=== PATIENT | female | born 1955 | race Caucasian/White ===

== ENCOUNTER 2024-05-13 15:46 | Inpatient (IN) ==
[2024-05-13] MEDS: CALCIUM GLUCONATE 1,000 MG/60 ML BAG IV STA ×2 (16:29→18:54)
--- NOTE | 2024-05-13 16:33 | Electrocardiogram Report ---
Test Reason : Blood Pressure : */* mmHG Vent. Rate : 92 BPM Atrial Rate : 92 BPM P-R Int : 120 ms QRS Dur : 120 ms QT Int : 484 ms P-R-T Axes : 57 5 150 degrees QTcB Int : 598 ms Sinus rhythm with occasional Premature ventricular complexes and Premature atrial complexes Left ventricular hypertrophy with QRS widening and repolarization abnormality Abnormal ECG No previous ECGs available Confirmed by Dat Miguel ([id number]) on 05/13/2024 4:32:56 PM Referred By: Confirmed By: Dat Miguel
[2024-05-13 16:37] LABS: iSTAT Creatinine 3.4 mg/dl (0.6-1.3); iSTAT Hemoglobin 13.3 g/dl (12.0-16.0); iSTAT Ionized Calcium 0.75 mmol/l (1.12-1.32)
[2024-05-13 16:39] LABS: Albumin Globulin Ratio 0.8 (0.9-2); BUN Creatinine Ratio 10.9 (10-20); Bilirubin,Total 0.7 mg/dl (0.2-1.0); Calcium 6.7 mg/dl (8.6-10.3); Creatinine Clr Calc Pharmacy 13.1 ml/min; Globulin 3.6 gm/dl (2.5-4.0); Magnesium 1.4 mg/dl (1.7-2.4); Potassium 3.1 mmol/L (3.5-5.1); Total Protein 6.6 gm/dl (6.0-8.3)
[2024-05-13 16:44] LABS: Basophils # (auto) 0.13 K/uL (0.00-0.20); Basophils % (auto) 0.8 %; Eosinophils # (auto) 0.02 K/uL (0.00-0.50); Eosinophils % (auto) 0.1 %; Hematocrit (blood only) 35.1 % (37.0-47.0); Hemoglobin 12.1 g/dl (12.0-16.0); Immature Granulocytes # (auto) 0.17 K/uL (0.01-0.20); Lymphocytes % (auto) 6.7 %; Mean Corpuscular Hgb Conc 34.5 g/dL (32.0-36.0); Mean Corpuscular Volume 86.9 fL (80.0-100.0); Mean Platelet Volume 11.1 fL (9.4-12.4); Monocytes # (auto) 1.13 K/uL (0.11-0.59); Monocytes % (auto) 6.9 %; Neutrophils # (auto) 13.78 K/uL (1.40-6.50); Neutrophils % (auto) 84.5 %; Platelet Count 442 K/uL (130-400); RDW Coefficient of Variation 13.8 % (11.5-14.5); RDW Standard Deviation 41.6 fL (36.4-46.3); Red Blood Count 4.04 M/uL (4.20-5.40); White Blood Count 16.33 K/ul (4.8-10.8)
[2024-05-13 16:53] LABS: INR 1.1 (0.9-1.1); Partial Thromboplastin Ratio 0.9; Partial Thromboplastin Time 25 Seconds (21-31); Prothrombin Time 11.8 Seconds (9.0-12.0)
[2024-05-13] MEDS: MAGNESIUM SULFATE / D5W 1 GM/100 ML BAG IV SCH (17:23)
--- NOTE | 2024-05-13 17:30 | CT Scan Report ---
EXAMINATION: CT of the abdomen and pelvis performed without contrast TECHNIQUE: Helical CT images from the lung bases through the symphysis pubis were obtained without contrast. Coronal and sagittal reformatted images were generated at a workstation for further assessment. Dose reduction techniques were achieved by using automatic exposure control and/or adjustment of mA and/or kV according to patient size and/or use of iterative reconstruction technique. COMPARISON: None HISTORY: Abdominal pain FINDINGS: Lower chest: No consolidation. No pleural effusion or pneumothorax. Liver: No suspicious liver lesions. Gallbladder: No gallstones. No evidence of acute cholecystitis. Spleen: Normal size. Pancreas: No suspicious pancreatic lesions. The pancreatic duct is not dilated. Adrenal glands: No adrenal nodules. Kidneys: No hydronephrosis or obstructing renal stones. Bladder / Pelvic organs: The urinary bladder appears unremarkable. Within the left pelvis, is an indeterminate, ovoid/tubular shaped collection of fluid with a thin or imperceptible wall without inflammatory change, series 2 image 59, measuring 8.2 x 3.2 cm.. Bowel: Moderate fluid-filled stomach, as well as significant distention of the descending portion of the duodenum, and several loops of jejunum. There is a transitional point seen about the anterior mid abdomen, at approximately series 2 image 48, where there is visualized significant soft tissue thickening, possibly related to scar/adhesions. Sigmoid diverticulosis without diverticulitis. The large bowel contains mild fluid and is otherwise relatively decompressed. There are decompressed distal loops of small bowel. Lymph nodes: No retroperitoneal, mesenteric, or pelvic lymphadenopathy. Peritoneum / Retroperitoneum: No free fluid or air within the abdomen. Vessels: No infrarenal aortic aneurysm. Moderate aortoiliac calcification. Bones and soft tissues: No suspicious lesion in the bones. IMPRESSION: Small bowel obstruction, with transition point at the anterior mid abdomen, where there is visualized thickened soft tissue, likely representing scar/adhesions. A fluid collection in the left pelvis, has a relatively simple appearance with possible few internal thin septations, and is indeterminate, possibly lymphangioma, or postoperative seroma, versus an ovarian cystic lesion. Consider nonemergent follow-up pelvic ultrasound. "ACT 112: Positive. There are findings on this exam that require communication between the performing entity and the patient following Patient Test Result Information Act ([place] ACT 112) guidelines." Electronically signed by Praveen Herrera 05-13-2024 5:29 PM
[2024-05-13] MEDS: PIPERACILLIN/TAZOBACTAM 4.5 GM/120 ML BAG IV ONE (17:58)
--- NOTE | 2024-05-13 18:24 | History & Physical Report ---
Date of Service May 13, 2024 Assessment & Plan (1) SBO (small bowel obstruction): Plan: 68-year-old female with a history of pancreatic cancer with metastasis to the lungs, appendix, omentum, cardiomyopathy, torsade, SBO, hypokalemia and hypomagnesemia, presenting with persistent nausea, poor oral intake and weakness times few days. Small bowel obstruction, recurrent Metastatic pancreatic cancer, mets to the lungs, appendix, omentum Status post appendectomy last February 2024 First diagnosed with metastatic pancreatic cancer at that time Had chemotherapy early April Admitted to [facility] late April for small bowel obstruction, managed conservatively CT abdomen pelvis: Small bowel obstruction, with transition point at the anterior mid abdomen, where there is visualized thickened soft tissue, likely representing scar/adhesions. A fluid collection in the left pelvis, has a relatively simple appearance with possible few internal thin septations, and is indeterminate, possibly lymphangioma, or postoperative seroma, versus an ovarian cystic lesion. Consider nonemergent follow-up pelvic ultrasound. Case discussed by ER physician with general surgeon Dr. Miller Recommend bowel rest, IV fluids, electrolyte repletion Follows with Dr. Melvin Waggoner for oncology Acute renal failure, prerenal, secondary to poor oral intake Baseline creatinine 0.4, presenting with creatinine of 3.2 CT abdomen pelvis: No renal obstruction IV NSS plus potassium ordered Hypokalemia, hypocalcemia, hypomagnesemia, hyponatremia Secondary to poor oral intake K riders x 6 IV magnesium x 2 IV calcium gluconate x 2 Repeat BMP at 8 PM and 12 midnight Needs aggressive repletion of electrolytes and close monitoring of EKG as patient had V-fib arrest/torsade last month in the setting of electrolyte abnormalities DVT prophylaxis SCDs for now as patient may need surgical intervention for SBO Full code as per patient Disposition Lives at home with family plan of care discussed with patient in detail and at length all questions answered shei s understanding, agreeable, comfortable with the plan of care History of Present Illness Chief Complaint: Nausea, weakness Primary Care Provider: Sherwin Painter MD 68-year-old female with a history of pancreatic cancer with metastasis to the lungs, appendix, omentum, cardiomyopathy, torsade, SBO, hypokalemia and hypomagnesemia, presenting with persistent nausea, poor oral intake and weakness times few days. Last February 2024, patient was diagnosed with pancreatic cancer after undergoing appendectomy for appendicitis. Pancreatic cancer has metastasized to lungs, appendix and omentum. She follows with Dr. Melvin Waggoner for oncology and has received chemotherapy in early April. Soon after, patient was admitted to [facility] for small bowel obstruction complicated by V-fib arrest/torsades in the setting of multiple electrolyte abnormalities. Patient was discharged home AGAINST MEDICAL ADVICE end of April. Since discharge, patient was having intermittent abdominal discomfort, nausea, poor oral intake and weakness. Today, patient followed up with Dr. Waggoner and was found to have multiple electrolyte abnormalities and acute renal failure on her BMP. She was referred to the ER for evaluation. At the ER, patient received with stable vital signs overall. CT abdomen and pelvis showed small bowel obstruction with transition point at the anterior mid abdomen. Creatinine elevated at 3.2, potassium 3.0, calcium 0.75, magnesium 1.4, sodium 130 Patient was ordered 1 g of calcium gluconate, 2 g of magnesium IV. On exam, patient seen resting in bed, comfortable, not in distress, awake and alert. States she feels weak, thirsty, but denies active abdominal pain or nausea, fevers or chills. No shortness of breath, chest pain, potation's, dizziness. Patient reports decreased urine output. Allergies Allergy/AdvReac Type Severity Reaction Status Date / Time No Known Allergies Allergy Unverified 05/13/24 18:13 Home Medications Medication Instructions Recorded Confirmed Type potassium chloride 10 mEq 40 meq PO TID 05/13/24 05/13/24 History tablet,extended release Past Med/Surg History Problem List (Updated 05/13/24 @ 18:24 by Olvin Alfred MD) SBO (small bowel obstruction) Social History Smoking Status: Current every day smoker Tobacco Type: Cigarettes Feels Safe at Home: Yes Review of Systems Review of Systems: all noted and negative except for above Physical Exam Physical Exam: General- oriented x 3, not in distress, speaks in sentences with no effort or accessory muscle use Head- atraumatic Eyes- PERRL, EOMI, anicteric Positive oral thrush ENT- oropharynx clear Neck- supple, no JVD, no adenopathy, no thyromegaly; carotids +2/2, no bruits appreciated Lungs- clear to auscultation bilaterally, no rales/wheezes Heart- normal rate, regular rhythm; no murmur, no gallop, no rub appreciated Abdomen- Midline surgical scar, healing well;normal bowel sounds, nondistended, soft, nontender, no masses or hepatosplenomegaly Extremities- no pretibial edema, no calf tenderness; peripheral pulses intact Neuro- alert, oriented x 3; CN 2-12 grossly intact; motor 5/5 bilaterally;sensation 100% on all extremities; no other gross focal neurologic deficits Skin- warm & dry Results & Data Results & Data Vital Signs (Past 12 Hours) Vital Signs Temp Pulse Pulse Resp BP BP Pulse Ox 05/13/24 17:31 90 20 113/56 L 91 05/13/24 16:40 84 05/13/24 16:00 36.6 C 97 H 16 110/71 94 O2 Del Method 05/13/24 17:31 Room Air 05/13/24 16:40 05/13/24 16:00 Room Air all noted and reviewed including below Code Status & VTE Plan VTE Prophylaxis Plan VTE Prophylaxis will be ordered: Yes
[2024-05-13] MEDS: SODIUM CHLORIDE 0.9% 1,000 ML IV SCH (18:54)
[2024-05-13 19:40] VITALS: RESP 18
[2024-05-13] MEDS: POTASSIUM CHLORIDE / WTR 10 MEQ/100 ML PLCT IV SCH (19:45)
--- NOTE | 2024-05-13 20:19 | Surgery Consultation ---
Date of Consultation May 13, 2024 Assessment & Plan (1) SBO (small bowel obstruction): The patient is being admitted on the hospitalist service. From surgery perspective we recommend the following: Due to the patient's small bowel obstruction would recommend implementing n.p.o. status Would recommend hydrating the patient with intravenous fluids pain close attention to electrolyte supplementationas this is being handled by the primary service I did discuss the possibility of using an NG tube with the patient which she adamantly refused. I do feel is reasonable to hold on NG tube at this time as she has not had any emesis in approximate 12 hours and she is not having abdominal pain. I did discuss with the patient that if her clinical condition worsens we may need to revisit the topic of this modality. I also discussed with the patient that due to her metastatic cancer and underlying cardiomyopathy if she would require an operation would likely need to be transferred to a tertiary center Additional recommendations will be forthcoming based on clinical course as unfolds Supervising Physician Co-Signing Physician Notes Patient discussed with [facility], labs and imaging reviewed, agree with above. Metastatic pancreatic cancer presented with recurrent small bowel obstruction. CT personally reviewed and interpreted agree with the assessment of transition point in the mid abdomen. Due to the degree of her disease, she is not a candidate for surgery at this facility. We can manage her nonoperatively, but if she were to need for surgical intervention would recommend transfer to a tertiary center. Given her degree of disease, consider palliative care consultation to help define goals of care case surgery were necessary History of Present Illness Reason for Consultation: Small bowel obstruction History of Present Illness This is a 68-year-old female who presented to the emergency department at the recommendation of her oncologist, Dr. Waggoner of [facility] oncology due to multiple electrolyte abnormalities. This patient does have a history of pancreatic cancer with metastatic disease to the lungs, appendix, and omentum. The patient notes that she has had 1 round of chemotherapy approximately 2 weeks ago but she missed the second scheduled treatment as she was hospitalized in [facility] in April of this year. She was admitted to [facility] secondary to a small bowel obstruction which was complicated by a ventricular fibrillation arrest as the patient was noted to have multiple electrolyte abnormalities. Reportedly, the patient left the hospital AGAINST MEDICAL ADVICE. She presented to the emergency department today again, at the recommendation of her oncologist due to multiple electrode abnormalities. The patient does note that she is not having any abdominal pain but she has been having nausea and vomiting prior to admission. She does report her most recent episode of emesis was approximately 12 hours ago. She said that she had a small bowel movement this morning and is passing small amounts of flatus. She has had prior abdominal surgeries in the form of a ruptured appendix (she was diagnosed with pancreatic cancer at the time of this operation) and a hysterectomy. Patient does report that during her most recent admission to [facility] for small bowel obstruction was treated successfully in a conservative manner with NG tube decompression, n.p.o. status and intravenous fluid for hydration. Since arrival to the hospital this patient has had labs and imaging which I independent reviewed. A CT scan of the abdomen pelvis showed concern for small bowel obstruction with a transition point in the anterior/mid abdomen most likely from adhesions. There is no free intraperitoneal air or free intraperitoneal fluid noted on this study. Labs included CBC white blood cell count was elevated 16.3. Her hemoglobin was normal. Hematocrit was 35.1. Platelet count was 442,000. Coagulation studies were normal. Chemistry profile showed sodium was 130 with a potassium of 3.1. BUN and creatinine were noted to be 35 and 3.2. Calcium level was 6.7. Magnesium was noted to be 1.4. There is no elevation noted of patient's LFTs. At the time of my interview the patient was resting comfortably bed she was no distress. 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 Malignant neoplasm of pancreas SBO (small bowel obstruction) Social History Smoking Status: Current every day smoker Tobacco Type: Cigarettes Cigarettes Per Day: 3; Second Hand Exposure: No; Do You Dip or Chew Tobacco: No; Tobacco Cessation Education Requested by Patient: No Hx Alcohol Use: No Hx Substance Use: No Preferred Language: Panamanian Communication Ability: Effective Teasel Setter Required: No Beliefs That Will Affect Care: None Current Living Situation: Spouse Other Information That Helps Us Care for You: No Feels Safe at Home: Yes Safety Concerns: Feels Safe At This Time Assistive Devices: None Review of Systems Review of Systems: All systems reviewed & are unremarkable except as noted in HPI & below Physical Exam Constitutional: + thin; no acute distress Eyes: + anicteric sclerae ENMT: Ears: no hearing impairment and no external ear abnormality Mouth: no oropharynx abnormality Neck: trachea midline Respiratory: normal respiratory effort; no respiratory distress and no labored breathing Cardiovascular: Rate/Rhythm: regular rate and regular rhythm Gastrointestinal (Abdomen): At the time my exam the patient's abdomen is soft without rigidity and only mild distention. There is no pain with palpation. There is no rebound tenderness or guarding. Patient had a well-healed midline incision from her previous surgeries. Musculoskeletal: No calf tenderness Skin: no jaundice Neurologic: moves all extremities Psychiatric: A+Ox3, euthymic affect Results & Data Vital Signs (Past 12 Hours) Vital Signs Temp Pulse Pulse Resp BP BP Pulse Ox 05/13/24 19:00 84 18 117/67 05/13/24 17:31 90 20 113/56 L 91 05/13/24 16:40 84 05/13/24 16:00 36.6 C 97 H 16 110/71 94 O2 Del Method 05/13/24 19:00 05/13/24 17:31 Room Air 05/13/24 16:40 05/13/24 16:00 Room Air PG Care Time/CCT Total # of Minutes Spent Total Time Spent with Patient: Total time spent is greater than 50% in coordination of care (as documented) at patient's floor/unit and/or counseling patient: Coding Level of Care Code 34266 INT INP/OBS CARE 3/75MIN Diagnoses SBO (small bowel obstruction) K56.609
[2024-05-13 20:26] LABS: Albumin Globulin Ratio 0.8 (0.9-2); Albumin Level 2.8 gm/dl (3.4-5.0); BUN Creatinine Ratio 11.8 (10-20); Bilirubin,Total 0.8 mg/dl (0.2-1.0); Calcium 7.7 mg/dl (8.6-10.3); Creatinine Clr Calc Pharmacy 13.7 ml/min; Globulin 3.4 gm/dl (2.5-4.0); Magnesium 2.7 mg/dl (1.7-2.4); Phosphorus 3.4 mg/dl (2.5-4.9); Potassium 2.6 mmol/L (3.5-5.1); Total Protein 6.2 gm/dl (6.0-8.3)
[2024-05-13] MEDS: D5NSS + 20MEQ KCL 20 MEQ/1,000 ML BAG IV SCH (20:33)
--- NOTE | 2024-05-13 22:30 | Emergency Department Note ---
History of Present Illness General Chief complaint: Dehydration Stated complaint: DEHYDRATION Time Seen by Provider: 05/13/24 16:19 History of Present Illness Provider complaint: Dehydration 68-year-old female presents emergency department from [facility] oncology for dehydration. Reportedly patient has had 1 dose of chemotherapy for pancreatic cancer and the patient has been having increasing nausea and vomiting. She reports no fevers or abdominal pain. No hematemesis coffee- ground emesis bilious vomiting melena or hematochezia. 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 Malignant neoplasm of pancreas SBO (small bowel obstruction) Social History Smoking Status: Current every day smoker Tobacco Type: Cigarettes Feels Safe at Home: Yes Physical Exam Vital Signs Vital Signs - 24 hr 05/13/24 16:00 05/13/24 16:40 05/13/24 17:31 Temperature 36.6 C Temperature Source Oral Pulse Rate 97 H 84 Pulse Rate [Apical] 90 Respiratory Rate 16 20 Respiratory Effort / Characteristics Non-Labored Spontaneous Respiratory Depth Normal Blood Pressure 110/71 Blood Pressure [Right Arm] 113/56 L Blood Pressure Mean 84 Blood Pressure Mean [Right Arm] 75 Pulse Oximetry 94 91 Oxygen Delivery Method Room Air Room Air Sepsis Recent Fever Within 48 Hours No Sepsis New/Unexplained Change in Mental Status No Sepsis Action Taken by Nursing No Action Required Physical Exam HENT: Exam performed. - Head: Normocephalic and atraumatic. EYES: Conjunctivae and EOM are normal. Right eye exhibits no discharge. Left eye exhibits no discharge. No scleral icterus. NECK: Normal range of motion. Neck supple. No JVD present. CV: Normal rate, regular rhythm, normal heart sounds and intact distal pulses. There is no peripheral edema. Palpable radial pulses bue. PULM/CHEST: Effort normal and breath sounds normal. No respiratory distress. No stridor. no wheezes. no rales. ABD: The abdomen is soft. There is no tenderness. NEURO: Motor and sensation grossly intact. SKIN: Skin is warm and dry. He is not diaphoretic. PSYCH: normal mood and affect. Behavior is normal. Judgment and thought content normal. Course Course 1619: The patient was evaluated in room B10. A complete history and physical exam was performed Cardiac monitoring: An order was placed for continuous cardiac monitoring. The monitor shows a rate of 90 with sinus rhythm interpreted by me EKG shows PVCs and peaked T waves in leads V1, V2, V3, II, III. Calcium gluconate ordered for the patient. I-STAT ordered for the patient. 1627: logistics analytics manager Tammi was able to access the patient's lab records from [facility]. External medical records were reviewed and patient blood work today which showed a creatinine of 3.3 BUN of 35. 1650: External medical records reviewed. Patient's labs from or 2024 showed a BUN of 8 and creatinine of 0.4. Pain CT of the abdomen pelvis to rule out any obstructive cause of the patient's GONZALO. 1735: Labs show white blood cell count of 16.3 magnesium 1.4. Magnesium repletion started in the emergency department. Zosyn ordered for the patient. 1805: Vital signs stable. CT of the abdomen pelvis shows small bowel obstruction. There is a fluid collection in the left pelvis has a simple appearance with possible few internal thin septations measuring 8.2 x 3.2 cm. External medical records were reviewed from the patient's admission from primary May 07 2024. At that time the patient was admitted to [facility] for small bowel obstruction. Patient had a CT scan done on 08/04/2024 which showed a small bowel obstruction and fluid collections in the abdomen pelvis with largest in the left pelvic sidewall measuring 4.3 x 3.5 x 8.1 cm. During the patient's admission to [facility] the patient went into torsades and had to be defibrillated and intubated. This was thought to be a result of the patient's electrolyte disturbance. Discussed case with on-call surgery Dr. Miller. He stated that the patient could be admitted here with bowel rest but he did not plan on operating on the patient here. Discussed this with the patient and she is in agreement. She stated last time they do not need to operate on her and she states her symptoms are already getting better is requesting food and states she had a bowel movement earlier today. Dr. Miller recommended an NG tube however the patient adamantly refused. Patient will be admitted to the [facility] team. Administered Medications Potassium Chloride (K Edilson / Wtr) 10 meq in 100 mls @ 100 mls/hr IV Q1H OLIVIA Stop: 05/14/24 00:59 Last Admin: 05/13/24 21:43 Dose: 100 mls/hr Documented By: Infusion: 05/13/24 21:35 Dose: Infused Documented By: Admin: 05/13/24 20:35 Dose: 100 mls/hr Documented By: Infusion: 05/13/24 20:35 Dose: Infused Documented By: Admin: 05/13/24 19:45 Dose: 100 mls/hr Documented By: HERNAN Potassium Chloride/Dextrose/Sod Cl (D5nss + 20meq Kcl) 20 meq in 1,000 mls @ 100 mls/hr IV .Q10H OLIVIA Stop: 05/14/24 19:44 Last Admin: 05/13/24 20:33 Dose: 100 mls/hr Documented By: HERNAN Discontinued Medications Calcium Gluconate () 1,000 mg in 60 mls @ 240 mls/hr IV NOW STA Stop: 05/13/24 16:37 Last Infusion: 05/13/24 16:54 Dose: Infused Documented By: Infusion: 05/13/24 16:45 Dose: 240 mls/hr Documented By: Infusion: 05/13/24 16:38 Dose: 0 mls/hr Documented By: Admin: 05/13/24 16:29 Dose: 240 mls/hr Documented By: ANUPAM Magnesium Sulfate/Dextrose (Magnesium Sulfate / D5w) 1 gm in 100 mls @ 100 mls/hr IV Q1H OLIVIA Stop: 05/13/24 18:59 Last Infusion: 05/13/24 19:49 Dose: Infused Documented By: Admin: 05/13/24 18:32 Dose: 100 mls/hr Documented By: Infusion: 05/13/24 18:32 Dose: Infused Documented By: Admin: 05/13/24 17:23 Dose: 100 mls/hr Documented By: ANUPAM Piperacillin Sod/Tazobactam Sod (Zosyn) 4.5 gm in 120 mls @ 240 mls/hr IV NOW ONE Stop: 05/13/24 18:04 Last Infusion: 05/13/24 18:51 Dose: Infused Documented By: Admin: 05/13/24 17:58 Dose: 240 mls/hr Documented By: ANUPAM Sodium Chloride (Nss) 1,000 mls @ 125 mls/hr IV .Q8H OLIIVA Stop: 05/14/24 18:14 Last Infusion: 05/13/24 20:20 Dose: Infused Documented By: Admin: 05/13/24 18:54 Dose: 125 mls/hr Documented By: ANUPAM Calcium Gluconate () 1,000 mg in 60 mls @ 240 mls/hr IV NOW STA Stop: 05/13/24 18:45 Last Infusion: 05/13/24 19:49 Dose: Infused Documented By: Admin: 05/13/24 18:54 Dose: 240 mls/hr Documented By: ANUPAM Medical Decision Making Laboratory Data Attestation: I reviewed the patient's lab results. 05/13/24 16:09 05/13/24 19:44 Lab Results 05/13/24 05/13/24 Range/Units 16:09 16:25 WBC 16.33 H (4.8-10.8) K/ul RBC 4.04 L (4.20-5.40) M/uL Hgb 12.1 (12.0-16.0) g/dl POC Hgb 13.3 (12.0-16.0) g/dl Hct 35.1 L (37.0-47.0) % POC Hct 39 (37-47) % MCV 86.9 (80.0-100.0) fL MCH 30.0 (25.0-34.0) pg MCHC 34.5 (32.0-36.0) g/dL RDW Std Deviation 41.6 (36.4-46.3) fL RDW Coeff of Laura 13.8 (11.5-14.5) % Plt Count 442 H (130-400) K/uL MPV 11.1 (9.4-12.4) fL Immature Gran % (Auto) 1.0 % Neut % (Auto) 84.5 % Lymph % (Auto) 6.7 % [place] % (Auto) 6.9 % Eos % (Auto) 0.1 % Baso % (Auto) 0.8 % Neut # (Auto) 13.78 H (1.40-6.50) K/uL Lymph # (Auto) 1.10 L (1.20-3.40) K/uL [place] # (Auto) 1.13 H (0.11-0.59) K/uL Eos # (Auto) 0.02 (0.00-0.50) K/uL Baso # (Auto) 0.13 (0.00-0.20) K/uL Immature Gran # (Auto) 0.17 (0.01-0.20) K/uL PT 11.8 (9.0-12.0) Seconds INR 1.1 (0.9-1.1) APTT 25 (21-31) Seconds PTT Ratio 0.9 POC Sodium 128 L (135-144) mmol/L Sodium 130 L (136-145) mmol/L POC Potassium 3.0 L (3.3-5.0) mmol/L Potassium 3.1 L (3.5-5.1) mmol/L POC Chloride 79 L (101-112) mmol/L Chloride 81 L (98-107) mmol/L Carbon Dioxide 38 H (21-32) mmol/L POC Total CO2 38 H (24-31) mmol/L Anion Gap 11 (3-11) POC Anion Gap 14.0 L (16-25) mmol/L POC BUN 31 H (7-18) mg/dl BUN 35 H (6-23) mg/dl Creatinine 3.21 H (0.6-1.2) mg/dl POC Creatinine 3.4 H (0.6-1.3) mg/dl Est Cr Clr Drug Dosing 13.1 ml/min eGFR 15.05 BUN/Creatinine Ratio 10.9 (10-20) Glucose 118 H (70-99(Fasting)) mg/dl POC Glucose (other) 118 H (70-99) mg/dl Calcium 6.7 L (8.6-10.3) mg/dl POC Ioniz Calcium Beau 0.75 L* (1.12-1.32) mmol/l Magnesium 1.4 L (1.7-2.4) mg/dl Total Bilirubin 0.7 (0.2-1.0) mg/dl AST 29 (13-39) U/L ALT 36 (7-52) U/L Alkaline Phosphatase 167 H (34-104) U/L Total Protein 6.6 (6.0-8.3) gm/dl Albumin 3.0 L (3.4-5.0) gm/dl Globulin 3.6 (2.5-4.0) gm/dl Albumin/Globulin Ratio 0.8 L (0.9-2) Imaging Data Radiologist's Impression: Abdomen/Pelvis CT 05/13/24 16:51 EXAMINATION: CT of the abdomen and pelvis performed without contrast TECHNIQUE: Helical CT images from the lung bases through the symphysis pubis were obtained without contrast. Coronal and sagittal reformatted images were generated at a workstation for further assessment. Dose reduction techniques were achieved by using automatic exposure control and/or adjustment of mA and/or kV according to patient size and/or use of iterative reconstruction technique. COMPARISON: None HISTORY: Abdominal pain FINDINGS: Lower chest: No consolidation. No pleural effusion or pneumothorax. Liver: No suspicious liver lesions. Gallbladder: No gallstones. No evidence of acute cholecystitis. Spleen: Normal size. Pancreas: No suspicious pancreatic lesions. The pancreatic duct is not dilated. Adrenal glands: No adrenal nodules. Kidneys: No hydronephrosis or obstructing renal stones. Bladder / Pelvic organs: The urinary bladder appears unremarkable. Within the left pelvis, is an indeterminate, ovoid/tubular shaped collection of fluid with a thin or imperceptible wall without inflammatory change, series 2 image 59, measuring 8.2 x 3.2 cm.. Bowel: Moderate fluid-filled stomach, as well as significant distention of the descending portion of the duodenum, and several loops of jejunum. There is a transitional point seen about the anterior mid abdomen, at approximately series 2 image 48, where there is visualized significant soft tissue thickening, possibly related to scar/adhesions. Sigmoid diverticulosis without diverticulitis. The large bowel contains mild fluid and is otherwise relatively decompressed. There are decompressed distal loops of small bowel. Lymph nodes: No retroperitoneal, mesenteric, or pelvic lymphadenopathy. Peritoneum / Retroperitoneum: No free fluid or air within the abdomen. Vessels: No infrarenal aortic aneurysm. Moderate aortoiliac calcification. Bones and soft tissues: No suspicious lesion in the bones. IMPRESSION: Small bowel obstruction, with transition point at the anterior mid abdomen, where there is visualized thickened soft tissue, likely representing scar/adhesions. A fluid collection in the left pelvis, has a relatively simple appearance with possible few internal thin septations, and is indeterminate, possibly lymphangioma, or postoperative seroma, versus an ovarian cystic lesion. Consider nonemergent follow-up pelvic ultrasound. "ACT 112: Positive. There are findings on this exam that require communication between the performing entity and the patient following Patient Test Result Information Act ([place] ACT 112) guidelines." Electronically signed by Praveen Herrera 05-13-2024 5:29 PM ECG Data Attestation: I personally reviewed and interpreted this ECG as follows: Rate (beats per minute): 92 Rhythm: + sinus with SA ECG Intervals/blocks: + Normal QRS, + Prolonged QT and + Normal KS Additional Comments: Peaked T waves in leads V1, V2, V3, II, III. [facility] Narrative 1619: The patient was evaluated in room B10. A complete history and physical exam was performed Cardiac monitoring: An order was placed for continuous cardiac monitoring. The monitor shows a rate of 90 with sinus rhythm interpreted by me EKG shows PVCs and peaked T waves in leads V1, V2, V3, II, III. Calcium gluconate ordered for the patient. I-STAT ordered for the patient. 1627: logistics analytics manager Tammi was able to access the patient's lab records from [facility]. External medical records were reviewed and patient blood work today which showed a creatinine of 3.3 BUN of 35. 1650: External medical records reviewed. Patient's labs from or 2024 showed a BUN of 8 and creatinine of 0.4. Pain CT of the abdomen pelvis to rule out any obstructive cause of the patient's GONZALO. 1735: Labs show white blood cell count of 16.3 magnesium 1.4. Magnesium repletion started in the emergency department. Zosyn ordered for the patient. 180: Vital signs stable. CT of the abdomen pelvis shows small bowel obstruction. There is a fluid collection in the left pelvis has a simple appearance with possible few internal thin septations measuring 8.2 x 3.2 cm. External medical records were reviewed from the patient's admission from primary May 07 2024. At that time the patient was admitted to [facility] for small bowel obstruction. Patient had a CT scan done on 08/04/2024 which showed a small bowel obstruction and fluid collections in the abdomen pelvis with largest in the left pelvic sidewall measuring 4.3 x 3.5 x 8.1 cm. During the patient's admission to [facility] the patient went into torsades and had to be defibrillated and intubated. This was thought to be a result of the patient's electrolyte disturbance. Discussed case with on-call surgery Dr. Miller. He stated that the patient could be admitted here with bowel rest but he did not plan on operating on the patient here. Discussed this with the patient and she is in agreement. She stated last time they do not need to operate on her and she states her symptoms are already getting better is requesting food and states she had a bowel movement earlier today. Dr. Miller recommended an NG tube however the patient adamantly refused. Patient will be admitted to the [facility] team. Impression & Plan SBO (small bowel obstruction), Hypomagnesemia, Hypocalcemia Discharge Plan Visit Data Chief Complaint: Dehydration Stated Complaint: DEHYDRATION ED Provider: Martin Morrow Discharge Problem: SBO (small bowel obstruction), Hypomagnesemia, Hypocalcemia Patient Disposition: Admitted As Inpatient Discharge Instructions Interventions: ED Discharge Assessment Last Done: 05/13/24 20:47
[2024-05-13] MEDS: POTASSIUM CHLORIDE 20 MEQ/15 ML UDC PO STA (23:35)
[2024-05-14 01:21] LABS: Albumin Globulin Ratio 0.8 (0.9-2); Albumin Level 2.7 gm/dl (3.4-5.0); BUN Creatinine Ratio 11.9 (10-20); Bilirubin,Total 0.8 mg/dl (0.2-1.0); Creatinine Clr Calc Pharmacy 15.9 ml/min; Globulin 3.2 gm/dl (2.5-4.0); Magnesium 2.2 mg/dl (1.7-2.4); Potassium 3.6 mmol/L (3.5-5.1); Total Protein 5.9 gm/dl (6.0-8.3)
[2024-05-14] MEDS ORDERED: HEPARIN 100 UNIT/ML 5ML FLUSH FLUSH PRN (04:38)
[2024-05-14] MEDS: PROMETHAZINE 6.25 MG/50.25 ML BAG IV PRN (06:17)
--- NOTE | 2024-05-14 10:25 | Nephrology Consultation ---
Date of Consultation May 14, 2024 Assessment & Plan (1) GONZALO (acute kidney injury): Baseline creat 0.4 so current creat of 3.2 is very high janessa considering her Cachexia and Poor PO intake. Creat did come down to 2.7 overnight. Making urine Continue Current IVF but lower the rate to 80 ml/hr--she is NPO NO obstruction Noted in the CT abdomen. Does not appear related with Chemo and more pre renal type. Daily renal panel--no guarantee creat will go down to baselien though (2) SBO (small bowel obstruction): Currently NPO. Has pancreatic CA with mets. (3) Hypomagnesemia: In the setting Of GONZALO with very poor po intake and SBO. has h/o torsades with LowMag so will try to keep it normal. was low 1.4 but after Iv mag is high and then normal. Will follow. needs at least daily mag. (4) Hypocalcemia: Still low. Will give another 2 gm iv Calcium gluconate today. Can be hard to get it corrected. Check twice daily. Plan Time spent 62 Mins History of Present Illness Reason for Consultation: GONZALO, Low K and Low na Low Ca and low mag Attending Physician: Memo Humphreys MD History of Present Illness 68/F with pancreatic cancer with metastasis to the lungs, appendix, omentum, cardiomyopathy, torsade, SBO, hypokalemia and hypomagnesemia was sent over to Hospital By her Oncologist Dr Waggoner because of abnormal labs. She was having persistent nausea, poor oral intake and weakness times few days. She had GONZALO, Low Na, Low Mag and Low Ca ++---for which I am consulted. February 2024, patient was diagnosed with pancreatic cancer after undergoing appendectomy for appendicitis. Pancreatic cancer has metastasized to lungs, appendix and omentum. She follows with Dr. Melvin Waggoner for oncology and has received chemotherapy in early April. Soon after, patient was admitted to [facility] for small bowel obstruction complicated by V-fib arrest/torsades in the setting of multiple electrolyte abnormalities. Patient LEFT AGAINST MEDICAL ADVICE end of April. Since discharge, patient was having intermittent abdominal discomfort, nausea, poor oral intake and weakness. CT abdomen and pelvis showed small bowel obstruction with transition point at the anterior mid abdomen. Creatinine elevated at 3.2, potassium 3.0, calcium 0.75, magnesium 1.4, sodium 130 Overnight has received IV calcium, Iv mag and IVF--All lytes are better and GONZALO is improving. ROS--Detailed IN HPI. 12 Systems otherwise negative Physical Exam Physical Exam: General- oriented x 3, not in distress, normal Speech. Ill appearing MM Moist. Neck- supple, no JVD Lungs- clear to auscultation bilaterally, no rales/wheezes Heart- normal rate, regular rhythm; no murmur No edema. 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 Malignant neoplasm of pancreas SBO (small bowel obstruction) Social History Smoking Status: Current every day smoker Tobacco Type: Cigarettes Cigarettes Per Day: 3; Second Hand Exposure: No; Do You Dip or Chew Tobacco: No; Tobacco Cessation Education Requested by Patient: No Hx Alcohol Use: No Hx Substance Use: No Preferred Language: Thai Communication Ability: Effective Fisher Diver Net Required: No Beliefs That Will Affect Care: None Current Living Situation: Spouse Other Information That Helps Us Care for You: No Feels Safe at Home: Yes Safety Concerns: Feels Safe At This Time Assistive Devices: None Results & Data Vital Signs (Past 12 Hours) Vital Signs Temp Pulse Pulse Pulse Resp BP Pulse Ox 05/14/24 08:12 05/14/24 07:42 36.4 C L 82 18 113/58 L 90 05/14/24 07:39 86 05/14/24 03:15 36.6 C 84 18 113/59 L 94 05/13/24 23:03 87 05/13/24 22:44 36.7 C 81 18 99/63 L 96 O2 Del Method 05/14/24 08:12 Room Air 05/14/24 07:42 Room Air 05/14/24 07:39 05/14/24 03:15 Room Air 05/13/24 23:03 05/13/24 22:44 Room Air
--- NOTE | 2024-05-14 10:28 | Surgery Progress Note ---
Date of Service May 14, 2024 Assessment & Plan (1) SBO (small bowel obstruction): Plan: pt with Metastatic pancreatic cancer with recurrent small bowel obstruction episode of emesis this AM, pt defers NGT placement VSS +flatus , denies abd pain , abd distended, non TTP encouraged ambulation continue conservative treatment at this time /npo General surg will follow Dr Eldridge covering weekend Admission and Anticipated Discharge Date Admission Date: May 13, 2024 Supervising Physician Co-Signing Physician Notes Patient seen and examined, labs reviewed, agree with above. Admitted overnight with small bowel obstruction secondary to metastatic pancreatic carcinoma. She had a similar episode few weeks ago and was in [facility]. She has passed some flatus but is still vomiting. She is refused an NG tube. On exam she is afebrile stable vitals. Cachectic, ill-appearing. Abdomen is distended, soft, nontender. Midline incision. CT scan from overnight personally viewed and interpreted and agree with the assessment of the small bowel obstruction. Patient did not tolerate chemotherapy. We discussed that if she needed to surgery she would need be transferred to a tertiary center, however she does not desire any type of surgical intervention at this time. If this is secondary to adhesions that may resolve without intervention, if this is secondary to metastatic carcinoma, this may continue to progress or recur quite frequently. She may benefit from a palliative PEG tube from GI. I think she would benefit from discussion with palliative medicine to define her goals of care. Continue n.p.o. for now, if recurrent vomiting may need NG tube. Dr. Eldridge covering over the weekend Subjective pt resting in bed states had sm amt emesis this am +flatus no BM denies abd pain Review of Systems Constitutional: no fever and no chills Respiratory: no dyspnea Cardiovascular: no chest pain Gastrointestinal: + nausea and + vomiting; no abdominal pa in Physical Exam Constitutional: cooperative; no acute distress Respiratory: normal respiratory effort and able to speak in complete sentences; no respiratory distress Cardiovascular: Rate/Rhythm: regular rate Gastrointestinal (Abdomen): Inspection/Auscultation: + abdomen distended Percussion/Palpation: abdomen soft Psychiatric: Orientation: alert and oriented x 3 Results & Data Vital Signs (Past 12 Hours) Vital Signs Temp Pulse Pulse Pulse Resp BP Pulse Ox 05/14/24 08:12 05/14/24 07:42 97.5 F L 82 18 113/58 L 90 05/14/24 07:39 86 05/14/24 03:15 97.9 F 84 18 113/59 L 94 05/13/24 23:03 87 05/13/24 22:44 98.1 F 81 18 99/63 L 96 O2 Del Method 05/14/24 08:12 Room Air 05/14/24 07:42 Room Air 05/14/24 07:39 05/14/24 03:15 Room Air 05/13/24 23:03 05/13/24 22:44 Room Air PG Care Time/CCT Total # of Minutes Spent Total Time Spent with Patient: Total time spent is greater than 50% in coordination of care (as documented) at patient's floor/unit and/or counseling patient: Coding Level of Care Code 22802 SUB INP/OBS CARE 04/03MIN Diagnoses SBO (small bowel obstruction) K56.609
[2024-05-14 11:08] VITALS: BP 111/62; PULSE 102; TEMP 98.6
[2024-05-14] MEDS: CALCIUM GLUCONATE 1,000 MG/60 ML BAG IV SCH (11:37)
[2024-05-14 11:38] LABS: Hematocrit (blood only) 34.7 % (37.0-47.0); Hemoglobin 11.9 g/dl (12.0-16.0); Mean Corpuscular Hemoglobin 30.1 pg (25.0-34.0); Mean Corpuscular Hgb Conc 34.3 g/dL (32.0-36.0); Mean Corpuscular Volume 87.6 fL (80.0-100.0); Platelet Count 391 K/uL (130-400); RDW Coefficient of Variation 13.9 % (11.5-14.5); RDW Standard Deviation 43.1 fL (36.4-46.3); Red Blood Count 3.96 M/uL (4.20-5.40); White Blood Count 16.64 K/ul (4.8-10.8)
[2024-05-14 11:48] VITALS: O2SAT 98
[2024-05-14 11:51] LABS: Albumin Globulin Ratio 0.8 (0.9-2); Albumin Level 2.8 gm/dl (3.4-5.0); Bilirubin,Total 0.9 mg/dl (0.2-1.0); Calcium 7.4 mg/dl (8.6-10.3); Creatinine Clr Calc Pharmacy 22.8 ml/min; Globulin 3.5 gm/dl (2.5-4.0); Magnesium 1.9 mg/dl (1.7-2.4); Potassium 3.4 mmol/L (3.5-5.1); Total Protein 6.3 gm/dl (6.0-8.3)
[2024-05-14 11:59] LABS: Basophils # (auto) 0.09 K/uL (0.00-0.20); Basophils % (auto) 0.5 %; Eosinophils # (auto) 0.03 K/uL (0.00-0.50); Eosinophils % (auto) 0.2 %; Immature Granulocytes # (auto) 0.17 K/uL (0.01-0.20); Lymphocytes # (auto) 0.44 K/uL (1.20-3.40); Lymphocytes % (auto) 2.6 %; Monocytes # (auto) 0.56 K/uL (0.11-0.59); Monocytes % (auto) 3.4 %; Neutrophils # (auto) 15.35 K/uL (1.40-6.50); Neutrophils % (auto) 92.3 %
[2024-05-14] MEDS: PALONOSETRON 0.25 MG in SYRINGE 0 ML IV SCH (13:20)
[2024-05-14] MEDS ORDERED: HALOPERIDOL ORAL SOLN 2 MG/ML PO PRN (13:27)
[2024-05-14] MEDS ORDERED: HYDROmorphone INJ 0.5 MG/0.5 ML SYR IV PRN (13:27)
[2024-05-14] MEDS ORDERED: GLYCOPYRROLATE 0.2 MG/ML VIAL IV PRN ×2 (13:27→15:15)
[2024-05-14] MEDS ORDERED: LORazepam 2 MG/1 ML VIAL IV PRN ×2 (13:27→15:15)
--- OUTSIDE RECORDS SUMMARY | 2024-05-14 13:43 | External Medical Summary | Summary of Care ---
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 1.0 mg/dL EGFR 52 (L) >=60 mL/min SODIUM 137 135 - 146 mmol/L POTASSIUM 3.2 (L) 3.5 - 5.1 mmol/L CHLORIDE 102 98 - 107 mmol/L CO2 20 (L) 22 - 32 mmol/L ANION GAP 15 7 - 15 mmol/L GLUCOSE 102 70 - 120 mg/dL CALCIUM 8.0 (L) 8.4 - 10.2 mg/dL HEMOGLOBIN A1C Result Value Ref Range Hemoglobin A1C 5.5 4.0 - 5.6 % Estimated Average Glucose 111 <126 mg/dL BASIC METABOLIC PANEL Result Value Ref Range BUN 13 6 - 20 mg/dL CREATININE 1.0 0.5 - 1.0 mg/dL EGFR 62 >=60 mL/min SODIUM 139 135 - 146 mmol/L POTASSIUM 3.7 3.5 - 5.1 mmol/L CHLORIDE 105 98 - 107 mmol/L CO2 22 22 - 32 mmol/L ANION GAP 12 7 - 15 mmol/L GLUCOSE 104 70 - 120 mg/dL CALCIUM 8.0 (L) 8.4 - 10.2 mg/dL CULTURE, URINE, QUANTITATIVE Specimen: Urine, Clean Catch Result Value Ref Range Culture Growth 10,000 to 100,000 colonies/mL Enterococcus species (A) Susceptibility Enterococcus species - MICROBROTH DILUTIONS Ampicillin Susceptible Nitrofurantoin Susceptible Tetracycline Resistant Vancomycin Susceptible BASIC METABOLIC PANEL Result Value Ref Range BUN 9 6 - 20 mg/dL CREATININE 0.7 0.5 - 1.0 mg/dL EGFR >90 >=60 mL/min SODIUM 144 135 - 146 mmol/L POTASSIUM 3.0 (L) 3.5 - 5.1 mmol/L CHLORIDE 107 98 - 107 mmol/L CO2 21 (L) 22 - 32 mmol/L ANION GAP 16 (H) 7 - 15 mmol/L GLUCOSE 104 70 - 120 mg/dL CALCIUM 8.2 (L) 8.4 - 10.2 mg/dL CBC Result Value Ref Range WBC 5.42 4.00 - 10.80 K/uL RBC 3.31 3.85 - 5.15 M/uL HGB 10.4 (L) 12.0 - 15.3 g/dL HCT 30.9 (L) 36.0 - 45.2 % MCV 93.4 81.5 - 97.5 fL MCH 31.4 27.0 - 34.0 pg MCHC 33.7 32.0 - 36.0 g/dL RDW 14.1 11.5 - 15.5 % PLT 249 140 - 400 K/uL MPV 10.6 6.6 - 11.1 fL nRBCs 0 <=0 /100 WBCs MAGNESIUM Result Value Ref Range Magnesium 1.7 1.5 - 2.6 mg/dL PHOSPHORUS Result Value Ref Range Phosphorus 3.0 2.5 - 4.8 mg/dL BNP, NT-PRO Result Value Ref Range BNP, NT-Pro 4,357 (H) <300 pg/mL PROCALCITONIN Result Value Ref Range Procalcitonin 0.52 (H) <0.10 ng/mL HEPATIC FUNCTION PANEL Result Value Ref Range Albumin 2.6 (L) 3.8 - 5.0 g/dL AST 30 10 - 35 U/L Alkaline Phosphatase 81 35 - 130 U/L ALT 14 10 - 35 U/L Bilirubin, Total 0.4 <=1.2 mg/dL Bilirubin, Direct 0.2 0.0 - 0.3 mg/dL Protein 6.2 6.0 - 8.3 g/dL HEMOGLOBIN AND HEMATOCRIT PANEL Result Value Ref Range HGB 10.9 (L) 12.0 - 15.3 g/dL HCT 33.4 (L) 36.0 - 45.2 % TYPE AND SCREEN Result Value Ref Range ABO O Rh Negative Red Blood Cell Antibody Screen Negative Specimen Expiration Date 05/04/2024 23:59 PT INR Result Value Ref Range Prothrombin Time 14.5 11.6 - 15.2 seconds INR 1.1 0.8 - 1.2 ABO/RH Result Value Ref Range ABO O Rh Negative BASIC METABOLIC PANEL Result Value Ref Range BUN 12 6 - 20 mg/dL CREATININE 0.6 0.5 - 1.0 mg/dL EGFR >90 >=60 mL/min SODIUM 144 135 - 146 mmol/L POTASSIUM 3.9 3.5 - 5.1 mmol/L CHLORIDE 105 98 - 107 mmol/L CO2 20 (L) 22 - 32 mmol/L ANION GAP 19 (H) 7 - 15 mmol/L GLUCOSE 139 (H) 70 - 120 mg/dL CALCIUM 9.0 8.4 - 10.2 mg/dL MAGNESIUM Result Value Ref Range Magnesium 1.6 1.5 - 2.6 mg/dL CALCIUM, IONIZED Result Value Ref Range Calcium, Ionized 1.21 1.13 - 1.32 mmol/L PHOSPHORUS Result Value Ref Range Phosphorus 3.1 2.5 - 4.8 mg/dL PT INR Result Value Ref Range Prothrombin Time 14.4 11.6 - 15.2 seconds INR 1.1 0.8 - 1.2 HEPATIC FUNCTION PANEL Result Value Ref Range Albumin 3.0 (L) 3.8 - 5.0 g/dL AST 20 10 - 35 U/L Alkaline Phosphatase 91 35 - 130 U/L ALT 15 10 - 35 U/L Bilirubin, Total 0.6 <=1.2 mg/dL Bilirubin, Direct 0.2 0.0 - 0.3 mg/dL Protein 7.0 6.0 - 8.3 g/dL CBC Result Value Ref Range WBC 5.44 4.00 - 10.80 K/uL RBC 3.89 3.85 - 5.15 M/uL HGB 12.0 12.0 - 15.3 g/dL HCT 36.4 36.0 - 45.2 % MCV 93.6 81.5 - 97.5 fL MCH 30.8 27.0 - 34.0 pg MCHC 33.0 32.0 - 36.0 g/dL RDW 14.4 11.5 - 15.5 % PLT 253 140 - 400 K/uL MPV 10.7 6.6 - 11.1 fL nRBCs 0 <=0 /100 WBCs DIFFERENTIAL, TECHNOLOGIST REVIEW Result Value Ref Range WBC 5.44 4.00 - 10.80 K/uL Neutrophils % 94.0 (H) 40.0 - 75.0 % Lymphocytes % 6.0 (L) 18.0 - 42.0 % Absolute Neutrophils 5.11 1.80 - 7.70 K/uL Absolute Lymphocytes 0.33 (L) 1.00 - 4.80 K/uL BASIC METABOLIC PANEL Result Value Ref Range BUN 13 6 - 20 mg/dL CREATININE 0.5 0.5 - 1.0 mg/dL EGFR >90 >=60 mL/min SODIUM 144 135 - 146 mmol/L POTASSIUM 4.4 3.5 - 5.1 mmol/L CHLORIDE 109 (H) 98 - 107 mmol/L CO2 22 22 - 32 mmol/L ANION GAP 13 7 - 15 mmol/L GLUCOSE 143 (H) 70 - 120 mg/dL CALCIUM 8.5 8.4 - 10.2 mg/dL MAGNESIUM Result Value Ref Range Magnesium 1.5 1.5 - 2.6 mg/dL LACTATE, WHOLE BLOOD WITH REFLEX IF ABNORMAL Result Value Ref Range Lactate 1.0 0.4 - 2.0 mmol/L COMPREHENSIVE METABOLIC PANEL Result Value Ref Range BUN 15 6 - 20 mg/dL CREATININE 0.5 0.5 - 1.0 mg/dL EGFR >90 >=60 mL/min SODIUM 138 135 - 146 mmol/L POTASSIUM 3.9 3.5 - 5.1 mmol/L CHLORIDE 104 98 - 107 mmol/L CO2 24 22 - 32 mmol/L ANION GAP 10 7 - 15 mmol/L GLUCOSE 166 (H) 70 - 120 mg/dL Albumin 2.7 (L) 3.8 - 5.0 g/dL AST 19 10 - 35 U/L Alkaline Phosphatase 74 35 - 130 U/L Bilirubin, Total 0.3 <=1.2 mg/dL CALCIUM 8.0 (L) 8.4 - 10.2 mg/dL Protein 6.2 6.0 - 8.3 g/dL ALT 13 10 - 35 U/L PT INR Result Value Ref Range Prothrombin Time 13.8 11.6 - 15.2 seconds INR 1.0 0.8 - 1.2 CBC Result Value Ref Range WBC 4.61 4.00 - 10.80 K/uL RBC 3.54 3.85 - 5.15 M/uL HGB 11.0 (L) 12.0 - 15.3 g/dL HCT 32.8 (L) 36.0 - 45.2 % MCV 92.7 81.5 - 97.5 fL MCH 31.1 27.0 - 34.0 pg MCHC 33.5 32.0 - 36.0 g/dL RDW 14.2 11.5 - 15.5 % PLT 189 140 - 400 K/uL MPV 10.7 6.6 - 11.1 fL nRBCs 0 <=0 /100 WBCs DIFFERENTIAL, AUTOMATED Result Value Ref Range WBC 4.61 4.00 - 10.80 K/uL Neutrophils % 85.7 (H) 40.0 - 75.0 % Lymphocytes % 10.2 (L) 18.0 - 42.0 % Monocytes % 2.4 1.0 - 11.0 % Eosinophils % 0.0 0.0 - 6.0 % Basophils % 0.4 0.0 - 2.0 % Immature Granulocytes % 1.3 0.0 - 2.0 % Absolute Neutrophils 3.95 1.80 - 7.70 K/uL Absolute Lymphocytes 0.47 (L) 1.00 - 4.80 K/ul Absolute Monocytes 0.11 0.00 - 1.10 K/uL Absolute Eosinophils 0.00 0.00 - 0.70 K/uL Absolute Basophils 0.02 0.00 - 0.20 K/uL Absolute Immature Granulocytes 0.06 0.00 - 0.20 K/uL BILIRUBIN, DIRECT Result Value Ref Range Bilirubin, Direct 0.2 0.0 - 0.3 mg/dL TROPONIN T, HIGH SENSITIVITY Result Value Ref Range Troponin T, High Sensitivity 15 (H) <=14 ng/L BASIC METABOLIC PANEL Result Value Ref Range BUN 18 6 - 20 mg/dL CREATININE 0.5 0.5 - 1.0 mg/dL EGFR >90 >=60 mL/min SODIUM 141 135 - 146 mmol/L POTASSIUM 3.4 (L) 3.5 - 5.1 mmol/L CHLORIDE 106 98 - 107 mmol/L CO2 23 22 - 32 mmol/L ANION GAP 12 7 - 15 mmol/L GLUCOSE 202 (H) 70 - 120 mg/dL CALCIUM 7.9 (L) 8.4 - 10.2 mg/dL CALCIUM, IONIZED Result Value Ref Range Calcium, Ionized 1.13 1.13 - 1.32 mmol/L MAGNESIUM Result Value Ref Range Magnesium 1.4 (L) 1.5 - 2.6 mg/dL PHOSPHORUS Result Value Ref Range Phosphorus 3.3 2.5 - 4.8 mg/dL BASIC METABOLIC PANEL Result Value Ref Range BUN 16 6 - 20 mg/dL CREATININE 0.4 (L) 0.5 - 1.0 mg/dL EGFR >90 >=60 mL/min SODIUM 137 135 - 146 mmol/L POTASSIUM 3.7 3.5 - 5.1 mmol/L CHLORIDE 103 98 - 107 mmol/L CO2 23 22 - 32 mmol/L ANION GAP 11 7 - 15 mmol/L GLUCOSE 130 (H) 70 - 120 mg/dL CALCIUM 7.9 (L) 8.4 - 10.2 mg/dL MAGNESIUM Result Value Ref Range Magnesium 1.7 1.5 - 2.6 mg/dL CALCIUM, IONIZED Result Value Ref Range Calcium, Ionized 1.11 (L) 1.13 - 1.32 mmol/L CBC Result Value Ref Range WBC 4.78 4.00 - 10.80 K/uL RBC 3.69 3.85 - 5.15 M/uL HGB 11.4 (L) 12.0 - 15.3 g/dL HCT 33.8 (L) 36.0 - 45.2 % MCV 91.6 81.5 - 97.5 fL MCH 30.9 27.0 - 34.0 pg MCHC 33.7 32.0 - 36.0 g/dL RDW 13.8 11.5 - 15.5 % PLT 148 140 - 400 K/uL MPV 11.1 6.6 - 11.1 fL nRBCs 0 <=0 /100 WBCs BASIC METABOLIC PANEL Result Value Ref Range BUN 13 6 - 20 mg/dL CREATININE 0.5 0.5 - 1.0 mg/dL EGFR >90 >=60 mL/min SODIUM 134 (L) 135 - 146 mmol/L POTASSIUM 4.2 3.5 - 5.1 mmol/L CHLORIDE 100 98 - 107 mmol/L CO2 23 22 - 32 mmol/L ANION GAP 11 7 - 15 mmol/L GLUCOSE 123 (H) 70 - 120 mg/dL CALCIUM 7.9 (L) 8.4 - 10.2 mg/dL MAGNESIUM Result Value Ref Range Magnesium 1.7 1.5 - 2.6 mg/dL CALCIUM, IONIZED Result Value Ref Range Calcium, Ionized 1.11 (L) 1.13 - 1.32 mmol/L PHOSPHORUS Result Value Ref Range Phosphorus 2.9 2.5 - 4.8 mg/dL BASIC METABOLIC PANEL Result Value Ref Range BUN 11 6 - 20 mg/dL CREATININE 0.5 0.5 - 1.0 mg/dL EGFR >90 >=60 mL/min SODIUM 136 135 - 146 mmol/L POTASSIUM 4.0 3.5 - 5.1 mmol/L CHLORIDE 101 98 - 107 mmol/L CO2 19 (L) 22 - 32 mmol/L ANION GAP 16 (H) 7 - 15 mmol/L GLUCOSE 110 70 - 120 mg/dL CALCIUM 8.1 (L) 8.4 - 10.2 mg/dL *Note: Due to a large number of results and/or encounters for the requested time period, some results have not been displayed. A complete set of results can be found in Results Review. Labs reviewed with Dr. 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 -normal CEA and CA 19-[address] Waggoner showed patient recent PET scan. Due to poor nutrition, labs and current performance status--stop all chemo Continue to see palliative care. Hospice and GOALS reviewed. Pt declined. Due to lab, pt will need to be admitted to [facility] 1 L NS with 20 meq potassium today Hospital notified of upcoming admission BENNIE Dwyer documented in this encounter Nursing Notes * Mela Najera, MARGOT ASSIST - 05/13/2024 10:19 AM EST Patient identifed by name and birthdate Do you have any concerns about pain management for today's visit? Yes. Patient instructed to discuss pain concerns with provider during the visit today Living Will or Advance Directive for Health Care as noted on the problem list. [facility] is a way you can talk to your provider on line through e-mail. Would you like to sign up? I can activate it for you? NO Filed Vitals: 05/13/24 1016 BP: 95/61 Pulse: 76 Temp: 36.3 C (97.4 F) TempSrc: Tympanic SpO2: 92% Weight: 44.2 kg (97 lb 6.4 oz) Patient was instructed to not get up on the exam table/exam chair until directed and assisted by their provider; patient is to remain seated in the chair/ wheelchair/ exam table/ exam chair for fall prevention and safety reasons. Patient is aware to have assistance to step down off exam table/exam chair with personnel. Patient voiced full comprehension of instructions. documented in this encounter Plan of Treatment Upcoming Encounters Date Type Department Care Team (Late st Contact Info) Description 05/14/2024 9:00 AM EST Office Visit [facility] [address] [place] [address] Sherwin Painter MD [address] [place] [address] 05/17/2024 9:00 AM EDT Laboratory [facility] [place] Trudy Bundy [address] [place] [phone] Trudy, Lab [address] [place] [address] [place] [address] 05/18/2024 11:30 AM EDT Office Visit Hematology/Oncology [facility] [address] [place] [address] Feli Norris CRNP [address] [facility] [place] [address] 05/18/2024 12:00 PM EDT Hem/Onc Treatment Hematology/Oncology Treatment, [place] [address] [address] Diamond, Chair 2 Hem Onc [address] [place] [address] 05/27/2024 8:30 AM EDT Office Visit Hematology/Oncology [facility] [address] [place] [phone] L[facility]to [facility]is [facility] [address] [facility] [id number] Health Maintenance Due Date Last Done Comments DXA Scan 1955 Zoster Vaccines (1 of 2) 1973 Adult Wellness Visit 2020 COVID-19 Vaccine (3 - Moderna risk series) 11/10/2020 10/13/2020, 09/15/2020 Influenza Vaccine (FLU shot) (#1) 2023 Depression Screening 03/02/2025 03/02/2024 Pap Smear Discontinued 08/23/2011 (Cour se Completed) Albumin/Creatinine Ratio Discontinued 08/18/2023 Meningitis B Vaccine (Bexsero/Trumemba) Aged Out No longer eligible b ased on patient's age to complete this topic documented as of this encounter Medical Devices Implanted Type Area Museum Specialist Device Identifier Shelf Expiration Date Model / Serial / Lot Power Port 8fr Sngl Lumen Plas - [id number] Implanted:Qty : 1 on 04/21/2024 by Tay Cagle MD at [facility] Right: Chest CR BARD : PERIPHERAL VASCULAR [id number] 06/07/2025 [id number] / / [id number] documented as of this encounter Results * (ABNORMAL) COMPREHENSIVE METABOLIC PANEL (05/13/2024 11:34 AM EST) BUN 35(H) 6 - 20 mg/dL 05/13/2024 12:37 PM [facility]-02 Comment:Results rechecked. CREATININE 3.3(H) 0.5 - 1.0 mg/dL 05/13/2024 12:37 PM [facility] 56-02 Comment:Results rechecked. EGFR 15(L) >=60 mL/min 05/13/2024 12:37 PM [facility] 56-02 Comment:eGFR is calculated b ased on the CKD-EPI 2020 equation. SODIUM 128(L) 135 - 146 mmol/L 05/13/2024 12:37 PM [facility] 56-02 Comment:Results rechecked. POTASSIUM 3.0(L) 3.5 - 5.1 mmol/L 05/13/2024 12:37 PM [facility] 56- CHLORIDE 74(L) 98 - 107 mmol/L 05/13/2024 12:[address] CO2 39(H) 22 - 32 mmol/L 05/13/2024 12:[address] ANION GAP 15 7 - 15 mmol/L 05/13/2024 12:[address] GLUCOSE 132(H) 70 - 120 mg/dL 05/13/2024 12:[address] Albumin 3.4(L) 3.8 - 5.0 g/dL 05/13/2024 12:[address] AST 39(H) 10 - 35 U/L 05/13/2024 12:[address] Alkaline Phosphatase 222(H) 35 - 130 U/L 05/13/2024 12:[address] Bilirubin, Total 0.7 <=1.2 mg/dL 05/13/2024 12:[address] CALCIUM 7.6(L) 8.4 - 10.2 mg/dL 05/13/2024 12:[address] Protein 7.4 6.0 - 8.3 g/dL 05/13/2024 12:[address] ALT 43(H) 10 - 35 U/L 05/13/2024 12:[address] Blood Venous blood specimen / Unknown Venipuncture / Unknown 05/13/2024 11:34 AM EST 05/13/2024 11:34 AM EST Loreto AVERY LAB BLOOD ORDERABLES Cindi l Result [facility] [address] [place] [address] documented in this encounter Visit Diagnoses Diagnosis 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 Question Answer Comments Discussion of Advance Directives occurred with: Patient Healthcare Agents on File Name Relationship Healthcare Agent Relationshi p Communication Deondre Hernández Spouse Health Care Repr esentative (appointed verbally by patient or by statute hierarchy) Care Teams Unemployment Specialist Relationship Specialty Start Date End Date Sherwin Painter MD [address] [facility] [place] [address] PCP - General Family Medicine 09/21/23 documented as of this encounter
--- OUTSIDE RECORDS SUMMARY | 2024-05-14 13:43 | External Medical Summary | Summary of Care ---
Author Name Unknown Organization [facility] Address [address] [facility] [address] Phone [phone] Care Team Providers Care Rollway Worker Name Role Phone Sherwin Painter MD Primary Care Provider [phone] Reason for Visit * Reason Onset Date Comments FYI 05/12/2024 Encounter Details Date Type Department Care Team (Late st Contact Info) Description 05/12/2024 Telephone Hematology/Oncology [facility] [address] [facility] [place] [phone] Melvin Waggoner MD [address] [place] [address] FYI Allergies No known active allergiesdocumented as of [...] cancer 03/23/2021 11/15/2021 Screen for colon cancer 03/23/2021 09/0 10/2021 Food insecurity 03/19/2021 03/23/2021 Overview: Per Fresh [...] 03/02/2024 Does the household have a re gular source of income? (Household - for ages [...] on file documented as of this encounter Functional Status * Are you [...] Alea Zelaya RN documented in this encounter Miscellaneous Notes * Telephone Encounter - Marci Palm OSA - 05/12/2024 4:25 PM EST Deondre calling to state that they will be at the appointment tomorrow at 10:30 * Telephone Encounter - Scout Bowen RN - 05/12/2024 3:42 PM EST HEMATOLOGY/ONCOLOGY HOSPITAL DISCHARGE FOLLOW-UP Call placed to patient to follow up after hospital discharge. Dates patient was admitted: 04/29/24 to 05/07/24 with a primary diagnosis of Small Bowel Obstruction. Currently has the following complaints: nausea/vomiting, poor appetite . All current medications reviewed with patient. Patient verbalizes understanding of regimen. Post discharge hospital visit is scheduled and patient is aware. I spoke primarily to patients Deondre who states patient isn't doing very well since getting out of the hospital. She isn't eating much and has remained quite weak. He states that she vomits periodically and when she takes the nausea medication she vomits. She is tolerating her other medications ok but he states she is only taking maybe half the potassium she should be at this time. I offered her and her an appointment with our Nurse Practitioner tomorrow at 10:30, gave him our call back # in the event they want to leave their follow up appointment as is. He is going to call us back and will leave a message if we aren't availble. Scheduling was notified to add patient to the schedule. documented in this encounter Plan of Treatment Upcoming Encounters Date Type Department Care Team (Late st Contact Info) Description 05/13/2024 10:30 AM EST Office Visit Hematology/Oncology [facility] [place] [address] [place] [address] Loreto Alanis CRNP [address] [place], [place] [address] [address] 05/14/2024 9:00 AM EST Office Visit [facility] [address] [place] [place] [address] Sherwin Painter MD [address] [place] [place] [address] 05/17/2024 9:00 AM EDT Laboratory Laboratory [address] [place] [phone] [place] [address] 05/18/2024 11:30 AM EDT Office Visit Hematology/Oncology [facility] [place] [address] [place] [address] Feli Norris, BENNIE [address] [place] [address] 05/18/2024 12:00 PM EDT Hem/Onc Treatment Hematology/Oncology Treatment, [place] [address] [place] [address] [place], Chair 2 Hem Onc [address] [place] [address] Health Maintenance Due Date Last Done Comments [...] this encounter Medical Devices Implanted Type Area Branch Retail Executive Device Identifier Shelf Expiration Date Model / Serial / Lot Power Port 8fr Sngl Lumen Plas - [id number] Implanted:Qty : 1 on 04/21/2024 by Tay Cagle MD at [facility] Right: Chest CR BARD : PERIPHERAL VASCULAR [id number] 06/07/2025 [id number] / / [id number] documented as of this encounter Advance Directives * Full Code [...] patient or by statute hierarchy) Care Teams Rollway Worker Relationship Specialty Start Date End Date Painter, Sherwin David, MD [address] [facility] [place] [address] PCP - General Family Medicine 09/21/23 documented as of this encounter
--- OUTSIDE RECORDS SUMMARY | 2024-05-14 13:43 | External Medical Summary ---
Author Name Unknown Address Unknown Organization [id number]:[facility]-[address] [place] [address] Laboratory Report Ordering Provider Test Date Status LINDA PATEL 05/13/2024 11:34:22 Final Observation Date Value Abnormality Reference (Units ) Status SYNC LEUKOCYTES IN BLOOD BY AUTOMATED COUNT 05/13/2024 11:34:22 17.38 Above high normal 4.00-10.80 (K/uL) Final Neutrophils/100 leukocytes in Blood by Manual count 05/13/2024 11:34:22 80.0 Above high normal 40.0-75.0 (%) Final Lymphocytes/100 leukocytes in Blood by Manual count 05/13/2024 11:34:22 10.0 Below low normal 18.0-42.0 (%) Final Monocytes/100 leukocytes in Blood by Manual count 05/13/2024 11:34:22 9.0 1.0-11.0 (%) Final Metamyelocytes/100 leukocytes in Blood by Manual count 05/13/2024 11:34:22 1.0 Above high normal <=0.0 (%) Final Neutrophils [#/volume] in Blood by Manual count 05/13/2024 11:34:22 13.90 Above high normal 1.80-7.70 (K/uL) Final Lymphocytes [#/volume] in Blood by Manual count 05/13/2024 11:34:22 1.74 1.00-4.80 (K/uL) Final Monocytes [#/volume] in Blood by Manual count 05/13/2024 11:34:22 1.56 Above high normal 0.00-1.10 (K/uL) Final Metamyelocytes [#/volume] in Blood by Manual count 05/13/2024 11:34:22 0.17 Above high normal <=0.00 (K/uL) Final Nucleated erythrocytes/100 leukocytes [Ratio] in Blood by Automated count 05/13/2024 11:34:22 Final Neutrophils.vacuolated [Presence] in Blood by Light microscopy 05/13/2024 11:34:22 Present Abnormal None Seen Final Performing Location [facility] [address] [place] [address]
--- OUTSIDE RECORDS SUMMARY | 2024-05-14 13:43 | External Medical Summary ---
Author Name Unknown Address Unknown Organization [id number][facility] [place] [address] Laboratory Report Ordering Provider Test Date Status LINDA PATEL 05/13/2024 11:34:22 Final Observation Date Value Abnormality Reference (Units ) Status Magnesium 05/13/2024 11:34:22 1.5 1.5-2.6 (m g/dL) Final Performing Location [facility] [place] [address]
--- OUTSIDE RECORDS SUMMARY | 2024-05-14 13:43 | External Medical Summary ---
Author Name Unknown Address Unknown Organization [id number]:[facility]-[address] [place] [address] Laboratory Report Ordering Provider Test Date Status LINDA PATEL 05/13/2024 11:34:22 Final Observation Date Value Abnormality Reference (Units ) Status BUN 05/13/2024 11:34:22 35 Above high normal 6- 20 (mg/dL) Final Results rechecked. Creatinine 05/13/2024 11:34:22 3.3 Above high normal 0 .5-1.0 (mg/dL) Final Results rechecked. Glomerular filtration rate/1.73 sq M.predicted [Volume Rate/Area] in Serum, Plasma or Blood by Creatinine-based formula (CKD-EPI) 05/13/2024 11:34:22 15 Below low normal >=60 (mL/min) Fin al eGFR is calculated based on the CKD-EPI 2020 equation. Sodium 05/13/2024 11:34:22 128 Below low normal 135 -146 (mmol/L) Final Results rechecked. Potassium 05/13/2024 11:34:22 3.0 Below low normal 3.5 -5.1 (mmol/L) Final Cl 05/13/2024 11:34:22 74 Below low normal 98- 107 (mmol/L) Final CO2 05/13/2024 11:34:22 39 Above high normal 22 -32 (mmol/L) Final Anion gap 05/13/2024 11:34:22 15 7-15 (mmol /L) Final Glucose 05/13/2024 11:34:22 132 Above high normal 70 -120 (mg/dL) Final Albumin 05/13/2024 11:34:22 3.4 Below low normal 3.8 -5.0 (g/dL) Final AST (Aspartate aminotransferase) 05/13/2024 11:34:22 39 Above high normal 10-35 (U/L) Final Alk Phos 05/13/2024 11:34:22 222 Above high normal 35 -130 (U/L) Final Bilirubin, Total 05/13/2024 11:34:22 0.7 <=1 .2 (mg/dL) Final Calcium 05/13/2024 11:34:22 7.6 Below low normal 8.4 -10.2 (mg/dL) Final Protein 05/13/2024 11:34:22 7.4 6.0-8.3 (g /dL) Final ALT (Alanine aminotransferase) 05/13/2024 11:34:22 43 Above high normal 10-35 (U/L) Final Performing Location [facility] [address] [place] [address]
--- OUTSIDE RECORDS SUMMARY | 2024-05-14 13:43 | External Medical Summary ---
Author Name Unknown Address Unknown Organization K09:[facility] [place] [address] Laboratory Report Ordering Provider Test Date Status LINDA PATEL 05/13/2024 11:34:22 Final Observation Date Value Abnormality Reference (Units ) Status WBC, Total 05/13/2024 11:34:22 17.38 Above high normal 4 .00-10.80 (K/uL) Final RBC 05/13/2024 11:34:22 4.57 3.85-5.15 (M/uL) Final Hemoglobin 05/13/2024 11:34:22 13.9 12.0-15.3 (g/dL) Final HCT 05/13/2024 11:34:22 40.7 36.0-45.2 (%) Final MCV 05/13/2024 11:34:22 89.1 81.5-97.5 (fL) Final MCH 05/13/2024 11:34:22 30.4 27.0-34.0 (pg) Final MCHC 05/13/2024 11:34:22 34.2 32.0-36.0 (g/dL) Final RDW 05/13/2024 11:34:22 14.4 11.5-15.5 (%) Final Platelets 05/13/2024 11:34:22 475 Above high normal 14 0-400 (K/uL) Final MPV 05/13/2024 11:34:22 11.4 6.6-11.1 ( fL) Final Performing Location [facility] [place] [address]
--- OUTSIDE RECORDS SUMMARY | 2024-05-14 13:43 | External Medical Summary | Summary of Care ---
Author Name Unknown Organization [facility] Address [address] [facility] [address] Phone [phone] Care Team Providers Care Straight Ruling Machine Operator Name Role Phone Sherwin Painter MD Primary Care Provider [phone] Reason for Visit * Reason Onset Date Comments FYI 05/12/2024 Encounter Details Date Type Department Care Team (Late st Contact Info) Description 05/12/2024 Telephone Hematology/Oncology [facility] [address] [facility] [place] [address] Melvin Waggoner MD [address] [place] [address] FYI Allergies No known active allergiesdocumented as [...] Prochlorperazin e Maleate 10 MG Oral Tablet (Compazine)Tegna cations: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),Malignant [...] 05/13/2024 10:30 AM EST Office Visit Hematology/Oncology [facility] [place] [address] [place] [address] Loreto Alanis CRNP [address] [place], [place] [address] [address] 05/14/2024 9:00 AM EST Office Visit [facility] [address] [place] [address] Sherwin Painter MD [address] [place] [address] 05/17/2024 9:00 AM EDT Laboratory Laboratory [address] [place] [phone] [place] [address] 05/18/2024 11:30 AM EDT Office Visit Hematology/Oncology [facility] [place] [address] [place] [address] Feli Norris, BENNIE [address] [place] [place] [address] 05/18/2024 12:00 PM EDT Hem/Onc Treatment Hematology/Oncology Treatment, [place] [address] [place] [address] Park, Chair 2 Hem Onc Scenery [address] [place] [address] Health Maintenance Due Date Last Done Comments [...] this encounter Medical Devices Implanted Type Area Equipment Detailer Device Identifier Shelf Expiration Date Model / Serial / Lot Power Port 8fr Sngl Lumen Plas - [id number] Implanted:Qty : 1 on 04/21/2024 by Tay Cagle MD at OR [facility] Right: Chest CR BARD : PERIPHERAL VASCULAR [id number] 06/07/2025 [id number] / / [id number] documented as of this encounter Advance Directives [...] patient or by statute hierarchy) Care Teams Straight Ruling Machine Operator Relationship Specialty Start Date End Date Painter, Sherwin David, MD [address] [facility] [place] [address] PCP - General Family Medicine 09/21/23 documented as of this encounter
--- OUTSIDE RECORDS SUMMARY | 2024-05-14 13:43 | External Medical Summary | Summary of Care ---
Author Name Unknown Organization [facility] Address [address] [place] [facility] [place] [address] Phone [phone] Care Team Providers Care Line Walker Name Role Phone Sherwin Painter MD Primary Care Provider Reason for Visit * Reason Comments Outpatient Testing Encounter Details Date Type Department Care Team (Late st Contact Info) Description 05/13/2024 1:00 PM EST Laboratory Laboratory [facility] [address] [place] [address] 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) Allergies No known active allergiesdocumented as of [...] Alea Zelaya RN documented in this encounter Plan of Treatment Upcoming Encounters Date Type Department Care Team (Late st Contact Info) Description 05/14/2024 9:00 AM EST Office Visit Family Practice [address] [address] [place] [address] Sherwin Painter MD [address] [place] [address] 05/17/2024 9:00 AM EDT Laboratory Laboratory [place] [address] [place] [phone] Tori Yates [address]ol[address] Gregor [address] [place] [address] 05/18/2024 11:30 AM EDT Office Visit Hematology/Oncology [address] [place] [address] Feli Norris CRNP [address] [facility] [place] [address] 05/18/2024 12:00 PM EDT Hem/Onc Treatment Hematology/Oncology Treatment, [place] [address] [facility] [phone] Diamond, Chair 2 Hem Onc [address] [place] [address] 05/27/2024 8:30 AM EDT Office Visit Hematology/Oncology [address] [place] [address] Loreto Alanis CRNP [address] [facility] [place], [place] [id number] Health Maintenance Due Date Last Done Comments [...] this encounter Medical Devices Implanted Type Area Network Contractor Device Identifier Shelf Expiration Date Model / Serial / Lot Power Port 8fr Sngl Lumen Plas - [id number] Implanted:Qty : 1 on 04/21/2024 by Tay Cagle MD at OR [facility] Right: Chest CR BARD : PERIPHERAL VASCULAR [id number] 06/07/2025 [id number] / / [id number] documented as of this encounter Procedures Procedure Name Priority Date/Time Associated Diagnosis Comments DIFFERENTIAL, AUTOMATED Routine 05/13/2024 11:34 AM EST 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) Dehydration Hypotension, unspecified hypotension type COMPREHENSIVE METABOLIC PANEL STAT 05/13/2024 11:34 AM EST 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) Dehydration Hypotension, unspecified hypotension type CBC Routine 05/13/2024 11:34 AM EST 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) Dehydration Hypotension, unspecified hypotension type CBC Routine 05/13/2024 11:34 AM EST 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) Dehydration Hypotension, unspecified hypotension type DIFFERENTIAL, TECHNOLOGIST REVIEW Routine 05/13/2024 11:34 AM EST 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) Dehydration Hypotension, unspecified hypotension type MAGNESIUM STAT 05/13/2024 11:34 AM EST 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) documented in this encounter Results * MAGNESIUM (05/13/2024 11:34 AM EST) Magnesium 1.5 1.5 - 2.6 mg/dL 05/13/2024 1:41 PM EST [facility] 56- Blood Venous blood specimen / Unknown Venipuncture / Unknown 05/13/2024 11:34 AM EST 05/13/2024 11:34 AM EST Loreto [facility] LAB BLOOD ORDERABLES Cindi castellanos Result [facility] 56-[address] [place] [address] * (ABNORMAL) DIFFERENTIAL, TECHNOLOGIST REVIEW (05/13/2024 11:34 AM EST) WBC 17.38(H) 4.00 - 10.80 K/uL 05/13/2024 12:04 PM [facility] 56-02 Neutrophils % 80.0(H) 40.0 - 75.0 % 05/13/2024 12:04 PM [facility] 56- Lymphocytes % 10.0(L) 18.0 - 42.0 % 05/13/2024 12:04 PM [facility] 56 Monocytes % 9.0 1.0 - 11.0 % 05/13/2024 12:04 PM [facility] 56- Metamyelocytes % 1.0(H) <=0.0 % 05/14/19 25 12:04 PM [facility] 56- Absolute Neutrophils 13.90(H) 1.80 - 7.70 K/uL 05/13/2024 12:04 PM [facility] 56 Absolute Lymphocytes 1.74 1.00 - 4.80 K/uL 05/13/2024 12:04 PM [facility] 56 Absolute Monocytes 1.56(H) 0.00 - 1.10 K/uL 05/13/2024 12:04 PM [facility] 56- Absolute Metamyelocytes 0.17(H) <=0.00 K/uL 05/13/2024 12:04 PM [facility] 56-02 nRBCs 05/13/2024 12:04 PM [facility] 56 Vacuolated Neutrophils Present(A ) None Seen 05/13/2024 12:04 PM [facility] 56-02 Blood Venous blood specimen / Unknown Venipuncture / Unknown 05/13/2024 11:34 AM EST 05/13/2024 11:34 AM EST us Loreto [facility] LAB BLOOD ORDERABLES Cindi castellanos Result [facility] 56- [address] [place] [address] * DIFFERENTIAL, AUTOMATED (05/13/2024 11:34 AM EST) Blood Venous blood specimen / Unknown Venipuncture / Unknown 05/13/2024 11:34 AM EST 05/13/2024 11:34 AM EST us Loreto [facility] LAB BLOOD ORDERABLES Cindi l Result [facility] 56 [address] [place], [place] [id number] * (ABNORMAL) CBC (05/13/2024 11:34 AM EST) WBC 17.38(H) 4.00 - 10.80 K/uL 05/13/2024 12:04 PM EST [facility] 56 RBC 4.57 3.85 - 5.15 M/uL 05/13/2024 12:04 PM [facility] 56 HGB 13.9 12.0 - 15.3 g/dL 05/13/2024 12:04 PM [facility] 56 HCT 40.7 36.0 - 45.2 % 05/13/2024 12:04 PM [facility] 56 MCV 89.1 81.5 - 97.5 fL 05/13/2024 12:04 PM [facility] 56 MCH 30.4 27.0 - 34.0 pg 05/13/2024 12:04 PM [facility] 56 MCHC 34.2 32.0 - 36.0 g/dL 05/13/2024 12:04 PM [facility] 56 RDW 14.4 11.5 - 15.5 % 05/13/2024 12:04 PM [facility] 56 PLT 475(H) 140 - 400 K/uL 05/13/2024 12:04 PM [facility] 56 MPV 11.4 6.6 - 11.1 fL 05/13/2024 12:04 PM [facility] 56 Blood Venous blood specimen / Unknown Venipuncture / Unknown 05/13/2024 11:34 AM EST 05/13/2024 11:34 AM EST Loreto [facility] LAB BLOOD ORDERABLES Cindi l Result [facility] [address] [place] [address] * (ABNORMAL) COMPREHENSIVE METABOLIC PANEL (05/13/2024 11:34 AM EST) BUN 35(H) 6 - 20 mg/dL 05/13/2024 12:[address] Comment:Results rechecked. CREATININE 3.3(H) 0.5 - 1.0 mg/dL 05/13/2024 12:[address] Comment:Results rechecked. EGFR 15(L) >=60 mL/min 05/13/2024 12:[address] Comment:eGFR is calculated b ased on the CKD-EPI 2020 equation. SODIUM 128(L) 135 - 146 mmol/L 05/13/2024 12:[address] Comment:Results rechecked. POTASSIUM 3.0(L) 3.5 - 5.1 mmol/L 05/13/2024 12:37 PM [facility] CHLORIDE 74(L) 98 - 107 mmol/L 05/13/2024 12:37 PM [place] [address] CO2 39(H) 22 - 32 mmol/L 05/13/2024 12:37 PM [facility] ANION GAP 15 7 - 15 mmol/L 05/13/2024 12:37 PM [facility] GLUCOSE 132(H) 70 - 120 mg/dL 05/13/2024 12:37 PM [facility] Albumin 3.4(L) 3.8 - 5.0 g/dL 05/13/2024 12:37 PM [place] [address] AST 39(H) 10 - 35 U/L 05/13/2024 12:[address] Alkaline Phosphatase 222(H) 35 - 130 U/L 05/13/2024 12:[address] Bilirubin, Total 0.7 <=1.2 mg/dL 05/13/2024 12:37 PM [place] [address] CALCIUM 7.6(L) 8.4 - 10.2 mg/dL 05/13/2024 12:37 PM [place] [address] Protein 7.4 6.0 - 8.3 g/dL 05/13/2024 12:37 PM EST [facility] 56- ALT 43(H) 10 - 35 U/L 05/13/2024 12:37 PM EST [facility] 56- Blood Venous blood specimen / Unknown Venipuncture / Unknown 05/13/2024 11:34 AM EST 05/13/2024 11:34 AM EST us Loreto [facility] LAB BLOOD ORDERABLES Cindi l Result [facility] 56- [address] [place], [place] [address] documented in this encounter Visit Diagnoses Diagnosis 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
--- OUTSIDE RECORDS SUMMARY | 2024-05-14 13:45 | External Medical Summary ---
Author Name Unknown Address Unknown Organization K1F:LABORATORY [facility] - [address] [place] [address] Laboratory Report Ordering Provider Test Date Status ANGELINA OVIEDO 05/07/2024 05:02:00 Final Observation Date Value Abnormality Reference (Units ) Status Magnesium 05/07/2024 05:02:00 1.4 Below low normal 1.5 -2.6 (mg/dL) Final Performing Location [facility] - [address] [place] [address]
--- OUTSIDE RECORDS SUMMARY | 2024-05-14 13:45 | External Medical Summary ---
Author Name Unknown Address Unknown Organization : Laboratory Report Ordering Provider Test Date Status MAGDA PIÑA 05/06/2024 16:03:34 Final Observation Date Value Abnormality Reference (Units ) Status Glucose Point of Care 05/06/2024 16:03:34 119 70-120 (mg/dL) Final Performing Location
--- OUTSIDE RECORDS SUMMARY | 2024-05-14 13:45 | External Medical Summary ---
Author Name Unknown Address Unknown Organization : Laboratory Report Ordering Provider Test Date Status MAGDA PIÑA 05/06/2024 11:10:25 Final Observation Date Value Abnormality Reference (Units ) Status Glucose Point of Care 05/06/2024 11:10:25 135 Above high normal 70-120 (mg/dL) Final Performing Location
--- OUTSIDE RECORDS SUMMARY | 2024-05-14 13:45 | External Medical Summary | Summary of Care ---
Author Name Unknown Organization [facility] Address [address] [place] [address] Phone [phone] Care Team Providers Care Radiology Ct Technologist Name Role Phone Sherwin Painter MD Primary Care Provider [phone] Reason for Visit * Reason Onset Date Comments Hospital Follow-Up 05/07/2024 Encounter Details Date Type Department Care Team (Late st Contact Info) Description 05/07/2024 Telephone Family Practice [place] [address] Bundy [address] [place] [phone] Sherwin Painter MD [address] [facility] [place] [id number] Hospital Follow-Up Allergies No known active allergiesdocumented as of this encounter (statuses as of 05/07/2024) Medications Losartan Potassium 100 MG Oral Tablet [...] as of this encounter (statuses as of 05/07/2024) Active Problems Problem Noted Date Diagnosed Date [...] as of this encounter (statuses as of 05/07/2024) Resolved Problems Problem Noted Date Diagnosed Date [...] as of this encounter (statuses as of 05/07/2024) Immunizations Name Administration Dates Next Due COVID-19 [...] Assessment Author No 04/29/2024 8:06 PM Alea eZlaya RN * Do you have difficulty dressing [...] encounter Miscellaneous Notes * Telephone Encounter - Fe Polanco OSA - 05/07/2024 11:13 AM EST Pt has appt 05/14 * Telephone Encounter - Jaimie Gomez OSA - 05/07/2024 11:05 AM EST Patient Name: ADWOA HERNÁNDEZ([id number]) Sex: Female : 1955 PCP: SHERWIN PAINTER Center: [facility] Level of Service:05226 [place] EMERGENCY DEPT VISIT HIGH SEVERITY&THREAT FUNCJ Types of orders made on 05/07/2024: Communication, IP Discharge, IP Post Discharge , Lab, Medications, Point of Care Testing Order Date:05/07/2024 Ordering User:KUSUM MAN [[id number]] Attending Provider:Merna Humphries MD [[id number]] Authorizing Provider: Kusum Man MD [[id number]] Department:[facility][[id number]] Order Specific Information Order: RETURN APPT [CUSTOM: [id number]] Order #: [id number]: [id number] Priority: Routine Class: Nursing Unit Department (Single Entry) -> Family Practice Released on: 05/07/2024 8:19 AM Priority: Routine Class: Nursing Unit Department (Single Entry) -> Family Practice Released on: 05/07/2024 8:19 AM documented in this encounter Plan of Treatment Upcoming Encounters Date Type Department Care Team (Late st Contact Info) Description 05/14/2024 9:00 AM EST Office Visit Family Practice [address] [place] [address] Sherwin Painter MD [address] [place] [address] 05/17/2024 9:00 AM EDT Laboratory Laboratory [address] [place] [phone] Tori [place] [address] [place] [address] 05/18/2024 11:30 AM EDT Office Visit Hematology/Oncology [facility] [place] [address] [facility] [address] Feli Norris CRNP [address] [place] [address] [place] [address] 05/18/2024 12:00 PM EDT Hem/Onc Treatment [facility]ematology[facility], [place] [address] [facility] [phone] Park, Chair 2 Hem Onc Scenery [address] [place] [address] Health Maintenance Due Date Last Done Comments [...] this encounter Medical Devices Implanted Type Area Sustainability Analyst Device Identifier Shelf Expiration Date Model / Serial / Lot Power Port 8fr Sngl Lumen Plas - [id number] Implanted:Qty : 1 on 04/21/2024 by Tay Cagle MD at OR [facility] Right: Chest CR BARD : PERIPHERAL VASCULAR [id number] 06/07/2025 [id number] / / [id number] documented as of this encounter Advance Directives [...] patient or by statute hierarchy) Care Teams Radiology Ct Technologist Relationship Specialty Start Date End Date Sherwin Painter MD [address] [place] [address] PCP - General Family Medicine 09/21/23 documented as of this encounter
--- OUTSIDE RECORDS SUMMARY | 2024-05-14 13:45 | External Medical Summary ---
Author Name Unknown Address Unknown Organization K1F:LABORATORY [facility] - [address] [place] [address] Laboratory Report Ordering Provider Test Date Status ANGELINA OVIEDO 05/06/2024 04:55:00 Final Observation Date Value Abnormality Reference (Units ) Status WBC, Total 05/06/2024 04:55:00 4.92 4.00-10.80 (K/uL) Final RBC 05/06/2024 04:55:00 4.16 3.85-5.15 (M/uL) Final Hemoglobin 05/06/2024 04:55:00 12.8 12.0-15.3 (g/dL) Final HCT 05/06/2024 04:55:00 37.1 36.0-45.2 (%) Final MCV 05/06/2024 04:55:00 89.2 81.5-97.5 (fL) Final MCH 05/06/2024 04:55:00 30.8 27.0-34.0 (pg) Final MCHC 05/06/2024 04:55:00 34.5 32.0-36.0 (g/dL) Final RDW 05/06/2024 04:55:00 13.6 11.5-15.5 (%) Final Platelets 05/06/2024 04:55:00 178 [address]-400 (K/uL) Final MPV 05/06/2024 04:55:00 11.2 6.6-11.1 (fL) Final Nucleated erythrocytes/100 leukocytes [Ratio] in Blood by Automated count 05/06/2024 04:55:00 1 Above high normal <=0 (/100 WBCs) Final Performing Location LABORATORY [facility] - [address] [place] [address]
--- OUTSIDE RECORDS SUMMARY | 2024-05-14 13:45 | External Medical Summary ---
Author Name Unknown Address Unknown Organization K1F[facility] - [address] [place] [address] Laboratory Report Ordering Provider Test Date Status ANGELINA OVIEDO 05/06/2024 04:55:00 Final Observation Date Value Abnormality Reference (Units ) Status Phosphate 05/06/2024 04:55:00 1.9 Below low normal 2.5 -4.8 (mg/dL) Final Performing Location [facility] - [address] [place] [address]
--- OUTSIDE RECORDS SUMMARY | 2024-05-14 13:45 | External Medical Summary ---
Author Name Unknown Address Unknown Organization K1F:LABORATORY [facility] - [address] [place] [address] Laboratory Report Ordering Provider Test Date Status ANGELINA OVIEDO 05/07/2024 05:02:00 Final Observation Date Value Abnormality Reference (Units ) Status Calcium.ionized [Moles/volume] in Serum or Plasma by Ion-selective membrane electrode (ISE) 05/07/2024 05:02:00 0.99 Below low normal 1.13-1.32 (mmol/L) Final This test was developed and its performance characteristics dtermined by [employer]. It has not been cleared or approved by the [place] Food and Drug Administration Performing Location [facility]ATORY [facility] - [address] [place] [address]
--- OUTSIDE RECORDS SUMMARY | 2024-05-14 13:45 | External Medical Summary ---
Author Name Unknown Address Unknown Organization K1F:LABORATORY [facility] - [address] [place] [address] Laboratory Report Ordering Provider Test Date Status ANGELINA OVIEDO 05/06/2024 04:55:00 Final Observation Date Value Abnormality Reference (Units ) Status Magnesium 05/06/2024 04:55:00 1.4 Below low normal 1.5 -2.6 (mg/dL) Final Performing Location [facility] - [address] [place] [address]
--- OUTSIDE RECORDS SUMMARY | 2024-05-14 13:45 | External Medical Summary ---
Author Name Unknown Address Unknown Organization K1F:LABORATORY [facility] - [address] [place] [address] Laboratory Report Ordering Provider Test Date Status ANGELINA OVIEDO 05/06/2024 04:55:00 Final Observation Date Value Abnormality Reference (Units ) Status BUN 05/06/2024 04:55:00 8 6-20 (mg/dL) Final Creatinine 05/06/2024 04:55:00 0.4 Below low normal 0.5-1.0 (mg/dL) Final Glomerular filtration rate/1.73 sq M.predicted [Volume Rate/Area] in Serum, Plasma or Blood by Creatinine-based formula (CKD-EPI) 05/06/2024 04:55:00 >90 >=60 (mL/min) Final eGFR is calculated based on the CKD-EPI 2020 equation. Sodium 05/06/2024 04:55:00 133 Below low normal 135 -146 (mmol/L) Final Potassium 05/06/2024 04:55:00 3.3 Below low normal 3.5 -5.1 (mmol/L) Final Cl 05/06/2024 04:55:00 98 98-107 (mm ol/L) Final CO2 05/06/2024 04:55:00 23 22-32 (mmo l/L) Final Anion gap 05/06/2024 04:55:00 12 7-15 (mmol /L) Final Glucose 05/06/2024 04:55:00 117 70-120 (mg /dL) Final Calcium 05/06/2024 04:55:00 7.3 Below low normal 8.4 -10.2 (mg/dL) Final Performing Location [facility]ORY [facility] - [address] [place] [address]
--- OUTSIDE RECORDS SUMMARY | 2024-05-14 13:45 | External Medical Summary ---
Author Name Unknown Address Unknown Organization : Laboratory Report Ordering Provider Test Date Status MAGDA PIÑA 05/06/2024 21:07:04 Final Observation Date Value Abnormality Reference (Units ) Status Glucose Point of Care 05/06/2024 21:07:04 124 Above high normal 70-120 (mg/dL) Final Performing Location
--- OUTSIDE RECORDS SUMMARY | 2024-05-14 13:45 | External Medical Summary ---
Author Name Unknown Address Unknown Organization K1F:LABORATORY [facility] - [address] [place] [address] Laboratory Report Ordering Provider Test Date Status ANGELINA OVIEDO 05/07/2024 05:02:00 Final Observation Date Value Abnormality Reference (Units ) Status BUN 05/07/2024 05:02:00 8 6-20 (mg/dL) Final Creatinine 05/07/2024 05:02:00 0.4 Below low normal 0.5-1.0 (mg/dL) Final Glomerular filtration rate/1.73 sq M.predicted [Volume Rate/Area] in Serum, Plasma or Blood by Creatinine-based formula (CKD-EPI) 05/07/2024 05:02:00 >90 >=60 (mL/min) Final eGFR is calculated based on the CKD-EPI 2020 equation. Sodium 05/07/2024 05:02:00 134 Below low normal 135 -146 (mmol/L) Final Potassium 05/07/2024 05:02:00 3.0 Below low normal 3.5 -5.1 (mmol/L) Final Cl 05/07/2024 05:02:00 98 98-107 (mm ol/L) Final CO2 05/07/2024 05:02:00 22 22-32 (mmo l/L) Final Anion gap 05/07/2024 05:02:00 14 7-15 (mmol /L) Final Glucose 05/07/2024 05:02:00 123 Above high normal 70 -120 (mg/dL) Final Calcium 05/07/2024 05:02:00 7.3 Below low normal 8.4 -10.2 (mg/dL) Final Performing Location [facility]ORY [facility] - [address] [place] [address]
--- OUTSIDE RECORDS SUMMARY | 2024-05-14 13:45 | External Medical Summary ---
Author Name Unknown Address Unknown Organization K1F:LABORATORY [facility] - [address] [place] [address] Laboratory Report Ordering Provider Test Date Status ANGELINA OVIEDO 05/07/2024 05:02:00 Final Observation Date Value Abnormality Reference (Units ) Status WBC, Total 05/07/2024 05:02:00 5.27 4.00-10.80 (K/uL) Final RBC 05/07/2024 05:02:00 4.12 3.85-5.15 (M/uL) Final Hemoglobin 05/07/2024 05:02:00 12.7 12.0-15.3 (g/dL) Final HCT 05/07/2024 05:02:00 37.2 36.0-45.2 (%) Final MCV 05/07/2024 05:02:00 90.3 81.5-97.5 (fL) Final MCH 05/07/2024 05:02:00 30.8 27.0-34.0 (pg) Final MCHC 05/07/2024 05:02:00 34.1 32.0-36.0 (g/dL) Final RDW 05/07/2024 05:02:00 13.3 11.5-15.5 (%) Final Platelets 05/07/2024 05:02:00 210 140-400 (K/uL) Final MPV 05/07/2024 05:02:00 11.9 6.6-11.1 (fL) Final Nucleated erythrocytes/100 leukocytes [Ratio] in Blood by Automated count 05/07/2024 05:02:00 0 <=0 (/100 WBCs) Final Performing Location LAB[facility]ATORY [facility] - [address] [place] [address]
--- OUTSIDE RECORDS SUMMARY | 2024-05-14 13:45 | External Medical Summary ---
Author Name Unknown Address Unknown Organization K1F:LABORATORY [facility] - [address] [place] [address] Laboratory Report Ordering Provider Test Date Status ANGELINA OVIEDO 05/06/2024 17:49:00 Final Observation Date Value Abnormality Reference (Units ) Status BUN 05/06/2024 17:49:00 8 6-20 (mg/dL) Final Creatinine 05/06/2024 17:49:00 0.4 Below low normal 0.5-1.0 (mg/dL) Final Glomerular filtration rate/1.73 sq M.predicted [Volume Rate/Area] in Serum, Plasma or Blood by Creatinine-based formula (CKD-EPI) 05/06/2024 17:49:00 >90 >=60 (mL/min) Final eGFR is calculated based on the CKD-EPI 2020 equation. Sodium 05/06/2024 17:49:00 131 Below low normal 135 -146 (mmol/L) Final Potassium 05/06/2024 17:49:00 3.4 Below low normal 3.5 -5.1 (mmol/L) Final Cl 05/06/2024 17:49:00 97 Below low normal 98- 107 (mmol/L) Final CO2 05/06/2024 17:49:00 19 Below low normal 22- 32 (mmol/L) Final Anion gap 05/06/2024 17:49:00 15 7-15 (mmol /L) Final Glucose 05/06/2024 17:49:00 112 70-120 (mg /dL) Final Calcium 05/06/2024 17:49:00 7.3 Below low normal 8.4 -10.2 (mg/dL) Final Performing Location LABORATORY [facility] - [address] [place] [id number]
--- OUTSIDE RECORDS SUMMARY | 2024-05-14 13:45 | External Medical Summary ---
Author Name Unknown Address Unknown Organization K1F:LABORATORY [facility] - [address] [place] [address] Laboratory Report Ordering Provider Test Date Status ANGELINA OVIEDO 05/06/2024 04:55:00 Final Observation Date Value Abnormality Reference (Units ) Status Calcium.ionized [Moles/volume] in Serum or Plasma by Ion-selective membrane electrode (ISE) 05/06/2024 04:55:00 1.02 Below low normal 1.13-1.32 (mmol/L) Final This test was developed and its performance characteristics dtermined by [employer]. It has not been cleared or approved by the [place] Food and Drug Administration Performing Location LABORATORY [facility] - [address] [place] [address]
--- OUTSIDE RECORDS SUMMARY | 2024-05-14 13:45 | External Medical Summary ---
Author Name Unknown Address Unknown Organization : Laboratory Report Ordering Provider Test Date Status MAGDA PIÑA 05/06/2024 07:49:22 Final Observation Date Value Abnormality Reference (Units ) Status Glucose Point of Care 05/06/2024 07:49:22 119 70-120 (mg/dL) Final Performing Location
--- OUTSIDE RECORDS SUMMARY | 2024-05-14 13:45 | External Medical Summary ---
Author Name Unknown Address Unknown Organization K1F:LABORATORY [facility] - [address] [place] [address] Laboratory Report Ordering Provider Test Date Status ANGELINA OVIEDO 05/07/2024 05:02:00 Final Observation Date Value Abnormality Reference (Units ) Status Phosphate 05/07/2024 05:02:00 2.4 Below low normal 2.5 -4.8 (mg/dL) Final Performing Location LABORATORY [facility] - [address] [place] [id number]
--- OUTSIDE RECORDS SUMMARY | 2024-05-14 13:45 | External Medical Summary ---
Author Name Unknown Address Unknown Organization : Laboratory Report Ordering Provider Test Date Status MAGDA PIÑA 05/07/2024 07:56:26 Final Observation Date Value Abnormality Reference (Units ) Status Glucose Point of Care 05/07/2024 07:56:26 123 Above high normal 70-120 (mg/dL) Final Performing Location
--- OUTSIDE RECORDS SUMMARY | 2024-05-14 13:45 | External Medical Summary | Summary of Care ---
Author Name Unknown Organization [facility] [address] [place] [address] Phone [phone] Care Team Providers Care Data Power Consultant Name Role Phone Sherwin Painter MD Primary Care Provider [phone] Reason for Visit * Reason Comments Abnormal Test Results K * Auth/Cert Specialty Diagnoses / Procedures Referred By Contsondra t Referred To Contact [address] [address] Phone: [phone] [facility] ([facility]) [address] [place] [address] Phone: tel: fax: Referral ID Status Reason Start Date Expiration Date Visits Re quested Visits Authorized [id number] Encounter Details Date Type Department Care Team (Latest Contact Info) Description 04/29/2024 12:59 PM EST - 05/07/2024 9:31 AM EST Hospital Encounter 3B [facility], [facility] 3rd Floor [address] [place], [place] [phone] Merna Humphries MD [address] [place] [id number] Douglas Argueta MD [address] [place] [address] [id number] Deondre Sellers DO [address] [place], [place] [id number] Marisa Way MD, PhD [address] [place], [place] [id number] Nando Dueñsa MD [address] [place] [address] Franklin Atkins MD [address] [place], [place] [phone] Kusum Bright MD [address] [place], [place] [id number] Various: [email or web address] Discharge Disposition: Other Allergies No known active allergiesdocumented as of this encounter (statuses as of 05/08/2024) Medications Losartan Potassium 100 MG Oral Tablet (Cozaar) Take 1 Tablet by mouth in the morning. 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 30 Tablet 3 5 Active Prochlorperazi ne Maleate 10 MG Oral Tablet (Compazine)Ind ications:Malig nant neoplasm metastatic to omentum (HCC),Malignan t neoplasm of tail of pancreas (HCC),Metastas is to peritoneal cavity (HCC) Take 1 Tablet by mouth every 6 hours as needed for Nausea. 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 30 g 1 5 Active Ibuprofen 200 MG Oral Tablet (Motrin) Take 1 Tablet by mouth every 4 hours as needed. Active Potassium & Sodium Phosphates 280-160-250 MG Oral Packet (Phos-Nak) Take 1 Packet by mouth in the morning. 30 Packet 5 025 Active Potassium Chloride 20 MEQ/15ML (10%) Oral Solution Take 30 mL by mouth in the morning. 900 mL 5 025 Active Magnesium Citrate Oral Solution Take 10 mL by mouth every morning. 296 mL 5 Active Aspirin Low Dose 81 MG Oral Tablet Chewable (aspirin)Indic ations:Carotid artery plaque, bilateral chew and swallow 1 tablet by mouth every morning with food 100 Tablet 2 4 025 Discontinued Cyclobenzaprin e HCl 5 MG Oral Tablet (Flexeril) take 1 tablet by mouth three times a day if needed for muscle spasm 30 Tablet 1 5 025 Discontinued Magnesium Lactate 84 MG (7MEQ) Oral Tablet Extended Release (Mag-Tab SR) Take 2 Tablets by mouth in the morning and 2 Tablets before bedtime. 120 Tablet 5 025 Discontinued Potassium Chloride ER 10 MEQ Oral Tablet Extended Release Take 4 Tablets by mouth in the morning and 4 Tablets at noon and 4 Tablets before bedtime. 360 Tablet 5 025 Discontinued Magnesium Citrate Oral Solution Take 296 mL by mouth every morning for 30 doses. 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 Metastasis [...] as of this encounter (statuses as of 05/08/2024) Resolved Problems Problem Noted Date Diagnosed Date [...] as of this encounter (statuses as of 05/08/2024) Immunizations Name Administration Dates Next Due COVID-19 mRNA, LNP-s, No Pre serve, 2-Dose Series (Moderna) 10/13/2020,09/15/2020 TDAP, Age 7 and older, IM (Adacel) 08/06/2011 documented as of this encounter Social History Tobacco Use Types Packs/Day Years Used Date Smoking Tobacco: Some Days Cigarettes 1 48 Smokeless Tobacco: Never Tobacco Cessation:Ready to Q uit: Not Asked; Counseling Given: Not Answered Alcohol Use Standard Drinks/Week Comments Not Currently [...] money to buy more. Never true 03/02/20 Within the past 12 months, t he [...] money to buy more. Never true 03/02/20 Within the past 12 months, t he [...] Sign Reading Time Taken Comments Blood Pressure 145/76 05/07/2024 7:34 AM EST Pulse 94 05/07/2024 7:34 AM EST Temperature 36.3 C (97.3 F) 05/07/2024 7 :34 AM EST Respiratory Rate 18 05/07/2024 7:34 AM EST Oxygen Saturation 94% 05/07/2024 7:3 4 AM EST Inhaled Oxygen Concentration - - Weight 53.3 kg (117 lb 6.4 oz) 05/07/2024 6:00 AM EST pt refused to stand on scale. Height 158.8 cm (5' 2.5") 05/05/2024 11 :40 AM EST Body Mass Index 21.13 05/05/2024 11:40 AM EST documented in this encounter Functional Status * Are you deaf or do you have serious difficulty hearing? Answer Date of Assessment Author No 04/29/2024 8:06 PM EST Alea Carter RN * Are you blind or do you have serious difficulty seeing, even when wearing glasses? Answer Date of Assessment Author No 04/29/2024 8:06 PM EST Alea Carter RN * Do you have serious difficulty walking or climbing stairs? (5 years old or older) Answer Date of Assessment Author No 04/29/2024 8:06 PM EST Alea Carter RN * Do you have difficulty dressing [...] Alea Zelaya RN documented in this encounter Discharge Summaries * Kusum Bright MD - 05/07/2024 8:21 AM EST [address] [address] Admission Date: 04/29/2024 Discharge Date: 05/07/2024 RECOMMENDED TO DO FOR NEXT PROVIDER(S): Patient to continue her daily phosphate/magnesium and potassium supplement Also patient to take a high-protein/high-calorie supplement with each meal REASON(S) FOR MEDICATION CHANGE(S): Otherwise not DISPOSITION ON DISCHARGE: home Active Hospital Problems Diagnosis *Principal Diagnosis - [...] her to stay longer but she refused. Operations & Procedures: none Complications: none significant Significant Lab and Imaging Results: As mentioned above Results Pending at Discharge: Lab Results Pending at Discharge: CBC STAT PHOSPHORUS STAT BASIC METABOLIC PANEL STAT MAGNESIUM STAT CALCIUM, IONIZED Routine MEDICATION UPDATES AT DISCHARGE START taking these medications INSTRUCTIONS Magnesium L-Lactate SR 84 MG (7MEQ) Tbcr Commonly known as: Mag-Tab SR Take 2 Tablets by mouth in the morning and 2 Tablets before bedtime. potassium and sodium phosphate 280-160-250 MG packet Commonly known as: Phos-Nak Take 1 Packet by mouth in the morning. potassium chloride ER 10 MEQ Tbcr Take 4 Tablets by mouth in the morning and 4 Tablets at noon and 4 Tablets before bedtime. CONTINUE taking these medications INSTRUCTIONS Ibuprofen 200 MG Tablet Commonly known as: Motrin Take 1 Tablet by mouth every 4 hours as needed. Lidocaine-Prilocaine 2.5-2.5 % cream Commonly known as: Emla APPLY TO SKIN OVER MEDIPORT & COVER 1HR PRIOR TO ACCESSING. losartan 100 MG Tablet Commonly known as: Cozaar Take 1 Tablet by mouth in the morning. ondansetron 8 MG Tablet Commonly known as: Zofran Take 1 Tablet by mouth every 8 hours as needed for Nausea. prochlorperazine 10 MG Tablet Commonly known as: Compazine Take 1 Tablet by mouth every 6 hours as needed for Nausea. STOP taking these medications Aspirin Low Dose 81 MG chewable tablet Generic drug: aspirin cyclobenzaprine 5 MG Tablet Commonly known as: Flexeril SCHEDULED FOLLOW-UP: Future Appointments Appt Date/Time Provider Department 05/17/2024 9:00 AM [place] [place] [facility] [place] 05/18/2024 11:30 AM Feli Norris CRNP Hematology/Oncology [facility] 05/18/2024 12:00 PM Diamond, Chair 2 Hem Onc [facility] Hematology/Oncology Located Within [facility] Other Information Indwelling Devices: LINES ALL Duration Implanted IV Device Right Chest 15 days Peripheral Line Left;Lower Arm 22 Gauge 4 days Vital Signs (last recorded): Most Recent Systolic BP: 145 mmHg (05/07/24733) Most Recent Diastolic BP: 76 mmHg (05/07/24733) Pulse: 94 (05/07/24733) Resp: 18 (05/07/24733) Most Recent Temperature: 36.28 C (05/07/24733) Weight: 53.3 kg (117 lb 6.4 oz) (pt refused to stand on scale.) (05/07/24599) SpO2: 94 % (05/07/24733) O2 flow rate: 1 L/MIN (05/04/241999) Allergies: Patient has no known allergies. Activity: as tolerated Diet: Regular diet with a high-protein/high-calorie supplement with each meal Code Status: Full Code Condition on Discharge: stable Isolation status: None Cognition: normal HOSPITAL CONSULTS ORDERED: GENERAL SURGERY CONSULT IP PALLIATIVE MEDICINE CONSULT IP ONCOLOGY CONSULT IP CARDIOLOGY CONSULT IP ADULT PHYSICAL THERAPY CONSULT IP REFERRING PHYSICIAN: REF: SELF NO STREET ADDRESS AVAILABLE PRIMARY CARE PROVIDER: PCP: Sherwin Painter MD [address] / [place] [address] (office) [phone] (fax) Note: To contact a physician responsible for this patients hospital care, please call [email or web address] [phone]. I spent a total of 40 minutes coordinating, documenting, and providing care for this patient excluding time spent in the performance of separately billed services. documented in this encounter Discharge Instructions * Discharge Instr - AVS* Kusum Bright MD - 05/07/2024 8:19 AM EST Discharge Date: 05/07/2024 The information below provides you with the instructions and the list of medications you need to betaking following discharge from the hospital. If you have any questions, please ask before leaving. If you have questions after leaving, you can reach us at the numbers below. YOUR HOSPITAL PROVIDERS: Discharging Provider: Kusum Bright MD Provider Department: Hospital Medicine To reach this Provider Friday through Friday (8:00 AM to 4:30 PM) for any questions or test results: Call [phone] For after-hours concerns: Call [phone] and have your provider paged, or the provider community recreation programmer for the Department of Hospital Medicine paged. Please note, the discharging provider will not be able to provide you with any medications refills.Please discuss these with your primary care provider. Worsening Symptoms: If you have new symptoms, or your symptoms get worse, please contact your Discharge Provider or Primary Care Provider (PCP). If these providers are not available, you can go to your local [facility] or [facility] during their business hours. In an EMERGENCY situation: Call [phone] or go to the nearest emergency room. A BRIEF SUMMARY OF YOUR HOSPITAL STAY: You came to the hospital with: complaint of bowel obstruction Your main diagnosis at discharge was: Hypomagnesemia/hypophosphatemia/hypokalemia/small-bowel obstructions Operations & Procedures performed: none Complications: none significant Inpatient test results that are pending at discharge: none Advance Directive Documented: Advance Directive Does the Patient have an Advance Directive? Yes YOUR FOLLOW UP APPOINTMENTS: Primary Care Provider Information: PCP: Sherwin Painter MD [address] [facility] / [place] [phone] (office) [phone] (fax) An appointment was requested with your PCP (Sherwin Painter MD) within 7 days. (Please take this form to this visit with your primary care physician.) You need the following studies in the future: none INSTRUCTIONS: Diet: Normal diet also patient is recommended to have 1 supplement of type protein/high-calorie with each meal Activity: No restrictions Additional Instructions: - Call your primary care physician or seek medical attention if worsening weakness, difficulty keeping food down, abdominal pain. 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 SUBJECTIVE: No acute events reported overnight. AF, VSS on room air. Patient laying comfortably in bed. Having dry heaves and intermittent nausea. Voiding spontaneously. Bowels Functioning. Pain controlled on current regimen. Denies MERRILL, cp, SOB, abdominal pain, dizziness, lightheadedness, and vision changes. Am bulating at baseline. OBJECTIVE: Most Recent Vital Signs: BP: 126 mmHg/78 mmHg (05/07/24219) Pulse: 95 (05/07/24219) Resp: 18 (05/07/24219) Temp: 36.28 C (05/07/24219) Temp Summary: Temp Min: 36.1 C (96.9 F) Max: 36.3 C (97.4 F) SpO2: 95 % (05/07/24219) O2 flow rate: 1 L/MIN (05/04/241999) Supplemental O2 Delivery: Room Air, None (05/07/24219) Vital Signs Last 24 Hours: Systolic BP: Most Recent Systolic BP Av.7 mmHg Min: 115 mmHg Max: 150 mmHg Temperature: Most Recent Temperature Av.2 C Min: 36.06 C Max: 36.33 C Pulse: Pulse Av.8 Min: 85 Max: 95 Respirations: Resp Av.8 Min: 18 Max: 21 SpO2: SpO2 Av.7 % Min: 90 % Max: 95 % Date 05/06/24699 - 05/07/2465805/07/24699 - 05/08/24658 Shift 24 Hour Total 24 Hour Total INTAKE P.O. 360 360 I.V. 375.9 428.9 804.8 Shift Total 735.9 428.9 1164.8 OUTPUT Shift Total NET 735.9 428.9 1164.8 Weight (kg) 52.1 53.3 53.3 53.3 53.3 53.3 Physical Exam: Constitutional: (+) chronically ill HEENT: NGT in place, normocephalic, atraumatic; no masses, tenderness, or adenopathy CV: normal rate, warm and well perfused Chest: normal respiratory effort Abdomen: soft, no abdominal TTP , no distention, no rebound or guarding Surgical site: healing midline incision Skin: warm, dry, intact: Neuro: alert, oriented to person, place, and time LABS: Labs reviewed as indicated below: CHEMISTRY: BUN, Creatinine, GFR Estimated, Sodium, Potassium, Chloride, Carbon Dioxide, Glucose, Calcium (see below for most recent value): Lab Results Component Value Date/Time BUN 8 05/06/2024 05:49 PM BUN 6 06/11/2018 02:53 PM CREAT 0.4 (L) 05/06/2024 05:49 PM CREAT 0.70 02/26/2024 12:00 AM CREAT 0.6 06/11/2018 02:53 PM GFRESTIMATED >60.0 06/11/2018 02:53 PM NA 131 (L) 05/06/2024 05:49 PM NA 136 06/11/2018 02:53 PM POTASSIUM 3.4 (L) 05/06/2024 05:49 PM POTASSIUM 4.1 02/26/2024 12:00 AM POTASSIUM 4.0 06/11/2018 02:53 PM CL 97 (L) 05/06/2024 05:49 PM CL 97 (L) 06/11/2018 02:53 PM CO2 19 (L) 05/06/2024 05:49 PM CO2 25 06/11/2018 02:53 PM CA 7.3 (L) 05/06/2024 05:49 PM CA 9.3 06/11/2018 02:53 PM BLOOD COUNT: WBC, Hgb, Platelets (see below for most recent value): Lab Results Component Value Date/Time WBC 5.27 05/07/2024 05:02 AM WBC 10.69 06/11/2018 02:53 PM HGB 12.7 05/07/2024 05:02 AM HGB 15.7 02/25/2024 12:00 AM HGB 12.8 06/11/2018 02:53 PM PLT 210 05/07/2024 05:02 AM PLT 346 06/11/2018 02:53 PM IMAGING: N/A IMPRESSION: Principal Problem: SBO (small bowel obstruction) (HCC) Active Problems: Hypertension goal BP (blood pressure) < 140/90 Tobacco use disorder 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 PLAN: - tolerating liquids well, but intermittent nausea with solids - recommend initiation of high protein supplements drinks and a nutritional plan per nutrition team - patient is persistent about being discharged today, and remains optimistic - Patient is not a surgical candidate given metastatic disease and omental seen on recent laparotomy at outside hospital Patient was discussed with Dr. Keny Han MD BS General Surgery Residency, PGY-4 [facility] 05/07/2024 Cosigned by Juliano Bustillo MD at 05/07/2024 11:03 AM EST Associated attestation - Juliano Bustillo MD - 05/07/2024 11:03 AM EST I did not see the patient, but I have reviewed the resident/fellow physician documentation and was readily available on date of service. Patient has inoperable metastatic carcinomatosis with bowel obstruction due to cancer progression and acute inflammation with chemotherapy. Her symptoms have improved but not resolved completely. Will likely have future episodes with chemotherapy. Prognosis is poor. Recommend outpatient counseling and follow-up with Palliative medicine, Oncology, and hospice. Liquids as tolerated. Avoid vegetables or foods that cause problems. 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 SUBJECTIVE: No acute events reported overnight. AF, VSS on room air. Patient laying comfortably in bed. One episode of nausea and vomiting, but still tolerating oral diet well. Voiding spontaneously. Bowels Functioning. Pain controlled on current regimen. Denies MERRILL, cp, SOB, abdominal pain, dizziness, lightheadedness, and vision changes. Ambulating at baseline. OBJECTIVE: Most Recent Vital Signs: BP: 133 mmHg/81 mmHg (05/06/24733) Pulse: 85 (05/06/24733) Resp: 20 (05/06/24733) Temp: 36.22 C (05/06/24733) Temp Summary: Temp Min: 36 C (96.8 F) Max: 36.6 C (97.8 F) SpO2: 90 % (05/06/24733) O2 flow rate: 1 L/MIN (05/04/241999) Supplemental O2 Delivery: Room Air, None (05/06/24733) Vital Signs Last 24 Hours: Systolic BP: Most Recent Systolic BP Av.2 mmHg Min: 133 mmHg Max: 140 mmHg Temperature: Most Recent Temperature Av.3 C Min: 36 C Max: 36.56 C Pulse: Pulse Av.7 Min: 83 Max: 89 Respirations: Resp Av.7 Min: 16 Max: 20 SpO2: SpO2 Av % Min: 90 % Max: 94 % Date 05/05/24699 - 05/06/2465805/06/24699 - 05/07/24658 Shift 1196-1292 1544-0175 24 Hour Total 7949-0096 2871-4896 24 Hour Total INTAKE P.O. 190 190 240 240 I.V. 1175.7 431.3 1607 Shift Total 1365.7 431.3 1797 240 240 OUTPUT Shift Total NET 1365.7 431.3 1797 240 240 Weight (kg) 49 49 49 49 49 49 Physical Exam: Constitutional: (+) chronically ill HEENT: NGT in place, normocephalic, atraumatic; no masses, tenderness, or adenopathy CV: normal rate, warm and well perfused Chest: normal respiratory effort Abdomen: soft, no abdominal TTP , no distention, no rebound or guarding Surgical site: healing midline incision Skin: warm, dry, intact: Neuro: alert, oriented to person, place, and time LABS: Labs reviewed as indicated below: CHEMISTRY: BUN, Creatinine, GFR Estimated, Sodium, Potassium, Chloride, Carbon Dioxide, Glucose, Calcium (see below for most recent value): Lab Results Component Value Date/Time BUN 8 05/06/2024 04:55 AM BUN 6 06/11/2018 02:53 PM CREAT 0.4 (L) 05/06/2024 04:55 AM CREAT 0.70 02/26/2024 12:00 AM CREAT 0.6 06/11/2018 02:53 PM GFRESTIMATED >60.0 06/11/2018 02:53 PM NA 133 (L) 05/06/2024 04:55 AM NA 136 06/11/2018 02:53 PM POTASSIUM 3.3 (L) 05/06/2024 04:55 AM POTASSIUM 4.1 02/26/2024 12:00 AM POTASSIUM 4.0 06/11/2018 02:53 PM CL 98 05/06/2024 04:55 AM CL 97 (L) 06/11/2018 02:53 PM CO2 23 05/06/2024 04:55 AM CO2 25 06/11/2018 02:53 PM CA 7.3 (L) 05/06/2024 04:55 AM CA 9.3 06/11/2018 02:53 PM BLOOD COUNT: WBC, Hgb, Platelets (see below for most recent value): Lab Results Component Value Date/Time WBC 4.92 05/06/2024 04:55 AM WBC 10.69 06/11/2018 02:53 PM HGB 12.8 05/06/2024 04:55 AM HGB 15.7 02/25/2024 12:00 AM HGB 12.8 06/11/2018 02:53 PM PLT 178 05/06/2024 04:55 AM PLT 346 06/11/2018 02:53 PM IMAGING: N/A IMPRESSION: Principal Problem: SBO (small bowel obstruction) (HCC) Active Problems: Hypertension goal BP (blood pressure) < 140/90 Tobacco use disorder 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 PLAN: - clinically stable - advance diet as tolerated - when patient is able to tolerate solid foods, she will qualify as a discharge candidate from a surgical standpoint - Patient is not a surgical candidate given metastatic disease and omental caking seen on recent laparotomy at outside hospital Patient was discussed with Dr. Keny Han MD BS General Surgery Residency, PGY-4 [facility] 05/06/2024 Cosigned by Juliano Bustillo MD at 05/06/2024 11:19 AM EST Associated attestation - Juliano Bustillo MD - 05/06/2024 11:19 AM EST I saw and evaluated the patient 05/06/2024. I have reviewed the resident/fellow physician note and agree. * Kusum Bright MD - 05/06/2024 8:40 AM EST Images from the original note were not included. [facility] 3B-3011/W INTERVAL HISTORY: Patient is a 68-year-old female with a [...] stabilized and was transferred out of ICU. Patient was seen and examined today, she is overall doing well, her electrolytes, continue to remain abnormal with magnesium of 1.4, potassium of 3.3 and phosphorus of 1.9. In addition to replacing these electrolytes today intravenously, I have started her on daily p.o. which we will start tomorrow. Objective Physical Exam Most Recent Vital Signs: BP: 133 mmHg/81 mmHg (05/06/24 0734) Pulse: 85 (05/06/24 0734) Resp: 20 (05/06/24 0734) Temp: 36.22 C (05/06/24733) Temp Summary: Temp Min: 36 C (96.8 F) Max: 36.6 C (97.8 F) SpO2: 90 % (05/06/24733) O2 flow rate: 1 L/MIN (05/04/241999) Supplemental O2 Delivery: Room Air, None (05/06/24733) Constitutional: no acute distress CV: normal rate and rhythm, no murmur, gallops or rub Chest: normal respiratory effort, lungs clear to auscultation and percussion Abdomen: normal: soft, bowel sounds normal, no masses, tenderness or organomegaly Extremities: no clubbing, cyanosis, or edema, otherwise grossly normal, warm, and dry Peripheral Line Left;Lower Arm 22 Gauge (Active) Number of days: 4 Peripheral Line Lower;Right 20 Gauge (Active) Number of days: 3 Implanted IV Device Right Chest (Active) Number of days: 15 STUDIES: Encounter Orders Labs and other studies reviewed with pertinent findings noted below: Latest Reference Range & Units 05/06/24 04:55 SODIUM 135 - 146 mmol/L 133 (L) POTASSIUM 3.5 - 5.1 mmol/L 3.3 (L) CHLORIDE 98 - 107 mmol/L 98 CO2 22 - 32 mmol/L 23 BUN 6 - 20 mg/dL 8 CREATININE 0.5 - 1.0 mg/dL 0.4 (L) EGFR >=60 mL/min >90 ANION GAP 7 - 15 mmol/L 12 GLUCOSE 70 - 120 mg/dL 117 CALCIUM 8.4 - 10.2 mg/dL 7.3 (L) Calcium, Ionized, Whole Blood 1.13 - 1.32 mmol/L 1.02 (L) Magnesium 1.5 - 2.6 mg/dL 1.4 (L) Phosphorus 2.5 - 4.8 mg/dL 1.9 (L) (L): Data is abnormally low Latest Reference Range & Units 05/06/24 04:55 CBC Rpt ! 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 * I have examined the patient and consistent with the dietitian's findings found malnutrition presentof Moderate (04/30/24 1314) degree. This is consistent with such due to Fat loss;Muscle loss;Inadequate energy intake (04/30/24 1314). I have also reviewed and agree with the dietitian's plan of carewhich include Oral nutritional supplement ordered/adjusted (05/05/24 1333). DIFFERENTIAL AND PLAN: 1. Hypokalemia/hypomagnesemia/hypophosphatemia/poor p.o. intake Patient was seen by nutrition , she is currently on regular diet which she may not tolerate the mount that her body requires mainly because of abdominal discomfort that she we will have considering the growing intra-abdominal metastatic disease. We will try to maximize p.o. intake, we will replace e lectrolyte deficiencies intravenously today and since tomorrow she has to be started on oral daily dose. 2. Question of SBO Clinically she is doing well, she had Gastrografin study which showed patency of the GI tract, we will try regular diet for now. 3. Pancreatic malignancy with metastatic disease Deferred to outpatient care, patient does have a port and was on chemotherapy before. 4. Disposition/plan We will recheck electrolytes tomorrow, Palliative Care need to discuss end of life care including code status with her more efficiently, as I am expecting that considering her growing intra-abdominalmalignancy and the high-risk of recurring electrolyte abnormality and poor nutrition in the future,she might have the same picture again. From the medical standpoint I think patient should be ready for discharge tomorrow on 05/07/2024. VFib cardiac arrest/hypokalemia/hypomagnesemia - Improving PHARMACOLOGIC VTE PROPHYLAXIS: hEParin CODE STATUS: Full Code EXPECTED DISCHARGE DATE: 05/07/2024 I spent a total of 45 minutes coordinating, documenting, and providing care for this patient excluding time spent in the performance of separately billed services or time spent by another provider/QHP. 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 Interval History: Her bowels are moving, and she was placed on a regular diet now. She is planned to be transferred out of ICU today. She is glad about this- says there is too much 'commotion' down here. Physical Exam: BP 139/89 | Pulse 85 | Temp 36.6 C (97.8 F) (Temporal Artery) | Resp 16 | Ht 1.588 m (5' 2.5") | Wt 49 kg (108 lb 0.4 oz) | SpO2 92% | BMI 19.44 kg/m | BSA 1.47 m Constitutional: no acute distress, chronically ill HENT: normocephalic, atraumatic. Eyes: anicteric, sclera and conjunctiva normal. Neck: no stridor Chest: normal respiratory effort Abdominal: nondistended Data Review: External notes reviewed: - Reviewed notes from [facility] 05/05- plan to step down out of ICU - Reviewed notes from Gen Surg 05/05- noted advancing diet as tolerated. - Reviewed notes from nursing overnight 2/25- NG tube removed. Information obtained from , Deondre at bedside for collateral history Discussion with other team members: I discussed patient with Dr. Dueñas and CCM team. Plan for transition out of ICU- improved slightly. 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 Problems Addressed: Cardiac arrest- life threatening Small bowel obstruction, NG tube removed, improving Pancreatic cancer, mets to peritoneum- life threatening Frailty Active smoker Goals of care - continue full treatment Code status: Full Code Recommendations: She is moving her bowels well and so far tolerating her regular diet. She is hopeful to move out ofICU, and the plan is to step down today if possible. Can stop the IV Dexamethasone at this time since SBO appears to be resolved. No pain at this time. We will continue to follow and likely also f/u as an outpatient. Please do not hesitate to call or TigerText with additional questions or concerns. Abbey Villela PA-C [facility] Palliative Medicine TigerText [facility] Palliative Medicine Role to contact us * Lalito Ahn MD - 05/05/2024 7:40 AM EST PROGRESS NOTE - General Surgery [facility] [address] Name: Gracie Cheema Location: [facility] [id number] Date: 05/05/2024 Time: 7:41 AM Gracie Cheema is a 68 y/o female with a history of perforated appendicitis 2/2 metastatic adenocarcinoma of the pancreas with omental implants who is here today with a small bowel obstruction 2/2 a transition point along the anterior abdominal wall here on hospital day 6. SUBJECTIVE: No acute events reported following the code blue on yesterday morning. AF, VSS on NS. Patient laying comfortably in bed. NGT removed overnight following gastrograffin challenge. Tolerating liquid diet well. Bowels Functioning. Pain controlled on current regimen. Denies MERRILL, SOB, abdominal pain, dizziness, lightheadedness, and vision changes. OBJECTIVE: Most Recent Vital Signs: BP: 150 mmHg/92 mmHg (05/05/24699) Pulse: 75 (05/05/24699) Resp: 26 (05/05/24599) Temp: 36.78 C (05/05/24 0400) Temp Summary: Temp Min: 36.4 C (97.5 F) Max: 36.8 C (98.2 F) SpO2: 96 % (05/05/24699) O2 flow rate: 1 L/MIN (05/04/241999) Supplemental O2 Delivery: Nasal Cannula (05/04/241999) Vital Signs Last 24 Hours: Systolic BP: Most Recent Systolic BP Av.6 mmHg Min: 132 mmHg Max: 150 mmHg Temperature: Most Recent Temperature Av.6 C Min: 36.39 C Max: 36.78 C Pulse: Pulse Av Min: 74 Max: 89 Respirations: Resp Av.1 Min: 6 Max: 31 SpO2: SpO2 Av.6 % Min: 90 % Max: 97 % Date 05/04/24699 - 05/05/2465805/05/24699 - 05/06/2459 Shift 8905-6249 8839-1348 24 Hour Total 1351-1047 4289-1272 24 Hour Total INTAKE P.O. 160 160 I.V. 1030 68.5 1098.6 Shift Total 1190 68.5 1258.6 OUTPUT Urine 600 200 800 GI 350 350 Shift Total 353 876 8357 NET 240 -131.5 108.6 Weight (kg) 52 49 49 49 49 49 Physical Exam: Constitutional: (+) chronically ill HEENT: NGT in place, normocephalic, atraumatic; no masses, tenderness, or adenopathy CV: normal rate, warm and well perfused Chest: normal respiratory effort, generalized TTP Abdomen: soft, no abdominal TTP , no distention, no rebound or guarding Surgical site: there is no evidence of fascial disruption or hernia and no erythema or warmth Skin: warm, dry, intact: Neuro: alert, oriented to person, place, and time LABS: Labs reviewed as indicated below: CHEMISTRY: BUN, Creatinine, GFR Estimated, Sodium, Potassium, Chloride, Carbon Dioxide, Glucose, Calcium (see below for most recent value): Lab Results Component Value Date/Time BUN 10 05/05/2024 05:43 AM BUN 6 06/11/2018 02:53 PM CREAT 0.4 (L) 05/05/2024 05:43 AM CREAT 0.70 02/26/2024 12:00 AM CREAT 0.6 06/11/2018 02:53 PM GFRESTIMATED >60.0 06/11/2018 02:53 PM NA 136 05/05/2024 05:43 AM NA 136 06/11/2018 02:53 PM POTASSIUM 3.2 (L) 05/05/2024 05:43 AM POTASSIUM 4.1 02/26/2024 12:00 AM POTASSIUM 4.0 06/11/2018 02:53 PM CL 99 05/05/2024 05:43 AM CL 97 (L) 06/11/2018 02:53 PM CO2 25 05/05/2024 05:43 AM CO2 25 06/11/2018 02:53 PM CA 7.6 (L) 05/05/2024 05:43 AM CA 9.3 06/11/2018 02:53 PM BLOOD COUNT: WBC, Hgb, Platelets (see below for most recent value): Lab Results Component Value Date/Time WBC 5.80 05/05/2024 05:43 AM WBC 10.69 06/11/2018 02:53 PM HGB 12.2 05/05/2024 05:43 AM HGB 15.7 02/25/2024 12:00 AM HGB 12.8 06/11/2018 02:53 PM PLT 149 05/05/2024 05:43 AM PLT 346 06/11/2018 02:53 PM IMAGING: N/A IMPRESSION: Principal Problem: SBO (small bowel obstruction) (HCC) Active Problems: Hypertension goal BP (blood pressure) < 140/90 Tobacco use disorder 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 * Gracie Cheema is a 68 y/o female with a history of perforate appendicitis 2/2 metastatic adenocarcinoma of the pancreas with omental implanted who is here today with a small bowel obstruction 2/2 a transition point along the anterior abdominal wall undergoing gastroenteric decompression with an NGT here on hospital day 6. PLAN: - clinically stable with bowel function following gastrograffin challenge on 05/04/24 - advance diet as tolerated - when patient is able to tolerate solid foods, she will qualify as a discharge candidate from a surgical standpoint - Patient is not a surgical candidate given metastatic disease and omental caking seen on recent laparotomy at outside hospital Patient was discussed with Dr. Keny Han MD BS General Surgery Residency, PGY-4 [facility] 05/05/2024 Cosigned by Juliano Bustillo MD at 05/05/2024 12:33 PM EST Associated attestation - Juliano Bustillo MD - 05/05/2024 12:33 PM EST I saw and evaluated the patient 05/05/2024. I have reviewed the resident/fellow physician note and agree. * Kevin Mcgregor, Medical Student - 05/05/2024 7:00 AM EST Images from the original note were not included. Unless the attending has added an attestation supporting use of this note to document a billable service, the signature of the Licensed Professional on this note only acknowledges the presence of thestudent's note within the patient record and the Licensed Professional's note should be referred tofor clinical information and recommendations. Critical Care Medicine - Progress Note [facility] [address] Name: Gracie Cheema Location: [facility] [id number] Date: 05/05/2024 Time: 7:01 AM IMPRESSION: Cardiac arrest due to Torsades de Pointes Small bowel obstruction, NGT removed 05/04/2024 Electrolyte abnormalities d/t SBO Hypomagnesemia Hypokalemia Hypocalcemia Prolonged QTC UTI, Enterococcus cultures Hx of metastatic pancreatic carcinoma Hx of hypertension and hyperlipidemia Hx of active tobacco use Malnutrition of moderate degree RECOMMENDATIONS: Appreciate cardiology recommendations Maintain K>4 Maintain Mg>2 Monitor pediatric np respiratory status, on 1 Lpm, wean as tolerated F/u Chest and abd Xrs Continue Unasyn Administer potassium chloride when indicated Administer calcium gluconate when indicated Administer magnesium sulfate when indicated Monitor BMP, Ca, Mg, and Phos Encourage OOB, PT/OT consult FULL CODE Patient Description: The patient is a 68 year old female with a hx of HTN, T2DM, HLD, metastatic pancreatic carcinoma, and tobacco use admitted initially on 04/29/2024 to the med-surg floor for small bowel obstruction with N/V in the setting of pancreatic malignancy. She was transferred to the ICU on 05/03/2024 because of cardiac arrest due to Torsades de Pointes in the setting of electrolyte imbalance with a SBO. HPI - Interval History: ICU Day 2 (05/05/2024): Pt had NGT removed last night without complications after completing the gastrografin challenge. Overnight team advanced her to a regular PO diet. She was given KCl and MgSO4 after morning labs showed these levels below goal. Otherwise no acute events overnight. Afebrile. VSS. Pt was seen at the bedside, tolerating her breakfast. She expressed wishes of going home today. Sheis off the supplemental O2 this morning and saturating well. She says she is feeling fine despite being told about her electrolyte abnormalities. She reiterates that she has no hx of heart issues. is at the bedside, demonstrating worry as he was present, and asking questions about how to address the low K and Mg. She continues to have sternal chest soreness only when her chest expands during inspiration or hiccups. She rates it 7/10 when it occurs but it goes swiftly dissipates. She does not want any PRN pain medications. ICU Day 1 (05/04/2024): No acute events overnight. Afebrile. VSS. Pt reports not getting adequate sleep last night due to continuous monitoring and check-ins. She does say she is doing well today though she remains concerned/anxious about what happened yesterday. She offers no new complaints but continues to have 5/10 sternal, non-radiating chest pain only with movement and deep inspiration. She refused PRN pain medications stating that the pain is tolerable for now. Review Of Systems: A 14 point system review was completed. It is as indicated in the history of present illness and all others are negative. OBJECTIVE: Most Recent Vital Signs: BP: 144 mmHg/83 mmHg (05/05/24 0600) Pulse: 80 (05/05/24 06) Resp: 26 (05/05/24599) Temp: 36.78 C (05/05/24 0400) Temp Summary: Temp Min: 36.4 C (97.5 F) Max: 36.8 C (98.2 F) SpO2: 94 % (05/05/24599) O2 flow rate: 1 L/MIN (05/04/241999) Supplemental O2 Delivery: Nasal Cannula (05/04/241999) Fluid Balance: Intake/Output Summary (Last 24 hours) at 05/05/2024 0705 Last data filed at 05/04/2024 2200 Gross per 24 hour Intake 1165.97 ml Output 1150 ml Net 15.97 ml Ventilator Settings: N/A Physical Examination: GENERAL: Awake, cooperative, good historian, no conversational dyspnea, sitting up in bed, appears comfortable, eating breakfast, no acute distress HEAD: Normocephalic, atraumatic, ROSSI, EOMI, anicteric sclera. NECK: Supple, no JVD, no stridor, no sc air, midline trachea, no thyromegaly, no use of accessory muscles CHEST: Clear to auscultation, no rhonchi, no rales, no wheezing. Mild tenderness to palpation of sternal chest area. HEART: Normal S1 and S2, regular rhythm, normal rate. No rubs or murmurs ABDOMEN: Distended, non-tender to palpation, no guarding, bowel sounds present EXTREMITIES: No edema, no clubbing, no cyanosis, Ai's negative NEUROLOGIC: Awake, alert, oriented 3, no signs of biomedical engineer abnormalities, moving all extremities equally, grossly non-focal neurologic exam SKIN: No rash, no urticaria, no hives Blood Gas: No results in the last 7 days - inpatent use only Laboratories: Complete Blood Count: Lab results within last 7 days (see chart for full results) Units 05/05/24 0543 05/04/24 0452 05/03/24 0546 05/02/24 0648 05/01/24 1212 05/01/24 0452 04/30/24 0512 04/29/24 0817 WBC K/uL 5.80 4.78 4.61 5.44 -- 5.42 11.35* 14.76* HGB g/dL 12.2 11.4* 11.0* 12.0 10.9* 10.4* 11.3* 12.8 HCT % 35.9* 33.8* 32.8* 36.4 33.4* 30.9* 33.6* 39.1 PLT K/uL 149 148 189 253 -- 249 291 353 MCV fL 89.3 91.6 92.7 93.6 -- 93.4 92.1 93.1 Coagulation Studies: Lab results within last 7 days (see chart for full results) Units 05/03/24 0546 05/02/24 0648 05/01/24 1212 Prothrombin Time seconds 13.8 14.4 14.5 INR 1.0 1.1 1.1 Chemistry Panel: Lab results within last 7 days (see chart for full results) Units 05/05/24 0543 05/04/24 1600 05/04/24 0452 05/03/24 2000 05/03/24 1207 05/03/24 0546 05/02/24 1546 05/02/24 0648 05/01/24 0452 SODIUM mmol/L 136 136 134* 137 141 138 144 144 144 POTASSIUM mmol/L 3.2* 4.0 4.2 3.7 3.4* 3.9 4.4 3.9 3.0* CHLORIDE mmol/L 99 101 100 103 106 104 109* 105 107 CO2 mmol/L 25 19* 23 23 23 24 22 20* 21* EGFR mL/min >90 >90 >90 >90 >90 >90 >90 >90 >90 BUN mg/dL 10 11 13 16 18 15 13 12 9 CREATININE mg/dL 0.4* 0.5 0.5 0.4* 0.5 0.5 0.5 0.6 0.7 GLUCOSE mg/dL 111 110 123* 130* 202* 166* 143* 139* 104 CALCIUM mg/dL 7.6* 8.1* 7.9* 7.9* 7.9* 8.0* 8.5 9.0 8.2* Magnesium mg/dL 1.5 2.1 1.7 1.7 1.4* -- 1.5 1.6 1.7 Phosphorus mg/dL 3.1 3.4 2.9 -- 3.3 -- -- 3.1 3.0 ANION GAP mmol/L 12 16* 11 11 12 10 13 19* 16* Liver Function Panel: Lab results within last 7 days (see chart for full results) Units 05/03/24 0546 05/02/24 0648 05/01/24 0452 04/29/24 0817 Albumin g/dL 2.7* 3.0* 2.6* 3.7* | 3.7* Protein g/dL 6.2 7.0 6.2 8.0 | 8.0 Bilirubin, Total mg/dL 0.3 0.6 0.4 0.8 | 0.8 Bilirubin, Direct mg/dL 0.2 0.2 0.2 0.3 AST U/L 19 20 30 48* | 48* ALT U/L 13 15 14 19 | 19 Alkaline Phosphatase U/L 74 91 81 106 | 106 Cardiac Studies: Lab results within last 7 days (see chart for full results) Units 05/03/24 1207 05/01/24 0452 Troponin T, High Sensitivity ng/L 15* -- BNP, NT-Pro pg/mL -- 4,357* Infectious Studies: Lab results within last 7 days (see chart for full results) Units 05/02/24 1546 05/01/24 0452 04/29/24 1458 Lactate mmol/L 1.0 -- 1.3 Procalcitonin ng/mL -- 0.52* -- Cultures: No results in the last 7 days - inpatent use only Recent Cultures (2 Weeks) 04/30/2024 2:19 PM QUANT URINE CULTURE GROWTH 10,000 to 100,000 colonies/mL Enterococcus species Radiographic Studies: XR ABDOMEN 1 VIEW Result Date: 05/04/2024 IMPRESSION: Upper abdomen is not included in the field of view. Nonobstructive gas pattern with contrast progressing into the rectum. Large colonic and rectal stool burden. THIS DOCUMENT HAS BEEN ELECTRONICALLY SIGNED BY MACEY MATAMOROS MD XR CHEST 1 VIEW Result Date: 05/04/2024 IMPRESSION: 1. Lines and tubes are in stable position. 2. Redemonstrated bilateral mixed interstitial and alveolar infiltrates without consolidation. Interstitial infiltrates may be secondary to pulmonary edema, pneumonia, or pneumonitis. THIS DOCUMENT HAS BEEN ELECTRONICALLY SIGNED BY FELI QUINTANILLA MD XR ABDOMEN 1 VIEW Result Date: 05/04/2024 IMPRESSION: No acute findings. THIS DOCUMENT HAS BEEN ELECTRONICALLY SIGNED BY FELI QUINTANILLA MD Cardiac Studies: ECHO, COMPLETE (2D), TRANS-THORACIC 05/04/2024 0742 Interpretation Summary - The examination is adequate to evaluate the referral indication. - The primary indication after review was deemed appropriate and the examination was performed. - The qualitative LV ejection fraction is 30-34% (moderately reduced). - There is a large sized apical, septal, anteroseptal, anterior, inferior, posterior, and lateral wall motion abnormality with hypokinesis of the segments. - The left ventricular diastolic function is mildly abnormal (grade I). - The left atrium is moderately enlarged (42-48 ml/m^2). - Mild mitral regurgitation is present. - Mild tricuspid regurgitation is present. - The estimated pulmonary artery systolic pressure is 34mm Hg. - No prior study for comparison. EKG 04-May-2024 12:14:39 - Normal sinus rhythm - LBBB - Vent. Rate 84 BPM - WI interval 129 ms - QRS duration 126 ms - QT/QTcB 506/597 ms - P-R-T axes 50/-3/177 EKG 03-May-2024 12:24:38 - Normal sinus rhythm - LBBB - Vent. Rate 77 BPM - WI interval 136 ms - QRS duration 132 ms - QT/QTcB 482/545 ms - P-R-T axes 43/-16/81 EKG 01-May-2024 08:17:56 - Normal sinus rhythm - Premature atrial complexes - LBBB - Vent. Rate 78 BPM - WI interval 134 ms - QRS duration 132 ms - QT/QTcB 432/499 ms - P-R-T axes 46/-10 Assessment and Plan: - Cardiac arrest due to Torsades de Pointes - Small bowel obstruction, w/ NGT - Electrolyte abnormalities d/t SBO - Hypomagnesemia - Hypokalemia - Hypocalcemia - Prolonged QTC - UTI, Enterococcus cultures - Hx of metastatic pancreatic carcinoma - Hx of hypertension and hyperlipidemia - Hx of active tobacco use - Malnutrition of moderate degree The patient is a 68 year old female with a hx of metastatic pancreatic carcinoma, HTN, T2DM, HLD, and tobacco use transferred to the ICU from the med- surg floor following an episode of cardiac arrestwith pulseless electrical activity while admitted for evaluation of small bowel obstruction. Pt's Mg and K continue to drop below goal, per cardio recommendations. Her EKG yesterday PM also exhibited a significant increase in her QTc. She had no complications with the gastrografin challenge and the NGT was removed. She was restarted on a regular PO and tolerating it which should help with the persistent electrolyte abnormalities. Started on K and Mg infusions this AM. Will monitor with early PM labs. Her ECHO results showed a moderately decreased EF with significant wall motion abnormalities which Dr. Abdalla states is not good for overall prognosis. Pt continues to endorse Full Codestatus and endorses being healthy enough to go home immediately. She is unable to remember the cardi ac arrest event and so she appears to be downplaying it. Palliative care following. SYSTEM BASED PLAN: Central nervous system - monitor mental status Respiratory system Active tobacco use - monitor respiratory status - monitor O2 saturation - currently off O2, saturating well Cardiovascular system Cardiac arrest/pulseless electrical activity Torsades de Pointes Prolonged QTC Elevated BNP Hx of hypertension, dyslipidemia - appreciate cardiology recommendations - obtain ECHO - maintain K>4 - maintain Mg>2 - repeat CXR 05/04/2024 demonstrated no significant change compared to previous; lines and tubes stable - repeat 12-lead EKG 05/04/2024 showed significant prolonged QTcB of 597 ms - repleting magnesium and potassium per labs - avoid QT prolonging medications - ECHO showed moderate decrease in EF and significant wall motion abnormalities - continue Isolyte-S pH 7.4 infusion @50 mL/hr Gastrointestinal system Small bowel obstruction, NGT removed 05/04/2024 Hx of metastatic pancreatic carcinoma - gen surg following - pt passed gastrografin challenge 05/04/2024, NGT removed overnight - pt is a high risk surgical candidate - continue IV dexamethasone in an attempt to decrease gut secretions - continue IV famotidine BID Nutrition Hx of alcohol abuse Malnutrition of moderate degree - now on regular diet Endo Hyperglycemia, mild Hematology - on heparin inj 5,000 units Q8H Musculoskeletal - acute rib pain post chest compressions - pain PRNs placed Infectious disease UTI - elevated procal - urine culture positive of enterococcus - continue Unasyn 1.5g NSS IVPB Renal Multiple electrolyte abnormalities 2/2 to SBO Hypomagnesemia Hypocalcemia Hypokalemia - PM recheck BMP, Mag, Phos, ionized Ca - replete electrolytes as indicated by labs - monitor I/Os Skin - decubitus precautions General - palliative care following - per progress note, pt wants to continue to be aggressive with her cancer despite poor prognosis - OOB, PT/OT consult Global Issues: Analgesia --> controlled - other Sedation --> N/A Delirium/Confusion Assessment Method for ICU (CAM-ICU) --> CAM-ICU negative HOB Elevation --> greater than 30 degress DVT Prophylaxis --> chemoprophylaxis with pneumatic compression devices Stress Ulcer Prophylaxis --> histamine 2 antagonist Glycemic Control --> controlled Nutrition --> enteral, advancing to goal Central Line Necessity Reviewed --> N/A Lebron --> N/A Disposition --> transfer to step down Patient's Decisional Capacity: The patient has capacity to make decisions Communication with Patient - Family: Brief Family Communication. Date and time of meetin05/05/2024 Patient/Family participation: Spouse/Partner. Goals of Care: decrease pain and discomfort, replete electrolytes Electronically Signed By: Care for this patient was discussed with and assessed by the attending Dr. Nando Dueñas. Kevin Mcgregor Phase 3 Medical Student [facility] Cosigned by Nando Dueñas MD at 05/05/2024 9:55 AM EST Associated attestation - Nando Dueñas MD - 05/05/2024 9:55 AM EST I attest that I have reviewed the student note and that the components of the history, the physicalexam, and the assessment and plan documented were performed in my presence with the student where Iverified the documentation and performed (or re-performed) the exam and medical decision making. I spent a total of 41 minutes Critical Care evaluation and management time, coordinating, documenting, and providing care for this patient excluding time spent in the performance of separately billedservices or time spent by another provider/QHP. Uneventful night. Electrolyte replacement was continued. QTC monitoring is being continued. Plan to follow Cardiology recommendations regarding maintenance antihypertensive regimen. Patient was cleared for oral intake as per surgical management plan. NG tube was removed. Plan to advance PT/OT as tolerated. Patient will be transferred to medical floor when bed available. * Jaimie Carney CRNP - 05/04/2024 12:24 PM EST PROGRESS NOTE - Cardiology Service [facility] [address] Name: Gracie Cheema Location: [facility] [id number] Date: 05/04/2024 Time: 12:24 PM SUBJECTIVE: The patient was seen today in Cardiology follow-up in regard to torsades de pointes. She is symptomatically feeling overall well. Currently NPO for Gastrografin study NG tube remains in place. . Review of systems: Review of Systems Constitutional: Positive for fatigue. Negative for activity change and unexpected weight change. Eyes: Negative for visual disturbance. Respiratory: Negative for shortness of breath and wheezing. Cardiovascular: Negative for chest pain, palpitations and leg swelling. Gastrointestinal: Negative for blood in stool, constipation, diarrhea, nausea and vomiting. Genitourinary: Negative for hematuria. Musculoskeletal: Negative for arthralgias and gait problem. Skin: Negative for wound. Neurological: Negative for dizziness and syncope. OBJECTIVE: Most Recent Vital Signs: BP: 139 mmHg/89 mmHg (05/04/24 1200) Pulse: 89 (05/04/24 1200) Resp: 31 (05/04/241199) Temp: 36.39 C (05/04/24 1100) Temp Summary: Temp Min: 36.3 C (97.3 F) Max: 36.6 C (97.9 F) SpO2: 93 % (05/04/24 1200) O2 flow rate: 5 L/MIN (05/04/241199) Supplemental O2 Delivery: Nasal Cannula (05/04/241199) Vital Signs Last 24 Hours: Systolic BP: Most Recent Systolic BP Av.1 mmHg Min: 116 mmHg Max: 143 mmHg Temperature: Most Recent Temperature Av.4 C Min: 36.28 C Max: 36.61 C Pulse: Pulse Av.2 Min: 74 Max: 89 Respirations: Resp Av.5 Min: 2 Max: 31 SpO2: SpO2 Av.5 % Min: 88 % Max: 98 % Physical Exam Constitutional: General: She is awake. She is not in acute distress. Appearance: Normal appearance. HENT: Head: Normocephalic and atraumatic. Eyes: Extraocular Movements: Extraocular movements intact. Pupils: Pupils are equal, round, and reactive to light. Neck: Vascular: No carotid bruit or JVD. Cardiovascular: Rate and Rhythm: Normal rate and regular rhythm. Pulses: Carotid pulses are 2+ on the right side and 2+ on the left side. Radial pulses are 2+ on the right side and 2+ on the left side. Dorsalis pedis pulses are 2+ on the right side and 2+ on the left side. Posterior tibial pulses are 2+ on the right side and 2+ on the left side. Heart sounds: Normal heart sounds, S1 normal and S2 normal. No murmur heard. No gallop. Pulmonary: Effort: Pulmonary effort is normal. No accessory muscle usage. Breath sounds: No wheezing or rhonchi. Musculoskeletal: Cervical back: Neck supple. Right lower leg: No edema. Left lower leg: No edema. Skin: General: Skin is warm and dry. Capillary Refill: Capillary refill takes less than 2 seconds. Neurological: Mental Status: She is alert and oriented to person, place, and time. Mental status is at baseline. Psychiatric: Attention and Perception: Attention and perception normal. Behavior: Behavior is cooperative. Judgment: Judgment normal. Current Facility-Administered Medications Medication Dose Route Frequency Provider ampicillin-sulbactam in NSS (Unasyn) ivpb 1.5 g 1.5 g IV Piggyback Q6H Nando Dueñas MD Diatrizoate Meglumine & Sodium (Gastroview) oral 30 mL 30 mL NG Tube Once Nando Dueñas MD Isolyte-S pH 7.4 infusion Intravenous Continuous Marisa Way MD, PhD hEParin inj 5,000 Units 5,000 Units Subcutaneous Q8H Marisa Way MD, PhD dexAMETHasone Sodium Phosphate (Decadron) 4 MG/ML inj 4 mg 4 mg IV Push Q12H Julia Argueta MD diphenhydrAMINE (Benadryl) inj 25 mg 25 mg IV Push QHS PRN Glen Galvan PA-C Famotidine (Pepcid) inj 20 mg 20 mg IV Push 0800, Noon Julia Argueta MD morphine sulfate inj 2 mg 2 mg IV Push Q1H PRN Julia Argueta MD ondansetron (Zofran) inj 4 mg 4 mg IV Push Q6H PRN Julia Argueta MD Bisacodyl (Dulcolax) supp 10 mg 10 mg Rectal Daily PRN Glen Galvan PA-C dextrose 50% inj 25 mL 25 mL IV Push PRN Glen Galvan PA-C dextrose 50% inj 50 mL 50 mL IV Push PRN Glen Galvan PA-C glucagon (Glucagen) inj 1 mg 1 mg Intramuscular PRN Glen Galvan PA-C Glucose (Glutose 15) 40 % gel 15 g of glucose 15 g of glucose Oral PRN Glen Galvan PA-C Glucose (Glutose 15) 40 % gel 30 g of glucose 30 g of glucose Oral PRN Glen Galvan PA-C glucose chew tab 16 g 16 g Oral PRN Glen Galvan PA-C Nicotine (Nicoderm CQ) 14 MG/24HR patch 1 Patch 1 Patch Transdermal Daily PRN Glen Galvan PA-C phenol (chlorASEPTIC) spray 3 [place] 3 [place] Oral Q4H PRN Glen Galvan PA-C sodium chloride 0.9 % flush/inj 3 mL 3 mL IV Push PRN Glen Galvan PA-C Results Labs & Imaging Reviewed Below: ECG Today NSR T-wave inversions anterolateral leads, nonspecific T-wave abnormality inferior leads LBBB 84 bpm Qtc 597 ms 05/03/24 NSR LBBB 77 bpm QTc 545 ms 05/01/24 NSR, PACs, LBBB 78 bpm QTc 499 ms 09/05/22 NSR, PVs 80 bpm QTc 486 ms Echocardiograms Today The examination is adequate to evaluate the referral indication. The primary indication after review was deemed appropriate and the examination was performed. The qualitative LV ejection fraction is 30-34% (moderately reduced). There is a large sized apical, septal, anteroseptal, anterior, inferior, posterior, and lateral wall motion abnormality with hypokinesis of the segments. The left ventricular diastolic function is mildly abnormal (grade I). The left atrium is moderately enlarged (42-48 ml/m^2). Mild mitral regurgitation is present. Mild tricuspid regurgitation is present. The estimated pulmonary artery systolic pressure is 34mm Hg. No prior study for comparison. LABS: Labs reviewed as indicated below: Latest Reference Range & Units 05/03/24 12:07 05/03/24 20:00 05/04/24 04:52 Troponin T, High Sensitivity <=14 ng/L 15 (H) SODIUM 135 - 146 mmol/L 141 137 134 (L) POTASSIUM 3.5 - 5.1 mmol/L 3.4 (L) 3.7 4.2 CHLORIDE 98 - 107 mmol/L 106 103 100 CO2 22 - 32 mmol/L 23 23 23 BUN 6 - 20 mg/dL 18 16 13 CREATININE 0.5 - 1.0 mg/dL 0.5 0.4 (L) 0.5 EGFR >=60 mL/min >90 >90 >90 ANION GAP 7 - 15 mmol/L 12 11 11 GLUCOSE 70 - 120 mg/dL 202 (H) 130 (H) 123 (H) CALCIUM 8.4 - 10.2 mg/dL 7.9 (L) 7.9 (L) 7.9 (L) Calcium, Ionized, Whole Blood 1.13 - 1.32 mmol/L 1.13 1.11 (L) 1.11 (L) Magnesium 1.5 - 2.6 mg/dL 1.4 (L) 1.7 1.7 Phosphorus 2.5 - 4.8 mg/dL 3.3 2.9 CBC Rpt ! WBC 4.00 - 10.80 K/uL 4.78 RBC 3.85 - 5.15 M/uL 3.69 HGB 12.0 - 15.3 g/dL 11.4 (L) HCT 36.0 - 45.2 % 33.8 (L) MCV 81.5 - 97.5 fL 91.6 MCH 27.0 - 34.0 pg 30.9 MCHC 32.0 - 36.0 g/dL 33.7 RDW 11.5 - 15.5 % 13.8 PLT 140 - 400 K/uL 148 MPV 6.6 - 11.1 fL 11.1 IMAGING: Today CXR IMPRESSION: 1. There are mild diffuse ground-glass opacities, likely related to edema, worsened since the prior study. Atypical infection is also a possibility. 2. Small right pleural effusion. 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 -recommend maintaining Mag greater than 2 and potassium greater than 4 to avoid recurrent dysrhythmia -we will also need to avoid QTC prolonging agents, that this juncture she is NPO for Gastrografin study -once able to tolerate oral intake would recommend starting low-dose Toprol, but given the QTC would also need to be avoiding bradycardic episodes -given her underlying GI issues she will likely need to be on oral electrolyte replacements long-term ; will need to see how her GI study results are prior to make any additional recommendations in that regard Patient care discussed and coordinated with Dr. Abdalla. Please refer to Dr. Abdalla's notes for further recommendations. BENNIE Dela Cruz Department of Cardiology I spent a total of 35 minutes coordinating, documenting, and providing care for this patient excluding time spent in the performance of separately billed services or time spent by another provider/QHP. This chart was completed in part utilizing [employer] Speech Voice Recognition Software. Grammatical errors, random word insertions, pronoun errors, and incomplete sentences are an occasional consequence of this system due to software limitations, ambient noise, and hardware issues. Any formal questions or concerns about the content, text, or information contained within the body of this dictation should be directly addressed to the provider for clarification. Cosigned by Shante Abdalla DO at 05/04/2024 6:45 PM EST Associated attestation - Shante Abdalla DO - 05/04/2024 6:45 PM EST I have reviewed the advanced practitioner's documentation on the date of service referenced in note, and I agree with, and take responsibility for the plan of care. Pt seen in cardiology follow up due to cardiac arrest due to TdP from electrolyte imbalance from SBO. Her QTc is still prolonged on ECG today Her echo today revealed reduced EF with wall motion abnormalities Pt still not taking PO due to have a gastric study today This newly found reduced EF is not good for her overall prognosis; etiology for the reduced EF could be coronary disease vs stress induced given the degree of her SBO with underlying metastatic malignancy Recommend close monitoring of her electrolytes and re-pleating K and Mag IV she will most likely need some degree of standing PO once she is able to take PO In addition avoid QTc prolonging agents as her QTc is still markedly prolonged Also avoid bradycardia for this can promote arrhythmias -I discussed my plan and recommendations to the ICU attending as outlined above and they are in agreement with recommendations. Shante Abdalla DO Department of Cardiology [facility] [place] [address] I spent a total of 30 minutes coordinating, documenting, and providing care for this patient excluding time spent in the performance of separately billed services or time spent by another provider/QHP. 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 Interval History: Patient is awake alert oriented x4, in good spirits in the ICU this morning. She anxious to get of the ICU so she can move around more freely. She is well aware of the events of yesterday, and reports being very surprised as she has, never had problems with her heart. Full discussion below. Physical Exam: BP 133/77 | Pulse 81 | Temp 36.4 C (97.5 F) (Tympanic) | Resp 22 | Ht 1.6 m (5' 3") | Wt 52 kg (114 lb 9.5 oz) | SpO2 90% | BMI 20.30 kg/m | BSA 1.52 m Constitutional: Chronically ill, frail HENT: normocephalic, atraumatic. Eyes: anicteric, sclera and conjunctiva normal. Chest: Respirations even and unlabored Neuro: Awake, alert, oriented x4 with good insight Data Review: External notes reviewed: - Reviewed notes from Critical Care 05/03/24 - magnesium and calcium replaced along with potassium to treat possible torsades. - Reviewed notes from hospitalist 05/03/24 - transfer to ICU post-code blue. Lab / Imaging Results: Latest Reference Range & Units 05/03/24 20:00 05/04/24 04:52 POTASSIUM 3.5 - 5.1 mmol/L 3.7 4.2 Latest Reference Range & Units 05/03/24 20:00 05/04/24 04:52 CALCIUM 8.4 - 10.2 mg/dL 7.9 (L) 7.9 (L) Calcium, Ionized, Whole Blood 1.13 - 1.32 mmol/L 1.11 (L) 1.11 (L) Magnesium 1.5 - 2.6 mg/dL 1.7 1.7 (L): Data is abnormally low - improved electrolytes Discussion with other team members: I discussed patient with ICU staff - continuing current care. Decision making capacity: yes Decision maker: Deondre Cheema Discussion with Patient/Family: Meeting previously held on 04/30/24 - patient confirmed full code status. Met with patient this morning in ICU. Patient recalls meeting with palliative on Friday. She is aware of her cancer diagnosis, but is still not willing to accept that she may not be a candidate for surgery or chemotherapy currently. She said, "I never had all these problems, now they're just finding thing after thing. I just need by bowels working so I can get better and stronger and can fight this thing." I explained that this is the nature of her terrible disease, and that complications are not uncommon. I explained that I am unsure if she will be able to have any surgical intervention based on what Dr. Bustillo said, but he would be able to share that information with her. She was kind and accepting of what I explained, but she said, "I'm just not ready to 'go' yet, I want to fight this." "Dr. Waggoner seemed much more optimistic, no one else seems to be." We again discussed code status - she said she wants to remain a full code at this time. 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 Problems Addressed: Cardiac arrest Small bowel obstruction, NG tube in place Pancreatic cancer, mets to peritoneum Frailty Active smoker Goals of care - continue full treatment Code status: Full Code Recommendations: S/p cardiac arrest about 24 hours ago, doing very well. Pain is under control, chest is just a little sore from CPR. Patient wants to remain full code and full treatment. She does not want to accept that she may not be a candidate for surgery and/or chemotherapy. She wants to continue to fight and find out if she has any options. Will defer to surgical team to share this information with her. We will continue to follow along and support. Please do not hesitate to call or [employer] with additional questions or concerns. I spent a total of 52 minutes coordinating, documenting, and providing care for this patient excluding time spent in the performance of separately billed services. BENNIE Rdz [facility] Palliative Medicine [employer] [facility] Palliative Medicine Role to contact us * Lalito Ahn MD - 05/04/2024 7:14 AM EST PROGRESS NOTE - General Surgery [facility] [address] Name: Gracie Cheema Location: [facility] ICCU-4112/W Date: 05/04/2024 Time: 7:14 AM Gracie Cheema is a 68 y/o female with a history of perforated appendicitis 2/2 metastatic adenocarcinoma of the pancreas with omental implants who is here today with a small bowel obstruction 2/2 a transition point along the anterior abdominal wall here on hospital day 5. SUBJECTIVE: No acute events reported following the code blue on yesterday morning. AF, VSS on NS. Patient laying comfortably in bed. Reports chest wall pain following chest compressions. Bowels Functioning. Paincontrolled on current regimen. Denies MERRILL, SOB, abdominal pain, dizziness, lightheadedness, and vision changes. OBJECTIVE: Most Recent Vital Signs: BP: 140 mmHg/82 mmHg (05/04/24 0500) Pulse: 80 (05/04/24 0500) Resp: 18 (05/04/24 0500) Temp: 36.61 C (05/04/24 0000) Temp Summary: Temp Min: 36.1 C (97 F) Max: 36.6 C (97.9 F) SpO2: 94 % (05/04/24 0500) O2 flow rate: 5 L/MIN (05/04/24 0400) Supplemental O2 Delivery: Nasal Cannula (05/04/24 0400) Vital Signs Last 24 Hours: Systolic BP: Most Recent Systolic BP Av.5 mmHg Min: 77 mmHg Max: 174 mmHg Temperature: Most Recent Temperature Av.3 C Min: 36.11 C Max: 36.61 C Pulse: Pulse Av.5 Min: 74 Max: 96 Respirations: Resp Av.5 Min: 2 Max: 26 SpO2: SpO2 Av.7 % Min: 87 % Max: 98 % Date 05/03/24699 - 05/04/2465805/04/24699 - 05/05/24658 Shift [id number] 24 Hour Total 1899-0659 24 Hour Total INTAKE P.O. 0 0 I.V. 1464.4 1185.1 2649.4 Other 749.9 749.9 Shift Total 2214.3 1185.1 3399.4 OUTPUT Urine 350 450 800 Shift Total 350 450 800 NET 1864.3 735.1 2599.4 Weight (kg) 51.1 52 52 52 52 52 Physical Exam: Constitutional: (+) chronically ill HEENT: NGT in place, normocephalic, atraumatic; no masses, tenderness, or adenopathy CV: normal rate, warm and well perfused Chest: normal respiratory effort, generalized TTP Abdomen: soft, no abdominal TTP , no distention, no rebound or guarding Surgical site: there is no evidence of fascial disruption or hernia and no erythema or warmth Skin: warm, dry, intact: Neuro: alert, oriented to person, place, and time LABS: Labs reviewed as indicated below: CHEMISTRY: BUN, Creatinine, GFR Estimated, Sodium, Potassium, Chloride, Carbon Dioxide, Glucose, Calcium (see below for most recent value): Lab Results Component Value Date/Time BUN 13 05/04/2024 04:52 AM BUN 6 06/11/2018 02:53 PM CREAT 0.5 05/04/2024 04:52 AM CREAT 0.70 02/26/2024 12:00 AM CREAT 0.6 06/11/2018 02:53 PM GFRESTIMATED >60.0 06/11/2018 02:53 PM NA 134 (L) 05/04/2024 04:52 AM NA 136 06/11/2018 02:53 PM POTASSIUM 4.2 05/04/2024 04:52 AM POTASSIUM 4.1 02/26/2024 12:00 AM POTASSIUM 4.0 06/11/2018 02:53 PM CL 100 05/04/2024 04:52 AM CL 97 (L) 06/11/2018 02:53 PM CO2 23 05/04/2024 04:52 AM CO2 25 06/11/2018 02:53 PM CA 7.9 (L) 05/04/2024 04:52 AM CA 9.3 06/11/2018 02:53 PM BLOOD COUNT: WBC, Hgb, Platelets (see below for most recent value): Lab Results Component Value Date/Time WBC 4.78 05/04/2024 04:52 AM WBC 10.69 06/11/2018 02:53 PM HGB 11.4 (L) 05/04/2024 04:52 AM HGB 15.7 02/25/2024 12:00 AM HGB 12.8 06/11/2018 02:53 PM PLT 148 05/04/2024 04:52 AM PLT 346 06/11/2018 02:53 PM IMAGING: N/A IMPRESSION: Principal Problem: SBO (small bowel obstruction) (HCC) Active Problems: Hypertension goal BP (blood pressure) < 140/90 Tobacco use disorder 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) 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 * Gracie Cheema is a 68 y/o female with a history of perforate appendicitis 2/2 metastatic adenocarcinoma of the pancreas with omental implanted who is here today with a small bowel obstruction 2/2 a transition point along the anterior abdominal wall undergoing gastroenteric decompression with an NGT here on hospital day 5. PLAN: - recommend gastrograffin challenge today - administer contrast via NGT and place KUB roughly 6 - 8 hours following contrast administration to track progression of contrast - Patient is not a surgical candidate given metastatic disease and omental caking seen on recent laparotomy at outside hospital Lalito Han MD General Surgery Residency, PGY-4 [facility] 05/04/2024 Cosigned by Juliano Bustillo MD at 05/04/2024 2:58 PM EST Associated attestation - Juliano Bustillo MD - 05/04/2024 2:58 PM EST I did not see the patient, but I have reviewed the resident/fellow physician documentation and was readily available on date of service. * Kevin Mcgregor, Medical Student - 05/04/2024 7:01 AM EST Images from the original note were not included. Unless the attending has added an attestation supporting use of this note to document a billable service, the signature of the Licensed Professional on this note only acknowledges the presence of thestudent's note within the patient record and the Licensed Professional's note should be referred tofor clinical information and recommendations. Critical Care Medicine - Progress Note [facility] [id number] Name: Gracie Cheema Location: [facility] ICCU-4112/W Date: 05/04/2024 Time: 7:01 AM IMPRESSION: Cardiac arrest due to Torsades de Pointes Small bowel obstruction, w/ NGT Electrolyte abnormalities d/t SBO Hypomagnesemia Hypokalemia Hypocalcemia Prolonged QTC UTI, Enterococcus cultures Hx of metastatic pancreatic carcinoma Hx of hypertension and hyperlipidemia Hx of active tobacco use Malnutrition of moderate degree RECOMMENDATIONS: Gen surg recommends gastrografin challenge Appreciate cardiology recommendations Maintain K>4 Maintain Mg>2 Monitor pediatric np respiratory status, on 5 Lpm, wean as tolerated F/u ECHO when available F/u Chest and abd Xrs De-escalate Zosyn to Unasyn Administer potassium chloride when indicated Administer calcium gluconate when indicated Administer magnesium sulfate when indicated Early PM labs: BMP, Ca, Mg, and Phos IP Oncology consult Encourage OOB, PT/OT consult FULL CODE Patient Description: The patient is a 68 year old female with a hx of HTN, T2DM, HLD, metastatic pancreatic carcinoma, and tobacco use admitted initially on 04/29/2024 to the med-surg floor for small bowel obstruction with N/V in the setting of pancreatic malignancy. She was transferred to the ICU on 05/03/2024 because of cardiac arrest due to Torsades de Pointes in the setting of electrolyte imbalance with a SBO. HPI - Interval History: ICU Day 1 (05/04/2024): No acute events overnight. Afebrile. VSS. Pt reports not getting adequate sleep last night due to continuous monitoring and check-ins. She does say she is doing well today though she remains concerned/anxious about what happened yesterday. She offers no new complaints but continues to have 5/10 sternal, non-radiating chest pain only with movement and deep inspiration. She refused PRN pain medications stating that the pain is tolerable for now. Review Of Systems: A 14 point system review was completed. It is as indicated in the history of present illness and all others are negative. OBJECTIVE: Most Recent Vital Signs: BP: 140 mmHg/82 mmHg (05/04/24 0500) Pulse: 80 (05/04/24 0500) Resp: 18 (05/04/24 0500) Temp: 36.61 C (05/04/24 0000) Temp Summary: Temp Min: 36.1 C (97 F) Max: 36.6 C (97.9 F) SpO2: 94 % (05/04/24 0500) O2 flow rate: 5 L/MIN (05/04/24 0400) Supplemental O2 Delivery: Nasal Cannula (05/04/24 0400) Fluid Balance: Intake/Output Summary (Last 24 hours) at 05/04/2024 07 Last data filed at 05/04/2024 0600 Gross per 24 hour Intake 2991.88 ml Output 800 ml Net 2191.88 ml Ventilator Settings: N/A Physical Examination: GENERAL: Awake, cooperative, good historian, no conversational dyspnea, resting comfortably in bed,no acute distress HEAD: Normocephalic, atraumatic, ROSSI, EOMI, anicteric sclera. NGT in place NECK: Supple, no JVD, no stridor, no sc air, midline trachea, no thyromegaly, no use of accessory muscles CHEST: Clear to auscultation, no rhonchi, no rales, no wheezing. Moderate tenderness to palpation of sternal chest area. HEART: Normal S1 and S2, regular rhythm, normal rate. No rubs or murmurs ABDOMEN: Distended, non-tender to palpation, no guarding, bowel sounds present EXTREMITIES: No edema, no clubbing, no cyanosis, Ai's negative NEUROLOGIC: Awake, alert, oriented 3, no signs of biomedical engineer abnormalities, moving all extremities equally, grossly non-focal neurologic exam SKIN: No rash, no urticaria, no hives Blood Gas: No results in the last 7 days - inpatent use only Laboratories: Complete Blood Count: Lab results within last 7 days (see chart for full results) Units 05/04/24 0452 05/03/24 0546 05/02/24 0648 05/01/24 1212 05/01/24 0452 04/30/24 0512 04/29/24 0817 WBC K/uL 4.78 4.61 5.44 -- 5.42 11.35* 14.76* HGB g/dL 11.4* 11.0* 12.0 10.9* 10.4* 11.3* 12.8 HCT % 33.8* 32.8* 36.4 33.4* 30.9* 33.6* 39.1 PLT K/uL 148 189 253 -- 249 291 353 MCV fL 91.6 92.7 93.6 -- 93.4 92.1 93.1 Coagulation Studies: Lab results within last 7 days (see chart for full results) Units 05/03/24 0546 05/02/24 0648 05/01/24 1212 Prothrombin Time seconds 13.8 14.4 14.5 INR 1.0 1.1 1.1 Chemistry Panel: Lab results within last 7 days (see chart for full results) Units 05/04/24 0452 05/03/24 2000 05/03/24 1207 05/03/24 0546 05/02/24 1546 05/02/24 0648 05/01/24 0452 04/30/24 0512 04/29/24 0817 SODIUM mmol/L 134* 137 141 138 144 144 144 < > 135 POTASSIUM mmol/L 4.2 3.7 3.4* 3.9 4.4 3.9 3.0* < > 3.0* CHLORIDE mmol/L 100 103 106 104 109* 105 107 < > 94* CO2 mmol/L 23 23 23 24 22 20* 21* < > 25 EGFR mL/min >90 >90 >90 >90 >90 >90 >90 < > >90 BUN mg/dL 13 16 18 15 13 12 9 < > 7 CREATININE mg/dL 0.5 0.4* 0.5 0.5 0.5 0.6 0.7 < > 0.6 GLUCOSE mg/dL 123* 130* 202* 166* 143* 139* 104 < > 154* CALCIUM mg/dL 7.9* 7.9* 7.9* 8.0* 8.5 9.0 8.2* < > 9.0 Magnesium mg/dL 1.7 1.7 1.4* -- 1.5 1.6 1.7 -- 1.7 Phosphorus mg/dL 2.9 -- 3.3 -- -- 3.1 3.0 -- -- ANION GAP mmol/L 11 11 12 10 13 19* 16* < > 16* < > = values in this interval not displayed. Liver Function Panel: Lab results within last 7 days (see chart for full results) Units 05/03/24 0546 05/02/24 0648 05/01/24 0452 04/29/24 0817 Albumin g/dL 2.7* 3.0* 2.6* 3.7* | 3.7* Protein g/dL 6.2 7.0 6.2 8.0 | 8.0 Bilirubin, Total mg/dL 0.3 0.6 0.4 0.8 | 0.8 Bilirubin, Direct mg/dL 0.2 0.2 0.2 0.3 AST U/L 19 20 30 48* | 48* ALT U/L 13 15 14 19 | 19 Alkaline Phosphatase U/L 74 91 81 106 | 106 Cardiac Studies: Lab results within last 7 days (see chart for full results) Units 05/03/24 1207 05/01/24 0452 Troponin T, High Sensitivity ng/L 15* -- BNP, NT-Pro pg/mL -- 4,357* Infectious Studies: Lab results within last 7 days (see chart for full results) Units 05/02/24 1546 05/01/24 0452 04/29/24 1458 Lactate mmol/L 1.0 -- 1.3 Procalcitonin ng/mL -- 0.52* -- Cultures: No results in the last 7 days - inpatent use only Recent Cultures (2 Weeks) 04/30/2024 2:19 PM QUANT URINE CULTURE GROWTH 10,000 to 100,000 colonies/mL Enterococcus species Radiographic Studies: XR CHEST 1 VIEW Result Date: 05/04/2024 IMPRESSION: 1. Lines and tubes are in stable position. 2. Redemonstrated bilateral mixed interstitial and alveolar infiltrates without consolidation. Interstitial infiltrates may be secondary to pulmonary edema, pneumonia, or pneumonitis. THIS DOCUMENT HAS BEEN ELECTRONICALLY SIGNED BY FELI QUINTANILLA MD XR ABDOMEN 1 VIEW Result Date: 05/04/2024 IMPRESSION: No acute findings. THIS DOCUMENT HAS BEEN ELECTRONICALLY SIGNED BY FELI QUINTANILLA MD Cardiac Studies: EKG 03-May-2024 12:24:38 - Normal sinus rhythm - LBBB - Vent. Rate 77 BPM - WI interval 136 ms - QRS duration 132 ms - QT/QTcB 482/545 ms - P-R-T axes 43/- EKG 01-May-2024 08:17:56 - Normal sinus rhythm - Premature atrial complexes - LBBB - Vent. Rate 78 BPM - WI interval 134 ms - QRS duration 132 ms - QT/QTcB 432/499 ms - P-R-T axes 46/- Assessment and Plan: - Cardiac arrest due to Torsades de Pointes - Small bowel obstruction, w/ NGT - Electrolyte abnormalities d/t SBO - Hypomagnesemia - Hypokalemia - Hypocalcemia - Prolonged QTC - UTI, Enterococcus cultures - Hx of metastatic pancreatic carcinoma - Hx of hypertension and hyperlipidemia - Hx of active tobacco use - Malnutrition of moderate degree The patient is a 68 year old female with a hx of metastatic pancreatic carcinoma, HTN, T2DM, HLD, and tobacco use transferred to the ICU from the med- surg floor following an episode of cardiac arrestwith pulseless electrical activity while admitted for evaluation of small bowel obstruction. Pt's initial post-arrest labs yesterday showed multiple electrolyte abnormalities including hypocalcemia, hypokalemia, and hypomagnesemia and the EKG demonstrated a prolonged QTC. Cardiology confirmed via telemetry that the pt went into acute Torsades de Pointes at 1050 on 05/03/2024. Recommendationis to obtain an ECHO and maintain K>4 and Mg>2. Labs overnight exhibited persistent hypocalcemia, hypokalemia and hypomagnesemia despite repletion in the afternoon. She was given 1 g of calciumgluconate, 30 mEq of Kcl, and 1 g of magnesium sulfate overnight. AM labs showed K of 4.2, ionized Ca of 1.11, and Mg of 1.7. Will continue to replete electrolytes as indicated. Obtaining early PM labs to reassess after morning doses of calcium gluconate and magnesium sulfate. General surgery evaluated the patient this morning. NGT did not have output. They recommend chest and abdominal XRs. Both did not demonstrate significant change from their respective previous images.Pt denies having any abdominal pain. Abdominal exam was significant for distension but absent tenderness to palpation. Followed up with gen surg and they recommend a gastrografin challenge today. SYSTEM BASED PLAN: Central nervous system - monitor mental status Respiratory system Active tobacco use - monitor respiratory status - monitor O2 saturation - on LFNC @5 Lpm (consult note on 05/03 should have said 6 Lpm not 2 Lpm) - wean as tolerated Cardiovascular system Cardiac arrest/pulseless electrical activity Torsades de Pointes Elevated BNP R/o IN and PE Hx of hypertension, dyslipidemia - appreciate cardiology recommendations - obtain ECHO - maintain K>4 - maintain Mg>2 - repeat CXR demonstrated no significant change compared to previous; lines and tubes stable - 12-lead EKG showed prolonged QTcB - repleting magnesium and potassium per labs - continue Isolyte-S pH 7.4 infusion @50 mL/hr Gastrointestinal system Small bowel obstruction s/p NGT Hx of metastatic pancreatic carcinoma - gen surg following - recommends gastrografin challenge - pt is a high risk surgical candidate - f/u for diet recommendations - KUB ordered by gen surg demonstrated no significant change since previous - continue IV dexamethasone in an attempt to decrease gut secretions - continue IV famotidine BID - IP oncology consult Nutrition Hx of alcohol abuse Malnutrition of moderate degree - PPN Endo Hyperglycemia, mild Hematology - on heparin inj 5,000 units Q8H Musculoskeletal - acute rib pain post chest compressions - pain PRNs ordered Infectious disease UTI - elevated procal - urine culture positive of enterococcus - de-escalate to Unasyn 1.5g NSS IVPB Renal Multiple electrolyte abnormalities 2/2 to SBO Hypomagnesemia Hypocalcemia Hypokalemia - PM recheck BMP, Mag, Phos, ionized Ca - replete electrolytes as indicated by labs - monitor I/Os Skin - decubitus precautions General - palliative care following - OOB, PT/OT consult Global Issues: Analgesia --> controlled - other Sedation --> N/A Delirium/Confusion Assessment Method for ICU (CAM-ICU) --> CAM-ICU negative HOB Elevation --> greater than 30 degress DVT Prophylaxis --> chemoprophylaxis with pneumatic compression devices Stress Ulcer Prophylaxis --> histamine 2 antagonist Glycemic Control --> controlled Nutrition --> NPO, on PPN Central Line Necessity Reviewed --> N/A Lebron --> N/A Disposition --> keep in ICU Patient's Decisional Capacity: The patient has capacity to make decisions Communication with Patient - Family: Brief Family Communication. Date and time of meetin05/04/2024 Patient/Family participation: Spouse/Partner. Goals of Care: stabilize hemodynamic status, decrease pain and discomfort Electronically Signed By: Care for this patient was discussed with and assessed by the attending Dr. Nando Dueñas. Kevin Mcgregor Phase 3 Medical Student [facility] Cosigned by Nando Dueñas MD at 05/04/2024 2:54 PM EST Associated attestation - Nando Dueñas MD - 05/04/2024 2:54 PM EST I attest that I have reviewed the student note and that the components of the history, the physicalexam, and the assessment and plan documented were performed in my presence with the student where Iverified the documentation and performed (or re-performed) the exam and medical decision making. I spent a total of 47 minutes coordinating, documenting, and providing care for this patient excluding time spent in the performance of separately billed services or time spent by another provider/QHP. Care plan discussed with Cardiology service. Plan to continue with electrolyte replacement. Elevated QT interval noted at baseline likely related to electrolyte depletion secondary to prolonged NPO status. Evidence of hypokinesis noted on echocardiogram, likely related to stress cardiomyopathy. Maximize medical therapy per Cardiology recommendations being continued. Nutrition plan was discussed with surgical service, plan for Gastrografin challenge test to be donetoday. Meanwhile NG tube to low continuous suction to continue. Care plan and recommendations were discussed with patient. Questions were answered. Advance physical therapy as tolerated. Prognosis remains guarded. * Feli Vidales CRNP - 05/03/2024 2:04 PM EST Palliative Medicine Inpatient Progress Note [facility] [id number] Name: Gracie Cheema Location: [facility] [id number] Date: 05/03/2024 Time: 2:04 PM HPI: Gracie Cheema is a 68 year old female who was admitted 04/29/2024 for bowel obstruction in settingof malignancy, with background of perforate appendicitis 2/2 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 Interval History: patient was seen during FOOD SERVICE REPRESENTATIVE and subsequent code blue. She lost pulse several times, then was awake and confused. She was being transferred to ICU. Dr. Argueta and myself met in the hallway outside of patient's room. Dr. Argueta discussed some of her condition with him,as well as the fact that patient had said she wanted all life-prolonging measures. agreed. Physical Exam: BP 174/85 | Pulse 96 | Temp 36.1 C (97 F) (Temporal Artery) | Resp 18 | Ht 1.6 m (5' 3") | Wt 51.1 kg (112 lb 11.2 oz) | SpO2 87% | BMI 19.96 kg/m | BSA 1.51 m Constitutional: acutely ill, actively coding HENT: normocephalic, atraumatic. Eyes: anicteric, sclera and conjunctiva normal. Chest: labored breathing, moist/gurgling sounds Neuro: fluctuating mental status, some periods of obtundation Data Review: External notes reviewed: - Reviewed notes from surgeon 05/03/24 - patient went into cardiac arrest while he was trying to explain the challenges to managing her SBO. - Reviewed notes from hospitalist 05/03/24 - transfer to ICU post-code blue. Lab / Imaging Results: Latest Reference Range & Units 05/03/24 05:46 Albumin 3.8 - 5.0 g/dL 2.7 (L) (L): Data is abnormally low - likely from cancer and acute illness. Latest Reference Range & Units 05/03/24 05:46 HGB 12.0 - 15.3 g/dL 11.0 (L) HCT 36.0 - 45.2 % 32.8 (L) (L): Data is abnormally low - stable H/H. Information obtained from for collateral history Discussion with other team members: I discussed patient with Dr. Way and Dr. Bustillo - prognosis is poor. Not a surgical candidate for malignant SBO. Discussion with Patient/Family: Meeting previously held on 04/30/24 - patient confirmed full code status. 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 Problems Addressed: Cardiac arrest Small bowel obstruction, NG tube in place Pancreatic cancer, mets to peritoneum Frailty Active smoker Goals of care - continue full treatment Code status: Full Code Recommendations: Patient went into cardiac arrest this morning. She is now transferred to ICU. She had confirmed full code status during consultation on Sunday 04/30. confirms full code status today. Per surgery - no option for surgical intervention for malignant SBO. We will continue to follow along. Please do not hesitate to call or [employer] with additional questions or concerns. I spent a total of 51 minutes coordinating, documenting, and providing care for this patient excluding time spent in the performance of separately billed services. BENNIE Rdz [facility] Palliative Medicine [employer] [facility] Palliative Medicine Role to contact us Cosigned by Julia Argueta MD at 05/03/2024 3:06 PM EST Associated attestation - Julia Argueta MD - 05/03/2024 3:06 PM EST I have reviewed the advanced practitioner's documentation on the date of service referenced in note, and I agree with, and take responsibility for the plan of care. 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 Frailty Active smoker Goals of care - wants all tx Data Review:Lab / Imaging Results: Trop 15, elevated 05/03/2024, Albumin 3.0, low, 05/03/2024 Information obtained from for collateral history - spoke to him about my conversation with her Friday, where she did note to me she did want trials of resuscitation (though we did not discusslong term resuscitation) Discussion with other team members: I discussed patient with surgical team, and ICU team Dr Dueñas Recommendations: Will continue to follow while in the ICU * Lalito Ahn MD - 05/03/2024 9:14 AM EST PROGRESS NOTE - General Surgery [facility] [address] Name: Gracie Cheema Location: [facility] [id number] Date: 05/03/2024 Time: 9:15 AM Gracie Cheema is a 68 y/o female with a history of perforated appendicitis 2/2 metastatic adenocarcinoma of the pancreas with omental implants who is here today with a small bowel obstruction 2/2 a transition point along the anterior abdominal wall here on hospital day 4. SUBJECTIVE: No acute events overnight. AF and VS. Reports passing flatus last night and she had a small bowel movement this morning. Denies any abdominal pain and reports decreased abdominal distention. No complaints at this time. OBJECTIVE: Most Recent Vital Signs: BP: 161 mmHg/82 mmHg (05/03/24722) Pulse: 74 (05/03/24722) Resp: 18 (05/03/24722) Temp: 36.11 C (05/03/24722) Temp Summary: Temp Min: 36 C (96.8 F) Max: 36.5 C (97.7 F) SpO2: 95 % (05/03/24722) O2 flow rate: Supplemental O2 Delivery: Room Air, None (05/03/24743) Vital Signs Last 24 Hours: Systolic BP: Most Recent Systolic BP Av.7 mmHg Min: 151 mmHg Max: 162 mmHg Temperature: Most Recent Temperature Av.2 C Min: 36 C Max: 36.5 C Pulse: Pulse Av.8 Min: 68 Max: 77 Respirations: Resp Av.5 Min: 16 Max: 18 SpO2: SpO2 Av.3 % Min: 92 % Max: 100 % Date 05/02/24699 - 05/03/2465805/03/24699 - 05/04/24 06 Shift 5161-5405 2679-7473 24 Hour Total 1899-0659 24 Hour Total INTAKE P.O. 0 0 0 0 I.V. 1442.7 1442.7 Shift Total 1442.7 1442.7 0 0 OUTPUT GI 300 400 700 Shift Total 300 400 700 NET 1142.7 -400 742.7 0 0 Weight (kg) 95.5 51.1 51.1 51.1 51.1 51.1 Physical Exam: Constitutional: (+) chronically ill HEENT: NGT in place, normocephalic, atraumatic; no masses, tenderness, or adenopathy CV: normal rate, warm and well perfused Chest: normal respiratory effort Abdomen: soft, minimal periumbilical TTP , moderately distended, no rebound or guarding Surgical site: there is no evidence of fascial disruption or hernia and no erythema or warmth Skin: warm, dry, intact: Neuro: alert, oriented to person, place, and time LABS: Labs reviewed as indicated below: CHEMISTRY: BUN, Creatinine, GFR Estimated, Sodium, Potassium, Chloride, Carbon Dioxide, Glucose, Calcium (see below for most recent value): Lab Results Component Value Date/Time BUN 15 05/03/2024 05:46 AM BUN 6 06/11/2018 02:53 PM CREAT 0.5 05/03/2024 05:46 AM CREAT 0.70 02/26/2024 12:00 AM CREAT 0.6 06/11/2018 02:53 PM GFRESTIMATED >60.0 06/11/2018 02:53 PM NA 138 05/03/2024 05:46 AM NA 136 06/11/2018 02:53 PM POTASSIUM 3.9 05/03/2024 05:46 AM POTASSIUM 4.1 02/26/2024 12:00 AM POTASSIUM 4.0 06/11/2018 02:53 PM CL 104 05/03/2024 05:46 AM CL 97 (L) 06/11/2018 02:53 PM CO2 24 05/03/2024 05:46 AM CO2 25 06/11/2018 02:53 PM CA 8.0 (L) 05/03/2024 05:46 AM CA 9.3 06/11/2018 02:53 PM BLOOD COUNT: WBC, Hgb, Platelets (see below for most recent value): Lab Results Component Value Date/Time WBC 4.61 05/03/2024 05:46 AM WBC 10.69 06/11/2018 02:53 PM HGB 11.0 (L) 05/03/2024 05:46 AM HGB 15.7 02/25/2024 12:00 AM HGB 12.8 06/11/2018 02:53 PM PLT 189 05/03/2024 05:46 AM PLT 346 06/11/2018 02:53 PM IMAGING: N/A IMPRESSION: Principal Problem: SBO (small bowel obstruction) (HCC) Active Problems: Hypertension goal BP (blood pressure) < 140/90 Tobacco use disorder 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 * Gracie Cheema is a 68 y/o female with a history of perforate appendicitis 2/2 metastatic adenocarcinoma of the pancreas with omental implanted who is here today with a small bowel obstruction 2/2 a transition point along the anterior abdominal wall undergoing gastroenteric decompression with an NGT here on hospital day 4. PLAN: - NGT clamp trial today given start of bowel function - NGT clamp trial: NGT will remain off of suction for 4 hours and then placed back on suction. If output after 4 hours off of suction is less than 200 ml, then NGT may be discontinued and diet can beslowly advanced - recommend suppository for harden stool in rectal vault - Patient is not a surgical candidate given metastatic disease and omental caking seen on recent laparotomy at outside hospital - May trial gastrografin pending clinical progress in the next several days Lalito Han MD BS General Surgery Residency, PGY-4 [facility] 05/03/2024 Cosigned by Juliano Bustillo MD at 05/03/2024 11:02 AM EST Associated attestation - Juliano Bustillo MD - 05/03/2024 11:02 AM EST I saw and evaluated the patient 05/03/2024. I have reviewed the resident/fellow physician note and agree. * Marisa Way MD, PhD - 05/03/2024 7:12 AM EST Images from the original note were not included. [facility] [id number] INTERVAL HISTORY: Addendum: Gen surgeon in talking with patient. Patient eyes rolled back in head FOOD SERVICE REPRESENTATIVE to Code blue Patient loss of pulse, chest compressions. Erturn off pulse Lost pulse again Patient awake and confused and on nasal cannula after resuscitation events --> transfer to [facility]- Dr. Dueñas accepting physician. ID: 68 year old female who was admitted 04/29/2024 for bowel obstruction in setting of malignancy, with background of perforate appendicitis 2/2 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 She was recently diagnosed in February and just had her first treatment at [facility] this week. She reports she started vomiting and was admitted for bowel obstruction. Last 24 hours - oncologist contacted- [facility] says no surgical options - UC growing enterococcus and procal elevated- started on zosyn - NG tube w >700cml output - patient had BM- but had stool on imaging distal to obstruction Subjective: Patient seen and examined this AM. She was hopeful for the obstruction to be resolved. She states she thinks its gone. Would like a repeat image. Objective Physical Exam Most Recent Vital Signs: BP: 158 mmHg/76 mmHg (05/03/24302) Pulse: 74 (05/03/24302) Resp: 17 (05/03/24302) Temp: 36.5 C (05/03/24302) Temp Summary: Temp Min: 36 C (96.8 F) Max: 36.5 C (97.7 F) SpO2: 94 % (05/03/24302) O2 flow rate: Supplemental O2 Delivery: Room Air, None (05/03/24302) BP 158/76 | Pulse 74 | Temp 36.5 C (97.7 F) (Temporal Artery) | Resp 17 | Ht 1.6 m (5' 3") | Wt51.1 kg (112 lb 11.2 oz) | SpO2 94% | BMI 19.96 kg/m | BSA 1.51 m Vitals reviewed over last 24 hours General: thin appearing female, NG tube in place-draining a thinner liquid,, NAD HEEN: EOMI, no scleral icterus NECK: no stridor, no JVD PULM: CTAB, no wheezes, CVS: RRR, no mumurs, no rubs, no gallops, cap refil<2sec ABD: soft, moderate distension, no rebound no guarding - incision is healing EXT: WWP, no peripheral edema Neuro:alert and oriented x3, grossly nonfocal Psych: normal mood and affect NG/OG Tube Left nostril Nasogastric 16 Fr (Active) Number of days: 4 Peripheral Line Left;Lower Arm 22 Gauge (Active) Number of days: 1 Implanted IV Device Right Chest (Active) Number of days: 12 STUDIES: Encounter Orders Labs and other studies reviewed with pertinent findings noted below: Recent Results (from the past 24 hours) GLUCOSE METER, POINT OF CARE Collection Time: 05/02/24 12:34 PM Result Value Ref Range Glucose - POCT 138 (H) 70 - 120 mg/dL BASIC METABOLIC PANEL Collection Time: 05/02/24 3:46 PM Result Value Ref Range BUN 13 6 [...] CALCIUM 8.5 8.4 - 10.2 mg/dL MAGNESIUM Collection Time: 05/02/24 3:46 PM Result Value Ref Range Magnesium 1.5 1.5 - 2.6 mg/dL LACTATE, WHOLE BLOOD WITH REFLEX IF ABNORMAL Collection Time: 05/02/24 3:46 PM Result Value Ref Range Lactate 1.0 0.4 - 2.0 mmol/L GLUCOSE METER, POINT OF CARE Collection Time: 05/02/24 6:06 PM Result Value Ref Range Glucose - POCT 163 (H) 70 - 120 mg/dL GLUCOSE METER, POINT OF CARE Collection Time: 05/02/24 11:24 PM Result Value Ref Range Glucose - POCT 175 (H) 70 - 120 mg/dL COMPREHENSIVE METABOLIC PANEL Collection Time: 05/03/24 5:46 AM Result Value Ref Range BUN 15 6 [...] 13 10 - 35 U/L PT INR Collection Time: 05/03/24 5:46 AM Result Value Ref Range Prothrombin Time 13.8 11.6 - 15.2 seconds INR 1.0 0.8 - 1.2 CBC Collection Time: 05/03/24 5:46 AM Result Value Ref Range WBC 4.61 4.00 [...] nRBCs 0 <=0 /100 WBCs DIFFERENTIAL, AUTOMATED Collection Time: 05/03/24 5:46 AM Result Value Ref Range WBC 4.61 4.00 [...] 0.06 0.00 - 0.20 K/uL BILIRUBIN, DIRECT Collection Time: 05/03/24 5:46 AM Result Value Ref Range Bilirubin, Direct 0.2 0.0 - 0.3 mg/dL GLUCOSE METER, POINT OF CARE Collection Time: 05/03/24 5:49 AM Result Value Ref Range Glucose - POCT 173 (H) 70 - 120 mg/dL }| Recent Cultures (2 Weeks) 04/30/2024 2:19 PM QUANT URINE CULTURE GROWTH 10,000 to 100,000 colonies/mL Enterococcus species Assessment and Plan IMPRESSION : Principal Problem: SBO (small bowel obstruction) (HCC) Active Problems: Hypertension goal BP (blood pressure) < 140/90 Tobacco use disorder 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 * I have examined the patient and consistent with the dietitian's findings found malnutrition presentof Moderate (04/30/24 1314) degree. This is consistent with such due to Fat loss;Muscle loss;Inadequate energy intake (04/30/24 1314). I have also reviewed and agree with the dietitian's plan of carewhich include Monitored NPO/clear liquid status (04/30/24 1314). DIFFERENTIAL AND PLAN: 68 y/o female with HTN, DM2, HLD, metastatic pancreatic ca and tobacco use admitted for small bowelobstruction, nausea and vomiting. Found to have sbo likely 2.2 to metastasis of panc Ca causing malignant obstruction. SBO -- Advanced endoscopy consult- discussed with Dr. Rose- not a candidate for axios- deep in ileum- not accessible -- Discussed with oncologic surgery [facility]- Dr. Omer- recommends re-consult GI for consideration of venting G tube- no surgical options for obstruction or cancer --- Consulted GI for venting G tube on 05-03- they recommended CONSULTING IR instead - continue conservative treatment with gastroenteric decompression via an NGT on LCS - general surgery will continue to follow, but this patient is an extremely high risk surgical candidate - IV steroid in an attempt to decrease gut secretions - famotidine IV same - trial PPN Metabolic acidosis in setting of GI losses- resolved - check lactate in AM - VGB Goals of care: -Unfortunately, patient has some disconnect with the progression of her malignancy. -palliative follow up today I have examined the patient and consistent with the dietitian's findings found malnutrition presentof Moderate (04/30/24 1314) degree. This is consistent with such due to Fat loss;Muscle loss;Inadequate energy intake (04/30/24 1314). I have also reviewed and agree with the dietitian's plan of carewhich include Monitored NPO/clear liquid status (04/30/24 1314). I have seen body fat loss and muscle mass loss. This plan of care has been developed to treat malnutrition by advancing diet and oral nutritional supplement once able. Other home medications as directed. Clinimix E 4.25-5 infusion Isolyte-S pH 7.4 infusion Piperacillin-Tazobactam (Zosyn) 4.5 g in 100 mL NSS ivpb (FOUR hour infusion) hEParin inj 5,000 Units dexAMETHasone Sodium Phosphate (Decadron) 4 MG/ML inj 4 mg diphenhydrAMINE (Benadryl) inj 25 mg Famotidine (Pepcid) inj 20 mg morphine sulfate inj 2 mg ondansetron (Zofran) inj 4 mg Bisacodyl (Dulcolax) supp 10 mg dextrose 50% inj 25 mL dextrose 50% inj 50 mL glucagon (Glucagen) inj 1 mg Glucose (Glutose 15) 40 % gel 15 g of glucose Glucose (Glutose 15) 40 % gel 30 g of glucose glucose chew tab 16 g Nicotine (Nicoderm CQ) 14 MG/24HR patch 1 Patch phenol (chlorASEPTIC) spray 3 [place] sodium chloride 0.9 % flush/inj 3 mL Orders Placed This Encounter Procedures NPO PHARMACOLOGIC VTE PROPHYLAXIS: hEParin CODE STATUS: Full Code EXPECTED DISCHARGE DATE: 05/05/2024 I spent a total of 58 minutes coordinating, documenting, and providing care for this patient excluding time spent in the performance of separately billed services or time spent by another provider/QHP. 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 SUBJECTIVE: No acute events overnight. Patient denies complaints. No flatus or BM. OBJECTIVE: Most Recent Vital Signs: BP: 153 mmHg/66 mmHg (05/02/24733) Pulse: 80 (05/02/24733) Resp: 16 (05/02/24733) Temp: 36.28 C (05/02/24733) Temp Summary: Temp Min: 36.2 C (97.2 F) Max: 36.5 C (97.7 F) SpO2: 98 % (05/02/24733) O2 flow rate: Supplemental O2 Delivery: Room Air, None (05/02/24814) Vital Signs Last 24 Hours: Systolic BP: Most Recent Systolic BP Av.2 mmHg Min: 139 mmHg Max: 163 mmHg Temperature: Most Recent Temperature Av.3 C Min: 36.22 C Max: 36.5 C Pulse: Pulse Av.5 Min: 70 Max: 81 Respirations: Resp Av Min: 16 Max: 16 SpO2: SpO2 Av.7 % Min: 91 % Max: 98 % Date 05/01/24699 - 05/02/2465805/02/24699 - 05/03/24658 Shift 24 Hour Total [id number] 24 Hour Total INTAKE P.O. 0 0 0 0 I.V. 584.2 584.2 Shift Total 584.2 584.2 0 0 OUTPUT GI 300 400 700 Shift Total 300 400 700 NET 284.2 -400 -115.8 0 0 Weight (kg) 47.8 95.5 95.5 95.5 95.5 95.5 Physical Exam: Constitutional: (+) chronically ill HEENT: normal: normocephalic, atraumatic; no masses, tenderness, or adenopathy CV: normal rate Chest: normal respiratory effort Abdomen: soft, minimal periumbilical TTP , moderately distended, no rebound or guarding Surgical site: there is no evidence of fascial disruption or hernia and no erythema or warmth Skin: warm, dry, intact: Neuro: alert, oriented to person, place, and time LABS: Labs reviewed as indicated below: CHEMISTRY: BUN, Creatinine, GFR Estimated, Sodium, Potassium, Chloride, Carbon Dioxide, Glucose, Calcium (see below for most recent value): Lab Results Component Value Date/Time BUN 12 05/02/2024 06:48 AM BUN 6 06/11/2018 02:53 PM CREAT 0.6 05/02/2024 06:48 AM CREAT 0.70 02/26/2024 12:00 AM CREAT 0.6 06/11/2018 02:53 PM GFRESTIMATED >60.0 06/11/2018 02:53 PM NA 144 05/02/2024 06:48 AM NA 136 06/11/2018 02:53 PM POTASSIUM 3.9 05/02/2024 06:48 AM POTASSIUM 4.1 02/26/2024 12:00 AM POTASSIUM 4.0 06/11/2018 02:53 PM CL 105 05/02/2024 06:48 AM CL 97 (L) 06/11/2018 02:53 PM CO2 20 (L) 05/02/2024 06:48 AM CO2 25 06/11/2018 02:53 PM CA 9.0 05/02/2024 06:48 AM CA 9.3 06/11/2018 02:53 PM BLOOD COUNT: WBC, Hgb, Platelets (see below for most recent value): Lab Results Component Value Date/Time WBC 5.44 05/02/2024 06:48 AM WBC 10.69 06/11/2018 02:53 PM HGB 12.0 05/02/2024 06:48 AM HGB 15.7 02/25/2024 12:00 AM HGB 12.8 06/11/2018 02:53 PM PLT 253 05/02/2024 06:48 AM PLT 346 06/11/2018 02:53 PM IMAGING: N/A IMPRESSION: Principal Problem: SBO (small bowel obstruction) (HCC) Active Problems: Hypertension goal BP (blood pressure) < 140/90 Tobacco use disorder 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 * Gracie Cheema is a 68 y/o female with a history of perforate appendicitis 2/2 metastatic adenocarcinoma of the pancreas with omental implanted who is here today with a small bowel obstruction 2/2 a transition point along the anterior abdominal wall undergoing gastroenteric decompression with an NGT here on hospital day 3. PLAN: Continue NPO, NGT Patient is not a surgical candidate given metastatic disease and omental caking seen on recent laparotomy at outside hospital May trial gastrografin pending clinical progress in the next several days Dr. Bustillo to resume care tomorrow Nydia Guillory DO * Marisa Way MD, PhD - 05/02/2024 7:18 AM EST Images from the original note were not included. [facility] [id number] INTERVAL HISTORY: ID: 68 year old female who was admitted 04/29/2024 for bowel obstruction in setting of malignancy, with background of perforate appendicitis 2/2 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 She was recently diagnosed in February and just had her first treatment at [facility] this week. She reports she started vomiting and was admitted for bowel obstruction. Last 24 hours - no endoscopic opportunities per advanced GI - suspect ileal met causing obstruction, less likely adhesion - oncologist contacted- recommended calling [facility] surg onc for potential options - UC growing enterococcus and procal elevated Subjective: Patient states the surgeon told her this morning it was probably a cancer related obstruction. Her main complaint is sore throat. She does not like the chloroseptic. I tell her I spoke to her oncologist and he wants me to call the surgeons in [facility] to see what can bedone. Discussed the extent of her cancer and findings related to cancer having spread beyond the pancreas. She said "since its cancer, can I have nagi ray" Patient processing everything as best she can. Wants to take it one day at a time. Objective Physical Exam Most Recent Vital Signs: BP: 148 mmHg/80 mmHg (05/02/24234) Pulse: 70 (05/02/24234) Resp: 16 (05/02/24234) Temp: 36.22 C (05/02/24234) Temp Summary: Temp Min: 36 C (96.8 F) Max: 36.5 C (97.7 F) SpO2: 91 % (05/02/24234) O2 flow rate: Supplemental O2 Delivery: Room Air, None (05/02/24234) BP 148/80 | Pulse 70 | Temp 36.2 C (97.2 F) (Temporal Artery) | Resp 16 | Ht 1.6 m (5' 3") | Wt95.5 kg (210 lb 8 oz) | SpO2 91% | BMI 37.29 kg/m | BSA 2.06 m Vitals reviewed over last 24 hours General: thin appearing female, NG tube in place, NAD HEEN: EOMI, no scleral icterus NECK: no stridor, no JVD PULM: CTAB, no wheezes, CVS: RRR, no mumurs, no rubs, no gallops, cap refil<2sec ABD: soft, moderate distension, no rebound no guarding - incision is healing EXT: WWP, no peripheral edema Neuro:alert and oriented x3, grossly nonfocal Psych: normal mood and affect NG/OG Tube Left nostril Nasogastric 16 Fr (Active) Number of days: 3 Implanted IV Device Right Chest (Active) Number of days: 11 STUDIES: Encounter Orders Labs and other studies reviewed with pertinent findings noted below: Recent Results (from the past 24 hours) GLUCOSE METER, POINT OF CARE Collection Time: 05/01/24 11:49 AM Result Value Ref Range Glucose - POCT 108 70 - 120 mg/dL HEMOGLOBIN AND HEMATOCRIT PANEL Collection Time: 05/01/24 12:12 PM Result Value Ref Range HGB 10.9 (L) 12.0 - 15.3 g/dL HCT 33.4 (L) 36.0 - 45.2 % TYPE AND SCREEN Collection Time: 05/01/24 12:12 PM Result Value Ref Range ABO O Rh Negative Red Blood Cell Antibody Screen Negative Specimen Expiration Date 05/04/2024 23:59 PT INR Collection Time: 05/01/24 12:12 PM Result Value Ref Range Prothrombin Time 14.5 11.6 - 15.2 seconds INR 1.1 0.8 - 1.2 ABO/RH Collection Time: 05/01/24 12:12 PM Result Value Ref Range ABO O Rh Negative GLUCOSE METER, POINT OF CARE Collection Time: 05/01/24 6:00 PM Result Value Ref Range Glucose - POCT 123 (H) 70 - 120 mg/dL GLUCOSE METER, POINT OF CARE Collection Time: 05/02/24 12:18 AM Result Value Ref Range Glucose - POCT 121 (H) 70 - 120 mg/dL GLUCOSE METER, POINT OF CARE Collection Time: 05/02/24 6:19 AM Result Value Ref Range Glucose - POCT 127 (H) 70 - 120 mg/dL PT INR Collection Time: 05/02/24 6:48 AM Result Value Ref Range Prothrombin Time 14.4 11.6 - 15.2 seconds INR 1.1 0.8 - 1.2 CBC Collection Time: 05/02/24 6:48 AM Result Value Ref Range WBC 5.44 4.00 [...] 11.1 fL nRBCs 0 <=0 /100 WBCs }| Recent Cultures (2 Weeks) 04/30/2024 2:19 PM QUANT URINE CULTURE GROWTH 10,000 to 100,000 colonies/mL Enterococcus species Assessment and Plan IMPRESSION : Principal Problem: SBO (small bowel obstruction) (HCC) Active Problems: Hypertension goal BP (blood pressure) < 140/90 Tobacco use disorder 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 * I have examined the patient and consistent with the dietitian's findings found malnutrition presentof Moderate (04/30/24 1314) degree. This is consistent with such due to Fat loss;Muscle loss;Inadequate energy intake (04/30/24 131). I have also reviewed and agree with the dietitian's plan of carewhich include Monitored NPO/clear liquid status (04/30/241313). DIFFERENTIAL AND PLAN: 68 y/o female with HTN, DM2, HLD, metastatic pancreatic ca and tobacco use admitted for small bowelobstruction, nausea and vomiting. Found to have sbo likely 2.2 to metastasis of panc Ca causing malignant obstruction. SBO -- Advanced endoscopy consult- discussed with Dr. Rose- not a candidate for axios- deep in ileum- not accessible -- Discussed with oncologic surgery [facility]- Dr. Omer- recommends re-consult GI for consideration of venting G tube- no surgical options for obstruction or cancer - continue conservative treatment with gastroenteric decompression via an NGT on - no further diagnostic imaging required at this time- patient had obstruction series today, which appeared improved, but this was likely due to NG tube decompression per surgery and patient liekly remains persistently obstructed. - general surgery will continue to follow, but this patient is an extremely high risk surgical candidate - IV steroid in an attempt to decrease gut secretions - famotidine IV same - trial PPN Metabolic acidosis in setting of GI losses - check lactate in AM - VGB Goals of care: -Unfortunately, patient has some disconnect with the progression of her malignancy. -palliative follow up on Friday -discussed with patient's oncologist- he recommends reaching at to [facility] surgery to see if they can offer anything, he also suspects the obstruction is malignant. I have examined the patient and consistent with the dietitian's findings found malnutrition presentof Moderate (04/30/24 1314) degree. This is consistent with such due to Fat loss;Muscle loss;Inadequate energy intake (04/30/24 1314). I have also reviewed and agree with the dietitian's plan of carewhich include Monitored NPO/clear liquid status (04/30/24 1314). I have seen body fat loss and muscle mass loss. This plan of care has been developed to treat malnutrition by advancing diet and oral nutritional supplement once able. Other home medications as directed. hEParin inj 5,000 Units Isolyte-S PH 7.4 1,000 mL with potassium chloride 40 mEq INFUSION dexAMETHasone Sodium Phosphate (Decadron) 4 MG/ML inj 4 mg diphenhydrAMINE (Benadryl) inj 25 mg Famotidine (Pepcid) inj 20 mg morphine sulfate inj 2 mg ondansetron (Zofran) inj 4 mg Bisacodyl (Dulcolax) supp 10 mg dextrose 50% inj 25 mL dextrose 50% inj 50 mL glucagon (Glucagen) inj 1 mg Glucose (Glutose 15) 40 % gel 15 g of glucose Glucose (Glutose 15) 40 % gel 30 g of glucose glucose chew tab 16 g Nicotine (Nicoderm CQ) 14 MG/24HR patch 1 Patch phenol (chlorASEPTIC) spray 3 [place] sodium chloride 0.9 % flush/inj 3 mL Orders Placed This Encounter Procedures NPO PHARMACOLOGIC VTE PROPHYLAXIS: hEParin CODE STATUS: Full Code EXPECTED DISCHARGE DATE: 05/04/2024 I spent a total of 58 minutes coordinating, documenting, and providing care for this patient excluding time spent in the performance of separately billed services or time spent by another provider/QHP. * Nydia Guillory DO - 05/01/2024 11:13 AM EST PROGRESS NOTE - General Surgery [facility] [address] Name: Gracie Cheema Location: [facility] [id number] Date: 05/01/2024 Time: 11:13 AM Gracie Cheema is a 68 y/o female with a history of perforated appendicitis 2/2 metastatic adenocarcinoma of the pancreas with omental implants who is here today with a small bowel obstruction 2/2 a transition point along the anterior abdominal wall here on hospital day 2. SUBJECTIVE: Patient had some nausea this AM, now resolved. Minimal abdominal pain. No flatus or BM. OBJECTIVE: Most Recent Vital Signs: BP: 150 mmHg/71 mmHg (05/01/24 110) Pulse: 81 (05/01/24 110) Resp: 16 (05/01/241103) Temp: 36.5 C (05/01/241103) Temp Summary: Temp Min: 36 C (96.8 F) Max: 36.9 C (98.4 F) SpO2: 95 % (05/01/241103) O2 flow rate: Supplemental O2 Delivery: Room Air, None (05/01/241103) Vital Signs Last 24 Hours: Systolic BP: Most Recent Systolic BP Av.2 mmHg Min: 139 mmHg Max: 150 mmHg Temperature: Most Recent Temperature Av.6 C Min: 36 C Max: 36.89 C Pulse: Pulse Av.5 Min: 77 Max: 93 Respirations: Resp Av.3 Min: 16 Max: 18 SpO2: SpO2 Av.3 % Min: 94 % Max: 97 % Date 04/30/24 07 - 05/01/24 0659 05/01/24 07 - 05/02/24 0659 Shift 3114-9877 8001-2443 24 Hour Total 9788-9581 9879-2511 24 Hour Total INTAKE P.O. 0 0 I.V. 2410.4 2410.4 584.2 584.2 Shift Total 2410.4 2410.4 584.2 584.2 OUTPUT Urine 500 500 GI 869 610 3122 Shift Total 550 1150 1700 NET 1860.4 -1150 710.4 584.2 584.2 Weight (kg) 48.3 48.3 48.3 47.8 47.8 47.8 Physical Exam: Constitutional: (+) chronically ill HEENT: normal: normocephalic, atraumatic; no masses, tenderness, or adenopathy CV: normal rate Chest: normal respiratory effort Abdomen: soft, minimal periumbilical TTP , moderately distended, no rebound or guarding Surgical site: there is no evidence of fascial disruption or hernia and no erythema or warmth Skin: warm, dry, intact: Neuro: alert, oriented to person, place, and time LABS: Labs reviewed as indicated below: CHEMISTRY: BUN, Creatinine, GFR Estimated, Sodium, Potassium, Chloride, Carbon Dioxide, Glucose, Calcium (see below for most recent value): Lab Results Component Value Date/Time BUN 9 05/01/2024 04:52 AM BUN 6 06/11/2018 02:53 PM CREAT 0.7 05/01/2024 04:52 AM CREAT 0.70 02/26/2024 12:00 AM CREAT 0.6 06/11/2018 02:53 PM GFRESTIMATED >60.0 06/11/2018 02:53 PM NA 144 05/01/2024 04:52 AM NA 136 06/11/2018 02:53 PM POTASSIUM 3.0 (L) 05/01/2024 04:52 AM POTASSIUM 4.1 02/26/2024 12:00 AM POTASSIUM 4.0 06/11/2018 02:53 PM CL 107 05/01/2024 04:52 AM CL 97 (L) 06/11/2018 02:53 PM CO2 21 (L) 05/01/2024 04:52 AM CO2 25 06/11/2018 02:53 PM CA 8.2 (L) 05/01/2024 04:52 AM CA 9.3 06/11/2018 02:53 PM BLOOD COUNT: WBC, Hgb, Platelets (see below for most recent value): Lab Results Component Value Date/Time WBC 5.42 05/01/2024 04:52 AM WBC 10.69 06/11/2018 02:53 PM HGB 10.4 (L) 05/01/2024 04:52 AM HGB 15.7 02/25/2024 12:00 AM HGB 12.8 06/11/2018 02:53 PM PLT 249 05/01/2024 04:52 AM PLT 346 06/11/2018 02:53 PM IMAGING: N/A IMPRESSION: Principal Problem: SBO (small bowel obstruction) (HCC) Active Problems: Hypertension goal BP (blood pressure) < 140/90 Tobacco use disorder 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 * Gracie Cheema is a 68 y/o female with a history of perforate appendicitis 2/2 metastatic adenocarcinoma of the pancreas with omental implanted who is here today with a small bowel obstruction 2/2 a transition point along the anterior abdominal wall undergoing gastroenteric decompression with an NGT here on hospital day 2. PLAN: Continue NPO, NGT Patient is not a surgical candidate given metastatic disease and omental caking seen on recent laparotomy at outside hospital Recommend palliative evaluation * Marisa Way MD, PhD - 05/01/2024 7:19 AM EST Images from the original note were not included. [facility] [id number] INTERVAL HISTORY: ID: 68 year old female who was admitted 04/29/2024 for bowel obstruction in setting of malignancy, with background of perforate appendicitis 2/2 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 She was recently diagnosed in February and just had her first treatment at [facility] this week. She reports she started vomiting and was admitted for bowel obstruction. Last 24 hours - palliative consult - gen surgery following - NG tube in place - AM labs 05/01- significant hypokalemia- repletion ordered, check EKG Subjective: Patient states she has had increasing difficultly with keeping down solids. She is able to keep down a little liquid. THis has been rapidly worsening over last 2 weeks. She is NOT passing gas and shehas not had a BM since admission. Patient states she was told by surgery team yesterday that she had a twist in her bowel. I tell Natalee think it is related to spread of cancer. Patient states oncologist said she was alicia to have cancer caught when she did. She has had one round of chemotherapy. She saw palliative care yesterday and said she wanted full code, everything done and to beat the cancer. Objective Physical Exam Most Recent Vital Signs: BP: 146 mmHg/66 mmHg (05/01/24216) Pulse: 86 (05/01/24216) Resp: 16 (05/01/24216) Temp: 36.61 C (05/01/24216) Temp Summary: Temp Min: 36.6 C (97.9 F) Max: 37.1 C (98.8 F) SpO2: 94 % (05/01/24216) O2 flow rate: Supplemental O2 Delivery: Room Air, None (05/01/24216) BP 146/66 | Pulse 86 | Temp 36.6 C (97.9 F) (Temporal Artery) | Resp 16 | Ht 1.6 m (5' 3") | Wt48.3 kg (106 lb 6.4 oz) | SpO2 94% | BMI 18.85 kg/m | BSA 1.47 m Vitals reviewed over last 24 hours General: well appearing HEEN: EOMI, no scleral icterus, ophx clear, no nasal exudate NECK: no stridor, no JVD, no lymphadenopathy, no thyromegaly PULM: CTAB, no wheezes, no rhonchi, no crackles CVS: RRR, no mumurs, no rubs, no gallops, cap refil<2sec ABD: soft, NT, ND +BS, no rebound, no guarding EXT: WWP, no peripheral edema, no clubbing Neuro:alert and oriented x3, CN 2-12 grossly intact, gait intact, strength grossly intact Psych: normal mood and affect NG/OG Tube Left nostril Nasogastric 16 Fr (Active) Number of days: 2 Implanted IV Device Right Chest (Active) Number of days: 10 STUDIES: Encounter Orders Labs and other studies reviewed with pertinent findings noted below: Recent Results (from the past 24 hours) BASIC METABOLIC PANEL Collection Time: 04/30/24 11:30 AM Result Value Ref Range BUN 13 6 [...] CALCIUM 8.0 (L) 8.4 - 10.2 mg/dL GLUCOSE METER, POINT OF CARE Collection Time: 04/30/24 11:47 AM Result Value Ref Range Glucose - POCT 97 70 - 120 mg/dL URINALYSIS, REFLEX TO CULTURE (CUP ONLY) Collection Time: 04/30/24 2:19 PM Result Value Ref Range Urinalysis, Reflex to Culture Specimen Specimen collected and received URINALYSIS, REFLEX TO CULTURE Collection Time: 04/30/24 2:19 PM Result Value Ref Range Color, Urine Yellow Light Yellow, Yellow, Dark Yellow Clarity, Urine Clear Clear Glucose, Urine Negative Negative mg/dL Bilirubin, Urine Negative Negative Ketone, Urine Trace (A) Negative mg/dL Specific [place], Urine 1.015 1.003 - 1.030 Blood, Urine [...] Urine Many (A) None /HPF Culture, Urine GLUCOSE METER, POINT OF CARE Collection Time: 04/30/24 5:44 PM Result Value Ref Range Glucose - POCT 105 70 - 120 mg/dL GLUCOSE METER, POINT OF CARE Collection Time: 05/01/24 12:04 AM Result Value Ref Range Glucose - POCT 101 70 - 120 mg/dL BASIC METABOLIC PANEL Collection Time: 05/01/24 4:52 AM Result Value Ref Range BUN 9 6 [...] 8.2 (L) 8.4 - 10.2 mg/dL CBC Collection Time: 05/01/24 4:52 AM Result Value Ref Range WBC 5.42 4.00 [...] fL nRBCs 0 <=0 /100 WBCs MAGNESIUM Collection Time: 05/01/24 4:52 AM Result Value Ref Range Magnesium 1.7 1.5 - 2.6 mg/dL GLUCOSE METER, POINT OF CARE Collection Time: 05/01/24 5:33 AM Result Value Ref Range Glucose - POCT 89 70 - 120 mg/dL }| Recent Cultures (2 Weeks) No lab values to display. 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 * I have examined the patient and consistent with the dietitian's findings found malnutrition presentof Moderate (04/30/24 1314) degree. This is consistent with such due to Fat loss;Muscle loss;Inadequate energy intake (04/30/24 1314). I have also reviewed and agree with the dietitian's plan of carewhich include Monitored NPO/clear liquid status (04/30/24 1314). DIFFERENTIAL AND PLAN: 68 y/o female with HTN, DM2, HLD, metastatic pancreatic ca and tobacco use admitted for small bowelobstruction, nausea and vomiting. Found to have sbo likely 2.2 to metastasis of panc Ca causing malignant obstruction. SBO -- Advanced endoscopy consult- discussed with Dr. Rose- not a candidate for axios- deep in ileum- not accessible - continue conservative treatment with gastroenteric decompression via an NGT on LCS - no further diagnostic imaging required at this time- patient had obstruction series today, which appeared improved, but this was likely due to NG tube decompression per surgery and patient liekly remains persistently obstructed. - general surgery will continue to follow, but this patient is an extremely high risk surgical candidate - call transfer center in AM - IV steroid in an attempt to decrease gut secretions - famotidine IV same Goals of care: -Unfortunately, patient has some disconnect with the progression of her malignancy. -palliative follow up on Friday -discussed with patient's oncologist- he recommends reaching at to [facility] surgery to see if they can offer anything, he also suspects the obstruction is malignant. I have examined the patient and consistent with the dietitian's findings found malnutrition presentof Moderate (04/30/24 1314) degree. This is consistent with such due to Fat loss;Muscle loss;Inadequate energy intake (04/30/24 1314). I have also reviewed and agree with the dietitian's plan of carewhich include Monitored NPO/clear liquid status (04/30/24 1314). I have seen body fat loss and muscle mass loss. This plan of care has been developed to treat malnutrition by advancing diet and oral nutritional supplement once able. Other home medications as directed. Isolyte-S PH 7.4 1,000 mL with potassium chloride 40 mEq INFUSION dexAMETHasone Sodium Phosphate (Decadron) 4 MG/ML inj 4 mg diphenhydrAMINE (Benadryl) inj 25 mg Famotidine (Pepcid) inj 20 mg morphine sulfate inj 2 mg ondansetron (Zofran) inj 4 mg Bisacodyl (Dulcolax) supp 10 mg dextrose 50% inj 25 mL dextrose 50% inj 50 mL glucagon (Glucagen) inj 1 mg Glucose (Glutose 15) 40 % gel 15 g of glucose Glucose (Glutose 15) 40 % gel 30 g of glucose glucose chew tab 16 g Nicotine (Nicoderm CQ) 14 MG/24HR patch 1 Patch phenol (chlorASEPTIC) spray 3 [place] sodium chloride 0.9 % flush/inj 3 mL Orders Placed This Encounter Procedures NPO PHARMACOLOGIC VTE PROPHYLAXIS: This patient does not have an active medication from one of the medication groupers. CODE STATUS: Full Code EXPECTED DISCHARGE DATE: 05/03/2024 I spent a total of 55 minutes coordinating, documenting, and providing care for this patient excluding time spent in the performance of separately billed services or time spent by another provider/QHP. 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 SUBJECTIVE: No acute events reported overnight. AF, VSS on room air. Patient laying comfortably in bed. NGT in place on LCS. Voiding spontaneously. Denies passing flatus or having bowel function. Pain controlledon current regimen. Denies MERRILL, cp, SOB, abdominal pain, dizziness, lightheadedness, and vision changes. Ambulating at baseline. No complaints at this time. OBJECTIVE: Most Recent Vital Signs: BP: 140 mmHg/71 mmHg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 received from JARROD Denson * Janiya Valdivia RN - 05/03/2024 11:37 AM EST IN-HOUSE TRANSFER SENDING UNIT - NURSING [address] [address] Name: Gracie Cheema Location: [address] Date: 05/03/2024 Time: 11:37 AM Pertinent information upon transfer : Patient alert and able to hold conversation. PPN and isolyte infusing. Patient on 2L NC. Patient connected to zoll. Patient post-code, 1 defib. Isolation: None Transferring nursing unit: Vital signs: BP: 174 mmHg/85 mmHg (05/03/24 1101) Pulse: 96 (05/03/24 1101) Resp: 18 (05/03/24 0723) Temp: 36.11 C (05/03/24 0723) Temp Summary: Temp Min: 36 C (96.8 F) Max: 36.5 C (97.7 F) SpO2: 87 % (05/03/24 1101) O2 flow rate: 6 L/MIN (05/03/24 1102) Supplemental O2 Delivery: Nasal Cannula (05/03/24 1102) From room 6016 to ICU Means of transfer: bed Family and/or significant other notified of transfer: at bedside Belongings being sent with patient: all personal belongings sent with patient Verbal SBAR report given to: Gurvinder Keys RN Karmen Bundy RN - 04/29/2024 11:57 PM EST IN-HOUSE TRANSFER RECEIVING UNIT - NURSING [address] [place] [address] Name: Gracie Cheema Location: [facility] 6B-6016/D Date: 04/29/2024 Time: 11:57 PM Patient received to room 6016 at 1952 Vital Signs: BP: 118 mmHg/87 mmHg (04/29/242239) Pulse: 98 (04/29/242239) Resp: 16 (04/29/242239) Temp: 36.5 C (04/29/242239) Temp Summary: Temp Min: 36.5 C (97.7 F) Max: 38.4 C (101.1 F) SpO2: 93 % (04/29/242239) O2 flow rate: Supplemental O2 Delivery: Room Air, None (04/29/242239) Pertinent transfer information upon arrival Pt ambulated from stretcher to bed ind. Pt is AOx3 calmand cooperative. Abdomen is soft, slightly distended and tender. Bowels sounds are present in all quadrants. NGT to LCS. IV siste flushes with no complications. Pt oriented to room and call hanley system. Belongings received with patient: See flowsheets Verbal SBAR report received from: Flora Richard RN Dual Licensed Skin Assessment completed by Gurvinder Arroyo RN and Carlos Avendaño RN. The patient is/has a N/A Skin Breakdown (includes non blanchable erythema): No * Alea Carter RN - 04/29/2024 8:13 PM EST VIRTUAL RN [facility] [address] [facility] [address] Name: Gracie Cheema Location: [facility] 6B-6016/D Date: 04/29/2024 Time: 8:13 PM I completed the Admission Navigator. The patient was in the hospital. I was not in a hospital or clinic location. After connecting through [employer], the patient was identified by name and date of and / or wristband checked. Patient (or authorized legal medical service representative) was then informed that this was a Virtual Nurse visit and was being conducted confidentially over secure lines. I used a headset and other methods to ensure confidentiality for the patient. My office door was closed. No oneelse was in the room with me. Patient acknowledged consent and understanding of privacy and security of the Virtual Nurse visit. I presented the opportunity for the patient or authorized legal medical service representative to ask any questions regarding the visit today. The patient or authorized legal medical service representative agreed to participate. Pt was alert and oriented with the call hanley within reach. Admission questions were completed and the pt had no concerns/questions. The bedside nurse (Karmen Hansen) made aware that the pt belongings, skin assessment, dysphagia screening, and aggression scale needs to be completed by the bedside nurse.The pt was instructed on using the call hanley for assistance as needed. documented in this encounter ED Notes * Merna Humphries MD - 04/29/2024 1:08 PM EST HISTORY OF PRESENT ILLNESS Gracie Cheema is a 68 year old female who presents to the ED for evaluation of Abnormal Test Results (K). The patient was seen at 04/29/24 1302. The patient started chemotherapy 2 days ago. She had lab work and x-ray done this morning and was referred to the emergency department due to low potassium and constipation. The patient says she has not had a bowel movement for 5 days. She feels nauseated. Has a slight headache. Occasional twinge bilateral lower abdomen. She is not on any pain medicationscurrently She has had a poor appetite lately but she has been drinking plenty of fluids. She says she had abdominal surgery on February 24 and her abdomen is still swollen. But that seems to be getting better. Her oncologist is Dr. Waggoner Review of Systems Constitutional: Positive for appetite change. Negative for fever. HENT: Negative for congestion, ear pain, rhinorrhea and sore throat. Respiratory: Negative for cough and shortness of breath. Cardiovascular: Negative for chest pain and leg swelling. Gastrointestinal: Positive for abdominal distention, abdominal pain, constipation and nausea. Negative for diarrhea and vomiting. Genitourinary: Negative for dysuria, frequency and hematuria. Musculoskeletal: Negative for back pain and myalgias. Skin: Negative for rash. Neurological: Positive for headaches. Negative for dizziness, weakness and light-headedness. All other systems reviewed and are negative. The patient's allergies, past history, and medications were reviewed. PHYSICAL EXAM Initial Vitals (see all): BP 132/60 | Pulse 117 | Resp 22 | Temp 101.1 | O2 98 %Weight 48.31 kg | Height 160 cm | BMI 18.87 kg/m2 Initial Pain Assessment (see all): 0 (no pain)/10, Aching, location: abdomen ([facility] Adult Scale 0-10 (18 years and older)) Physical Exam Vitals and nursing note reviewed. Constitutional: General: She is in acute distress (Moderate). HENT: Head: Normocephalic and atraumatic. Cardiovascular: Rate and Rhythm: Regular rhythm. Tachycardia present. Heart sounds: No murmur heard. No gallop. Pulmonary: Effort: Pulmonary effort is normal. No respiratory distress. Breath sounds: Normal breath sounds. Abdominal: General: Bowel sounds are normal. There is distension (Generalized). Tenderness: There is generalized abdominal tenderness. There is no guarding or rebound. Comments: Healing surgical incisions with granulation tissue or scarring midline and other locations of the abdomen, no drainage Somewhat firm Musculoskeletal: General: No swelling, tenderness or deformity. Normal range of motion. Cervical back: Normal range of motion and neck supple. No muscular tenderness. Right lower leg: No edema. Left lower leg: No edema. Lymphadenopathy: Cervical: No cervical adenopathy. Skin: General: Skin is warm and dry. Coloration: Skin is not cyanotic. Findings: No rash. Nails: There is no clubbing. Comments: Somewhat bronzed complexion Neurological: General: No focal deficit present. Mental Status: She is alert and oriented to person, place, and time. GCS: GCS eye subscore is 4. GCS verbal subscore is 5. GCS motor subscore is 6. Psychiatric: Mood and Affect: Mood normal. Speech: Speech normal. Behavior: Behavior normal. Behavior is cooperative. PROCEDURES AND TREATMENTS ED Orders | ED Results MEDICAL DECISION MAKING Nursing notes and vital signs were reviewed. ED consults were placed. ED Course as of 04/29/24 2216 Michelle Apr 29, 2024 1321 Leukocytosis per outpatient CBC done earlier today [DH] 1321 Potassium 3.0 per outpatient BNP done earlier today [DH] 1324 Outpatient abdominal x-ray done earlier today shows multiple small air- fluid levels and large amount of apparent stool throughout the intestines. No free air. Maybe an ileus or dilated loop of bowel left lower abdomen. No pulmonary infiltrates. ED physician interpretation [DH] 1454 Per ED nursing staff, patient was vomiting, port is currently in process of being accessed. Dissolving Zofran ordered Patient just vomited large amount of green emesis with partially digested green material present. [DH] 1707 Received call from [facility] for Dr. Humphries, CT abdomen and pelvis is significant for a small bowel obstruction with transition area in the anterior mid abdomen, there are also findings consistent with a pancreatic mass, metastases present to the liver, pelvic sidewall. [CY] 1722 The patient advised nursing staff that she wants to leave Patient is awake and alert and oriented. She says her left a little while ago to get a candy bar because his sugar was going low and she has not seen him since and she was concerned about him. She prefers to find him and then go home and then come back tomorrow. I advised her that bowel obstruction is serious and can lead to infection and . She also has her port currently accessed, and wants to go outside but nursing staff advises patient can not go outside with a port accessed. Patient advised that she may need to be admitted here or possibly transfer to [place] but she says her surgeon is in [place]. [DH] 1737 Reassessment: is now at bedside as well, he had been out in the waiting area. Patient agreeable to discussion with local surgeon regarding recommended disposition. [DH] 181 Consult: Patient seen by surgeon Dr. Han. Recommends medicine admit, Oncology/palliative care, and surgery will follow. Not surgical candidate as patient has omental metastases [DH] ED Course User Index [CY] Naveed Werner PA-C [DH] Merna Humphries MD Differential Diagnoses Based on my history, physical exam, and evaluation, the differential includes, but is not limited, to the following diagnoses: Bowel obstruction, adhesions, doubt ascites. Chronic constipation.. Outpatient potassium done earlier today was 3.0 One view chest x-ray with two-view abdominal x-ray series: Down outpatient earlier today IMPRESSION: 1. Nonobstructive bowel gas pattern. 2. Moderate colonic stool burden. 3. No focal pulmonary consolidation. Amount and/or Complexity of Data Reviewed Labs: ordered. Radiology: ordered. Risk OTC drugs. Prescription drug management. Decision regarding hospitalization. Clinical Impressions SBO (small bowel obstruction) (HCC) Intra-abdominal fluid collection Hypokalemia 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) Disposition Admitted. I discussed the management of this patient with the admitting provider and I made a decision to admit the patient. Admission Order Ordered Status . 04/29/241926 Admit for Inpatient Services (incl ZPO) ONCE Completed Merna Humphries This chart was completed in part utilizing [employer] Speech Voice Recognition Software. Grammatical errors, random word insertions, prounoun errors, and incomplete sentences are an occasional consequence of this system due to software limitations, ambient noise, and hardware issues. Any formal questions or concerns about the content, text, or information contained within the body of this dictation should be directly addressed to the provider for clarification. Merna Humphries MD 04/29/2024 10:16 PM * Serena Richard RN - 04/29/2024 12:49 PM EST Pt reports not BM for 5 days. Was seen at [place] and labs drawn. Was called and told to be evaluated in ER for low K. Initiated chemotherapy on Friday for mass on pancreas. N/V daily since Friday. Pt taking nausea medication last dose 729. documented in this encounter Miscellaneous Notes * Pt Handout (on AVS) - Kezia Coppola RN - 05/07/2024 8:44 AM EST Images from the original note were not included. Potassium Chloride extended-release tablet - Video Let's take a minute to talk about your medication. This is potassium chloride, and you should take each dose with food and a full glass of water. This is an "extended-release" Tablet. so make sure you do not crush or chew it. To view the video go to this web address: [email or web address] Or, scan this QR code with your smart phone 2024 [facility] / [employer]. All Rights Reserved. * Care Plan - Jaimie Cohen RN - 05/06/2024 6:38 PM EST Clinical Goal(s): Pt will be free from injury this shift (05/06/24 0700) Possible barriers to meeting goal(s)/advancing plan of care: Acuity of illness Stability of the patient: Moderately stable - low risk of patient condition declining or worsening Summary regarding today's goal(s): Met: Pt was free from injury this shift Recommendations: Continue plan of care * Ancillary Progress Note - Queta Matson RDN - 05/05/2024 11:44 AM EST CLINICAL NUTRITION CONSULT/PROGRESS NOTE [facility] [address] Name: Gracie Cheema Location: [facility] 3B-3011/W Date: 05/05/2024 Time: 11:44 AM How patient was identified (select 2): date and Name Discussed in interdisciplinary rounds: Yes Gracie Cheema is a 68 year old female being seen for adjustment in nutritional care and follow-up Primary Diagnosis: SBO (small bowel obstruction) Other pertinent information: Patient has had NGT removed, and now has a regular diet. She reports she was able to eat a little this AM, but wants to take is slow since it's been at least a week sinceshe had solid foods - agreed with her and offered her oral nutritional supplements. Patient declined boost and magic cups, and does not enjoy oatmeal/cream of rice or wheat, however she is willing totry super mashed potatoes with gravy - will add for supper this evening. Will monitor for toleranceof PO intakes and oral nutritional supplements. NUTRITION ASSESSMENT: Past medical/surgical history and medications reviewed. Food/Nutrition-Related History Diet: Regular Previously followed diet: Regular Food Allergies/Intolerances: NKFA Adult Energy Intake: Less than 75% of estimated energy requirement for greater than 7 days (moderate, acute illness). Less than 50% of estimated energy requirement for greater than 5 days (severe, acute illness). Percentage of meal intake: 0-25% Oral Nutrition Supplement (ONS): None Pertinent medications/vitamins/minerals/supplements: Medications reviewed. No significant nutritionrelated medications noted. Pertinent Biochemical Data: Labs reviewed. There are no biochemical abnormalities requiring a change in nutrition plan of care at this time. Nutrition-Focused Physical Findings: Appearance: Ill-appearing Respiratory support: Supplemental O2 Delivery: Nasal Cannula Nasal/Oral: No issues identified Digestive: Appetite fair and Bowel obstruction/ileus/fistula Last Bowel Movement: 05/05/24 (05/05/24 0552) Cognition: Awake, alert and Oriented Skin: Intact Enteral access: None Nutrition Focused Physical Exam: NFPE completed on 04/30/24 Subcutaneous Fat Loss: Orbital fat pads: Mild Buccal fat: Mild Tricep: Mild Muscle Loss: Temples: Mild Clavicles: Mild Shoulders: Mild Interosseous: WNL Quadriceps: Mild Calves: Mild Edema Location: Right Lower Extremity (RLE);Left Lower Extremity (LLE) (05/05/24 1200) Anthropometrics Measurements Height: 158.8 cm (5' 2.5") (05/05/24 1140) Admission weight: 48.3 kg Weight: 49 kg (108 lb 0.4 oz) (05/05/24 0600) BMI: 18.85 (04/29/24 1957) Usual Body Weight: 53.6 kg Leslie weight: 55.6 kg Leslie Weight Based on BMI: 21.7 Interpretation of Weight Change Prior to Admission: No recent/significant weight change Weight Changes Since Admission: +0.7 kg Nutrition Prescription: Energy needs: 30-35 Kcal/kg Kcal/day: 0841-3585 Based on current weight Protein needs: 1.2-1.3 gm/kg Protein: 59-64 Based on current weight Fluid needs: 30 ml/kg Fluid: 1470 ml/day Based on current weight Malnutrition: Malnutrition Present: Yes (04/30/241313) Adult Malnutrition Classification: Moderate (04/30/241313) Malnutrition Characteristics: Fat loss;Muscle loss;Inadequate energy intake (04/30/241313) Malnutrition Care Plan: Patient meets ASPEN/AND criteria for moderate malnutrition. Plan to meet 75% of estimated calorie and 75% of estimated protein requirements via therapeutic diet and a nutrition intervention of oral nutrition supplements. If patient unable to achieve estimatedrequirements over next 8 days, will need to consider enteral nutrition. NUTRITION DIAGNOSIS: Increased nutrient needs calories/protein related to pancreatic cancer as evidenced by catabolic nature of disease. Malnutrition moderate related to acute illness or injury as evidenced by patient consuming less than 75% of estimated energy requirements x 7 days, mild fat loss, and mild muscle loss. Goals: Patient to consume greater than 50 % of daily meals and 50% of daily supplements within 3-5 days. Previous diagnosis/Goals: Resolved - pt's bowels functioning, pt did tolerate PPN while ordered NUTRITION INTERVENTION/PLAN: Orders: Oral nutrition supplement added Super Mashed Potatoes with Gravy (1/2 cup plus 1 oz, 265 calories, 8 grams protein, 23 grams carbohydrate) daily Continue current care plan Clinical Nutrition Recommendations: Diet: Continue current nutrition plan NUTRITION MONITORING AND EVALUATION: Nursing documentation flowsheets for percent meal intake Tolerance of supplement per patient/nursing report Lab values warranting change with MNT Weight for trends Plan follow-up: Will follow and adjust nutrition plan of care as medical condition requires. Please contact for change(s) in patient condition requiring earlier intervention. Queta Matson, MS, RDN, LDN Clinical Dietitian [facility] Available via [employer] Text [phone] * Ancillary Progress Note - Jan Ahuja Chaplain - 05/04/2024 10:45 AM EST PROGRESS NOTE - Spiritual Care Contact Information [facility] [address] Name: Gracie Cheema Location: [facility] ICCU-4112/W Date: 05/04/2024 Time: 2:53 PM Holiness: No Tenriism Pref [66] Tenriism Affiliations: REASON FOR VISIT: rounding and follow-up visit REQUEST RECEIVED FROM: previous visit VISIT LENGTH: 17 REQUEST FACTORS (Nature of Situation): Initial Visit FOCUS OF CARE: Patient SPIRITUAL ASSESSMENT: Ashwini or Belief System: Did not identify Most Important Need(s) / Concern(s): Anxiety, Helpless, and Suffering Sense of Community and/or Tenriism Affiliation: Did not identify Addresses need(s)/concerns(s) and/or sarah through: Emotional expression, Hope , Optimism SPIRITUAL CARE PROVIDED: Roll Builder addressed needs/concerns and/or coping through: [place], Listening presence, and Supportive dialogue REFERRAL TO: N/A OUTCOMES: [place], Comfort/Healing Presence, Identifying Patient's Strengths/Source of Hope, Personal Disclosure/Revelation ANNOTATION: Patient talked openly about her illness and events of yesterday. Pt is frustrated beingin the hospital and is very anxious to "get out of here." Pt shared about being a "busy perosn in life " and "not used to sitting around." I provided supportive listening presence and offered blessings. Pt thanked me for stopping. * Care Plan - Linda Keys RN - 05/04/2024 10:31 AM EST Clinical Goal(s): Patient will not requrire an increase in O2 this shift (05/04/24 0800) Possible barriers to meeting goal(s)/advancing plan of care: SOB, post cardiac arrest Stability of the patient: Moderately stable - low risk of patient condition declining or worsening Summary regarding today's goal(s): Met: Patient's O2 decreased this shift to 1L Recommendations: plan of care ongoing * Diagnostic Clarification - Nando Dueñas MD - 05/04/2024 9:49 AM EST The patient has been diagnosed with a localized infection only without systemic illness. * Progress Notes - Non-Billable - Juliano Bustillo MD - 05/03/2024 11:03 AM EST PROGRESS NOTE - General Surgery [address] [address] Name: Gracie Cheema Location: [facility] 6B-6016/D Date: 05/03/2024 Time: 10:55 AM Was seeing patient and explaining the next steps for GG challenge to evaluate for SBO. Patient was normal mental status and conversing normally. At 10:53 patient had her eyes roll back in her head and she lay backwards on the bed while her breathing became rhonchus. She exhibited decerebrate posturing with sternal rub. Patient initially had pulse but lose pulse nearly immediately and CPR initiated by me. Code called. Backboard placed. Code cart requested. Code team showed and patient exhibited pulse once again. Patient handed off to code team as she became pulseless. CPR re-initiated by code team. Please see their synopsis for further details. Dr. Way present and we discussed situation with code team. Patient's brought from room and sat in chair. Discussed situation with him with code ongoing at present. Wilma Bustillo MD * Ancillary Progress Note - Jan Ahuja Chaplain - 05/03/2024 10:55 AM EST PROGRESS NOTE - Spiritual Care Adult Code Blue In-House Alerts [address] [address] Name: Gracie Cheema Location: [facility] ICCU-4112/W Date: 05/03/2024 Time: 1:14 PM Holiness: No Tenriism Pref [66] Tenriism Affiliations: REASON FOR CONTACT: In-House Alert Response TYPE OF ALERT: Adult Code Blue TIME OF ALERT: 1053 CONTACT LENGTH: 27 CARE PROVIDED: escorted family to ICU waiting room at staff request, responded to the alert, supported family ANNOTATION: I met with spouse outside room and provided supportive presence. Spouse welcomed prayerso I prayed for pt and spouse. After pt resuscitated I escorted spouse to icu waiting room. He madesome contacts and was coping ok as he waited for pt to be settled in icu. * Ancillary Progress Note - Silvia Pompa RDN - 05/03/2024 9:30 AM EST CLINICAL NUTRITION CONSULT/PROGRESS NOTE [facility] [address] Name: Gracie Cheema Location: [facility] 6B-6016/D Date: 05/03/2024 Time: 9:42 AM How patient was identified (select 2): date and Name Discussed in interdisciplinary rounds: Yes Gracie Cheema is a 68 year old female being seen for follow-up Primary Diagnosis: SBO (small bowel obstruction) Other pertinent information: Met with patient and her significant other at bedside to follow up. Per chart review, pt started on PPN yesterday over the weekend (clinimix). Patient denies any nausea/vomiting. Reports that she is more thirsty than hungry and is getting bored of ice chips. She does report that she seems to be having less output from her NG tube. Patient unsure if she feels bloated or if it is just fluid, per pt her weight has gone up. Per EHR, pt has had + 3 kg wt gain since admission, likely due to fluids. She states that her last meal was on Friday, explained to pt that theclinimix was providing some calories and protein but was not able to meet 100% of her needs, pt voiced understanding. Patient had no other nutritional questions or concerns at this time. Will continue to monitor. NUTRITION ASSESSMENT: Past medical/surgical history and medications reviewed. Food/Nutrition-Related History Nutrition Support: PPN: Climinix E 4.25-5 50 mL/hr Diet: NPO Previously followed diet: Regular Food Allergies/Intolerances: NKFA Adult Energy Intake: Less than 75% of estimated energy requirement for greater than 7 days (moderate, acute illness). Percentage of meal intake: Pt NPO Oral Nutrition Supplement (ONS): None Pertinent medications/vitamins/minerals/supplements: clinimix, isolyte-S, pepcid, potassium chloride Pertinent Biochemical Data: There are no biochemical abnormalities requiring a change in the nutrition plan of care. Nutrition-Focused Physical Findings: Appearance: Ill-appearing Respiratory support: Supplemental O2 Delivery: Room Air, None Nasal/Oral: No issues identified Digestive: Bowel obstruction/ileus/fistula Last Bowel Movement: 05/03/24 (05/03/24 0553) Cognition: Awake, alert and Oriented Skin: Intact Enteral access: NGT to suction Nutrition Focused Physical Exam: NFPE completed on 04/30/24 Subcutaneous Fat Loss: Orbital fat pads: Mild Buccal fat: Mild Tricep: Mild Muscle Loss: Temples: Mild Clavicles: Mild Shoulders: Mild Interosseous: WNL Quadriceps: Mild Calves: Mild Anthropometrics Measurements Height: 160 cm (5' 3") (04/29/241956) Admission weight: 48.3 kg Weight: 51.1 kg (112 lb 11.2 oz) (05/03/24 06) BMI: 18.85 (04/29/241956) Usual Body Weight: 53.6 kg Leslie weight: 55.6 kg Leslie Weight Based on BMI: 21.7 Interpretation of Weight Change Prior to Admission: No recent/significant weight change Weight Changes Since Admission: + 3 kg Nutrition Prescription: Energy needs: 30-35 Kcal/kg Kcal/day: 0761-9915 Based on current weight Protein needs: 1.2-1.3 gm/kg Protein: 61-66 Based on current weight Fluid needs: 30 ml/kg Fluid: 1533 ml/day Based on current weight Malnutrition: Malnutrition Present: Yes (04/30/241313) Adult Malnutrition Classification: Moderate (04/30/241313) Malnutrition Characteristics: Fat loss;Muscle loss;Inadequate energy intake (04/30/241313) Malnutrition Care Plan: Patient meets ASPEN/AND criteria for moderate malnutrition. NUTRITION DIAGNOSIS: Altered GI function related to SBO as evidenced by need for NPO and PPN. Increased nutrient needs calories/protein related to pancreatic cancer as evidenced by catabolic nature of disease. Malnutrition moderate related to acute illness or injury as evidenced by patient consuming less than 75% of estimated energy requirements x 7 days, mild fat loss, and mild muscle loss. Goals: Patient will continue to tolerate PPN. Previous diagnosis/Goals: Patient placed on PPN. NUTRITION INTERVENTION/PLAN: Continue to monitor NPO/clear liquid status Continue to monitor nutrition support Clinical Nutrition Recommendations: Parenteral Nutrition: PPN Continue Clinimix E 4.25-5 NUTRITION MONITORING AND EVALUATION: NPO status/diet advancement and tolerance Parenteral nutrition intake for formula, rate, progress toward goal regimen Lab values warranting change with MNT Weight for trends Plan follow-up: Will follow and adjust nutrition plan of care as medical condition requires. Please contact for change(s) in patient condition requiring earlier intervention. Silvia Pompa MS, RDN, LDN Clinical Nutrition [facility] Available via [employer] Text [phone] * Care Plan - Carla Stanton RN - 05/03/2024 6:40 AM EST Clinical Goal(s): Pt will rest well overnight between cares (05/02/242007) Possible barriers to meeting goal(s)/advancing plan of care: Diagnosis Stability of the patient: Moderately stable - low risk of patient condition declining or worsening Summary regarding today's goal(s): Met: Pt rested well between cares Recommendations: Continue with plan of care * Care Plan - Tad Macedo RN - 05/02/2024 7:19 PM EST Clinical Goal(s): PT will rate pain less than 6 during this shift (05/02/24 0815) Possible barriers to meeting goal(s)/advancing plan of care: Diagnosis Stability of the patient: Moderately stable - low risk of patient condition declining or worsening Summary regarding today's goal(s): Met: Pts pain was managed at less than 6 during this shift Recommendations: Continue to monitor pain using [facility] pain scale * Communication - Marisa Way MD, PhD - 05/02/2024 11:43 AM EST Call to transfer center per patient's oncologist request: Spoke to Jay. He will contact Surg onc and get back to me. Connected to surg onc: Dr. Omer Patient is not a surgical candidate for laparotomy for MARIANA, bowel resection etc due to omental caking and metastatic disease. No indication for transfer. He recommends GI consult for possible endoscopic placement of venting G tube. - recommends GI consult for possible endoscopic placement of vent g tube Discussed case with patient's oncologist Dr. Waggoner. Patient and patient's do not believe this is cancer related. They expressed frustration about my care to the nurse. Dr. Waggoner asked me to call radiology to compare the latest CT scan with the PET- CT scan images. Called and spoke to CT technicican who is calling radiologist now to see if anyone is available to makethe comparison. Dr. Waggoner also offered to contact patient and . Await further input. * Care Plan - Carla Stanton RN - 05/02/2024 5:23 AM EST Clinical Goal(s): Pt will rest well overnight between cares (05/01/242003) Possible barriers to meeting goal(s)/advancing plan of care: Diagnosis Stability of the patient: Moderately stable - low risk of patient condition declining or worsening Summary regarding today's goal(s): Met: Pt rested well overnight Recommendations: Cluster cares to allow periods of rest * Care Plan - Tad Macedo RN - 05/01/2024 5:02 PM EST Clinical Goal(s): Pt will ambulate in cheema at least 3 times during this shift (05/01/24 0735) Possible barriers to meeting goal(s)/advancing plan of care: recent diagnosis Stability of the patient: Moderately stable - low risk of patient condition declining or worsening Summary regarding today's goal(s): Met: Pt ambulated in room but not in the cheema during this shift Recommendations: continue to encourage ambulation * Care Plan - Carla Stanton RN - 05/01/2024 6:00 AM EST Clinical Goal(s): Pt will rest well overnight between cares (04/30/241956) Possible barriers to meeting goal(s)/advancing plan of care: Diagnosis Stability of the patient: Moderately stable - low risk of patient condition declining or worsening Summary regarding today's goal(s): Met: Pt rested well overnight Recommendations: Cluster cares to promote rest * Care Plan - aTd Macedo RN - 04/30/2024 6:36 PM EST Clinical Goal(s): Pt will rate pain 6 or less during this shift (04/30/24 0830) Possible barriers to meeting goal(s)/advancing plan of care: diagnosis Stability of the patient: Moderately stable - low risk of patient condition declining or worsening Summary regarding today's goal(s): Met: pt rated pain less than 6 during this shift Recommendations: continue to monitor pain using pain scale * Care Plan - Karmen Arroyo RN - 04/30/2024 5:30 AM EST Clinical Goal(s): Pt will remain free of N/V through the night (04/29/241956) Possible barriers to meeting goal(s)/advancing plan of care: SBO Stability of the patient: Moderately stable - low risk of patient condition declining or worsening Summary regarding today's goal(s): Met: Pt had no c/o or s/s of N/V after placement of NGT Recommendations: continue wit current POC * Pt Handout (on AVS) - Karmen Irving RN - 04/30/2024 2:18 AM EST Images from the original note were not included. [id number] Small Bowel Obstruction A small bowel obstruction occurs when part or all of the small intestine (bowel) is blocked. As a result, digestive contents can?t move through the bowel and out of the body correctly. Treatment is needed right away to remove the blockage. This can ease painful symptoms. It can also prevent seriousproblems, such as tissue or bursting (rupture) of the small bowel and infection. Without treatment, a small bowel obstruction can be fatal. Small bowel obstruction can lead to tissue damage and even tissue . Causes of small bowel obstruction A small bowel obstruction can be caused by: Scar tissue (adhesions). This is the most common cause. These may form after belly (abdominal) surgery or an infection. Hernia. A hernia is when an organ pushes through a weak spot or tear in the abdomen wall. Part of the small bowel can push out and be seen as a bulge under the belly. Hernias can also occur internally. Tumors. These can form on the inside or outside of the intestines. Volvulus. This is twisting of the intestines. Intussusception. This is when part of the bowel slides inside another part. Crohn?s disease. Diverticulitis. Gallstones. Swallowed objects, especially in children. Symptoms of small bowel obstruction Common symptoms include: Belly cramping and pain. Belly swelling and bloating. Upset stomach (nausea) and vomiting. Can't pass gas. Can't pass stool (constipation). Diarrhea. Diagnosing small bowel obstruction Your health care provider will ask about your symptoms and health history. You?ll also have a physical exam. Tests may also be done to confirm the problem. These can include: Imaging tests. These provide pictures of the small bowel. Common tests include X-rays and a CT scan. Blood tests. These check for infection and other problems, such as excess fluid loss (dehydration). Upper GI (gastrointestinal) series with a small bowel follow-through. This test takes X-rays of the upper digestive tract from the mouth through the small bowel. An X-ray contrast material is used. The contrast coats the inside of your upper digestive tract so it will show up clearly on X-rays. Treating small bowel obstruction Treatment takes place in a hospital. As part of your care, the following may be done: No food or drink is given by mouth. This allows your bowels to rest. An I.V. (intravenous) line is placed in a vein in your arm or hand. The I.V. line is used to give fluids and medicines. These may be needed to ease pain, nausea, and other symptoms. They may also be needed to treat or prevent infections. A soft, thin, flexible tube (nasogastric tube) is inserted through your nose and into your stomach. The tube is used to remove extra gas and fluid in your stomach so that the bowels can rest. Thishelps ease symptoms, such as pain and swelling. In some cases, surgery is done. This may be needed depending on the cause of the obstruction. During surgery, the blockage is removed. Parts of the bowel may also be removed if there is tissue . Other repairs may be done as well, depending on what caused the blockage. Your health care provider will give you more information about surgery, if needed. You?ll be watched closely in the hospital until you are stable and your symptoms improve. Your provider will tell you when you can go home. Long-term concerns After treatment, most people recover with no lasting effects. If a long part of the bowel is removed, there is a greater chance for lifelong digestive problems. Bowel movements may become irregular. Work with your health care provider to learn the best ways to manage any symptoms you may have, and to protect your health. When to call your doctor Contact your health care provider right away or get immediate medical care if you: Have severe pain. (Call 911.) Have belly swelling or cramping that won?t go away. Can?t pass stool or gas. Have nausea or vomiting (especially if the vomit looks or smells like stool). Last Reviewed Date: 2024 00:00:00 [id number] [employer]. All rights reserved. This information is not intended as a substitute for professional medical care. Always follow your healthcare professional's instructions. * Medical Necessity - Camryn Barajas RN - 04/29/2024 7:03 PM EST AdmissionCare Guideline: Intestinal Obstruction, Inpatient Based on the indications selected for the patient, the bed status of Inpatient was determined to beMET The following indications were selected as present at the time of evaluation of the patient: - Clinical Indications for Admission to Inpatient Care - Admission is indicated for ALL of the following: - Signs and symptoms of bowel obstruction (eg, vomiting, inability to tolerate PO intake, pain, distention) that are severe (feculent vomiting, Hypotension, electrolyte abnormality, evidence of bowelischemia or suspected perforation), or persistent (eg, NG tube placed and will need to be continued, IV hydration support required) - Imaging study consistent with bowel obstruction (ie, alternative diagnosis not more likely) Additional Information: CT-IMPRESSION: 1. Findings of small bowel obstruction with transition in the anterior mid abdomen. Nasal gastric tube to LCS AdmissionCare documentation entered by: Camryn Barajas [facility] [employer]Box, 28th edition, Copyright 2023 [facility] [employer] All Rights Reserved. [id number]:03:08-05:00 Solely for purpose of utilization review and payment; not a diagnostic tool * ED Administrative Operations Coordinator Note - Nicole Castro RN - 04/29/2024 5:56 PM EST NG tube placed in pt's left nare by Carlos Sykes LPN. Small amount of green liquid removed from stomach. Pt also vomited moderate amount of green liquid while inserting the NG tube. * ED Administrative Operations Coordinator Note - Travon Sykes LPN - 04/29/2024 5:53 PM EST NG placed by this nurse, L nostril used, + abd sounds auscultated, 58 at the nostril, Xray at bedside to confirm placement. documented in this encounter Plan of Treatment Upcoming Encounters Date Type Department Care Team (Late st Contact Info) Description 05/14/2024 9:00 AM EST Office Visit [facility] [address], [place] [address] [place] [address] Sherwin Painter MD [address] [place] [address] 05/17/2024 9:00 AM EDT Laboratory [facility] [address], [place] [address] [place] [id number] [place], [address] [place] [address] 05/18/2024 11:30 AM EDT Office Visit Hematology/Oncology [address] [phone] Feli Norris CRNP [address] [place], [place] [address] [address] 05/18/2024 12:00 PM EDT Hem/Onc Treatment Hematology/Oncology Treatment, [place] [address] [address] [place], Chair 2 Hem Onc [address] [address] Scheduled Orders Name Type Priority Associated Diagnoses Orde r Schedule EKG EKG STAT Electrolyte abnormality One Time for 1 Occurrences starting 04/29/2024 until 04/29/2024 EKG EKG STAT Electrolyte abnormality Perform Now for 1 Occurrences starting 05/01/2024 until 05/01/2024 EKG EKG STAT Cardiac arrest (HCC) One Time for 1 Occurrences starting 05/03/2024 until 05/03/2024 EKG EKG Routine Prolonged QT interval One Time for 1 Occurrences starting 05/04/2024 until 05/04/2024 EKG EKG STAT QT prolongation Perform Now for 1 Occurrences starting 05/05/2024 until 05/05/2024 Health Maintenance Due Date Last Done Comments [...] this encounter Medical Devices Implanted Type Area Metallurgical Engineer Device Identifier Shelf Expiration Date Model / Serial / Lot Power Port 8fr Sngl Lumen Plas - [id number] Implanted:Qty : 1 on 04/21/2024 by Tay Cagle MD at OR [facility] Right: Chest CR BARD : PERIPHERAL VASCULAR [id number] 06/07/2025 [id number] / / [id number] documented as of this encounter Procedures Procedure Name Priority Date/Time Associated Diagnosis Comments GLUCOSE METER, POINT OF CARE TAYLOR 05/07/2024 7:56 AM EST BASIC METABOLIC PANEL STAT 05/07/2024 5:02 AM EST PHOSPHORUS STAT 05/07/2024 5:02 AM EST CALCIUM, IONIZED Routine 05/07/2024 5:02 AM EST CBC STAT 05/07/2024 5:02 AM EST MAGNESIUM STAT 05/07/2024 5:02 AM EST GLUCOSE METER, POINT OF CARE T[place]OR 05/06/2024 9:07 PM EST BASIC METABOLIC PANEL STAT 05/06/2024 5:49 PM EST CALCIUM, IONIZED Routine 05/06/2024 5:49 PM EST MAGNESIUM STAT 05/06/2024 5:49 PM EST GLUCOSE METER, POINT OF CARE [facility] 05/06/2024 4:03 PM EST GLUCOSE METER, POINT OF CARE [facility] 05/06/2024 11:10 AM EST GLUCOSE METER, POINT OF CARE [place] 05/06/2024 7:49 AM EST BASIC METABOLIC PANEL STAT 05/06/2024 4:55 AM EST PHOSPHORUS STAT 05/06/2024 4:55 AM EST CALCIUM, IONIZED Routine 05/06/2024 4:55 AM EST CBC STAT 05/06/2024 4:55 AM EST MAGNESIUM STAT 05/06/2024 4:55 AM EST GLUCOSE METER, POINT OF CARE [facility] 05/05/2024 9:37 PM EST BASIC METABOLIC PANEL STAT 05/05/2024 5:21 PM EST CALCIUM, IONIZED Routine 05/05/2024 5:21 PM EST MAGNESIUM STAT 05/05/2024 5:21 PM EST GLUCOSE METER, POINT OF CARE [facility] 05/05/2024 4:36 PM EST BASIC METABOLIC PANEL Routine 05/05/2024 2:14 PM EST CALCIUM, IONIZED STAT 05/05/2024 2:14 PM EST MAGNESIUM STAT 05/05/2024 2:14 PM EST GLUCOSE METER, POINT OF CARE T[place]OR 05/05/2024 11:27 AM EST GLUCOSE METER, POINT OF CARE [place] 05/05/2024 7:46 AM EST BASIC METABOLIC PANEL STAT 05/05/2024 5:43 AM EST PHOSPHORUS STAT 05/05/2024 5:43 AM EST CALCIUM, IONIZED Routine 05/05/2024 5:43 AM EST CBC STAT 05/05/2024 5:43 AM EST MAGNESIUM STAT 05/05/2024 5:43 AM EST GLUCOSE METER, POINT OF CARE [place]OR 05/05/2024 12:03 AM EST XR ABDOMEN 1 VIEW Routine 05/04/2024 6:1 6 PM EST Other specified diseases of intestine Other specified diseases of anus and rectum Constipation, unspecified GLUCOSE METER, POINT OF CARE T[place]LOR 05/04/2024 5:40 PM EST BASIC METABOLIC PANEL Routine 05/04/2024 4:00 PM EST PHOSPHORUS Routine 05/04/2024 4:00 PM EST CALCIUM, IONIZED Routine 05/04/2024 4:00 PM EST MAGNESIUM Routine 05/04/2024 4:00 PM EST GLUCOSE METER, POINT OF CARE TAYLOR 05/04/2024 11:31 AM EST XR ABDOMEN 1 VIEW Routine 05/04/2024 8:4 4 AM EST Encounter for fitting and adjustment of other gastrointestinal appliance and device Dyspnea, unspecified XR CHEST 1 VIEW Routine 05/04/2024 8:44 AM EST Encounter for fitting and adjustment of other gastrointestinal appliance and device Other nonspecific abnormal finding of lung field Dyspnea, unspecified Presence of other specified devices ECHO, COMPLETE (2D), TRANS-THORACIC Routine 05/04/2024 8:10 AM EST Cardiac arrhythmia, unspecified BASIC METABOLIC PANEL STAT 05/04/2024 4:52 AM EST PHOSPHORUS STAT 05/04/2024 4:52 AM EST CALCIUM, IONIZED Routine 05/04/2024 4:52 AM EST CBC STAT 05/04/2024 4:52 AM EST MAGNESIUM STAT 05/04/2024 4:52 AM EST BASIC METABOLIC PANEL STAT 05/03/2024 8:00 PM EST CALCIUM, IONIZED Routine 05/03/2024 8:00 PM EST MAGNESIUM STAT 05/03/2024 8:00 PM EST EXTRA LAVENDER TOP Routine 05/03/2024 7: 58 PM EST EXTRA TUBES Routine 05/03/2024 7:58 PM EST GLUCOSE METER, POINT OF CARE TAYLOR 05/03/2024 5:30 PM EST XR CHEST 1 VIEW STAT 05/03/2024 12:18 PM EST Pleural effusion, not elsewhere classified Cardiac arrest (HCC) Other nonspecific abnormal finding of lung field TROPONIN T, HIGH SENSITIVITY STAT 05/03/2024 12:07 PM EST BASIC METABOLIC PANEL STAT 05/03/2024 12:07 PM EST PHOSPHORUS STAT 05/03/2024 12:07 PM EST CALCIUM, IONIZED Routine 05/03/2024 12:0 7 PM EST MAGNESIUM STAT 05/03/2024 12:07 PM EST EXTRA LAVENDER TOP Routine 05/03/2024 12 :02 PM EST EXTRA TUBES Routine 05/03/2024 12:02 PM EST GLUCOSE METER, POINT OF CARE [facility] 05/03/2024 10:54 AM EST GLUCOSE METER, POINT OF CARE [facility] 05/03/2024 5:49 AM EST DIFFERENTIAL, AUTOMATED Routine 05/03/2024 5:46 AM EST BILIRUBIN, DIRECT Routine 05/03/2024 5:4 6 AM EST COMPREHENSIVE METABOLIC PANEL Routine 05/03/2024 5:46 AM EST CBC Routine 05/03/2024 5:46 AM EST PT INR Routine 05/03/2024 5:46 AM EST CBC Routine 05/03/2024 5:46 AM EST GLUCOSE METER, POINT OF CARE [facility] 05/02/2024 11:24 PM EST GLUCOSE METER, POINT OF CARE [facility] 05/02/2024 6:06 PM EST LACTATE, WHOLE BLOOD WITH REFLEX IF ABNORMAL STAT 05/02/2024 3:46 PM EST BASIC METABOLIC PANEL STAT 05/02/2024 3:46 PM EST MAGNESIUM STAT 05/02/2024 3:46 PM EST GLUCOSE METER, POINT OF CARE [facility] 05/02/2024 12:34 PM EST DIFFERENTIAL, AUTOMATED Routine 05/02/2024 6:48 AM EST HEPATIC FUNCTION PANEL Routine 05/02/2024 6:48 AM EST BASIC METABOLIC PANEL Routine 05/02/2024 6:48 AM EST CBC Routine 05/02/2024 6:48 AM EST PT INR Routine 05/02/2024 6:48 AM EST PHOSPHORUS Routine 05/02/2024 6:48 AM EST CALCIUM, IONIZED Routine 05/02/2024 6:48 AM EST CBC Routine 05/02/2024 6:48 AM EST DIFFERENTIAL, TECHNOLOGIST REVIEW Routine 05/02/2024 6:48 AM EST MAGNESIUM Routine 05/02/2024 6:48 AM EST GLUCOSE METER, POINT OF CARE TAYLOR 05/02/2024 6:19 AM EST GLUCOSE METER, POINT OF CARE T[place]OR 05/02/2024 12:18 AM EST GLUCOSE METER, POINT OF CARE [place] 05/01/2024 6:00 PM EST HEMOGLOBIN AND HEMATOCRIT PANEL Routine 05/01/2024 12:12 PM EST ABO/RH STAT 05/01/2024 12:12 PM EST TYPE AND SCREEN Routine 05/01/2024 12:12 PM EST PT INR Routine 05/01/2024 12:12 PM EST GLUCOSE METER, POINT OF CARE T[place]OR 05/01/2024 11:49 AM EST XR ABDOMEN OBSTRUCT SERIES W CHEST 1 VIEW Routine 05/01/2024 8:40 AM EST GLUCOSE METER, POINT OF CARE [place] 05/01/2024 5:33 AM EST PROCALCITONIN Add-on 05/01/2024 4:52 AM EST BNP (NT-PROBNP) Add-on 05/01/2024 4:52 AM EST HEPATIC FUNCTION PANEL Add-on 05/01/2024 4:52 AM EST BASIC METABOLIC PANEL Routine 05/01/2024 4:52 AM EST PHOSPHORUS Add-on 05/01/2024 4:52 AM EST CBC Routine 05/01/2024 4:52 AM EST MAGNESIUM Routine 05/01/2024 4:52 AM EST GLUCOSE METER, POINT OF CARE [facility] 05/01/2024 12:04 AM EST GLUCOSE METER, POINT OF CARE [facility] 04/30/2024 5:44 PM EST URINALYSIS, REFLEX TO CULTURE STAT 04/30/2024 2:19 PM EST URINALYSIS, REFLEX TO CULTURE (CUP ONLY) STAT 04/30/2024 2:19 PM EST URINALYSIS, REFLEX TO CULTURE (NOT FOR NEUTROPENIC PATIENTS) STAT 04/30/2024 2:19 PM EST CULTURE, URINE, QUANTITATIVE STAT 04/30/2024 2:19 PM EST GLUCOSE METER, POINT OF CARE [facility] 04/30/2024 11:47 AM EST BASIC METABOLIC PANEL Routine 04/30/2024 11:30 AM EST GLUCOSE METER, POINT OF CARE [facility] 04/30/2024 6:17 AM EST HEMOGLOBIN A1C Routine 04/30/2024 5:12 AM EST BASIC METABOLIC PANEL Routine 04/30/2024 5:12 AM EST CBC Routine 04/30/2024 5:12 AM EST GLUCOSE METER, POINT OF CARE T[place]LOR 04/29/2024 11:46 PM EST XR CHEST 1 VIEW STAT 04/29/2024 7:36 PM EST Fever, unspecified Presence of other specified devices XR ABDOMEN 1 VIEW STAT 04/29/2024 5:5 8 PM EST Encounter for fitting and adjustment of other gastrointestinal appliance and device CT ABD/PELVIS W IV CONTRAST - WO ORAL CONTRAST STAT 04/29/2024 4:34 PM EST LACTATE, WHOLE BLOOD WITH REFLEX IF ABNORMAL STAT 04/29/2024 2:58 PM EST GLUCOSE METER, POINT OF CARE TAYLOR 04/29/2024 12:58 PM EST HEPATIC FUNCTION PANEL Add-on 04/29/2024 8:17 AM EST documented in this encounter Results * (ABNORMAL) GLUCOSE METER, POINT OF CARE (05/07/2024 7:56 AM EST) Glucose - POCT 123(H) 70 - 120 mg/dL 05/07/2024 8:23 AM EST [facility] Blood Whole blood specimen / Unknown 05/07/2024 7:56 AM EST 05/07/2024 8:23 AM EST us Kusum Bright MD LAB POINT OF CARE T EST DOCKED DEVICE UNSOLICITED RESULTS Final Result [facility] [address] [place] [address] * (ABNORMAL) PHOSPHORUS (05/07/2024 5:02 AM EST) Phosphorus 2.4(L) 2.5 - 4.8 mg/dL 05/07/2024 6:53 AM EST LABORATORY [facility] Blood Venous blood specimen / Unknown Venipuncture / Unknown 05/07/2024 5:02 AM EST 05/07/2024 5:41 AM EST Tonya Denny PA-C LAB BLOOD ORDERABLES Fin al Result Performing Organization Address City/[facility]/ZIP Co de Phone Number LABORATORY [address] [phone] * (ABNORMAL) CALCIUM, IONIZED (05/07/2024 5:02 AM EST) Calcium, Ionized 0.99(L) 1.13 - 1.32 mmol/L 05/07/2024 6:09 AM EST LABORATORY [facility] Comment:This test was develo ped and its performance characteristics dtermined by [employer]. It has not been cleared or approved by the [place] Food and Drug Administration Blood Venous blood specimen / Unknown Venipuncture / Unknown 05/07/2024 5:02 AM EST 05/07/2024 5:41 AM EST Tonya Denny PA-C LAB BLOOD ORDERABLES Fin al Result LABORATORY [address] [address] * (ABNORMAL) MAGNESIUM (05/07/2024 5:02 AM EST) Magnesium 1.4(L) 1.5 - 2.6 mg/dL 05/07/2024 6:53 AM EST LABORATORY [facility] Blood Venous blood specimen / Unknown Venipuncture / Unknown 05/07/2024 5:02 AM EST 05/07/2024 5:41 AM EST Tonya Denny PA-C LAB BLOOD ORDERABLES Fin al Result LABORATORY [address] [address] * (ABNORMAL) BASIC METABOLIC PANEL (05/07/2024 5:02 AM EST) BUN 8 6 - 20 mg/dL 05/07/2024 6:53 AM EST LABORATORY [facility] CREATININE 0.4(L) 0.5 - 1.0 mg/dL 05/07/2024 6:53 AM EST LABORATORY [facility] EGFR >90 >=60 mL/min 05/07/2024 6:53 AM EST LABORATORY [facility] Comment:eGFR is calculated b ased on the CKD-EPI 2020 equation. SODIUM 134(L) 135 - 146 mmol/L 05/07/2024 6:53 AM EST LABORATORY [facility] POTASSIUM 3.0(L) 3.5 - 5.1 mmol/L 05/07/2024 6:53 AM EST LABORATORY [facility] CHLORIDE 98 98 - 107 mmol/L 05/07/2024 6:53 AM EST LAB[facility]ATORY [facility] CO2 22 22 - 32 mmol/L 05/07/2024 6:53 AM EST LAB[facility]ATORY [facility] ANION GAP 14 7 - 15 mmol/L 05/07/2024 6:53 AM EST LAB[facility]ATORY [facility] GLUCOSE 123(H) 70 - 120 mg/dL 05/07/2024 6:53 AM EST LABORATORY [facility] CALCIUM 7.3(L) 8.4 - 10.2 mg/dL 05/07/2024 6:53 AM EST LAB[facility]ATORY [facility] Blood Venous blood specimen / Unknown Venipuncture / Unknown 05/07/2024 5:02 AM EST 05/07/2024 5:41 AM EST us Tonya Denny PA-C LAB BLOOD ORDERABLES Fin al Result LABORATORY [address] [address] * CBC (05/07/2024 5:02 AM EST) WBC 5.27 4.00 - 10.80 K/uL 05/07/2024 5:46 AM EST LABORATORY [facility] RBC 4.12 3.85 - 5.15 M/uL 05/07/2024 5:46 AM EST LABORATORY [facility] HGB 12.7 12.0 - 15.3 g/dL 05/07/2024 5:46 AM EST LABORATORY [facility] HCT 37.2 36.0 - 45.2 % 05/07/2024 5:46 AM EST LABORATORY [facility] MCV 90.3 81.5 - 97.5 fL 05/07/2024 5:46 AM EST LABORATORY [facility] MCH 30.8 27.0 - 34.0 pg 05/07/2024 5:46 AM EST LABORATORY [facility] MCHC 34.1 32.0 - 36.0 g/dL 05/07/2024 5:46 AM EST LABORATORY [facility] RDW 13.3 11.5 - 15.5 % 05/07/2024 5:46 AM EST LABORATORY [facility] PLT 210 140 - 400 K/uL 05/07/2024 5:46 AM EST LABORATORY [facility] MPV 11.9 6.6 - 11.1 fL 05/07/2024 5:46 AM EST LABORATORY [facility] nRBCs 0 <=0 /100 WBCs 05/07/2024 5:46 AM EST LABORATORY [facility] Blood Venous blood specimen / Unknown Venipuncture / Unknown 05/07/2024 5:02 AM EST 05/07/2024 5:42 AM EST us Tonya Denny PA-C LAB BLOOD ORDERABLES Fin al Result LABORATORY [address] [address] * (ABNORMAL) GLUCOSE METER, POINT OF CARE (05/06/2024 9:07 PM EST) [facility] Glucose - POCT 124(H) 70 - 120 mg/dL 05/06/2024 9:19 PM EST [facility] LABORATORY Blood Whole blood specimen / Unknown 05/06/2024 9:07 PM EST 05/06/2024 9:19 PM EST us Kusum Bright MD LAB POINT OF CARE T EST DOCKED DEVICE UNSOLICITED RESULTS Final Result Performing Organization Address [facility] Co de Phone Number [facility] LABORATORY [address] [place] [phone] * (ABNORMAL) CALCIUM, IONIZED (05/06/2024 5:49 PM EST) [facility] Calcium, Ionized 0.98(L) 1.13 - 1.32 mmol/L 05/06/2024 7:23 PM EST LABORATORY [facility] Comment:This test was develo ped and its performance characteristics dtermined by [employer]. It has not been cleared or approved by the [place] Food and Drug Administration Blood Venous blood specimen / Unknown Venipuncture / Unknown 05/06/2024 5:49 PM EST 05/06/2024 6:46 PM EST Tonya Denny PA-C LAB BLOOD ORDERABLES Fin al Result Performing Organization Address [facility] Co de Phone Number LABORATORY [address] [address] * (ABNORMAL) MAGNESIUM (05/06/2024 5:49 PM EST) [facility] Magnesium 1.4(L) 1.5 - 2.6 mg/dL 05/06/2024 7:07 PM EST LABORATORY [facility] Blood Venous blood specimen / Unknown Venipuncture / Unknown 05/06/2024 5:49 PM EST 05/06/2024 6:46 PM EST Tonya Denny PA-C LAB BLOOD ORDERABLES Fin al Result Performing Organization Address [facility] Co de Phone Number LABORATORY [address] [address] * (ABNORMAL) BASIC METABOLIC PANEL (05/06/2024 5:49 PM EST) [facility] BUN 8 6 - 20 mg/dL 05/06/2024 7:07 PM EST LABORATORY [facility] CREATININE 0.4(L) 0.5 - 1.0 mg/dL 05/06/2024 7:07 PM EST LABORATORY [facility] EGFR >90 >=60 mL/min 05/06/2024 7:07 PM EST LABORATORY [facility] Comment:eGFR is calculated b ased on the CKD-EPI 2020 equation. SODIUM 131(L) 135 - 146 mmol/L 05/06/2024 7:07 PM EST LABORATORY [facility] POTASSIUM 3.4(L) 3.5 - 5.1 mmol/L 05/06/2024 7:07 PM EST LAB[facility]ATORY [facility] CHLORIDE 97(L) 98 - 107 mmol/L 05/06/2024 7:07 PM EST LAB[facility]ATORY [facility] CO2 19(L) 22 - 32 mmol/L 05/06/2024 7:07 PM EST LAB[facility]ATORY [facility] ANION GAP 15 7 - 15 mmol/L 05/06/2024 7:07 PM EST LAB[facility]ATORY [facility] GLUCOSE 112 70 - 120 mg/dL 05/06/2024 7:07 PM EST LAB[facility]ATORY [facility] CALCIUM 7.3(L) 8.4 - 10.2 mg/dL 05/06/2024 7:07 PM EST LAB[facility]ATORY [facility] Blood Venous blood specimen / Unknown Venipuncture / Unknown 05/06/2024 5:49 PM EST 05/06/2024 6:46 PM EST us Tonya Denny PA-C LAB BLOOD ORDERABLES Fin al Result Performing Organization Address City/[facility]/ZIP Co de Phone Number LABORATORY [address] [address] * GLUCOSE METER, POINT OF CARE (05/06/2024 4:03 PM EST) [facility] Glucose - POCT 119 70 - 120 mg/dL 05/06/2024 4:13 PM EST [facility] LABORATORY Blood Whole blood specimen / Unknown 05/06/2024 4:03 PM EST 05/06/2024 4:13 PM EST us Kusum Bright MD LAB POINT OF CARE T EST DOCKED DEVICE UNSOLICITED RESULTS Final Result [facility] LABORATORY [address] [place] [address] * (ABNORMAL) GLUCOSE METER, POINT OF CARE (05/06/2024 11:10 AM EST) Glucose - POCT 135(H) 70 - 120 mg/dL 05/06/2024 11:33 AM EST [facility] LABORATORY Blood Whole blood specimen / Unknown 05/06/2024 11:10 AM EST 05/06/2024 11:33 AM EST us Kusum Bright MD LAB POINT OF CARE T EST DOCKED DEVICE UNSOLICITED RESULTS Final Result Performing Organization Address City/[facility]/ZIP Co de Phone Number [facility] LABORATORY [address] [place] [address] * GLUCOSE METER, POINT OF CARE (05/06/2024 7:49 AM EST) Glucose - POCT 119 70 - 120 mg/dL 05/06/2024 8:12 AM EST [facility] LABORATORY Blood Whole blood specimen / Unknown 05/06/2024 7:49 AM EST 05/06/2024 8:12 AM EST us Kusum Bright MD LAB POINT OF CARE T EST DOCKED DEVICE UNSOLICITED RESULTS Final Result Performing Organization Address City/[facility]/ZIP Co de Phone Number [facility] LABORATORY [address] [place] [phone] * (ABNORMAL) PHOSPHORUS (05/06/2024 4:55 AM EST) Phosphorus 1.9(L) 2.5 - 4.8 mg/dL 05/06/2024 5:31 AM EST LABORATORY [facility] Blood Venous blood specimen / Unknown Venipuncture / Unknown 05/06/2024 4:55 AM EST 05/06/2024 5:02 AM EST us Tonya Denny PA-C LAB BLOOD ORDERABLES Fin al Result LABORATORY [address] [place] [address] * (ABNORMAL) CALCIUM, IONIZED (05/06/2024 4:55 AM EST) Calcium, Ionized 1.02(L) 1.13 - 1.32 mmol/L 05/06/2024 6:41 AM EST LABORATORY [facility] Comment:This test was develo ped and its performance characteristics dtermined by [employer]. It has not been cleared or approved by the [place] Food and Drug Administration Blood Venous blood specimen / Unknown Venipuncture / Unknown 05/06/2024 4:55 AM EST 05/06/2024 5:02 AM EST Tonya Denny PA-C LAB BLOOD ORDERABLES Fin al Result Performing Organization Address [facility] de Phone Number LABORATORY [address] [address] * (ABNORMAL) MAGNESIUM (05/06/2024 4:55 AM EST) Pathologist [facility] Magnesium 1.4(L) 1.5 - 2.6 mg/dL 05/06/2024 5:31 AM EST LABORATORY [facility] Blood Venous blood specimen / Unknown Venipuncture / Unknown 05/06/2024 4:55 AM EST 05/06/2024 5:02 AM EST Tonya Denny PA-C LAB BLOOD ORDERABLES Fin al Result LABORATORY [address] [address] * (ABNORMAL) BASIC METABOLIC PANEL (05/06/2024 4:55 AM EST) BUN 8 6 - 20 mg/dL 05/06/2024 5:31 AM EST LABORATORY [facility] CREATININE 0.4(L) 0.5 - 1.0 mg/dL 05/06/2024 5:31 AM EST LABORATORY [facility] EGFR >90 >=60 mL/min 05/06/2024 5:31 AM EST LABORATORY [facility] Comment:eGFR is calculated b ased on the CKD-EPI 2020 equation. SODIUM 133(L) 135 - 146 mmol/L 05/06/2024 5:31 AM EST LABORATORY [facility] POTASSIUM 3.3(L) 3.5 - 5.1 mmol/L 05/06/2024 5:31 AM EST LABORATORY [facility] CHLORIDE 98 98 - 107 mmol/L 05/06/2024 5:31 AM EST LAB[facility]ATORY [facility] CO2 23 22 - 32 mmol/L 05/06/2024 5:31 AM EST LAB[facility]ATORY [facility] ANION GAP 12 7 - 15 mmol/L 05/06/2024 5:31 AM EST LABORATORY [facility] GLUCOSE 117 70 - 120 mg/dL 05/06/2024 5:31 AM EST LABORATORY [facility] CALCIUM 7.3(L) 8.4 - 10.2 mg/dL 05/06/2024 5:31 AM EST LABORATORY GL Blood Venous blood specimen / Unknown Venipuncture / Unknown 05/06/2024 4:55 AM EST 05/06/2024 5:02 AM EST us Tonya Denny PA-C LAB BLOOD ORDERABLES Fin al Result LABORATORY [address] [address] * (ABNORMAL) CBC (05/06/2024 4:55 AM EST) WBC 4.92 4.00 - 10.80 K/uL 05/06/2024 5:05 AM EST LABORATORY GL RBC 4.16 3.85 - 5.15 M/uL 05/06/2024 5:05 AM EST LABORATORY [facility] HGB 12.8 12.0 - 15.3 g/dL 05/06/2024 5:05 AM EST LABORATORY [facility] HCT 37.1 36.0 - 45.2 % 05/06/2024 5:05 AM EST LABORATORY [facility] MCV 89.2 81.5 - 97.5 fL 05/06/2024 5:05 AM EST LAB[facility]ATORY [facility] MCH 30.8 27.0 - 34.0 pg 05/06/2024 5:05 AM EST LABORATORY [facility] MCHC 34.5 32.0 - 36.0 g/dL 05/06/2024 5:05 AM EST LABORATORY [facility] RDW 13.6 11.5 - 15.5 % 05/06/2024 5:05 AM EST LABORATORY [facility] PLT 178 140 - 400 K/uL 05/06/2024 5:05 AM EST LABORATORY [facility] MPV 11.2 6.6 - 11.1 fL 05/06/2024 5:05 AM EST LABORATORY [facility] nRBCs 1(H) <=0 /100 WBCs 05/06/2024 5:05 AM EST LABORATORY [facility] Blood Venous blood specimen / Unknown Venipuncture / Unknown 05/06/2024 4:55 AM EST 05/06/2024 5:02 AM EST us Tonya Denny PA-C LAB BLOOD ORDERABLES Fin al Result Performing Organization Address [facility]/ZIP Co de Phone Number LABORATORY [address] [address] * (ABNORMAL) GLUCOSE METER, POINT OF CARE (05/05/2024 9:37 PM EST) Glucose - POCT 124(H) 70 - 120 mg/dL 05/05/2024 11:30 PM EST [facility] LABORATORY Blood Whole blood specimen / Unknown 05/05/2024 9:37 PM EST 05/05/2024 11:30 PM EST us Min Min Wilbert FERRARO LAB POINT OF CARE TE ST DOCKED DEVICE UNSOLICITED RESULTS Final Result Performing Organization Address City/[facility]/ZIP Co de Phone Number [facility] LABORATORY [address] [place] [phone] * (ABNORMAL) CALCIUM, IONIZED (05/05/2024 5:21 PM EST) Calcium, Ionized 1.08(L) 1.13 - 1.32 mmol/L 05/05/2024 6:23 PM EST LABORATORY [facility] Comment:This test was develo ped and its performance characteristics dtermined by [employer]. It has not been cleared or approved by the [place] Food and Drug Administration Blood Venous blood specimen / Unknown Venipuncture / Unknown 05/05/2024 5:21 PM EST 05/05/2024 6:00 PM EST Tonya Denny PA-C LAB BLOOD ORDERABLES Fin al Result Performing Organization Address City/[facility]/ZIP Co de Phone Number LABORATORY [address] [address] * MAGNESIUM (05/05/2024 5:21 PM EST) Magnesium 1.7 1.5 - 2.6 mg/dL 05/05/2024 6:18 PM EST LABORATORY GL Blood Venous blood specimen / Unknown Venipuncture / Unknown 05/05/2024 5:21 PM EST 05/05/2024 6:00 PM EST Tonya Denny PA-C LAB BLOOD ORDERABLES Fin al Result Performing Organization Address [facility] de Phone Number LABORATORY [address] [address] * (ABNORMAL) BASIC METABOLIC PANEL (05/05/2024 5:21 PM EST) BUN 8 6 - 20 mg/dL 05/05/2024 6:18 PM EST LABORATORY [facility] CREATININE 0.4(L) 0.5 - 1.0 mg/dL 05/05/2024 6:18 PM EST LABORATORY [facility] EGFR >90 >=60 mL/min 05/05/2024 6:18 PM EST LABORATORY [facility] Comment:eGFR is calculated b ased on the CKD-EPI 2020 equation. SODIUM 132(L) 135 - 146 mmol/L 05/05/2024 6:18 PM EST LABORATORY [facility] POTASSIUM 3.7 3.5 - 5.1 mmol/L 05/05/2024 6:18 PM EST LABORATORY [facility] CHLORIDE 98 98 - 107 mmol/L 05/05/2024 6:18 PM EST LABORATORY [facility] CO2 22 22 - 32 mmol/L 05/05/2024 6:18 PM EST LABORATORY [facility] ANION GAP 12 7 - 15 mmol/L 05/05/2024 6:18 PM EST LABORATORY [facility] GLUCOSE 122(H) 70 - 120 mg/dL 05/05/2024 6:18 PM EST LABORATORY [facility] CALCIUM 7.7(L) 8.4 - 10.2 mg/dL 05/05/2024 6:18 PM EST LABORATORY [facility] Blood Venous blood specimen / Unknown Venipuncture / Unknown 05/05/2024 5:21 PM EST 05/05/2024 6:00 PM EST us Tonya Denny PA-C LAB BLOOD ORDERABLES Fin al Result Performing Organization Address City/[facility] Co de Phone Number LABORATORY [address] [address] * (ABNORMAL) GLUCOSE METER, POINT OF CARE (05/05/2024 4:36 PM EST) Glucose - POCT 122(H) 70 - 120 mg/dL 05/05/2024 4:49 PM EST [facility] LABORATORY Blood Whole blood specimen / Unknown 05/05/2024 4:36 PM EST 05/05/2024 4:49 PM EST us Min Min Wilbert FERRARO LAB POINT OF CARE TE ST DOCKED DEVICE UNSOLICITED RESULTS Final Result Performing Organization Address [facility] de Phone Number [facility] LABORATORY [address] [place] [phone] * MAGNESIUM (05/05/2024 2:14 PM EST) Magnesium 1.9 1.5 - 2.6 mg/dL 05/05/2024 3:20 PM EST LABORATORY [facility] Blood Venous blood specimen / Unknown Venipuncture / Unknown 05/05/2024 2:14 PM EST 05/05/2024 2:19 PM EST us Myesha AVERY LAB BLOOD ORDERABLES Final Result Performing Organization Address City/[facility]/ZIP Co de Phone Number LABORATORY [facility] [address] [place] [address] * (ABNORMAL) CALCIUM, IONIZED (05/05/2024 2:14 PM EST) [facility] Calcium, Ionized 1.12(L) 1.13 - 1.32 mmol/L 05/05/2024 3:36 PM EST LABORATORY [facility] Comment:This test was develo ped and its performance characteristics dtermined by [employer]. It has not been cleared or approved by the US Food and Drug Administration Blood Venous blood specimen / Unknown Venipuncture / Unknown 05/05/2024 2:14 PM EST 05/05/2024 2:19 PM EST Myesha AVERY LAB BLOOD ORDERABLES Final Result Performing Organization Address City/State/[facility] Co de Phone Number LABORATORY [address] [address] * (ABNORMAL) BASIC METABOLIC PANEL (05/05/2024 2:14 PM EST) [facility] BUN 8 6 - 20 mg/dL 05/05/2024 3:20 PM EST LABORATORY [facility] CREATININE 0.4(L) 0.5 - 1.0 mg/dL 05/05/2024 3:20 PM EST LABORATORY [facility] EGFR >90 >=60 mL/min 05/05/2024 3:20 PM EST LABORATORY [facility] Comment:eGFR is calculated b ased on the CKD-EPI 2020 equation. SODIUM 129(L) 135 - 146 mmol/L 05/05/2024 3:20 PM EST LABORATORY [facility] POTASSIUM 4.2 3.5 - 5.1 mmol/L 05/05/2024 3:20 PM EST LABORATORY [facility] CHLORIDE 95(L) 98 - 107 mmol/L 05/05/2024 3:20 PM EST LABORATORY [facility] CO2 21(L) 22 - 32 mmol/L 05/05/2024 3:20 PM EST LABORATORY [facility] ANION GAP 13 7 - 15 mmol/L 05/05/2024 3:20 PM EST LABORATORY [facility] GLUCOSE 132(H) 70 - 120 mg/dL 05/05/2024 3:20 PM EST LABORATORY GL CALCIUM 8.2(L) 8.4 - 10.2 mg/dL 05/05/2024 3:20 PM EST LABORATORY [facility] Blood Venous blood specimen / Unknown Venipuncture / Unknown 05/05/2024 2:14 PM EST 05/05/2024 2:19 PM EST us Myesha AVERY LAB BLOOD ORDERABLES Final Result Performing Organization Address City/[facility] Co de Phone Number LABORATORY [facility] [address] [place], [place] [id number] * (ABNORMAL) GLUCOSE METER, POINT OF CARE (05/05/2024 11:27 AM EST) Glucose - POCT 143(H) 70 - 120 mg/dL 05/05/2024 1:00 PM EST [facility] LABORATORY Blood Whole blood specimen / Unknown 05/05/2024 11:27 AM EST 05/05/2024 1:00 PM EST us Franklin Atkins MD LAB POINT OF CARE TE ST DOCKED DEVICE UNSOLICITED RESULTS Final Result Performing Organization Address [facility] de Phone Number [facility] LABORATORY [address] [place] [phone] * GLUCOSE METER, POINT OF CARE (05/05/2024 7:46 AM EST) Glucose - POCT 109 70 - 120 mg/dL 05/05/2024 8:52 AM EST [facility] LAB[facility]ATORY Blood Whole blood specimen / Unknown 05/05/2024 7:46 AM EST 05/05/2024 8:52 AM EST us Nando Dueñas MD LAB POINT OF C ARE TEST DOCKED DEVICE UNSOLICITED RESULTS Final Result Performing Organization Address [facility] de Phone Number [facility] LABORATORY [address] [place] [address] * PHOSPHORUS (05/05/2024 5:43 AM EST) Phosphorus 3.1 2.5 - 4.8 mg/dL 05/05/2024 6:06 AM EST LABORATORY [facility] Blood Venous blood specimen / Unknown Venipuncture / Unknown 05/05/2024 5:43 AM EST 05/05/2024 5:46 AM EST Tonya Denny PA-C LAB BLOOD ORDERABLES Fin al Result Performing Organization Address [facility] de Phone Number LABORATORY [address] [address] * (ABNORMAL) CALCIUM, IONIZED (05/05/2024 5:43 AM EST) Calcium, Ionized 1.05(L) 1.13 - 1.32 mmol/L 05/05/2024 6:14 AM EST LABORATORY [facility] Comment:This test was develo ped and its performance characteristics dtermined by [employer]. It has not been cleared or approved by the US Food and Drug Administration Blood Venous blood specimen / Unknown Venipuncture / Unknown 05/05/2024 5:43 AM EST 05/05/2024 5:46 AM EST Tonya Denny PA-C LAB BLOOD ORDERABLES Fin al Result Performing Organization Address [facility] Phone Number LABORATORY [address] [address] * MAGNESIUM (05/05/2024 5:43 AM EST) Magnesium 1.5 1.5 - 2.6 mg/dL 05/05/2024 6:06 AM EST LABORATORY [facility] Blood Venous blood specimen / Unknown Venipuncture / Unknown 05/05/2024 5:43 AM EST 05/05/2024 5:46 AM EST Tonya Denny PA-C LAB BLOOD ORDERABLES Fin al Result Performing Organization Address City/[facility] de Phone Number LABORATORY [address], [place] [phone] * (ABNORMAL) BASIC METABOLIC PANEL (05/05/2024 5:43 AM EST) BUN 10 6 - 20 mg/dL 05/05/2024 6:06 AM EST LABORATORY GL CREATININE 0.4(L) 0.5 - 1.0 mg/dL 05/05/2024 6:06 AM EST LABORATORY GL EGFR >90 >=60 mL/min 05/05/2024 6:06 AM EST LABORATORY GL Comment:eGFR is calculated b ased on the CKD-EPI 2020 equation. SODIUM 136 135 - 146 mmol/L 05/05/2024 6:06 AM EST LABORATORY GL POTASSIUM 3.2(L) 3.5 - 5.1 mmol/L 05/05/2024 6:06 AM EST LABORATORY GL CHLORIDE 99 98 - 107 mmol/L 05/05/2024 6:06 AM EST LABORATORY [facility] CO2 25 22 - 32 mmol/L 05/05/2024 6:06 AM EST LABORATORY GL ANION GAP 12 7 - 15 mmol/L 05/05/2024 6:06 AM EST LABORATORY GL GLUCOSE 111 70 - 120 mg/dL 05/05/2024 6:06 AM EST LABORATORY GL CALCIUM 7.6(L) 8.4 - 10.2 mg/dL 05/05/2024 6:06 AM EST LABORATORY GL Blood Venous blood specimen / Unknown Venipuncture / Unknown 05/05/2024 5:43 AM EST 05/05/2024 5:46 AM EST us Tonya Denny PA-C LAB BLOOD ORDERABLES Fin al Result LABORATORY [facility] [address] [place] [address] * (ABNORMAL) CBC (05/05/2024 5:43 AM EST) WBC 5.80 4.00 - 10.80 K/uL 05/05/2024 5:50 AM EST LABORATORY GL RBC 4.02 3.85 - 5.15 M/uL 05/05/2024 5:50 AM EST LABORATORY [facility] HGB 12.2 12.0 - 15.3 g/dL 05/05/2024 5:50 AM EST LABORATORY [facility] HCT 35.9(L) 36.0 - 45.2 % 05/05/2024 5:50 AM EST LABORATORY [facility] MCV 89.3 81.5 - 97.5 fL 05/05/2024 5:50 AM EST LABORATORY [facility] MCH 30.3 27.0 - 34.0 pg 05/05/2024 5:50 AM EST LABORATORY [facility] MCHC 34.0 32.0 - 36.0 g/dL 05/05/2024 5:50 AM EST LABORATORY [facility] RDW 13.8 11.5 - 15.5 % 05/05/2024 5:50 AM EST LABORATORY [facility] PLT 149 140 - 400 K/uL 05/05/2024 5:50 AM EST LABORATORY [facility] MPV 11.0 6.6 - 11.1 fL 05/05/2024 5:50 AM EST LABORATORY [facility] nRBCs 0 <=0 /100 WBCs 05/05/2024 5:50 AM EST LABORATORY [facility] Blood Venous blood specimen / Unknown Venipuncture / Unknown 05/05/2024 5:43 AM EST 05/05/2024 5:46 AM EST us Tonya Denny PA-C LAB BLOOD ORDERABLES Fin al Result LABORATORY [address] [address] * GLUCOSE METER, POINT OF CARE (05/05/2024 12:03 AM EST) [facility] Glucose - POCT 115 70 - 120 mg/dL 05/05/2024 12:08 AM EST [facility] Blood Whole blood specimen / Unknown 05/05/2024 12:03 AM EST 05/05/2024 12:08 AM EST us Nando Dueñas MD LAB POINT OF C ARE TEST DOCKED DEVICE UNSOLICITED RESULTS Final Result [facility] [address] [place] [address] * XR ABDOMEN 1 VIEW (05/04/2024 6:16 PM EST) Anatomical Region Laterality Modality Abdomen, Pelvis Digital Radiogra phy 05/04/2024 5:56 PM EST Impressions 05/04/2024 6:45 PM EST IMPRESSION: Upper abdomen is not included in the field of view. Nonobstructive gas pattern with contrast progressing into the rectum. Large colonic and rectal stool burden. THIS DOCUMENT HAS BEEN ELECTRONICALLY SIGNED BY MACEY MATAMOROS MD Narrative 05/04/2024 6:45 PM EST PROCEDURE INFORMATION: Exam: XR Abdomen Exam date and time: 05/04/2024 5:56 PM Age: 68 years old Clinical indication: Other: Gastrografin challenge, contrast given 4 hours ago; Additional info: Gastrograffin challenge to be 4 hrs after gastrograffin administered TECHNIQUE: Imaging protocol: Radiologic exam of the abdomen. Views: Frontal supine view of the abdomen. 1 View. COMPARISON: CR (ABD AP, ABDOMEN, ABD AP GRID Lengthwise) 05/04/2024 8:26 AM FINDINGS: Tubes, catheters and devices: Enteric tube is partially visualized within left upper quadrant. Upper abdomen is not included in the field of view. Gastrointestinal tract: Nonobstructive bowel gas pattern. Gastrografin is present within small and large bowel and rectum. Large colonic stool burden. Bones/joints: Degenerative changes within visualized spine. Procedure Note Macey Matamoros MD - 05/04/2024 PROCEDURE INFORMATION: Exam: XR Abdomen Exam date and time: 05/04/2024 5:56 PM Age: 68 years old Clinical indication: Other: Gastrografin challenge, contrast given 4 hoursago; Additional info: Gastrograffin challenge to be 4 hrs after gastrograffin administered TECHNIQUE: Imaging protocol: Radiologic exam of the abdomen. Views: Frontal supine view of the abdomen. 1 View. COMPARISON: CR (ABD AP, ABDOMEN, ABD AP GRID Lengthwise) 05/04/2024 8:26 AM FINDINGS: Tubes, catheters and devices: Enteric tube is partially visualized withinleft upper quadrant. Upper abdomen is not included in the field of view. Gastrointestinal tract: Nonobstructive bowel gas pattern. Gastrografin is present within small and large bowel and rectum. Large colonic stoolburden. Bones/joints: Degenerative changes within visualized spine. IMPRESSION IMPRESSION: Upper abdomen is not included in the field of view. Nonobstructive gaspattern with contrast progressing into the rectum. Large colonic and rectal stool burden. THIS DOCUMENT HAS BEEN ELECTRONICALLY SIGNED BY MACEY MATAMOROS MD us Nando Dueñas MD RADIOLOGY ([facility] ) Final Result * GLUCOSE METER, POINT OF CARE (05/04/2024 5:40 PM EST) [facility] Glucose - POCT 105 70 - 120 mg/dL 05/04/2024 5:46 PM EST [facility] Blood Whole blood specimen / Unknown 05/04/2024 5:40 PM EST 05/04/2024 5:46 PM EST us Nando Dueñas MD LAB POINT OF C ARE TEST DOCKED DEVICE UNSOLICITED RESULTS Final Result [facility] [address] [place] [id number] * PHOSPHORUS (05/04/2024 4:00 PM EST) Pathologist [facility] Phosphorus 3.4 2.5 - 4.8 mg/dL 05/04/2024 5:43 PM EST LABORATORY [facility] Blood Venous blood specimen / Unknown Venipuncture / Unknown 05/04/2024 4:00 PM EST 05/04/2024 4:04 PM EST us Nando Duñeas MD LAB BLOOD ORDERABLES [place] [address] * MAGNESIUM (05/04/2024 4:00 PM EST) [facility] Magnesium 2.1 1.5 - 2.6 mg/dL 05/04/2024 5:43 PM EST LABORATORY GL Blood Venous blood specimen / Unknown Venipuncture / Unknown 05/04/2024 4:00 PM EST 05/04/2024 4:04 PM EST Nando Dueñas MD LAB BLOOD ORDERABLES F inal Result Performing Organization Address [facility]/ZIP Co de Phone Number LABORATORY [address] [phone] * (ABNORMAL) CALCIUM, IONIZED (05/04/2024 4:00 PM EST) Calcium, Ionized 1.08(L) 1.13 - 1.32 mmol/L 05/04/2024 5:09 PM EST LABORATORY [facility] Comment:This test was develo ped and its performance characteristics dtermined by [employer]. It has not been cleared or approved by the US Food and Drug Administration Blood Venous blood specimen / Unknown Venipuncture / Unknown 05/04/2024 4:00 PM EST 05/04/2024 4:04 PM EST Nando Dueñas MD LAB BLOOD ORDERABLES F inal Result Performing Organization Address [facility] Co de Phone Number LABORATORY [address] [phone] * (ABNORMAL) BASIC METABOLIC PANEL (05/04/2024 4:00 PM EST) BUN 11 6 - 20 mg/dL 05/04/2024 5:43 PM EST LABORATORY [facility] CREATININE 0.5 0.5 - 1.0 mg/dL 05/04/2024 5:43 PM EST LABORATORY [facility] EGFR >90 >=60 mL/min 05/04/2024 5:43 PM EST LABORATORY [facility] Comment:eGFR is calculated b ased on the CKD-EPI 2020 equation. SODIUM 136 135 - 146 mmol/L 05/04/2024 5:43 PM EST LABORATORY [facility] POTASSIUM 4.0 3.5 - 5.1 mmol/L 05/04/2024 5:43 PM EST LABORATORY [facility] CHLORIDE 101 98 - 107 mmol/L 05/04/2024 5:43 PM EST LABORATORY [facility] CO2 19(L) 22 - 32 mmol/L 05/04/2024 5:43 PM EST LAB[facility]ATORY [facility] ANION GAP 16(H) 7 - 15 mmol/L 05/04/2024 5:43 PM EST LABORATORY [facility] GLUCOSE 110 70 - 120 mg/dL 05/04/2024 5:43 PM EST LABORATORY [facility] CALCIUM 8.1(L) 8.4 - 10.2 mg/dL 05/04/2024 5:43 PM EST LABORATORY GL Blood Venous blood specimen / Unknown Venipuncture / Unknown 05/04/2024 4:00 PM EST 05/04/2024 4:04 PM EST Nando Dueñas MD LAB BLOOD ORDERABLES F inal Result Performing Organization Address City/[facility]/ZIP Co de Phone Number LABORATORY [address] [address] * (ABNORMAL) GLUCOSE METER, POINT OF CARE (05/04/2024 11:31 AM EST) [facility] Glucose - POCT 127(H) 70 - 120 mg/dL 05/04/2024 11:46 AM EST [facility] LABORATORY Blood Whole blood specimen / Unknown 05/04/2024 11:31 AM EST 05/04/2024 11:46 AM EST Nando Dueñas MD LAB POINT OF C ARE TEST DOCKED DEVICE UNSOLICITED RESULTS Final Result [facility] LABORATORY [address] [place] [phone] * XR CHEST 1 VIEW (05/04/2024 8:44 AM EST) Anatomical Region Laterality Modality Chest Digital Radiogra phy 05/04/2024 8:26 AM EST Impressions 05/04/2024 10:13 AM EST IMPRESSION: 1. Lines and tubes are in stable position. 2. Redemonstrated bilateral mixed interstitial and alveolar infiltrates without consolidation. Interstitial infiltrates may be secondary to pulmonary edema, pneumonia, or pneumonitis. THIS DOCUMENT HAS BEEN ELECTRONICALLY SIGNED BY FELI QUINTANILLA MD Narrative 05/04/2024 10:13 AM EST PROCEDURE INFORMATION: Exam: XR Chest Exam date and time: 05/04/2024 8:26 AM Age: 68 years old Clinical indication: Other: Ileus, no draiange from ng tube, dyspnea; Additional info: Post code. Dyspnea TECHNIQUE: Imaging protocol: Radiologic exam of the chest. Views: 1 view. COMPARISON: CR (CXR AP X-OMALLEY GRID, CHEST, CXR AP GRID Crosswise) 05/03/2024 12:09 PM FINDINGS: Tubes, catheters and devices: There is a Port-A-Cath on the right with the tip in the right atrium. There is an endotracheal tube in good and stable position above the mat. There is an enteric tube in good and stable position overlying the stomach. Lungs: There are diffuse mixed bilateral interstitial and alveolar infiltrates. Parenchymal changes are slightly more prominent than on the prior study. Pleural spaces: There are small bilateral pleural effusions. Heart/Mediastinum: No cardiac enlargement. Bones/joints: There is no acute osseous abnormality. Procedure Note Feli Quintanilla MD - 05/04/2024 PROCEDURE INFORMATION: Exam: XR Chest Exam date and time: 05/04/2024 8:26 AM Age: 68 years old Clinical indication: Other: Ileus, no draiange from ng tube, dyspnea; Additional info: Post code. Dyspnea TECHNIQUE: Imaging protocol: Radiologic exam of the chest. Views: 1 view. COMPARISON: CR (CXR AP X-OMALLEY GRID, CHEST, CXR AP GRID Crosswise) 05/03/2024 12:09 PM FINDINGS: Tubes, catheters and devices: There is a Port-A-Cath on the right with thetip in the right atrium. There is an endotracheal tube in good and stableposition above the mat. There is an enteric tube in good and stable position overlying the stomach. Lungs: There are diffuse mixed bilateral interstitial and alveolarinfiltrates. Parenchymal changes are slightly more prominent than on the prior study. Pleural spaces: There are small bilateral pleural effusions. Heart/Mediastinum: No cardiac enlargement. Bones/joints: There is no acute osseous abnormality. IMPRESSION IMPRESSION: 1. Lines and tubes are in stable position. 2. Redemonstrated bilateral mixed interstitial and alveolar infiltrates without consolidation. Interstitial infiltrates may be secondary topulmonary edema, pneumonia, or pneumonitis. THIS DOCUMENT HAS BEEN ELECTRONICALLY SIGNED BY FELI QUINTANILLA MD Nando Dueñas MD RADIOLOGY ([facility] ) Final Result * XR ABDOMEN 1 VIEW (05/04/2024 8:44 AM EST) Anatomical Region Laterality Modality Abdomen, Pelvis Digital Radiogra phy 05/04/2024 8:26 AM EST Impressions 05/04/2024 10:11 AM EST IMPRESSION: No acute findings. THIS DOCUMENT HAS BEEN ELECTRONICALLY SIGNED BY FELI QUINTANILLA MD Narrative 05/04/2024 10:11 AM EST PROCEDURE INFORMATION: Exam: XR Abdomen Exam date and time: 05/04/2024 8:26 AM Age: 68 years old Clinical indication: Other: Ileus, no draiange from ng tube, dyspnea TECHNIQUE: Imaging protocol: Radiologic exam of the abdomen. Views: Frontal supine view of the abdomen. 1 View. COMPARISON: DX XR ABDOMEN OBSTRUCT SERIES W CHEST 1 VIEW 05/01/2024 8:36 AM FINDINGS: Tubes, catheters and devices: An enteric tube tip is partially visualized in the left upper quadrant. The upper abdomen is not included within the field of view. Vascular calcification is noted. Gastrointestinal tract: There is a nonspecific, nonobstructive bowel gas pattern. Upper abdomen is not included within the field of view. Bones/joints: Degenerative changes are present involving the lumbosacral junction. Procedure Note Feli Quintanilla MD - 05/04/2024 PROCEDURE INFORMATION: Exam: XR Abdomen Exam date and time: 05/04/2024 8:26 AM Age: 68 years old Clinical indication: Other: Ileus, no draiange from ng tube, dyspnea TECHNIQUE: Imaging protocol: Radiologic exam of the abdomen. Views: Frontal supine view of the abdomen. 1 View. COMPARISON: DX XR ABDOMEN OBSTRUCT SERIES W CHEST 1 VIEW 05/01/2024 8:36 AM FINDINGS: Tubes, catheters and devices: An enteric tube tip is partially visualizedin the left upper quadrant. The upper abdomen is not included within thefield of view. Vascular calcification is noted. Gastrointestinal tract: There is a nonspecific, nonobstructive bowel gas pattern. Upper abdomen is not included within the field of view. Bones/joints: Degenerative changes are present involving the lumbosacral junction. IMPRESSION IMPRESSION: No acute findings. THIS DOCUMENT HAS BEEN ELECTRONICALLY SIGNED BY FELI QUINTANILLA MD Nando Dueñas MD RADIOLOGY ([facility] ) Final Result * ECHO, COMPLETE (2D), TRANS-THORACIC (05/04/2024 8:10 AM EST) LEFT VENTRICULAR EJECTION FRACTION 30 % [facility] [place] CARDIOLOGY 05/04/2024 7:42 AM EST Jaimie AVERY ECHOCARDIOLOGY F inal Result [facility] [address] [address] CARDIOLOGY * PHOSPHORUS (05/04/2024 4:52 AM EST) Pathologist [facility] Phosphorus 2.9 2.5 - 4.8 mg/dL 05/04/2024 5:54 AM EST LABORATORY [facility] Blood Venous blood specimen / Unknown Venipuncture / Unknown 05/04/2024 4:52 AM EST 05/04/2024 5:10 AM EST Tonya Denny PA-C LAB BLOOD ORDERABLES Fin al Result LABORATORY [address] [phone] * (ABNORMAL) CALCIUM, IONIZED (05/04/2024 4:52 AM EST) Calcium, Ionized 1.11(L) 1.13 - 1.32 mmol/L 05/04/2024 5:57 AM EST LABORATORY [facility] Comment:This test was develo ped and its performance characteristics dtermined by [employer]. It has not been cleared or approved by the US Food and Drug Administration Blood Venous blood specimen / Unknown Venipuncture / Unknown 05/04/2024 4:52 AM EST 05/04/2024 5:10 AM EST Tonya Denny PA-C LAB BLOOD ORDERABLES Fin al Result Performing Organization Address City/[facility]/ZIP Co de Phone Number LABORATORY [address] [address] * MAGNESIUM (05/04/2024 4:52 AM EST) Magnesium 1.7 1.5 - 2.6 mg/dL 05/04/2024 5:54 AM EST LABORATORY [facility] Blood Venous blood specimen / Unknown Venipuncture / Unknown 05/04/2024 4:52 AM EST 05/04/2024 5:10 AM EST Tonya Denny PA-C LAB BLOOD ORDERABLES Fin al Result Performing Organization Address City/[facility] de Phone Number LABORATORY [address] [address] * (ABNORMAL) BASIC METABOLIC PANEL (05/04/2024 4:52 AM EST) BUN 13 6 - 20 mg/dL 05/04/2024 5:54 AM EST LABORATORY GL CREATININE 0.5 0.5 - 1.0 mg/dL 05/04/2024 5:54 AM EST LABORATORY GL EGFR >90 >=60 mL/min 05/04/2024 5:54 AM EST LABORATORY [facility] Comment:eGFR is calculated b ased on the CKD-EPI 2020 equation. SODIUM 134(L) 135 - 146 mmol/L 05/04/2024 5:54 AM EST LABORATORY [facility] POTASSIUM 4.2 3.5 - 5.1 mmol/L 05/04/2024 5:54 AM EST LABORATORY [facility] CHLORIDE 100 98 - 107 mmol/L 05/04/2024 5:54 AM EST LAB[facility]ATORY [facility] CO2 23 22 - 32 mmol/L 05/04/2024 5:54 AM EST LAB[facility]ATORY [facility] ANION GAP 11 7 - 15 mmol/L 05/04/2024 5:54 AM EST LAB[facility]ATORY [facility] GLUCOSE 123(H) 70 - 120 mg/dL 05/04/2024 5:54 AM EST LABORATORY [facility] CALCIUM 7.9(L) 8.4 - 10.2 mg/dL 05/04/2024 5:54 AM EST LABORATORY [facility] Blood Venous blood specimen / Unknown Venipuncture / Unknown 05/04/2024 4:52 AM EST 05/04/2024 5:10 AM EST us Tonya Denny PA-C LAB BLOOD ORDERABLES Fin al Result LABORATORY [address] [address] * (ABNORMAL) CBC (05/04/2024 4:52 AM EST) WBC 4.78 4.00 - 10.80 K/uL 05/04/2024 5:15 AM EST LABORATORY [facility] RBC 3.69 3.85 - 5.15 M/uL 05/04/2024 5:15 AM EST LABORATORY [facility] HGB 11.4(L) 12.0 - 15.3 g/dL 05/04/2024 5:15 AM EST LABORATORY [facility] HCT 33.8(L) 36.0 - 45.2 % 05/04/2024 5:15 AM EST LABORATORY [facility] MCV 91.6 81.5 - 97.5 fL 05/04/2024 5:15 AM EST LABORATORY [facility] MCH 30.9 27.0 - 34.0 pg 05/04/2024 5:15 AM EST LABORATORY [facility] MCHC 33.7 32.0 - 36.0 g/dL 05/04/2024 5:15 AM EST LABORATORY [facility] RDW 13.8 11.5 - 15.5 % 05/04/2024 5:15 AM EST LABORATORY [facility] PLT 148 140 - 400 K/uL 05/04/2024 5:15 AM EST LABORATORY [facility] MPV 11.1 6.6 - 11.1 fL 05/04/2024 5:15 AM EST LABORATORY [facility] nRBCs 0 <=0 /100 WBCs 05/04/2024 5:15 AM EST LABORATORY [facility] Blood Venous blood specimen / Unknown Venipuncture / Unknown 05/04/2024 4:52 AM EST 05/04/2024 5:10 AM EST Tonya Denny PA-C LAB BLOOD ORDERABLES Fin al Result Performing Organization Address [facility] Co de Phone Number LABORATORY [address] [address] * (ABNORMAL) CALCIUM, IONIZED (05/03/2024 8:00 PM EST) [facility] Calcium, Ionized 1.11(L) 1.13 - 1.32 mmol/L 05/03/2024 10:05 PM EST LABORATORY [facility] Comment:This test was develo ped and its performance characteristics dtermined by [employer]. It has not been cleared or approved by the US Food and Drug Administration Blood Venous blood specimen / Unknown Venipuncture / Unknown 05/03/2024 8:00 PM EST 05/03/2024 8:11 PM EST Tonya Denny PA-C LAB BLOOD ORDERABLES Fin al Result Performing Organization Address [facility] Phone Number LABORATORY [address] [address] * MAGNESIUM (05/03/2024 8:00 PM EST) [facility] Magnesium 1.7 1.5 - 2.6 mg/dL 05/03/2024 8:31 PM EST LABORATORY [facility] Blood Venous blood specimen / Unknown Venipuncture / Unknown 05/03/2024 8:00 PM EST 05/03/2024 8:11 PM EST Tonya Denny PA-C LAB BLOOD ORDERABLES Fin al Result Performing Organization Address [facility] de Phone Number LABORATORY [address] [address] * (ABNORMAL) BASIC METABOLIC PANEL (05/03/2024 8:00 PM EST) Pathologist [facility] BUN 16 6 - 20 mg/dL 05/03/2024 8:31 PM EST LABORATORY [facility] CREATININE 0.4(L) 0.5 - 1.0 mg/dL 05/03/2024 8:31 PM EST LABORATORY [facility] EGFR >90 >=60 mL/min 05/03/2024 8:31 PM EST LABORATORY [facility] Comment:eGFR is calculated b ased on the CKD-EPI 2020 equation. SODIUM 137 135 - 146 mmol/L 05/03/2024 8:31 PM EST LABORATORY [facility] POTASSIUM 3.7 3.5 - 5.1 mmol/L 05/03/2024 8:31 PM EST LAB[facility]ATORY [facility] CHLORIDE 103 98 - 107 mmol/L 05/03/2024 8:31 PM EST LAB[facility]ATORY [facility] CO2 23 22 - 32 mmol/L 05/03/2024 8:31 PM EST LAB[facility]ORY [facility] ANION GAP 11 7 - 15 mmol/L 05/03/2024 8:31 PM EST LAB[facility]ATORY [facility] GLUCOSE 130(H) 70 - 120 mg/dL 05/03/2024 8:31 PM EST LAB[facility]ATORY [facility] CALCIUM 7.9(L) 8.4 - 10.2 mg/dL 05/03/2024 8:31 PM EST LAB[facility]ATORY [facility] Blood Venous blood specimen / Unknown Venipuncture / Unknown 05/03/2024 8:00 PM EST 05/03/2024 8:11 PM EST Tonya Denny PA-C LAB BLOOD ORDERABLES Fin al Result Performing Organization Address City/[facility]/ZIP Co de Phone Number LABORATORY [address] [address] * EXTRA LAVENDER TOP (05/03/2024 7:58 PM EST) Blood Venous blood specimen / Unknown 05/03/2024 7:58 PM EST 05/03/2024 8:12 PM EST Nando Dueñas MD LAB BLOOD ORDERABLES F inal Result LABORATORY [address] [address] * (ABNORMAL) GLUCOSE METER, POINT OF CARE (05/03/2024 5:30 PM EST) Glucose - POCT 160(H) 70 - 120 mg/dL 05/03/2024 5:39 PM EST [facility] LABORATORY Blood Whole blood specimen / Unknown 05/03/2024 5:30 PM EST 05/03/2024 5:39 PM EST Nando Dueñas MD LAB POINT OF C ARE TEST DOCKED DEVICE UNSOLICITED RESULTS Final Result [facility] LABORATORY [address] [place] [address] * XR CHEST 1 VIEW (05/03/2024 12:18 PM EST) Anatomical Region Laterality Modality Chest Digital Radiogra phy 05/03/2024 12:0 9 PM EST Impressions 05/03/2024 12:50 PM EST IMPRESSION: 1. There are mild diffuse ground-glass opacities, likely related to edema, worsened since the prior study. Atypical infection is also a possibility. 2. Small right pleural effusion. THIS DOCUMENT HAS BEEN ELECTRONICALLY SIGNED BY DO Ervin JAIMES 05/03/2024 12:50 PM EST PROCEDURE INFORMATION: Exam: XR Chest Exam date and time: 05/03/2024 12:09 PM Age: 68 years old Clinical indication: Other: S/P cardiac arrest; Additional info: Cardiac arrest/pulseless electrical activity this am TECHNIQUE: Imaging protocol: Radiologic exam of the chest. Views: 1 view. COMPARISON: DX XR ABDOMEN OBSTRUCT SERIES W CHEST 1 VIEW 05/01/2024 8:36 AM FINDINGS: Tubes, catheters and devices: The tip of the right-sided Port-A-Cath is within the right atrium. The enteric catheter tip is within the stomach.. Lungs: There are mild diffuse ground-glass opacities bilaterally, likely related to edema. Atypical infection is also a possibility. Pleural spaces: Small right pleural effusion is visualized. No significant left pleural effusion or pneumothorax. Heart/Mediastinum: No cardiomegaly. Bones/joints: Degenerative changes are seen in the spine. Procedure Note Marlena Hernandez DO - 05/03/2024 PROCEDURE INFORMATION: Exam: XR Chest Exam date and time: 05/03/2024 12:09 PM Age: 68 years old Clinical indication: Other: S/P cardiac arrest; Additional info: Cardiac arrest/pulseless electrical activity this am TECHNIQUE: Imaging protocol: Radiologic exam of the chest. Views: 1 view. COMPARISON: DX XR ABDOMEN OBSTRUCT SERIES W CHEST 1 VIEW 05/01/2024 8:36 AM FINDINGS: Tubes, catheters and devices: The tip of the right-sided Port-A-Cath iswithin the right atrium. The enteric catheter tip is within the stomach.. Lungs: There are mild diffuse ground-glass opacities bilaterally, likely related to edema. Atypical infection is also a possibility. Pleural spaces: Small right pleural effusion is visualized. Nosignificant left pleural effusion or pneumothorax. Heart/Mediastinum: No cardiomegaly. Bones/joints: Degenerative changes are seen in the spine. IMPRESSION IMPRESSION: 1. There are mild diffuse ground-glass opacities, likely related to edema, worsened since the prior study. Atypical infection is also apossibility. 2. Small right pleural effusion. THIS DOCUMENT HAS BEEN ELECTRONICALLY SIGNED BY MARLENA HERNANDEZ DO Nando Dueñas MD RADIOLOGY ([facility] ) Final Result * PHOSPHORUS (05/03/2024 12:07 PM EST) Pathologist [facility] Phosphorus 3.3 2.5 - 4.8 mg/dL 05/03/2024 12:58 PM EST LABORATORY [facility] Blood Venous blood specimen / Unknown Venipuncture / Unknown 05/03/2024 12:07 PM EST 05/03/2024 12:19 PM EST Nando Dueñas MD LAB BLOOD ORDERABLES F inal Result LABORATORY [address] [address] * (ABNORMAL) MAGNESIUM (05/03/2024 12:07 PM EST) Pathologist [facility] Magnesium 1.4(L) 1.5 - 2.6 mg/dL 05/03/2024 12:58 PM EST LABORATORY [facility] Blood Venous blood specimen / Unknown Venipuncture / Unknown 05/03/2024 12:07 PM EST 05/03/2024 12:19 PM EST Nando Dueñas MD LAB BLOOD ORDERABLES F inal Result Performing Organization Address City/[facility]/ZIP Co de Phone Number LABORATORY [address] [phone] * CALCIUM, IONIZED (05/03/2024 12:07 PM EST) Pathologist [facility] Calcium, Ionized 1.13 1.13 - 1.32 mmol/L 05/03/2024 1:50 PM EST LABORATORY [facility] Comment:This test was develo ped and its performance characteristics dtermined by [employer]. It has not been cleared or approved by the US Food and Drug Administration Blood Venous blood specimen / Unknown Venipuncture / Unknown 05/03/2024 12:07 PM EST 05/03/2024 12:19 PM EST Nando Dueñas MD LAB BLOOD ORDERABLES F inal Result Performing Organization Address [facility] de Phone Number LABORATORY [address] [phone] * (ABNORMAL) BASIC METABOLIC PANEL (05/03/2024 12:07 PM EST) BUN 18 6 - 20 mg/dL 05/03/2024 12:58 PM EST LABORATORY [facility] CREATININE 0.5 0.5 - 1.0 mg/dL 05/03/2024 12:58 PM EST LABORATORY GL EGFR >90 >=60 mL/min 05/03/2024 12:58 PM EST LABORATORY [facility] Comment:eGFR is calculated b ased on the CKD-EPI 2020 equation. SODIUM 141 135 - 146 mmol/L 05/03/2024 12:58 PM EST LABORATORY [facility] POTASSIUM 3.4(L) 3.5 - 5.1 mmol/L 05/03/2024 12:58 PM EST LABORATORY [facility] CHLORIDE 106 98 - 107 mmol/L 05/03/2024 12:58 PM EST LABORATORY [facility] CO2 23 22 - 32 mmol/L 05/03/2024 12:58 PM EST LABORATORY [facility] ANION GAP 12 7 - 15 mmol/L 05/03/2024 12:58 PM EST LABORATORY [facility] GLUCOSE 202(H) 70 - 120 mg/dL 05/03/2024 12:58 PM EST LAB[facility]ATORY [facility] CALCIUM 7.9(L) 8.4 - 10.2 mg/dL 05/03/2024 12:58 PM EST LABORATORY GL Blood Venous blood specimen / Unknown Venipuncture / Unknown 05/03/2024 12:07 PM EST 05/03/2024 12:19 PM EST Nando Dueñas MD LAB BLOOD ORDERABLES F inal Result Performing Organization Address City/[facility]/ZIP Co de Phone Number LABORATORY [address] [phone] * (ABNORMAL) TROPONIN T, HIGH SENSITIVITY (05/03/2024 12:07 PM EST) Pathologist [facility] Troponin T, High Sensitivity 15(H) <=14 ng/L 05/03/2024 1:33 PM EST LABORATORY GL Blood Venous blood specimen / Unknown Venipuncture / Unknown 05/03/2024 12:07 PM EST 05/03/2024 12:19 PM EST Nando Dueñas MD LAB BLOOD ORDERABLES F inal Result LABORATORY [address] [phone] * EXTRA LAVENDER TOP (05/03/2024 12:02 PM EST) Blood Venous blood specimen / Unknown 05/03/2024 12:02 PM EST 05/03/2024 12:55 PM EST Nando Dueñas MD LAB BLOOD ORDERABLES F inal Result Performing Organization Address [facility] de Phone Number LABORATORY GL [address] [place] [address] * (ABNORMAL) GLUCOSE METER, POINT OF CARE (05/03/2024 10:54 AM EST) Glucose - POCT 153(H) 70 - 120 mg/dL 05/03/2024 11:05 AM EST [facility] LABORATORY Blood Whole blood specimen / Unknown 05/03/2024 10:54 AM EST 05/03/2024 11:05 AM EST us Nando Dueñas MD LAB POINT OF C ARE TEST DOCKED DEVICE UNSOLICITED RESULTS Final Result Performing Organization Address [facility] Phone Number [facility] LABORATORY [address] [place] [phone] * (ABNORMAL) GLUCOSE METER, POINT OF CARE (05/03/2024 5:49 AM EST) Glucose - POCT 173(H) 70 - 120 mg/dL 05/03/2024 6:58 AM EST [facility] LABORATORY Blood Whole blood specimen / Unknown 05/03/2024 5:49 AM EST 05/03/2024 6:58 AM EST us Marisa Way MD, PhD LAB POINT OF CARE TEST DOCKED DEVICE UNSOLICITED RESULTS Final Result Performing Organization Address [facility] de Phone Number [facility] LABORATORY [address] [place] [phone] * BILIRUBIN, DIRECT (05/03/2024 5:46 AM EST) Bilirubin, Direct 0.2 0.0 - 0.3 mg/dL 05/03/2024 6:20 AM EST LABORATORY [facility] Blood Venous blood specimen / Unknown Venipuncture / Unknown 05/03/2024 5:46 AM EST 05/03/2024 5:51 AM EST us Marisa Way MD, PhD LAB BLOOD ORDERABLES Final Result LABORATORY [facility] [address] [place] [address] * (ABNORMAL) DIFFERENTIAL, AUTOMATED (05/03/2024 5:46 AM EST) WBC 4.61 4.00 - 10.80 K/uL 05/03/2024 5:56 AM EST LAB[facility]ATORY [facility] Neutrophils % 85.7(H) 40.0 - 75.0 % 05/03/2024 5:56 AM EST LAB[facility]ORY [facility] Lymphocytes % 10.2(L) 18.0 - 42.0 % 05/03/2024 5:56 AM EST LAB[facility] Monocytes % 2.4 1.0 - 11.0 % 05/03/2024 5:56 AM EST LAB[facility] Eosinophils % 0.0 0.0 - 6.0 % 05/03/2024 5:56 AM EST LAB[facility] Basophils % 0.4 0.0 - 2.0 % 05/03/2024 5:56 AM EST LAB[facility]ORY [facility] Immature Granulocytes % 1.3 0.0 - 2.0 % 05/03/2024 5:56 AM EST LAB[facility]ORY [facility] Absolute Neutrophils 3.95 1.80 - 7.70 K/uL 05/03/2024 5:56 AM EST LAB[facility]ORY [facility] Absolute Lymphocytes 0.47(L) 1.00 - 4.80 K/ul 05/03/2024 5:56 AM EST LAB[facility]ATORY [facility] Absolute Monocytes 0.11 0.00 - 1.10 K/uL 05/03/2024 5:56 AM EST LAB[facility]ATORY [facility] Absolute Eosinophils 0.00 0.00 - 0.70 K/uL 05/03/2024 5:56 AM EST LAB[facility]ATORY [facility] Absolute Basophils 0.02 0.00 - 0.20 K/uL 05/03/2024 5:56 AM EST LAB[facility]ATORY [facility] Absolute Immature Granulocytes 0.06 0.00 - 0.20 K/uL 05/03/2024 5:56 AM EST LAB[facility]ATORY [facility] Blood Venous blood specimen / Unknown Venipuncture / Unknown 05/03/2024 5:46 AM EST 05/03/2024 5:51 AM EST us Marisa Way MD, PhD LAB BLOOD ORDERABLES Final Result Performing Organization Address City/[facility]/ZIP Co de Phone Number LABORATORY [address] [address] * (ABNORMAL) CBC (05/03/2024 5:46 AM EST) Pathologist [facility] WBC 4.61 4.00 - 10.80 K/uL 05/03/2024 5:56 AM EST LABORATORY GL RBC 3.54 3.85 - 5.15 M/uL 05/03/2024 5:56 AM EST LABORATORY GL HGB 11.0(L) 12.0 - 15.3 g/dL 05/03/2024 5:56 AM EST LABORATORY GL HCT 32.8(L) 36.0 - 45.2 % 05/03/2024 5:56 AM EST LABORATORY GL MCV 92.7 81.5 - 97.5 fL 05/03/2024 5:56 AM EST LABORATORY GL MCH 31.1 27.0 - 34.0 pg 05/03/2024 5:56 AM EST LABORATORY GL MCHC 33.5 32.0 - 36.0 g/dL 05/03/2024 5:56 AM EST LABORATORY GL RDW 14.2 11.5 - 15.5 % 05/03/2024 5:56 AM EST LABORATORY GL PLT 189 140 - 400 K/uL 05/03/2024 5:56 AM EST LABORATORY GL MPV 10.7 6.6 - 11.1 fL 05/03/2024 5:56 AM EST LABORATORY GL nRBCs 0 <=0 /100 WBCs 05/03/2024 5:56 AM EST LABORATORY GLH Blood Venous blood specimen / Unknown Venipuncture / Unknown 05/03/2024 5:46 AM EST 05/03/2024 5:51 AM EST us Marisa Way MD, PhD LAB BLOOD ORDERABLES Final Result Performing Organization Address City/[facility]/ZIP Co de Phone Number LABORATORY [address] [address] * PT INR (05/03/2024 5:46 AM EST) Prothrombin Time 13.8 11.6 - 15.2 seconds 05/03/2024 6:10 AM EST LABORATORY [facility] INR 1.0 0.8 - 1.2 05/03/2024 6:10 AM EST LABORATORY [facility] Blood Venous blood specimen / Unknown Venipuncture / Unknown 05/03/2024 5:46 AM EST 05/03/2024 5:51 AM EST Narrative LABORATORY GL - 05/03/2024 6:10 AM EST Warfarin Therapy INR: 2.0-3.0 conventional anticoagulation INR: 2.5-3.5 high intensity anticoagulation us Marisa Way MD, PhD LAB BLOOD ORDERABLES Final Result LABORATORY [address] [place] [address] * (ABNORMAL) COMPREHENSIVE METABOLIC PANEL (05/03/2024 5:46 AM EST) BUN 15 6 - 20 mg/dL 05/03/2024 6:20 AM EST LABORATORY GL CREATININE 0.5 0.5 - 1.0 mg/dL 05/03/2024 6:20 AM EST LABORATORY GL EGFR >90 >=60 mL/min 05/03/2024 6:20 AM EST LABORATORY GL Comment:eGFR is calculated b ased on the CKD-EPI 2020 equation. SODIUM 138 135 - 146 mmol/L 05/03/2024 6:20 AM EST LABORATORY GL POTASSIUM 3.9 3.5 - 5.1 mmol/L 05/03/2024 6:20 AM EST LABORATORY GL CHLORIDE 104 98 - 107 mmol/L 05/03/2024 6:20 AM EST LABORATORY GLH CO2 24 22 - 32 mmol/L 05/03/2024 6:20 AM EST LABORATORY GL ANION GAP 10 7 - 15 mmol/L 05/03/2024 6:20 AM EST LABORATORY GL GLUCOSE 166(H) 70 - 120 mg/dL 05/03/2024 6:20 AM EST LABORATORY GL Albumin 2.7(L) 3.8 - 5.0 g/dL 05/03/2024 6:20 AM EST LABORATORY GLH AST 19 10 - 35 U/L 05/03/2024 6:20 AM EST LABORATORY GLH Alkaline Phosphatase 74 35 - 130 U/L 05/03/2024 6:20 AM EST LABORATORY GLH Bilirubin, Total 0.3 <=1.2 mg/dL 05/03/2024 6:20 AM EST LABORATORY GLH CALCIUM 8.0(L) 8.4 - 10.2 mg/dL 05/03/2024 6:20 AM EST LABORATORY GLH Protein 6.2 6.0 - 8.3 g/dL 05/03/2024 6:20 AM EST LABORATORY GLH ALT 13 10 - 35 U/L 05/03/2024 6:20 AM EST LABORATORY GLH Blood Venous blood specimen / Unknown Venipuncture / Unknown 05/03/2024 5:46 AM EST 05/03/2024 5:[address]isa [address] MD, PhD LAB BLOOD ORDERABLES Final Result Performing Organization Address City/[facility]/ZIP Co de Phone Number LABORATORY [address] [address] * (ABNORMAL) GLUCOSE METER, POINT OF CARE (05/02/2024 11:24 PM EST) Glucose - POCT 175(H) 70 - 120 mg/dL 05/02/2024 11:59 PM EST [facility] LABORATORY Blood Whole blood specimen / Unknown 05/02/2024 11:24 PM EST 05/02/2024 11:[address] Marisa [address] MD, PhD LAB POINT OF CARE TEST DOCKED DEVICE UNSOLICITED RESULTS Final Result Performing Organization Address City/[facility] Co de Phone Number [facility] LABORATORY [address] [place] [phone] * (ABNORMAL) GLUCOSE METER, POINT OF CARE (05/02/2024 6:06 PM EST) Glucose - POCT 163(H) 70 - 120 mg/dL 05/02/2024 6:08 PM EST [facility] LABORATORY Blood Whole blood specimen / Unknown 05/02/2024 6:06 PM EST 05/02/2024 6:[address] Marisa [address] MD, PhD LAB POINT OF CARE TEST DOCKED DEVICE UNSOLICITED RESULTS Final Result Performing Organization Address [facility]/ZIP Co de Phone Number [facility] LABORATORY [address] [place] [phone] * LACTATE, WHOLE BLOOD WITH REFLEX IF ABNORMAL (05/02/2024 3:46 PM EST) Lactate 1.0 0.4 - 2.0 mmol/L 05/02/2024 4:00 PM EST LABORATORY [facility] Blood Venous blood specimen / Unknown Venipuncture / Unknown 05/02/2024 3:46 PM EST 05/02/2024 3:[address] Marisa [address] MD, PhD LAB BLOOD ORDERABLES Final Result Performing Organization Address [facility] Co de Phone Number LABORATORY [address] [address] * MAGNESIUM (05/02/2024 3:46 PM EST) Magnesium 1.5 1.5 - 2.6 mg/dL 05/02/2024 4:18 PM EST LABORATORY [facility] Blood Venous blood specimen / Unknown Venipuncture / Unknown 05/02/2024 3:46 PM EST 05/02/2024 3:[address]isa [address] MD, PhD LAB BLOOD ORDERABLES Final Result Performing Organization Address [facility] Co de Phone Number LABORATORY [address] [address] * (ABNORMAL) BASIC METABOLIC PANEL (05/02/2024 3:46 PM EST) BUN 13 6 - 20 mg/dL 05/02/2024 4:18 PM EST LABORATORY GLH CREATININE 0.5 0.5 - 1.0 mg/dL 05/02/2024 4:18 PM EST LABORATORY GLH EGFR >90 >=60 mL/min 05/02/2024 4:18 PM EST LABORATORY GLH Comment:eGFR is calculated b ased on the CKD-EPI 2020 equation. SODIUM 144 135 - 146 mmol/L 05/02/2024 4:18 PM EST LABORATORY GLH POTASSIUM 4.4 3.5 - 5.1 mmol/L 05/02/2024 4:18 PM EST LABORATORY GLH CHLORIDE 109(H) 98 - 107 mmol/L 05/02/2024 4:18 PM EST LABORATORY GLH CO2 22 22 - 32 mmol/L 05/02/2024 4:18 PM EST LABORATORY GLH ANION GAP 13 7 - 15 mmol/L 05/02/2024 4:18 PM EST LABORATORY GLH GLUCOSE 143(H) 70 - 120 mg/dL 05/02/2024 4:18 PM EST LABORATORY GLH CALCIUM 8.5 8.4 - 10.2 mg/dL 05/02/2024 4:18 PM EST LABORATORY GLH Blood Venous blood specimen / Unknown Venipuncture / Unknown 05/02/2024 3:46 PM EST 05/02/2024 3:[address] Marisa Way MD, PhD LAB BLOOD ORDERABLES Final Result Performing Organization Address City/[facility] Co de Phone Number LABORATORY [address] [address] * (ABNORMAL) GLUCOSE METER, POINT OF CARE (05/02/2024 12:34 PM EST) [facility] Glucose - POCT 138(H) 70 - 120 mg/dL 05/02/2024 12:37 PM EST [facility] LABORATORY Blood Whole blood specimen / Unknown 05/02/2024 12:34 PM EST 05/02/2024 12:[address] Marisa [address] MD, PhD LAB POINT OF CARE TEST DOCKED DEVICE UNSOLICITED RESULTS Final Result [facility] LABORATORY [address] [place] [address] * (ABNORMAL) DIFFERENTIAL, TECHNOLOGIST REVIEW (05/02/2024 6:48 AM EST) WBC 5.44 4.00 - 10.80 K/uL 05/02/2024 8:24 AM EST LABORATORY GL Neutrophils % 94.0(H) 40.0 - 75.0 % 05/02/2024 8:24 AM EST LABORATORY GLH Lymphocytes % 6.0(L) 18.0 - 42.0 % 05/02/2024 8:24 AM EST LABORATORY GL Absolute Neutrophils 5.11 1.80 - 7.70 K/uL 05/02/2024 8:24 AM EST LABORATORY GL Absolute Lymphocytes 0.33(L) 1.00 - 4.80 K/uL 05/02/2024 8:24 AM EST LABORATORY GL Blood Venous blood specimen / Unknown Venipuncture / Unknown 05/02/2024 6:48 AM EST 05/02/2024 6:[address] MD, PhD LAB BLOOD ORDERABLES Final Result Performing Organization Address [facility] Co de Phone Number LABORATORY [address] [address] * DIFFERENTIAL, AUTOMATED (05/02/2024 6:48 AM EST) Blood Venous blood specimen / Unknown Venipuncture / Unknown 05/02/2024 6:48 AM EST 05/02/2024 6:[address]isa [address] MD, PhD LAB BLOOD ORDERABLES Final Result Performing Organization Address City/[facility]/ZIP Co de Phone Number LABORATORY [address] [address] * CBC (05/02/2024 6:48 AM EST) WBC 5.44 4.00 - 10.80 K/uL 05/02/2024 7:16 AM EST LABORATORY GL RBC 3.89 3.85 - 5.15 M/uL 05/02/2024 7:16 AM EST LABORATORY [facility] HGB 12.0 12.0 - 15.3 g/dL 05/02/2024 7:16 AM EST LABORATORY [facility] HCT 36.4 36.0 - 45.2 % 05/02/2024 7:16 AM EST LABORATORY [facility] MCV 93.6 81.5 - 97.5 fL 05/02/2024 7:16 AM EST LABORATORY [facility] MCH 30.8 27.0 - 34.0 pg 05/02/2024 7:16 AM EST LABORATORY [facility] MCHC 33.0 32.0 - 36.0 g/dL 05/02/2024 7:16 AM EST LABORATORY [facility] RDW 14.4 11.5 - 15.5 % 05/02/2024 7:16 AM EST LABORATORY [facility] PLT 253 140 - 400 K/uL 05/02/2024 7:16 AM EST LABORATORY [facility] MPV 10.7 6.6 - 11.1 fL 05/02/2024 7:16 AM EST LABORATORY [facility] nRBCs 0 <=0 /100 WBCs 05/02/2024 7:16 AM EST LABORATORY [facility] Blood Venous blood specimen / Unknown Venipuncture / Unknown 05/02/2024 6:48 AM EST 05/02/2024 6:53 AM EST us Marisa Way MD, PhD LAB BLOOD ORDERABLES Final Result Performing Organization Address City/State/[facility] Co de Phone Number LABORATORY [address] [address] * (ABNORMAL) BASIC METABOLIC PANEL (05/02/2024 6:48 AM EST) BUN 12 6 - 20 mg/dL 05/02/2024 8:13 AM EST LABORATORY GL CREATININE 0.6 0.5 - 1.0 mg/dL 05/02/2024 8:13 AM EST LABORATORY GL EGFR >90 >=60 mL/min 05/02/2024 8:13 AM EST LABORATORY GL Comment:eGFR is calculated b ased on the CKD-EPI 2020 equation. SODIUM 144 135 - 146 mmol/L 05/02/2024 8:13 AM EST LABORATORY GLH POTASSIUM 3.9 3.5 - 5.1 mmol/L 05/02/2024 8:13 AM EST LABORATORY GLH CHLORIDE 105 98 - 107 mmol/L 05/02/2024 8:13 AM EST LABORATORY GLH CO2 20(L) 22 - 32 mmol/L 05/02/2024 8:13 AM EST LABORATORY GLH ANION GAP 19(H) 7 - 15 mmol/L 05/02/2024 8:13 AM EST LABORATORY GLH GLUCOSE 139(H) 70 - 120 mg/dL 05/02/2024 8:13 AM EST LABORATORY GLH CALCIUM 9.0 8.4 - 10.2 mg/dL 05/02/2024 8:13 AM EST LABORATORY GLH Blood Venous blood specimen / Unknown Venipuncture / Unknown 05/02/2024 6:48 AM EST 05/02/2024 6:[address]isa [address] MD, PhD LAB BLOOD ORDERABLES Final Result LABORATORY GLH [address] [place] [address] * (ABNORMAL) HEPATIC FUNCTION PANEL (05/02/2024 6:48 AM EST) Albumin 3.0(L) 3.8 - 5.0 g/dL 05/02/2024 8:13 AM EST LABORATORY GLH AST 20 10 - 35 U/L 05/02/2024 8:13 AM EST LABORATORY GLH Alkaline Phosphatase 91 35 - 130 U/L 05/02/2024 8:13 AM EST LABORATORY GLH ALT 15 10 - 35 U/L 05/02/2024 8:13 AM EST LABORATORY GLH Bilirubin, Total 0.6 <=1.2 mg/dL 05/02/2024 8:13 AM EST LABORATORY GLH Bilirubin, Direct 0.2 0.0 - 0.3 mg/dL 05/02/2024 8:13 AM EST LABORATORY GLH Protein 7.0 6.0 - 8.3 g/dL 05/02/2024 8:13 AM EST LABORATORY GL[facility] Blood Venous blood specimen / Unknown Venipuncture / Unknown 05/02/2024 6:48 AM EST 05/02/2024 6:[address]isa [address] MD, PhD LAB BLOOD ORDERABLES Final Result Performing Organization Address [facility] Co de Phone Number LABORATORY [address] [phone] * PT INR (05/02/2024 6:48 AM EST) Prothrombin Time 14.4 11.6 - 15.2 seconds 05/02/2024 7:10 AM EST LABORATORY [facility] INR 1.1 0.8 - 1.2 05/02/2024 7:10 AM EST LABORATORY [facility] Blood Venous blood specimen / Unknown Venipuncture / Unknown 05/02/2024 6:48 AM EST 05/02/2024 6:53 AM EST Narrative LABORATORY [facility] - 05/02/2024 7:10 AM EST Warfarin Therapy INR: 2.0-3.0 conventional anticoagulation INR: 2.5-3.5 high intensity anticoagulation Marisa Way MD, PhD LAB BLOOD ORDERABLES Final Result Performing Organization Address [facility] de Phone Number LABORATORY [address] [address] * PHOSPHORUS (05/02/2024 6:48 AM EST) Pathologist [facility] Phosphorus 3.1 2.5 - 4.8 mg/dL 05/02/2024 10:14 AM EST LABORATORY [facility] Blood Venous blood specimen / Unknown Venipuncture / Unknown 05/02/2024 6:48 AM EST 05/02/2024 6:[address]isa [address] MD, PhD LAB BLOOD ORDERABLES Final Result Performing Organization Address [facility] Co de Phone Number LABORATORY [address] [phone] * CALCIUM, IONIZED (05/02/2024 6:48 AM EST) [facility] Calcium, Ionized 1.21 1.13 - 1.32 mmol/L 05/02/2024 8:14 AM EST LABORATORY [facility] Comment:This test was develo ped and its performance characteristics dtermined by [employer]. It has not been cleared or approved by the [place] Food and Drug Administration Blood Venous blood specimen / Unknown Venipuncture / Unknown 05/02/2024 6:48 AM EST 05/02/2024 6:[address]isa [address] MD, PhD LAB BLOOD ORDERABLES Final Result Performing Organization Address City/[facility]/ZIP Co de Phone Number LABORATORY [address] [address] * MAGNESIUM (05/02/2024 6:48 AM EST) [facility] Magnesium 1.6 1.5 - 2.6 mg/dL 05/02/2024 8:13 AM EST LABORATORY [facility] Blood Venous blood specimen / Unknown Venipuncture / Unknown 05/02/2024 6:48 AM EST 05/02/2024 6:[address] Marisa Way MD, PhD LAB BLOOD ORDERABLES Final Result Performing Organization Address [facility] Co de Phone Number LABORATORY [address] [address] * (ABNORMAL) GLUCOSE METER, POINT OF CARE (05/02/2024 6:19 AM EST) [facility] Glucose - POCT 127(H) 70 - 120 mg/dL 05/02/2024 6:27 AM EST [facility] LABORATORY Blood Whole blood specimen / Unknown 05/02/2024 6:19 AM EST 05/02/2024 6:[address]isa [address] MD, PhD LAB POINT OF CARE TEST DOCKED DEVICE UNSOLICITED RESULTS Final Result Performing Organization Address City/[facility]/ZIP Co de Phone Number [facility] LABORATORY [address] [place] [address] * (ABNORMAL) GLUCOSE METER, POINT OF CARE (05/02/2024 12:18 AM EST) Glucose - POCT 121(H) 70 - 120 mg/dL 05/02/2024 12:21 AM EST [facility] LABORATORY Blood Whole blood specimen / Unknown 05/02/2024 12:18 AM EST 05/02/2024 12:[address]isa [address] MD, PhD LAB POINT OF CARE TEST DOCKED DEVICE UNSOLICITED RESULTS Final Result Performing Organization Address [facility] Co de Phone Number [facility] LABORATORY [address] [place] [address] * (ABNORMAL) GLUCOSE METER, POINT OF CARE (05/01/2024 6:00 PM EST) Glucose - POCT 123(H) 70 - 120 mg/dL 05/01/2024 6:31 PM EST [facility] LABORATORY Blood Whole blood specimen / Unknown 05/01/2024 6:00 PM EST 05/01/2024 6:[address] Marisa [address] MD, PhD LAB POINT OF CARE TEST DOCKED DEVICE UNSOLICITED RESULTS Final Result Performing Organization Address [facility] Co de Phone Number [facility] LABORATORY [address] [place] [phone] * ABO/RH (05/01/2024 12:12 PM EST) ABO O 05/01/2024 1:01 PM EST LABORATORY GL BLOOD BANK Rh Negative 05/01/2024 1:01 PM EST LABORATORY [facility] BLOOD BANK Blood Venous blood specimen / Unknown Venipuncture / Unknown 05/01/2024 12:12 PM EST 05/01/2024 12:[address] Marisa [address] MD, PhD LAB BLOOD BANK TEST O RDERABLES Final Result Performing Organization Address City/[facility]/ZIP Co de Phone Number LABORATORY [facility] BLOOD BANK [address] [place] [phone] * PT INR (05/01/2024 12:12 PM EST) Prothrombin Time 14.5 11.6 - 15.2 seconds 05/01/2024 12:31 PM EST LABORATORY [facility] INR 1.1 0.8 - 1.2 05/01/2024 12:31 PM EST LABORATORY [facility] Blood Venous blood specimen / Unknown Venipuncture / Unknown 05/01/2024 12:12 PM EST 05/01/2024 12:14 PM EST Narrative LABORATORY [facility] - 05/01/2024 12:31 PM EST Warfarin Therapy INR: 2.0-3.0 conventional anticoagulation INR: 2.5-3.5 high intensity anticoagulation Marisa Way MD, PhD LAB BLOOD ORDERABLES Final Result Performing Organization Address [facility] Co de Phone Number LABORATORY [address] [address] * TYPE AND SCREEN (05/01/2024 12:12 PM EST) Pathologist [facility] ABO O 05/01/2024 12:58 PM EST LABORATORY [facility] BLOOD BANK Rh Negative 05/01/2024 12:58 PM EST LABORATORY [facility] BLOOD BANK Red Blood Cell Antibody Screen Negative 05/01/2024 12:58 PM EST LABORATORY [facility] BLOOD B[facility] Specimen Expiration Date 05/04/2024 23:59 05/01/2024 12:58 PM EST LABORATORY [facility] BLOOD BANK Blood Venous blood specimen / Unknown Venipuncture / Unknown 05/01/2024 12:12 PM EST 05/01/2024 12:[address] Marisa [address] MD, PhD LAB BLOOD BANK TEST O RDERABLES Final Result Performing Organization Address City/[facility]/ZIP Co de Phone Number LABORATORY [facility] BLOOD BANK [address] [place] [phone] * (ABNORMAL) HEMOGLOBIN AND HEMATOCRIT PANEL (05/01/2024 12:12 PM EST) HGB 10.9(L) 12.0 - 15.3 g/dL 05/01/2024 12:18 PM EST LABORATORY [facility] HCT 33.4(L) 36.0 - 45.2 % 05/01/2024 12:18 PM EST LABORATORY [facility] Blood Venous blood specimen / Unknown Venipuncture / Unknown 05/01/2024 12:12 PM EST 05/01/2024 12:[address]isa [address] MD, PhD LAB BLOOD ORDERABLES Final Result Performing Organization Address City/[facility]/ZIP Co de Phone Number LABORATORY [address] [address] * GLUCOSE METER, POINT OF CARE (05/01/2024 11:49 AM EST) Glucose - POCT 108 70 - 120 mg/dL 05/01/2024 11:52 AM EST [facility] LABORATORY Blood Whole blood specimen / Unknown 05/01/2024 11:49 AM EST 05/01/2024 11:[address] Marisa Way MD, PhD LAB POINT OF CARE TEST DOCKED DEVICE UNSOLICITED RESULTS Final Result Performing Organization Address City/[facility] Co de Phone Number [facility] LABORATORY [address] [place] [phone] * XR ABDOMEN OBSTRUCT SERIES W CHEST 1 VIEW (05/01/2024 8:40 AM EST) Anatomical Region Laterality Modality Abdomen, Pelvis Digital Radiogra phy 05/01/2024 8:36 AM EST Impressions 05/01/2024 9:24 AM EST IMPRESSION: 1. No evidence of bowel obstruction or free air. 2. Mild bibasilar atelectasis, more on the left. THIS DOCUMENT HAS BEEN ELECTRONICALLY SIGNED BY CASPER MEYER MD Narrative 05/01/2024 9:24 AM EST PROCEDURE INFORMATION: Exam: XR Complete Acute Abdomen Series Including Chest Exam date and time: 05/01/2024 8:36 AM Age: 68 years old Clinical indication: Other: F/u sbo; Prior surgery; Surgery date: 1-6 months; Surgery type: Appendectomy 02/25/24 TECHNIQUE: Imaging protocol: Radiologic exam. Complete acute abdomen series, including 2 or more views of the abdomen and a single view chest. COMPARISON: CR (CXR AP X-OMALLEY GRID, CHEST, CXR AP GRID Crosswise) 04/29/2024 7:32 PM FINDINGS: Tubes, catheters and devices: The enteric tube terminates in the stomach. Stable position of the right Infusaport catheter. Lungs: Stable mild bibasilar atelectasis, more on the left. Pleural spaces: Normal. No pleural effusions. No pneumothorax. Heart/Mediastinum: Normal. No cardiomegaly. Gastrointestinal tract: The visualized bowel gas pattern appears nonobstructive. More than average stool load in the colon. Intraperitoneal space: No free air. Bones/joints: Multilevel degenerative changes of the spine. Soft tissues: Normal. Procedure Note Casper Atkinson MD - 05/01/2024 PROCEDURE INFORMATION: Exam: XR Complete Acute Abdomen Series Including Chest Exam date and time: 05/01/2024 8:36 AM Age: 68 years old Clinical indication: Other: F/u sbo; Prior surgery; Surgery date: 1-6months; Surgery type: Appendectomy 02/25/24 TECHNIQUE: Imaging protocol: Radiologic exam. Complete acute abdomen series,including 2 or more views of the abdomen and a single view chest. COMPARISON: CR (CXR AP X-OMALLEY GRID, CHEST, CXR AP GRID Crosswise) 04/29/2024 7:32 PM FINDINGS: Tubes, catheters and devices: The enteric tube terminates in the stomach. Stable position of the right Infusaport catheter. Lungs: Stable mild bibasilar atelectasis, more on the left. Pleural spaces: Normal. No pleural effusions. No pneumothorax. Heart/Mediastinum: Normal. No cardiomegaly. Gastrointestinal tract: The visualized bowel gas pattern appears nonobstructive. More than average stool load in the colon. Intraperitoneal space: No free air. Bones/joints: Multilevel degenerative changes of the spine. Soft tissues: Normal. IMPRESSION IMPRESSION: 1. No evidence of bowel obstruction or free air. 2. Mild bibasilar atelectasis, more on the left. THIS DOCUMENT HAS BEEN ELECTRONICALLY SIGNED BY CASPER MEYER MD us Marisa Way MD, PhD RADIOLOGY (RAD GENERA L) Final Result * GLUCOSE METER, POINT OF CARE (05/01/2024 5:33 AM EST) Glucose - POCT 89 70 - 120 mg/dL 05/01/2024 5:49 AM EST [facility] LABORATORY Blood Whole blood specimen / Unknown 05/01/2024 5:33 AM EST 05/01/2024 5:49 AM EST Deondre Sellers DO LAB POINT OF CARE TE ST DOCKED DEVICE UNSOLICITED RESULTS Final Result [facility] LABORATORY [address] [facility] [place] [address] * (ABNORMAL) HEPATIC FUNCTION PANEL (05/01/2024 4:52 AM EST) Albumin 2.6(L) 3.8 - 5.0 g/dL 05/01/2024 9:05 AM EST LABORATORY [facility] AST 30 10 - 35 U/L 05/01/2024 9:05 AM EST LABORATORY [facility] Alkaline Phosphatase 81 35 - 130 U/L 05/01/2024 9:05 AM EST LABORATORY [facility] ALT 14 10 - 35 U/L 05/01/2024 9:05 AM EST LABORATORY [facility] Bilirubin, Total 0.4 <=1.2 mg/dL 05/01/2024 9:05 AM EST LABORATORY [facility] Bilirubin, Direct 0.2 0.0 - 0.3 mg/dL 05/01/2024 9:05 AM EST LABORATORY [facility] Protein 6.2 6.0 - 8.3 g/dL 05/01/2024 9:05 AM EST LABORATORY [facility] Blood Venous blood specimen / Unknown Venipuncture / Unknown 05/01/2024 4:52 AM EST 05/01/2024 5:[address]isa [address] MD, PhD LAB BLOOD ORDERABLES Final Result Performing Organization Address [facility] de Phone Number LABORATORY [address] [address] * (ABNORMAL) PROCALCITONIN (05/01/2024 4:52 AM EST) Procalcitonin 0.52(H) <0.10 ng/mL 05/01/2024 8:25 AM EST LABORATORY [facility] Blood Venous blood specimen / Unknown Venipuncture / Unknown 05/01/2024 4:52 AM EST 05/01/2024 5:12 AM EST Narrative LABORATORY [facility] - 05/01/2024 8:25 AM EST Less than 0.5 ng/mL: Low risk for progression to sepsis. Review patients condition for localized infections. 0.5 to 2.0 ng/mL: Intermediate risk for progresion to sepsis. Review underlying conditions. Recommend repeat PCT after 6 hours has elapsed. Greater than 2.0 ng/mL: high risk for progression to sepsis unless other causes are known. Marisa Way MD, PhD LAB BLOOD ORDERABLES Final Result Performing Organization Address [facility] de Phone Number LABORATORY [address] [address] * (ABNORMAL) BNP, NT-PRO (05/01/2024 4:52 AM EST) BNP, NT-Pro 4,357(H) <300 pg/mL 05/01/2024 8:25 AM EST LABORATORY [facility] Blood Venous blood specimen / Unknown Venipuncture / Unknown 05/01/2024 4:52 AM EST 05/01/2024 5:12 AM EST Narrative LABORATORY [facility] - 05/01/2024 8:25 AM EST Exclude Heart Failure: <300 pg/mL Diagnose Heart Failure: Age <50 yr: >450 pg/mL 50-75 yr: >900 pg/mL >75 yr: >1800 pg/mL GFR is 30-59 mL/min: >1200 pg/mL or Age-adjusted values GFR <30 mL/min: do not use, not reliable Prognostic threshold: 1000 pg/mL Marisa Way MD, PhD LAB BLOOD ORDERABLES Final Result Performing Organization Address [facility] de Phone Number LABORATORY [address] [address] * PHOSPHORUS (05/01/2024 4:52 AM EST) Phosphorus 3.0 2.5 - 4.8 mg/dL 05/01/2024 12:09 PM EST LABORATORY [facility] Blood Venous blood specimen / Unknown Venipuncture / Unknown 05/01/2024 4:52 AM EST 05/01/2024 5:[address] Marisa [address] MD, PhD LAB BLOOD ORDERABLES Final Result Performing Organization Address [facility] de Phone Number LABORATORY [address] [address] * MAGNESIUM (05/01/2024 4:52 AM EST) Magnesium 1.7 1.5 - 2.6 mg/dL 05/01/2024 5:36 AM EST LABORATORY [facility] Blood Venous blood specimen / Unknown Venipuncture / Unknown 05/01/2024 4:52 AM EST 05/01/2024 5:12 AM EST Deondre Sellers DO LAB BLOOD ORDERABLES Final Re sult Performing Organization Address [facility] de Phone Number LABORATORY [address] [address] * (ABNORMAL) CBC (05/01/2024 4:52 AM EST) WBC 5.42 4.00 - 10.80 K/uL 05/01/2024 5:16 AM EST LABORATORY [facility] RBC 3.31 3.85 - 5.15 M/uL 05/01/2024 5:16 AM EST LABORATORY [facility] HGB 10.4(L) 12.0 - 15.3 g/dL 05/01/2024 5:16 AM EST LABORATORY GL HCT 30.9(L) 36.0 - 45.2 % 05/01/2024 5:16 AM EST LABORATORY GL MCV 93.4 81.5 - 97.5 fL 05/01/2024 5:16 AM EST LABORATORY GL MCH 31.4 27.0 - 34.0 pg 05/01/2024 5:16 AM EST LABORATORY GL MCHC 33.7 32.0 - 36.0 g/dL 05/01/2024 5:16 AM EST LABORATORY GL RDW 14.1 11.5 - 15.5 % 05/01/2024 5:16 AM EST LABORATORY GL PLT 249 140 - 400 K/uL 05/01/2024 5:16 AM EST LABORATORY [facility] MPV 10.6 6.6 - 11.1 fL 05/01/2024 5:16 AM EST LABORATORY [facility] nRBCs 0 <=0 /100 WBCs 05/01/2024 5:16 AM EST LABORATORY GL Blood Venous blood specimen / Unknown Venipuncture / Unknown 05/01/2024 4:52 AM EST 05/01/2024 5:12 AM EST us Deondre Sellers DO LAB BLOOD ORDERABLES Final Re sult LABORATORY [facility] [address] [place] [address] * (ABNORMAL) BASIC METABOLIC PANEL (05/01/2024 4:52 AM EST) BUN 9 6 - 20 mg/dL 05/01/2024 5:36 AM EST LABORATORY GL CREATININE 0.7 0.5 - 1.0 mg/dL 05/01/2024 5:36 AM EST LABORATORY GL EGFR >90 >=60 mL/min 05/01/2024 5:36 AM EST LABORATORY GL Comment:eGFR is calculated b ased on the CKD-EPI 2020 equation. SODIUM 144 135 - 146 mmol/L 05/01/2024 5:36 AM EST LABORATORY GL POTASSIUM 3.0(L) 3.5 - 5.1 mmol/L 05/01/2024 5:36 AM EST LABORATORY [facility] CHLORIDE 107 98 - 107 mmol/L 05/01/2024 5:36 AM EST LABORATORY [facility] CO2 21(L) 22 - 32 mmol/L 05/01/2024 5:36 AM EST LABORATORY GL[facility] ANION GAP 16(H) 7 - 15 mmol/L 05/01/2024 5:36 AM EST LABORATORY [facility] GLUCOSE 104 70 - 120 mg/dL 05/01/2024 5:36 AM EST LABORATORY GL[facility] CALCIUM 8.2(L) 8.4 - 10.2 mg/dL 05/01/2024 5:36 AM EST LABORATORY GL[facility] Blood Venous blood specimen / Unknown Venipuncture / Unknown 05/01/2024 4:52 AM EST 05/01/2024 5:12 AM EST Deondre Sellers DO LAB BLOOD ORDERABLES Final Re sult Performing Organization Address City/[facility]/ZIP Co de Phone Number LABORATORY [address] [phone] * GLUCOSE METER, POINT OF CARE (05/01/2024 12:04 AM EST) Glucose - POCT 101 70 - 120 mg/dL 05/01/2024 12:09 AM [facility] LABORATORY Blood Whole blood specimen / Unknown 05/01/2024 12:04 AM EST 05/01/2024 12:09 AM EST Deondre Sellers DO LAB POINT OF CARE TE ST DOCKED DEVICE UNSOLICITED RESULTS Final Result [facility] LABORATORY [address] [place] [id number] * GLUCOSE METER, POINT OF CARE (04/30/2024 5:44 PM EST) Glucose - POCT 105 70 - 120 mg/dL 04/30/2024 5:47 PM EST [facility] LABORATORY Blood Whole blood specimen / Unknown 04/30/2024 5:44 PM EST 04/30/2024 5:47 PM EST us Deondre Sellers DO LAB POINT OF CARE TE ST DOCKED DEVICE UNSOLICITED RESULTS Final Result [facility] LABORATORY [address] [place] [address] * (ABNORMAL) CULTURE, URINE, QUANTITATIVE (04/30/2024 2:19 PM EST) Culture Growth 10,000 to 100,000 colonies/mL Enterococcus species(A) MICROBROTH DILUTIONS 05/02/2024 8:04 AM EST LABORATORY [facility] Urine Urine specimen obtained by clean catch procedure / Unknown Non-blood Collection / Unknown 04/30/2024 2:19 PM EST 04/30/2024 2:25 PM EST Narrative LABORATORY [facility] - 05/02/2024 8:04 AM EST <10,000 colonies/ml mixed normal brandi Organism Antibiotic Method Susceptibility Enterococcus species Ampicillin MICROBROTH DILUTIONS <=2: Susceptible Enterococcus species Nitrofurantoin MICROBROTH DILUTIO NS <=16: Susceptible Enterococcus species Tetracycline MICROBROTH DILUTIONS >=16: Resistant Enterococcus species Vancomycin MICROBROTH DILUTIONS 2: Susceptible us Merna Humphries MD LAB MICRO - GENERAL ORDER WILLIAMS Final Result Performing Organization Address [facility] Co de Phone Number LABORATORY [facility] [address] [place] [address] * (ABNORMAL) URINALYSIS, REFLEX TO CULTURE (04/30/2024 2:19 PM EST) Color, Urine Yellow Light Yellow, Yellow, Dark Yellow 04/30/2024 2:51 PM EST LABORATORY [facility] Clarity, Urine Clear Clear 04/30/2024 2:51 PM EST LABORATORY [facility] Glucose, Urine Negative Negative mg/dL 04/30/2024 2:51 PM EST LABORATORY GL[facility] Bilirubin, Urine Negative Negative 04/30/2024 2:51 PM EST LABORATORY GL[facility] Ketone, Urine Trace(A) Negative mg/dL 04/30/2024 2:51 PM EST LABORATORY GL[facility] Specific [place], Urine 1.015 1.003 - 1.030 04/30/2024 2:51 PM EST LABORATORY GL Blood, Urine Trace(A) Negative 04/30/2024 2:51 PM EST LABORATORY GL[facility] pH, Urine 5.5 5.0 - 7.5 Units 04/30/2024 2:51 PM EST LABORATORY GL[facility] Protein, Urine Negative Negative mg/dL 04/30/2024 2:51 PM EST LABORATORY GL[facility] Urobilinogen, Urine 0.2 0.2, 1.0 mg/dL 04/30/2024 2:51 PM EST LABORATORY GL[facility] Nitrite, Urine Negative Negative 04/30/2024 2:51 PM EST LABORATORY [facility] Esterase, Urine Small(A) Negative 04/30/2024 2:51 PM EST LABORATORY [facility] RBC, Urine 3-5(A) 0 - 2 /HPF 04/30/2024 2:51 PM EST LABORATORY [facility] WBC, Urine 6-9(A) 0 - 2 /HPF 04/30/2024 2:51 PM EST LABORATORY [facility] Bacteria, Urine >200(A) 0 - 25 /HPF 04/30/2024 2:51 PM EST LABORATORY [facility] Squamous Epithelial Cells, Urine Many(A) None /HPF 04/30/2024 2:51 PM EST LABORATORY [facility] Culture, Urine 04/30/2024 2:51 PM EST LABORATORY GL[facility] Comment:Quantitative urine c ulture to be performed Urine Urine specimen obtained by clean catch procedure / Unknown Non-blood Collection / Unknown 04/30/2024 2:19 PM EST 04/30/2024 2:25 PM EST us Merna Humphries MD LAB URINE ORDERABLES Cindi l Result LABORATORY [address] [address] * URINALYSIS, REFLEX TO CULTURE (CUP ONLY) (04/30/2024 2:19 PM EST) Urinalysis, Reflex to Culture Specimen Specimen collected and received 04/30/2024 4:01 PM EST LABORATORY [facility] Urine Urine specimen obtained by clean catch procedure / Unknown Non-blood Collection / Unknown 04/30/2024 2:19 PM EST 04/30/2024 2:25 PM EST us Merna Humphries MD LAB URINE ORDERABLES Cindi l Result Performing Organization Address City/[facility]/ZIP Co de Phone Number LABORATORY GL [address], [place] [phone] * GLUCOSE METER, POINT OF CARE (04/30/2024 11:47 AM EST) [facility] Glucose - POCT 97 70 - 120 mg/dL 04/30/2024 12:01 PM EST [facility] LABORATORY Blood Whole blood specimen / Unknown 04/30/2024 11:47 AM EST 04/30/2024 12:01 PM EST us Deondre Sellers DO LAB POINT OF CARE TE ST DOCKED DEVICE UNSOLICITED RESULTS Final Result Performing Organization Address [facility] de Phone Number [facility] LABORATORY [address] [place] [address] * (ABNORMAL) BASIC METABOLIC PANEL (04/30/2024 11:30 AM EST) [facility] BUN 13 6 - 20 mg/dL 04/30/2024 12:05 PM EST LABORATORY GL CREATININE 1.0 0.5 - 1.0 mg/dL 04/30/2024 12:05 PM EST LABORATORY GLH EGFR 62 >=60 mL/min 04/30/2024 12:05 PM EST LABORATORY GLH Comment:eGFR is calculated b ased on the CKD-EPI 2020 equation. SODIUM 139 135 - 146 mmol/L 04/30/2024 12:05 PM EST LABORATORY GLH POTASSIUM 3.7 3.5 - 5.1 mmol/L 04/30/2024 12:05 PM EST LABORATORY GL[facility] CHLORIDE 105 98 - 107 mmol/L 04/30/2024 12:05 PM EST LABORATORY GL[facility] CO2 22 22 - 32 mmol/L 04/30/2024 12:05 PM EST LABORATORY GL[facility] ANION GAP 12 7 - 15 mmol/L 04/30/2024 12:05 PM EST LABORATORY GL[facility] GLUCOSE 104 70 - 120 mg/dL 04/30/2024 12:05 PM EST LABORATORY GL[facility] CALCIUM 8.0(L) 8.4 - 10.2 mg/dL 04/30/2024 12:05 PM EST LABORATORY GL Blood Venous blood specimen / Unknown Venipuncture / Unknown 04/30/2024 11:30 AM EST 04/30/2024 11:32 AM EST Deondre Sellers DO LAB BLOOD ORDERABLES Final Re sult Performing Organization Address City/[facility]/ZIP Co de Phone Number LABORATORY [facility] [address] [place] [address] * GLUCOSE METER, POINT OF CARE (04/30/2024 6:17 AM EST) Glucose - POCT 102 70 - 120 mg/dL 04/30/2024 6:23 AM EST [facility] LABORATORY Blood Whole blood specimen / Unknown 04/30/2024 6:17 AM EST 04/30/2024 6:23 AM EST Deondre Sellers DO LAB POINT OF CARE TE ST DOCKED DEVICE UNSOLICITED RESULTS Final Result Performing Organization Address [facility] de Phone Number [facility] LABORATORY [address] [place] [phone] * HEMOGLOBIN A1C (04/30/2024 5:12 AM EST) Hemoglobin A1C 5.5 4.0 - 5.6 % 04/30/2024 1:32 PM EST LABORATORY [facility] Comment:The use of HbA1c to monitor glycemic status is based on normal hemoglobin and HbA composition. This test should not be used in patients with abnormal hemoglobin that affects the half life of the red blood cell or the in vivo glycation rates. Estimated Average Glucose 111 <126 mg/dL 04/30/2024 1:32 PM EST LABORATORY [facility] Blood Venous blood specimen / Unknown Venipuncture / Unknown 04/30/2024 5:12 AM EST 04/30/2024 5:32 AM EST Glen Galvan PA-C LAB BLOOD ORDERABLES Final Res ult LABORATORY [facility] [address] [place] [address] * (ABNORMAL) BASIC METABOLIC PANEL (04/30/2024 5:12 AM EST) BUN 14 6 - 20 mg/dL 04/30/2024 5:58 AM EST LABORATORY GL CREATININE 1.2(H) 0.5 - 1.0 mg/dL 04/30/2024 5:58 AM EST LABORATORY GL[facility] EGFR 52(L) >=60 mL/min 04/30/2024 5:58 AM EST LABORATORY GLH Comment:eGFR is calculated b ased on the CKD-EPI 2020 equation. SODIUM 137 135 - 146 mmol/L 04/30/2024 5:58 AM EST LABORATORY GLH POTASSIUM 3.2(L) 3.5 - 5.1 mmol/L 04/30/2024 5:58 AM EST LABORATORY GLH CHLORIDE 102 98 - 107 mmol/L 04/30/2024 5:58 AM EST LABORATORY GLH CO2 20(L) 22 - 32 mmol/L 04/30/2024 5:58 AM EST LABORATORY GLH ANION GAP 15 7 - 15 mmol/L 04/30/2024 5:58 AM EST LABORATORY GLH GLUCOSE 102 70 - 120 mg/dL 04/30/2024 5:58 AM EST LABORATORY GLH CALCIUM 8.0(L) 8.4 - 10.2 mg/dL 04/30/2024 5:58 AM EST LABORATORY GL Blood Venous blood specimen / Unknown Venipuncture / Unknown 04/30/2024 5:12 AM EST 04/30/2024 5:32 AM EST Glen Galvan PA-C LAB BLOOD ORDERABLES Final Res ult LABORATORY [facility] [address] [place] [address] * (ABNORMAL) CBC (04/30/2024 5:12 AM EST) WBC 11.35(H) 4.00 - 10.80 K/uL 04/30/2024 5:37 AM EST LABORATORY [facility] RBC 3.65 3.85 - 5.15 M/uL 04/30/2024 5:37 AM EST LABORATORY GL HGB 11.3(L) 12.0 - 15.3 g/dL 04/30/2024 5:37 AM EST LABORATORY GL HCT 33.6(L) 36.0 - 45.2 % 04/30/2024 5:37 AM EST LABORATORY GL MCV 92.1 81.5 - 97.5 fL 04/30/2024 5:37 AM EST LABORATORY GL MCH 31.0 27.0 - 34.0 pg 04/30/2024 5:37 AM EST LABORATORY [facility] MCHC 33.6 32.0 - 36.0 g/dL 04/30/2024 5:37 AM EST LABORATORY [facility] RDW 13.7 11.5 - 15.5 % 04/30/2024 5:37 AM EST LABORATORY [facility] PLT 291 140 - 400 K/uL 04/30/2024 5:37 AM EST LABORATORY [facility] MPV 10.6 6.6 - 11.1 fL 04/30/2024 5:37 AM EST LABORATORY [facility] nRBCs 0 <=0 /100 WBCs 04/30/2024 5:37 AM EST LABORATORY [facility] Blood Venous blood specimen / Unknown Venipuncture / Unknown 04/30/2024 5:12 AM EST 04/30/2024 5:32 AM EST us Glen Galvan PA-C LAB BLOOD ORDERABLES Final Res ult LABORATORY [facility] [address] [place] [address] * GLUCOSE METER, POINT OF CARE (04/29/2024 11:46 PM EST) [facility] Glucose - POCT 118 70 - 120 mg/dL 04/29/2024 11:48 PM EST [facility] LABORATORY Blood Whole blood specimen / Unknown 04/29/2024 11:46 PM EST 04/29/2024 11:48 PM EST us Douglas Argueta MD LAB POINT OF CARE TEST DOCKED DEVICE UNSOLICITED RESULTS Final Result [facility]ORY [address] [facility] [place] [address] * XR CHEST 1 VIEW (04/29/2024 7:36 PM EST) Anatomical Region Laterality Modality Chest Digital Radiogra phy 04/29/2024 7:32 PM EST Impressions 04/29/2024 7:41 PM EST IMPRESSION: 1. Pulmonary edema, reactive airways disease or atypical infection could have this appearance. Findings most pronounced in the periphery of the right lower lobe and at the left lung base. 2. Gastric tube terminates in the distal stomach. THIS DOCUMENT HAS BEEN ELECTRONICALLY SIGNED BY RANJIT ORTEGA MD Narrative 04/29/2024 7:41 PM EST PROCEDURE INFORMATION: Exam: XR Chest Exam date and time: 04/29/2024 7:32 PM Age: 68 years old Clinical indication: Other: Fever TECHNIQUE: Imaging protocol: Radiologic exam of the chest. Views: 1 view. COMPARISON: CR CHEST PA X-OMALLEY 04/29/2024 8:43 AM FINDINGS: Tubes, catheters and devices: Right-sided chest port is present with the catheter terminating near the SVC right atrial junction. Gastric tube terminates in the distal stomach. Lungs: Mild bronchiectasis in the left lower lobe. Diffuse interstitial thickening is present. Pleural spaces: Unremarkable. No pleural effusion. No pneumothorax. Heart/Mediastinum: Unremarkable. No cardiomegaly. Bones/joints: Unremarkable. Procedure Note Ranjit Ortega MD - 04/29/2024 PROCEDURE INFORMATION: Exam: XR Chest Exam date and time: 04/29/2024 7:32 PM Age: 68 years old Clinical indication: Other: Fever TECHNIQUE: Imaging protocol: Radiologic exam of the chest. Views: 1 view. COMPARISON: CR CHEST PA X-OMALLEY 04/29/2024 8:43 AM FINDINGS: Tubes, catheters and devices: Right-sided chest port is present with the catheter terminating near the SVC right atrial junction. Gastric tube terminates in the distal stomach. Lungs: Mild bronchiectasis in the left lower lobe. Diffuse interstitial thickening is present. Pleural spaces: Unremarkable. No pleural effusion. No pneumothorax. Heart/Mediastinum: Unremarkable. No cardiomegaly. Bones/joints: Unremarkable. IMPRESSION IMPRESSION: 1. Pulmonary edema, reactive airways disease or atypical infection couldhave this appearance. Findings most pronounced in the periphery of the rightlower lobe and at the left lung base. 2. Gastric tube terminates in the distal stomach. THIS DOCUMENT HAS BEEN ELECTRONICALLY SIGNED BY RANJIT ORTEGA MD us Merna Humphries MD RADIOLOGY ([facility]) F inal Result * XR ABDOMEN 1 VIEW (04/29/2024 5:58 PM EST) Anatomical Region Laterality Modality Abdomen, Pelvis Digital Radiogra phy 04/29/2024 5:50 PM EST Impressions 04/29/2024 6:08 PM EST IMPRESSION: Gastric tube terminates in the midportion of the stomach. THIS DOCUMENT HAS BEEN ELECTRONICALLY SIGNED BY RANJIT ORTEGA MD Narrative 04/29/2024 6:08 PM EST PROCEDURE INFORMATION: Exam: XR Abdomen Exam date and time: 04/29/2024 5:50 PM Age: 68 years old Clinical indication: Other: Gastric tube placement verification TECHNIQUE: Imaging protocol: Radiologic exam of the abdomen. Views: Frontal supine view of the abdomen. 1 View. COMPARISON: CT ABD/PELVIS W IV CONTRAST - WO ORAL CONTRAST 04/29/2024 4:23 PM FINDINGS: Tubes, catheters and devices: Gastric tube terminates in the midportion of the stomach. Right-sided chest port is present with the catheter terminating near the SVC right atrial junction. Lungs: Mild hyperinflation of the lungs. Gastrointestinal tract: Normal. No bowel dilation. Bones/joints: Unremarkable. Procedure Note Ranjit Ortega MD - 04/29/2024 PROCEDURE INFORMATION: Exam: XR Abdomen Exam date and time: 04/29/2024 5:50 PM Age: 68 years old Clinical indication: Other: Gastric tube placement verification TECHNIQUE: Imaging protocol: Radiologic exam of the abdomen. Views: Frontal supine view of the abdomen. 1 View. COMPARISON: CT ABD/PELVIS W IV CONTRAST - WO ORAL CONTRAST 04/29/2024 4:23 PM FINDINGS: Tubes, catheters and devices: Gastric tube terminates in the midportion ofthe stomach. Right-sided chest port is present with the catheter terminatingnear the SVC right atrial junction. Lungs: Mild hyperinflation of the lungs. Gastrointestinal tract: Normal. No bowel dilation. Bones/joints: Unremarkable. IMPRESSION IMPRESSION: Gastric tube terminates in the midportion of the stomach. THIS DOCUMENT HAS BEEN ELECTRONICALLY SIGNED BY RANJIT ORTEGA MD us Merna Humphries MD RADIOLOGY ([facility]) F inal Result * CT ABD/PELVIS W IV CONTRAST - WO ORAL CONTRAST (04/29/2024 4:34 PM EST) Anatomical Region Laterality Modality Body, Abdomen, Pelvis Computed T omography 04/29/2024 4:23 PM EST Addenda Addendum by Ranjit Ortega MD on 05/02/2024 5:29 PM EST ADDENDUM: When compared to the previous PET-CT examination the small bowel obstruction has developed. The obstruction is in the anterior mid abdomen and the previous PET-CT examination shows only diffuse mesenteric activity in the anterior abdomen. (No prior PET-CT report available). THIS DOCUMENT HAS BEEN ELECTRONICALLY SIGNED BY RANJIT ORTEGA MD Addendum by Ranjit Ortega MD on 04/29/2024 5:07 PM EST ADDENDUM: THIS REPORT CONTAINS FINDINGS THAT MAY BE CRITICAL TO PATIENT CARE. The findings were verbally communicated to IRON WERNER via telephone conference at 5:07 PM EST on 04/29/2024. The findings were acknowledged and understood. Patient has known pancreas neoplasm with involvement of the mesentery and liver. THIS DOCUMENT HAS BEEN ELECTRONICALLY SIGNED BY RANJIT ORTEGA MD Impressions 04/29/2024 5:00 PM EST IMPRESSION: 1. Findings of small bowel obstruction with transition in the anterior mid abdomen. 2. Scattered hypodense fluid collections in the abdomen and pelvis with largest located in the left pelvic sidewall and measuring 4.3 x 3.5 x 8.1 cm. 3. Right lobe liver capsular hypodensities may represent metastatic disease. 4. 1.7 x 2.5 cm hypodensity in the tail the pancreas. If not already performed, recommend nonurgent MRI evaluation of the pancreas for further characterization. THIS DOCUMENT HAS BEEN ELECTRONICALLY SIGNED BY RANJIT ORTEGA MD Narrative 04/29/2024 5:00 PM EST PROCEDURE INFORMATION: Exam: CT Abdomen And Pelvis With Contrast Exam date and time: 04/29/2024 4:23 PM Age: 68 years old Clinical indication: Abdominal pain; Additional info: Abdominal distention, no bowel movement for 5 days, small air-fluid levels on outpatient x-ray today, large amount of bilious emesis here, multiple surgeries TECHNIQUE: Imaging protocol: Computed tomography of the abdomen and pelvis with contrast. Radiation optimization: All CT scans at this facility use at least one of these dose optimization techniques: automated exposure control; mA and/or kV adjustment per patient size (includes targeted exams where dose is matched to clinical indication); or iterative reconstruction. Contrast material: OPTIRAY; Contrast volume: 80 ml; Contrast route: INTRAVENOUS (IV); COMPARISON: CR CHEST PA X-OMALLEY 04/29/2024 8:43 AM FINDINGS: Lungs: Right-sided compressive atelectasis noted. Pleural spaces: Trace right-sided pleural effusion. Esophagus: The visualized esophagus has a normal appearance. Liver: Right lobe liver capsular hypodensities may represent metastatic disease. Gallbladder and biliary ducts: Normal. No calcified stones. No ductal dilation. Pancreas: 1.7 x 2.5 cm hypodensity in the tail the pancreas. Spleen: 2.0 x 2.2 cm hypodensity in the medial spleen likely represent splenic cyst. Linear cleft in the superior. Spleen extends posteriorly and may represent previous infarct. Adrenal glands: Normal. No mass. Kidneys and ureters: Normal. No hydronephrosis. Stomach and bowel: The stomach is normal. Fluid-filled and dilated small bowel measuring up to 4 cm. Transition point in the anterior abdomen with decompressed distal small bowel. Large bowel is decompressed. Appendix: No evidence of appendicitis. Intraperitoneal space: Scattered hypodense fluid collections in the abdomen and pelvis with largest located in the left pelvic sidewall and measuring 4.3 x 3.5 x 8.1 cm. Vasculature: Calcific atherosclerotic disease is present in the abdominal aorta. Lymph nodes: Unremarkable. No enlarged lymph nodes. Urinary bladder: Unremarkable as visualized. Reproductive: Unremarkable as visualized. Bones/joints: Spondylosis most pronounced at L5-S1. Soft tissues: Anterior abdominal postsurgical changes present in the muscular and subcutaneous layer. Procedure Note Ranjit Ortega MD - 04/29/2024 PROCEDURE INFORMATION: Exam: CT Abdomen And Pelvis With Contrast Exam date and time: 04/29/2024 4:23 PM Age: 68 years old Clinical indication: Abdominal pain; Additional info: Abdominaldistention, no bowel movement for 5 days, small air-fluid levels on outpatient x-raytoday, large amount of bilious emesis here, multiple surgeries TECHNIQUE: Imaging protocol: Computed tomography of the abdomen and pelvis withcontrast. Radiation optimization: All CT scans at this facility use at least one ofthese dose optimization techniques: automated exposure control; mA and/or kV adjustment per patient size (includes targeted exams where dose is matchedto clinical indication); or iterative reconstruction. Contrast material: OPTIRAY; Contrast volume: 80 ml; Contrast route:INTRAVENOUS (IV); COMPARISON: CR CHEST PA X-OMALLEY 04/29/2024 8:43 AM FINDINGS: Lungs: Right-sided compressive atelectasis noted. Pleural spaces: Trace right-sided pleural effusion. Esophagus: The visualized esophagus has a normal appearance. Liver: Right lobe liver capsular hypodensities may represent metastatic disease. Gallbladder and biliary ducts: Normal. No calcified stones. No ductaldilation. Pancreas: 1.7 x 2.5 cm hypodensity in the tail the pancreas. Spleen: 2.0 x 2.2 cm hypodensity in the medial spleen likely representsplenic cyst. Linear cleft in the superior. Spleen extends posteriorly and may represent previous infarct. Adrenal glands: Normal. No mass. Kidneys and ureters: Normal. No hydronephrosis. Stomach and bowel: The stomach is normal. Fluid-filled and dilated smallbowel measuring up to 4 cm. Transition point in the anterior abdomen with decompressed distal small bowel. Large bowel is decompressed. Appendix: No evidence of appendicitis. Intraperitoneal space: Scattered hypodense fluid collections in theabdomen and pelvis with largest located in the left pelvic sidewall and measuring 4.3x 3.5 x 8.1 cm. Vasculature: Calcific atherosclerotic disease is present in the abdominal aorta. Lymph nodes: Unremarkable. No enlarged lymph nodes. Urinary bladder: Unremarkable as visualized. Reproductive: Unremarkable as visualized. Bones/joints: Spondylosis most pronounced at L5-S1. Soft tissues: Anterior abdominal postsurgical changes present in themuscular and subcutaneous layer. IMPRESSION IMPRESSION: 1. Findings of small bowel obstruction with transition in the anteriormid abdomen. 2. Scattered hypodense fluid collections in the abdomen and pelvis with largest located in the left pelvic sidewall and measuring 4.3 x 3.5 x 8.1cm. 3. Right lobe liver capsular hypodensities may represent metastaticdisease. 4. 1.7 x 2.5 cm hypodensity in the tail the pancreas. If not already performed, recommend nonurgent MRI evaluation of the pancreas for further characterization. THIS DOCUMENT HAS BEEN ELECTRONICALLY SIGNED BY RANJIT ORTEGA MD us Merna Humphries MD RAD CT Edited Re sult - Final * LACTATE, WHOLE BLOOD WITH REFLEX IF ABNORMAL (04/29/2024 2:58 PM EST) Lactate 1.3 0.4 - 2.0 mmol/L 04/29/2024 3:26 PM EST LABORATORY [facility] Blood Venous blood specimen / Unknown Venipuncture / Unknown 04/29/2024 2:58 PM EST 04/29/2024 3:03 PM EST us Merna Humphries MD LAB BLOOD ORDERABLES Cindi l Result Performing Organization Address [facility] Co de Phone Number LABORATORY [address] [address] * (ABNORMAL) GLUCOSE METER, POINT OF CARE (04/29/2024 12:58 PM EST) Glucose - POCT 153(H) 70 - 120 mg/dL 04/29/2024 1:00 PM EST [facility] LABORATORY Blood Whole blood specimen / Unknown 04/29/2024 12:58 PM EST 04/29/2024 1:00 PM EST us No Physician Data Unknown LAB POINT OF C ARE TEST DOCKED DEVICE UNSOLICITED RESULTS Final Result Performing Organization Address City/[facility] Co de Phone Number [facility] LABORATORY [address] [place] [phone] * (ABNORMAL) HEPATIC FUNCTION PANEL (04/29/2024 8:17 AM EST) Albumin 3.7(L) 3.8 - 5.0 g/dL 04/29/2024 2:22 PM EST [facility] 56- AST 48(H) 10 - 35 U/L 04/29/2024 2:22 PM EST [facility] 56- Alkaline Phosphatase 106 35 - 130 U/L 04/29/2024 2:22 PM EST [facility] 56- ALT 19 10 - 35 U/L 04/29/2024 2:22 PM EST [facility] [facility] Bilirubin, Total 0.8 <=1.2 mg/dL 04/29/2024 2:22 PM EST [facility] 56- Bilirubin, Direct 0.3 0.0 - 0.3 mg/dL 04/29/2024 2:22 PM EST [facility] 56- Protein 8.0 6.0 - 8.3 g/dL 04/29/2024 2:22 PM EST [facility] 56- Blood Venous blood specimen / Unknown Venipuncture / Unknown 04/29/2024 8:17 AM EST 04/29/2024 8:17 AM EST Merna Humphries MD LAB BLOOD ORDERABLES Cindi l Result [facility] [address] [place] [address] documented in this encounter Visit Diagnoses Diagnosis SBO (small bowel obstruction) (HCC)- Primary Unspecified intestinal obstruction SBO (small bowel obstruction) (HCC) Unspecified intestinal obstruction Intra-abdominal fluid collection Other ascites Hypokalemia Hypopotassemia 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) Chest pain Chest pain, unspecified Electrolyte abnormality Electrolyte and fluid disorders not elsewhere classified Encounter for fitting and adjustment of other gastrointestinal appliance and device Fever, unspecified Presence of other specified devices Cardiac arrest (HCC) Cardiac arrest Cardiac arrhythmia, unspecified Prolonged QT interval Nonspecific abnormal electrocardiogram (ECG) (EKG) Pleural effusion, not elsewhere classified Other nonspecific abnormal finding of lung field QT prolongation Nonspecific abnormal electrocardiogram (ECG) (EKG) Dyspnea, unspecified Other specified diseases of intestine Other specified diseases of anus and rectum Constipation, unspecified 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) Malignant neoplasm of tail of pancreas Tobacco use disorder Hypertension goal BP (blood pressure) < 140/90 Unspecified essential hypertension Hypokalemia Hypopotassemia Elevated glucose Other abnormal glucose Malnutrition of moderate degree (HCC) Malnutrition of moderate degree Palliative care encounter Encounter for palliative care Goals of care, counseling/discussion Other specified counseling Hypomagnesemia Disorders of magnesium metabolism Torsades de pointes (HCC) Paroxysmal ventricular tachycardia Cardiomyopathy (HCC) Other primary cardiomyopathies documented in this encounter Administered Medications Inactive Administered Medications - up to 3 most recent administrations Medication Order MAR Action Action Date Dose Rate Site Acetaminophen (Ofirmev) inj 1,000 mg 1,000 mg, Intravenous, Q8H PRN, 3 doses, Starting on Fri05/03/24 at 1305, Until Fri05/03/24 at 2359, Administer over 15 Minutes, Administer undiluted over 15 minutes! NOTE: Maximum of 4000 mg per 24 hours of acetaminophen from all acetaminophen containing products., Indication: Patient is strictly NPO New Bag 05/03/2024 1:24 PM EST 1,000 mg 400 mL/hr Acetaminophen (Tylenol) tab 650 mg 650 mg, Oral, ONCE, On Fri04/29/24 at 1400, For 1 dose, Maximum of 4 grams (4000 mg) per day. Given 04/29/2024 3:14 PM EST 650 mg ampicillin-sulbactam in NSS (Unasyn) ivpb 1.5 g 1.5 g, IV Piggyback, Q6H, 12 doses, First dose on Fri05/04/24 at 1200, Last dose on Fri05/07/24 at 0600, MIX BEFORE ADMINISTERING! Restarted 05/07/2024 5:31 AM EST 3 g/hr 104 mL/hr New Bag 05/07/2024 5:23 AM EST 1.5 g 104 mL/hr New Bag 05/06/2024 11:46 PM EST 1.5 g 104 mL/hr Bisacodyl (Dulcolax) supp 10 mg 10 mg, Rectal, DAILY PRN Constipation, Starting on Fri04/29/24 at 2008, Until Fri05/07/24 at 1332 calcium CHLORide 1,000 mg in D5W 100 mL ivpb 1,000 mg, IV Piggyback, ONCE, 1 dose, On Fri05/05/24 at 0700, Do not run through TPN line or with any phosphate containing solution 05/05/2024 6:51 AM EST 1,000 mg 230 mL/hr calcium GLUConate 1000 mg in 50ml ivpb 1,000 mg, IV Piggyback, ONCE, 1 dose, On Fri05/03/24 at 1245 05/03/2024 12:34 PM EST 1,000 mg 100 mL/hr calcium GLUConate 1000 mg in 50ml ivpb 1,000 mg, IV Piggyback, ONCE, 1 dose, On Fri05/04/24 at 0015 05/04/2024 3:36 AM EST 1,000 mg 100 mL/hr calcium GLUConate 1000 mg in 50ml ivpb 1,000 mg, IV Piggyback, ONCE, 1 dose, On Fri05/04/24 at 0645 05/04/2024 6:50 AM EST 1,000 mg 100 mL/hr calcium GLUConate 1000 mg in 50ml ivpb 1,000 mg, IV Piggyback, ONCE, 1 dose, On Fri05/04/24 at 1900 05/04/2024 6:48 PM EST 1,000 mg 100 mL/hr calcium GLUConate 2000 mg in 100ml ivpb 2,000 mg, IV Piggyback, ONCE, 1 dose, On Fri05/05/24 at 0830 05/05/2024 10:03 AM EST 2,000 mg 200 mL/hr Clinimix E 4.25-5 infusion Intravenous, at 50 mL/hr Administer over 24 Hours, Verify the bag has been activated prior to administration. *Using some pressure, slowly roll the bag to open the seal between the chambers. Be sure the contents of both chambers are mixed together after breaking the peel seal. Do not pull or rip the seal apart. Mix solutions thoroughly by turning the container upside down at least 3 times.* FILTER WITH A 1.2 MICRON FILTER EXTENSION SET! DO NOT TUBE THIS MEDICATION, [id number], Starting on Fri05/02/24 at 1800, Until Fri05/03/24 at 1759 Rate Verify 05/03/2024 11:00 AM EST 50 mL/hr New Bag 05/02/2024 6:58 PM EST 50 mL/hr D5NSS + KCL 20 mEq 1000 mL infusion Intravenous, at 25 mL/hr, Expires 96 hours after spiking on (date) at (hour) , CONTINUOUS, Starting on Fri05/05/24 at 0830, Until Fri05/07/24 at 1332 New Bag 05/07/2024 4:40 AM EST 25 mL/hr Restarted 05/07/2024 12:42 AM EST 25 mL/hr Restarted 05/06/2024 7:36 PM EST 25 mL/hr dexAMETHasone Sodium Phosphate (Decadron) 4 MG/ML inj 4 mg 4 mg, IV Push, Q12H, First dose on Fri04/30/24 at 1545, Until Discontinued, PROTECT FROM LIGHT Given 05/05/2024 8 :04 AM EST 4 mg Given 05/04/2024 9:21 PM EST 4 mg Given 05/04/2024 7:43 AM EST 4 mg dextrose 50% inj 25 mL 25 mL, IV Push, PRN Hypoglycemia, Other, For blood glucose 54 - 69 mg/dL or 70 - 100 mg/dL with symptoms AND patient is unresponsive, NPO, OR unable to swallow, Starting on Fri04/29/24 at 2006, Until Fri05/07/24 at 1332, Administer IV. Recheck blood glucose after 15 minutes. Notify provider. dextrose 50% inj 50 mL 50 mL, IV Push, PRN Hypoglycemia, Other, For blood glucose below 54 mg/dL AND patient unresponsive, NPO, OR unable to swallow, Starting on Fri04/29/24 at 2006, Until Fri05/07/24 at 1332, Administer IV. Recheck blood glucose in 15 minutes. Notify provider. diatrizoate meglumine & sodium (Gastrografin) KIT 1 Each 1 Each, NG Tube, ONCE, On Fri05/04/24 at 1400, For 1 dose, KIT containing: (3 x 30ml Gastrografin)(1x50ml sterile water)(1 bottle for mixing). Mix the Gastrografin with the water in the mixing bottle. Given 05/04/2024 1:51 PM EST 1 Each diphenhydrAMINE (Benadryl) inj 25 mg 25 mg, IV Push, QHS PRN Sleep, Starting on Fri04/30/24 at 1940, Until Fri05/07/24 at 1332 Given 05/02/2024 8:07 PM EST 25 mg Given 05/01/2024 8:03 PM EST 25 mg Given 04/30/2024 7:52 PM EST 25 mg Famotidine (Pepcid) inj 20 mg 20 mg, IV Push, BID (0800, NOON), First dose on 05/01/24 at 0800, Until Discontinued, Give IV push over 2 minutes. Given 05/05/2024 11:57 AM EST 20 mg Given 05/05/2024 8:04 AM EST 20 mg Given 05/04/2024 11:52 AM EST 20 mg glucagon (Glucagen) inj 1 mg 1 mg, Intramuscular, PRN Hypoglycemia, Other, If patient is unresponsive, or NPO and has no IV access, Starting on Fri04/29/24 at 2006, Until Fri05/07/24 at 1332, NPO and no IV access with either 1) blood glucose less than 100 mg/dL and symptomatic OR 2) blood glucose less than 70 mg/dL and asymptomatic Glucose (Glutose 15) 40 % gel 15 g of glucose 15 g of glucose, Oral, PRN Hypoglycemia (low sugar), Other, For blood glucose 54 - 69 mg/dL or 70 - 100 mg/dL with symptoms AND patient alert WITH difficulty chewing/swallowing, Starting on Fri04/29/24 at 2006, Until Fri05/07/24 at 1332, Administer gel. Recheck blood glucose after 15 minutes. Notify provider. 37.5 gram tube = 15 grams glucose = 1 each Glucose (Glutose 15) 40 % gel 30 g of glucose 30 g of glucose, Oral, PRN Hypoglycemia (low sugar), Other, For blood glucose below 54 mg/dL AND patient alert WITH difficulty chewing/swallowing, Starting on Fri04/29/24 at 2006, Until Fri05/07/24 at 1332, Administer gel. Recheck blood glucose after 15 minutes. Notify provider. 37.5 gram tube = 15 grams glucose = 1 each glucose chew tab 16 g 16 g, Oral, PRN Hypoglycemia, Other, For blood glucose 54 - 69 mg/dL or 70 - 100 mg/dL with symptoms and patient alert without difficulty chewing/swallowing., Starting on Michelle 04/29/24 at 2007, Until Fri05/07/24 at 1332 hEParin inj 5,000 Units 5,000 Units, Subcutaneous, Q8H, First dose on 05/01/24 at 2200, Until Discontinued Given 05/06/2024 2:13 PM EST 5,000 Units Abdomen Right Lower Given 05/05/2024 9:33 PM EST 5,000 Units A bdomen Left Lower Given 05/05/2024 1:27 PM EST 5,000 Units A bdomen Right Lower Iopamidol (Isovue 370) inj 80 mL 80 mL, Intravenous, ONCE, On Michelle 04/29/24 at 1715, For 1 dose, Radiology Medication Routing (Non-IR) Given 04/29/2024 5:15 PM EST 80 mL Isolyte-S PH 7.4 1,000 mL with potassium chloride 40 mEq INFUSION Intravenous, at 100 mL/hr, Refrigerate, CONTINUOUS, Starting on Fri05/01/24 at 0815, Until Fri05/02/24 at 1534 New Bag 05/02/2024 3:34 PM EST 100 mL/hr Rate Verify 05/02/2024 3:34 PM EST 100 mL/hr Restarted 05/02/2024 3:32 PM EST 100 mL/hr Isolyte-S pH 7.4 infusion Intravenous, at 50 mL/hr, Plasma-LYTE 148, isolyte-S, and isolyte-S pH 7.4 are considered equivalent - including for MAR barcode scanning., CONTINUOUS, Starting on Fri05/02/24 at 1615, Until Fri05/05/24 at 0749 New Bag 05/05/2024 12:31 AM EST 50 mL/hr Rate Verify 05/04/2024 6:00 AM EST 50 mL/hr New Bag 05/04/2024 5:50 AM EST 50 mL/hr Lidocaine-Prilocaine (Emla) 2.5-2.5 % topical cream Topical, ONCE, On Michelle 05/06/24 at 1130, For 1 dose, See nursing care plan Given 05/06/2024 11:30 AM EST Magnesium Citrate oral soln 96 mg 96 mg, Oral, Daily(AM), First dose on Fri05/07/24 at 0915, Until Discontinued, 48 mg elemental magnesium per 5 mL magnesium sulfate 1 g in d5w 100mL LOCKED DOSE 1 g, IV Piggyback, ONCE, 1 dose, On Fri04/29/24 at 2030, Administer over 60 Minutes New 04/29/2024 8:53 PM EST 1 g 100 mL/hr magnesium sulfate 1 g in d5w 100mL LOCKED DOSE 1 g, IV Piggyback, ONCE, 1 dose, On Fri05/03/24 at 1345, Administer over 60 Minutes New 05/03/2024 1:47 PM EST 1 g 100 mL/hr magnesium sulfate 1 g in d5w 100mL LOCKED DOSE 1 g, IV Piggyback, ONCE, 1 dose, On Fri05/03/24 at 2145, Administer over 60 Minutes 05/03/2024 9:21 PM EST 1 g 100 mL/hr magnesium sulfate 1 g in d5w 100mL LOCKED DOSE 1 g, IV Piggyback, Q1H, 2 doses, First dose on Fri05/04/24 at 0700, Last dose on Fri05/04/24 at 0800, Administer over 60 Minutes, Total dose is 2g 05/04/2024 8:45 AM EST 1 g 100 mL/hr 05/04/2024 7:34 AM EST 1 g 100 mL/hr magnesium sulfate 1 g in d5w 100mL LOCKED DOSE 1 g, IV Piggyback, Q1H, 2 doses, First dose on Fri05/05/24 at 0700, Last dose on Fri05/05/24 at 0800, Administer over 60 Minutes, Total dose is 2g 05/05/2024 9:11 AM EST 1 g 100 mL/hr 05/05/2024 7:32 AM EST 1 g 100 mL/hr magnesium sulfate 1 g in d5w 100mL LOCKED DOSE 1 g, IV Piggyback, ONCE, 1 dose, On Fri05/05/24 at 0830, Administer over 60 Minutes 05/05/2024 10:25 AM EST 1 g 100 mL/hr morphine sulfate inj 2 mg 2 mg, IV Push, ONCE, On Fri04/29/24 at 1400, For 1 dose Given 04/29/2024 3:13 PM EST 2 mg morphine sulfate inj 2 mg 2 mg, IV Push, Q1H PRN Pain, Severe, Starting on Fri04/30/24 at 1459, Until Fri05/07/24 at 1332 Given 05/03/2024 3:49 PM EST 2 mg Given 05/02/2024 8:08 PM EST 2 mg Given 05/01/2024 8:04 PM EST 2 mg Nicotine (Nicoderm CQ) 14 MG/24HR patch 1 Patch 1 Patch, Transdermal, DAILY PRN Withdrawal symptoms, Starting on Fri04/29/24 at 2017, Until Fri05/07/24 at 1332, Do NOT cut the patch. Remove any Nicotine patches the patient may currently be wearing prior to applying the new patch. Place on clean hairless area. Remove for patient showers. WASTE INFO: Return packaging and waste medication in zip lock bag to pharmacy - [facility] container. NSS 0.9% 1,449 mL bolus infusion IV Piggyback, at 1,449 mL/hr Administer over 60 Minutes, ONCE, 1 dose, On Fri04/29/24 at 1400 New Bag 04/29/2024 3:07 PM EST 1,449 mL 1200 mL/hr NSS infusion Intravenous, at 150 mL/hr, CONTINUOUS, Starting on Fri04/29/24 at 1815, Until Fri05/01/24 at 0734 Restarted 05/01/2024 9:07 AM EST 150 mL/hr New Bag 05/01/2024 5:27 AM EST 150 mL/hr Restarted 05/01/2024 5:26 AM EST 150 mL/hr nystatin oral susp 500,000 Units 500,000 Units, Swish & Spit, QID(AM/NOON/PM/HS), First dose on Fri04/29/24 at 2200, Until Discontinued, Shake well ! Given 04/29/2024 8:53 PM EST 500,000 Units ondansetron (Zofran) inj 4 mg 4 mg, IV Push, ONCE, On Fri04/29/24 at 1400, For 1 dose Given 04/29/2024 3:11 PM EST 4 mg ondansetron (Zofran) inj 4 mg 4 mg, IV Push, Q6H PRN Nausea, Starting on Fri04/29/24 at 1943, Until Fri04/30/24 at 1500 Given 04/30/2024 10:14 AM EST 4 mg ondansetron (Zofran) inj 4 mg 4 mg, IV Push, Q6H PRN Nausea, Vomiting, Starting on Fri04/30/24 at 1459, Until Fri05/05/24 at 1211 Given 05/01/2024 3:11 PM EST 4 mg phenol (chlorASEPTIC) spray 3 [place] 3 [place], Oral, Q4H PRN Sore throat, Starting on Fri04/29/24 at 1936, Until Fri05/07/24 at 1332, See nursing care plan Given 04/30/2024 5:54 PM EST 3 Sprays Piperacillin-Tazobactam (Zosyn) 4.5 g in 100 mL NSS ivpb (FOUR hour infusion) IV Piggyback, 4.5 g, Q8HNOW, 15 doses, First dose on Fri05/02/24 at 1400, Last dose on Fri05/07/24 at 0600, Administer over 4 Hours, at 26.25 mL/hr Rate Verify 05/04/2024 6:00 AM EST 1.125 g/hr 26.25 mL/hr New Bag 05/04/2024 5:48 AM EST 4.5 g 26.25 mL/hr New Bag 05/03/2024 10:48 PM EST 4.5 g 26.25 mL/hr Piperacillin-Tazobactam (Zosyn) 4.5 g in 100 mL NSS ivpb (HALF hour infusion) IV Piggyback, 4.5 g, ONCE, 1 dose, On Fri05/02/24 at 0800, Administer over 30 Minutes New Bag 05/02/2024 9:26 AM EST 4.5 g 210 mL/hr potassium and sodium phosphate (Phos-Nak) oral powder 2 Packet 2 Packet, Oral, ONCE, On Fri05/06/24 at 0800, For 1 dose, Mix 1 packet in 2.5 ounces (75 mL) of water, stir well and administer promptly. 1 packet contains Phosphorus 250 mg (~8 mMoles) + potassium 280 mg (~7.125 mEq) + sodium 160mg (~7.125 mEq) Given 05/06/2024 7:55 AM EST 2 Packets potassium and sodium phosphate (Phos-Nak) oral powder 2 Packet 2 Packet, Oral, Daily(AM), First dose on Fri05/07/24 at 0900, Until Discontinued, Mix 1 packet in 2.5 ounces (75 mL) of water, stir well and administer promptly. 1 packet contains Phosphorus 250 mg (~8 mMoles) + potassium 280 mg (~7.125 mEq) + sodium 160mg (~7.125 mEq) Given 05/07/2024 8:42 AM EST 2 Packets potassium chloride 10 mEq in 100 mL ivpb LOCKED DOSE 10 mEq, Peripheral IV, ONCE, 1 dose, On Michelle 04/29/24 at 1400, Administer over 60 Minutes, Standard infusion duration is 60 minutes. New Bag 04/29/2024 3:10 PM EST 10 mEq 100 mL/hr potassium chloride 10 mEq in 100 mL ivpb LOCKED DOSE 10 mEq, Peripheral IV, Q1H, 3 doses, First dose on Fri04/29/24 at 2200, Last dose on Fri04/30/24 at 0000, Administer over 60 Minutes, Standard infusion duration is 60 minutes. New Bag 04/30/2024 12:54 AM EST 10 mEq 100 mL/hr New Bag 04/29/2024 11:45 PM EST 10 mEq 100 mL/hr New Bag 04/29/2024 10:06 PM EST 10 mEq 100 mL/hr potassium chloride 10 mEq in 100 mL ivpb LOCKED DOSE 10 mEq, Peripheral IV, Q1H, 3 doses, First dose (after last reorder) on Fri04/30/24 at 0700, Last dose on Fri04/30/24 at 0900, Administer over 60 Minutes, Standard infusion duration is 60 minutes. Rate Verify 04/30/2024 9:52 AM EST 10 mEq/hr 100 mL/hr Rate Verify 04/30/2024 9:51 AM EST 10 mEq/hr 100 mL/hr New Bag 04/30/2024 9:39 AM EST 10 mEq 100 mL/hr potassium chloride 10 mEq in 100 mL ivpb LOCKED DOSE 10 mEq, Peripheral IV, Q1H, 3 doses, First dose (after last reorder) on [facility] 05/01/24 at 0900, Last dose on [facility] 05/01/24 at 1100, Administer over 60 Minutes, Standard infusion duration is 60 minutes. New Bag 05/01/2024 11:43 AM EST 10 mEq 100 mL/hr New Bag 05/01/2024 10:41 AM EST 10 mEq 100 mL/hr Rate Verify 05/01/2024 9:16 AM EST 10 mEq/hr 100 mL/hr potassium chloride 10 mEq in 100 mL ivpb LOCKED DOSE 10 mEq, Peripheral IV, Q1H, 3 doses, First dose on Fri05/03/24 at 1300, Last dose on Fri05/03/24 at 1500, Administer over 60 Minutes, Standard infusion duration is 60 minutes. New Bag 05/03/2024 12:52 PM EST 10 mEq 100 mL /hr potassium chloride 10 mEq in 100 mL ivpb LOCKED DOSE 10 mEq, Peripheral IV, Q1H, 2 doses, First dose (after last modification) on Fri05/03/24 at 1400, Last dose on Fri05/03/24 at 1500, Administer over 60 Minutes, Standard infusion duration is 60 minutes. New Bag 05/03/2024 3:09 PM EST 10 mEq 100 mL/hr New Bag 05/03/2024 2:06 PM EST 10 mEq 100 mL/hr potassium chloride 10 mEq in 100 mL ivpb LOCKED DOSE 10 mEq, Peripheral IV, Q1H, 3 doses, First dose on Fri05/03/24 at 2200, Last dose on Fri05/04/24 at 0000, Administer over 60 Minutes, Standard infusion duration is 60 minutes. New Bag 05/04/2024 1:49 AM EST 10 mEq 100 mL/hr New Bag 05/04/2024 12:45 AM EST 10 mEq 100 mL/hr New Bag 05/03/2024 11:42 PM EST 10 mEq 100 mL/hr potassium chloride 10 mEq in 100 mL ivpb LOCKED DOSE 10 mEq, Peripheral IV, Q1H, 3 doses, First dose on Fri05/05/24 at 0700, Last dose on Fri05/05/24 at 0900, Administer over 60 Minutes, Standard infusion duration is 60 minutes. New Bag 05/05/2024 9:13 AM EST 10 mEq 100 mL/hr New Bag 05/05/2024 8:03 AM EST 10 mEq 100 mL/hr New Bag 05/05/2024 6:46 AM EST 10 mEq 100 mL/hr potassium chloride 10 mEq in 100 mL ivpb LOCKED DOSE 10 mEq, Peripheral IV, Q1H, 3 doses, First dose on Fri05/05/24 at 0900, Last dose on Fri05/05/24 at 1100, Administer over 60 Minutes, Standard infusion duration is 60 minutes. New Bag 05/05/2024 12:53 PM EST 10 mEq 100 mL /hr New Bag 05/05/2024 11:48 AM EST 10 mEq 100 mL/hr New Bag 05/05/2024 10:24 AM EST 10 mEq 100 mL/hr potassium chloride ER tab 40 mEq 40 mEq, Oral, BID (.AM/PM), First dose on Fri05/06/24 at 1000, Until Discontinued, This med should NOT be Crushed or Chewed Given 05/06/2024 9:38 AM EST 40 mEq potassium CHLORide liquid 40 mEq 40 mEq, Oral, TID(AM/NOON/HS), First dose (after last modification) on Fri05/07/24 at 0845, Until Discontinued, This med should NOT be Crushed or Chewed Given 05/07/2024 8:42 AM EST 40 mEq trimethobenzamide (Tigan) inj 100 mg 100 mg, Intramuscular, QID PRN Nausea, Vomiting, Starting on Fri05/05/24 at 1211, Until Fri05/07/24 at 1332 Given 05/06/2024 2:18 PM EST 100 mg Delto id Right Upper Given 05/05/2024 9:34 PM EST 100 mg Th igh Left documented in this encounter Active and Recently Administered Medications Times are shown in EST. Scheduled Medication Order 05/05/2024 05/06/2024 05/07/2024 ampicillin-sulbactam in NSS (Unasyn) ivpb 1.5 g (COMPLETED) 1.5 g, IV Piggyback, Q6H, 12 doses, First dose on Fri05/04/24 at 1200, Last dose on Fri05/07/24 at 0600, MIX BEFORE ADMINISTERING! 0016 (Stopped - Provider: Elvie Aguila, JARROD)0551 (New Bag - Provider: Reena Boland RN)0621 (Stopped - Provider: Elvie Aguila, JARROD)1240 (New Bag - Provider: Michelle Gramajo, JARROD)1310 (Stopped - Provider: Tammi Ledbetter LPN)1807 (New Bag - Provider: Hilary Nixon RN)1837 (Stopped - Provider: Tammi Decrell, GENERAL LABORER)2327 (New Bag - Provider: Tammi Decrell, GENERAL LABORER)2357 (Stopped - Provider: Tammi Deckeiryan, GENERAL LABORER) 0526 (New Bag - Provider: Tammi Deckman, GENERAL LABORER)0527 (Paused - Provider: Tammi Deckman, GENERAL LABORER)0529 (Restarted - Provider: Tammi Deckman, GENERAL LABORER)0533 (Paused - Provider: Tammi Deckman, GENERAL LABORER)0535 (Restarted - Provider: Tammi Deckman, GENERAL LABORER)0602 (Stopped - Provider: Tammi Deckman, GENERAL LABORER)1254 (New Bag - Provider: Michelle Gramajo RN)1324 (Stopped - Provider: Tammi Decrell, GENERAL LABORER)1727 (New Bag - Provider: Jaimie Cohen RN)1757 (Stopped - Provider: Tammi Deckman, GENERAL LABORER)2346 (New Bag - Provider: Tammi Hunterkmalexis, GENERAL LABORER) 0016 (Stopped - Provider: Tammi Deckman, GENERAL LABORER)0523 (New Bag - Provider: Tammi Deckman, GENERAL LABORER)0527 (Paused - Provider: Tammi Ledbetter, GENERAL LABORER)0531 (Restarted - Provider: Tammi Decrell, GENERAL LABORER)0557 (Stopped - Provider: Tammi Ledbetter, GENERAL LABORER) calcium CHLORide 1,000 mg in D5W 100 mL ivpb (COMPLETED) 1,000 mg, IV Piggyback, ONCE, 1 dose, On Fri05/05/24 at 0700, Do not run through TPN line or with any phosphate containing solution 0651 (New Bag - Provider: Reena Boland RN)0721 (Stopped - Provider: Elvie Aguila, JARROD) calcium GLUConate 2000 mg in 100ml ivpb (COMPLETED) 2,000 mg, IV Piggyback, ONCE, 1 dose, On Fri05/05/24 at 0830 1003 (New Bag - Provider: Elvie Aguila, JARROD) dexAMETHasone Sodium Phosphate (Decadron) 4 MG/ML inj 4 mg (CANCELED) 4 mg, IV Push, Q12H, First dose on Fri04/30/24 at 1545, Until Discontinued, PROTECT FROM LIGHT 0804 (Given - Provider: Elive Aguila, JARROD) Famotidine (Pepcid) inj 20 mg (CANCELED) 20 mg, IV Push, BID (0800, NOON), First dose on 05/01/24 at 0800, Until Discontinued, Give IV push over 2 minutes. 0804 (Given - Provider: Elvie Aguila, JARROD)1157 (Given - Provider: Michelle Gramajo RN) hEParin inj 5,000 Units 5,000 Units, Subcutaneous, Q8H, First dose on 05/01/24 at 2200, Until Discontinued 0600 (Not Given - Provider: Reena Boland RN - Reason: Refused-Notify Provider - Comment: refused)1327 (Given - Provider: Michelle Gramajo RN)2133 (Given - Provider: Tammi Ledbetter LPN) 0526 (Not Given - Provider: Tammi Ledbetter LPN - Reason: Refused-Notify Provider)1413 (Given - Provider: Michelle Gramajo RN)2200 (Not Given - Provider: Tammi Ledbetter LPN - Reason: Refused-Notify Provider) 0600 (Not Given - Provider: Tammi Ledbetter LPN - Reason: Refused-Notify Provider) Lidocaine-Prilocaine (Emla) 2.5-2.5 % topical cream (COMPLETED) Topical, ONCE, On Michelle 05/06/24 at 1130, For 1 dose, See nursing care plan 1130 (Given - Provider: Gaurav Hazel RN - Comment: EMLA cream placed over the top of the port.) Magnesium Citrate oral soln 96 mg 96 mg, Oral, Daily(AM), First dose on Fri05/07/24 at 0915, Until Discontinued, 48 mg elemental magnesium per 5 mL 0915 (Due) magnesium sulfate 1 g in d5w 100mL LOCKED DOSE (COMPLETED) 1 g, IV Piggyback, Q1H, 2 doses, First dose on Fri05/05/24 at 0700, Last dose on Fri05/05/24 at 0800, Administer over 60 Minutes, Total dose is 2g 0732 (New Bag - Provider: Elvie Aguila RN)0911 (New Bag - Provider: Elvie Aguila, JARROD)1013 (Stopped - Provider: Elvie Aguila, RN) magnesium sulfate 1 g in d5w 100mL LOCKED DOSE (COMPLETED) 1 g, IV Piggyback, ONCE, 1 dose, On Fri05/05/24 at 0830, Administer over 60 Minutes 1025 (New Bag - Provider: Elvie Aguila, JARROD) potassium and sodium phosphate (Phos-Nak) oral powder 2 Packet (COMPLETED) 2 Packet, Oral, ONCE, On Fri05/06/24 at 0800, For 1 dose, Mix 1 packet in 2.5 ounces (75 mL) of water, stir well and administer promptly. 1 packet contains Phosphorus 250 mg (~8 mMoles) + potassium 280 mg (~7.125 mEq) + sodium 160mg (~7.125 mEq) 0755 (Given - Provider: Laura Hdz RN) potassium and sodium phosphate (Phos-Nak) oral powder 2 Packet 2 Packet, Oral, Daily(AM), First dose on Fri05/07/24 at 0900, Until Discontinued, Mix 1 packet in 2.5 ounces (75 mL) of water, stir well and administer promptly. 1 packet contains Phosphorus 250 mg (~8 mMoles) + potassium 280 mg (~7.125 mEq) + sodium 160mg (~7.125 mEq) 0842 (Given - Provider: Kenneth Pearl RN) potassium chloride 10 mEq in 100 mL ivpb LOCKED DOSE (COMPLETED) 10 mEq, Peripheral IV, Q1H, 3 doses, First dose on Fri05/05/24 at 0700, Last dose on Fri05/05/24 at 0900, Administer over 60 Minutes, Standard infusion duration is 60 minutes. 0646 (New Bag - Provider: Reena Boland, JARROD)0803 (New Bag - Provider: Elvie Aguila, JARROD)0913 (New Bag - Provider: Elvie Aguila, JARROD)1013 (Stopped - Provider: Elvie Aguila, JARROD) potassium chloride 10 mEq in 100 mL ivpb LOCKED DOSE (COMPLETED) 10 mEq, Peripheral IV, Q1H, 3 doses, First dose on Fri05/05/24 at 0900, Last dose on Fri05/05/24 at 1100, Administer over 60 Minutes, Standard infusion duration is 60 minutes. 1024 (New Bag - Provider: Elvie Aguila RN)1148 (New Bag - Provider: Michelle Gramajo RN)1253 (New Bag - Provider: Laura Hdz RN) potassium chloride ER tab 40 mEq (CANCELED) 40 mEq, Oral, BID (.AM/PM), First dose on Fri05/06/24 at 1000, Until Discontinued, This med should NOT be Crushed or Chewed 0938 (Given - Provider: Michelle Gramajo RN - Comment: confirmed with primo in pharmacy)220 (Not Given - Provider: Tammi Ledbetter LPN - Reason: Other-Notify Provider - Comment: pt states she is unable to take them and keep htem down) potassium CHLORide liquid 40 mEq 40 mEq, Oral, TID(AM/NOON/HS), First dose (after last modification) on Fri05/07/24 at 0845, Until Discontinued, This med should NOT be Crushed or Chewed 0842 (Given - Provider: Kenneth Pearl RN) Continuous Medication Order 05/05/2024 05/06/2024 05/07/2024 [id number] + KCL 20 mEq 1000 mL infusion Intravenous, at 25 mL/hr, Expires 96 hours after spiking on (date) at (hour) , CONTINUOUS, Starting on Fri05/05/24 at 0830, Until Fri05/07/24 at 1332 1001 (New Bag - Provider: Elvie Aguila RN)1123 (Paused - Provider: Tammi Ledbetter LPN)1129 (Restarted - Provider: Tammi Ledbetter LPN)1139 (Paused - Provider: Tammi Ledbetter LPN)1145 (Restarted - Provider: Tammi Ledbetter LPN)1145 (Paused - Provider: Tammi Ledbetter LPN)1151 (Restarted - Provider: Tammi Ledbetter LPN) 0406 (Rate Verify - Provider: Tammi Ledbetter LPN)1726 (Paused - Provider: Tammi Ledbetter LPN)1911 (Restarted - Provider: Tammi Ledbetter LPN)1913 (Paused - Provider: Tammi Ledbetter LPN)1917 (Restarted - Provider: Tammi Ledbetter LPN)191 (Paused - Provider: Tammi Ledbetter LPN)193 (Restarted - Provider: Tammi Ledbetter LPN)2345 (Paused - Provider: Tammi Ledbetter LPN) 0042 (Restarted - Provider: Tammi Ledbetter LPN)0419 (Stopped - Provider: Tammi Ledbetter LPN)0440 (New Bag - Provider: Tammi Ledbetter LPN)0521 (Stopped - Provider: Tammi Ledbetter LPN) Isolyte-S pH 7.4 infusion (CANCELED) Intravenous, at 50 mL/hr, Plasma-LYTE 148, isolyte-S, and isolyte-S pH 7.4 are considered equivalent - including for MAR barcode scanning., CONTINUOUS, Starting on Fri05/02/24 at 1615, Until Fri05/05/24 at 0749 0031 (New Bag - Provider: Reena Boland, RN)0913 (Stopped - Provider: Elvie Aguila, JARROD) PRN Medication Order 05/05/2024 05/06/2024 05/07/2024 Bisacodyl (Dulcolax) supp 10 mg 10 mg, Rectal, DAILY PRN Constipation, Starting on Michelle 04/29/24 at 2008, Until Fri05/07/24 at 1332 dextrose 50% inj 25 mL 25 mL, IV Push, PRN Hypoglycemia, Other, For blood glucose 54 - 69 mg/dL or 70 - 100 mg/dL with symptoms AND patient is unresponsive, NPO, OR unable to swallow, Starting on Michelle 04/29/24 at 2006, Until Fri05/07/24 at 1332, Administer IV. Recheck blood glucose after 15 minutes. Notify provider. dextrose 50% inj 50 mL 50 mL, IV Push, PRN Hypoglycemia, Other, For blood glucose below 54 mg/dL AND patient unresponsive, NPO, OR unable to swallow, Starting on Michelle 04/29/24 at 2006, Until Fri05/07/24 at 1332, Administer IV. Recheck blood glucose in 15 minutes. Notify provider. diphenhydrAMINE (Benadryl) inj 25 mg 25 mg, IV Push, QHS PRN Sleep, Starting on Fri04/30/24 at 1940, Until Fri05/07/24 at 1332 glucagon (Glucagen) inj 1 mg 1 mg, Intramuscular, PRN Hypoglycemia, Other, If patient is unresponsive, or NPO and has no IV access, Starting on Fri04/29/24 at 2006, Until Fri05/07/24 at 1332, NPO and no IV access with either 1) blood glucose less than 100 mg/dL and symptomatic OR 2) blood glucose less than 70 mg/dL and asymptomatic Glucose (Glutose 15) 40 % gel 15 g of glucose 15 g of glucose, Oral, PRN Hypoglycemia (low sugar), Other, For blood glucose 54 - 69 mg/dL or 70 - 100 mg/dL with symptoms AND patient alert WITH difficulty chewing/swallowing, Starting on Fri04/29/24 at 2006, Until Fri05/07/24 at 1332, Administer gel. Recheck blood glucose after 15 minutes. Notify provider. 37.5 gram tube = 15 grams glucose = 1 each Glucose (Glutose 15) 40 % gel 30 g of glucose 30 g of glucose, Oral, PRN Hypoglycemia (low sugar), Other, For blood glucose below 54 mg/dL AND patient alert WITH difficulty chewing/swallowing, Starting on Fri04/29/24 at 2006, Until Fri05/07/24 at 1332, Administer gel. Recheck blood glucose after 15 minutes. Notify provider. 37.5 gram tube = 15 grams glucose = 1 each glucose chew tab 16 g 16 g, Oral, PRN Hypoglycemia, Other, For blood glucose 54 - 69 mg/dL or 70 - 100 mg/dL with symptoms and patient alert without difficulty chewing/swallowing., Starting on Fri04/29/24 at 2006, Until Fri05/07/24 at 1332 morphine sulfate inj 2 mg 2 mg, IV Push, Q1H PRN Pain, Severe, Starting on Fri04/30/24 at 1459, Until Fri05/07/24 at 1332 Nicotine (Nicoderm CQ) 14 MG/24HR patch 1 Patch 1 Patch, Transdermal, DAILY PRN Withdrawal symptoms, Starting on Fri04/29/24 at 2017, Until Fri05/07/24 at 1332, Do NOT cut the patch. Remove any Nicotine patches the patient may currently be wearing prior to applying the new patch. Place on clean hairless area. Remove for patient showers. WASTE INFO: Return packaging and waste medication in zip lock bag to pharmacy - [facility] container. phenol (chlorASEPTIC) spray 3 [place] 3 [place], Oral, Q4H PRN Sore throat, Starting on Michelle 04/29/24 at 1936, Until Fri05/07/24 at 1332, See nursing care plan sodium chloride 0.9 % flush/inj 3 mL 3 mL, IV Push, PRN Other, Line Patency, Starting on Michelle 04/29/24 at 1942, Until Fri05/07/24 at 1332, Do not flush if lock, PICC, or central line not in place, IV infusing or unable to flush trimethobenzamide (Tigan) inj 100 mg 100 mg, Intramuscular, QID PRN Nausea, Vomiting, Starting on Fri05/05/24 at 1211, Until Fri05/07/24 at 1332 2134 (Given - Provider: Tammi Ledbetter LPN) 1418 (Given - Provider: Michelle Gramajo RN) documented in this encounter Advance Directives * Full Code (Latest Code Status on File) Date Activated Date Inactivated Comments 04/29/2024 7:43 PM 05/07/2024 1:37 PM This order r eflects the patients wishes and were consensually agreed upon. Question Answer Comments Discussion of Advance Directives occurred with: Patient Healthcare Agents on File Name Relationship Healthcare Agent Relationshi p Communication Deondre Cheema Spouse Health Care Repr esentative (appointed verbally by patient or by statute hierarchy) Care Teams Data Power Consultant Relationship Specialty Start Date End Date Sherwin Painter MD [id number] [facility] [place] [id number] PCP - General Family Medicine 09/21/23 documented as of this encounter
--- OUTSIDE RECORDS SUMMARY | 2024-05-14 13:45 | External Medical Summary ---
Author Name Unknown Address Unknown Organization K1F:LABORATORY [facility] - [address] [place] [address] Laboratory Report Ordering Provider Test Date Status ANGELINA OVIEDO 05/06/2024 17:49:00 Final Observation Date Value Abnormality Reference (Units ) Status Magnesium 05/06/2024 17:49:00 1.4 Below low normal 1.5 -2.6 (mg/dL) Final Performing Location LABORATORY [facility] - [address] [place] [address]
--- OUTSIDE RECORDS SUMMARY | 2024-05-14 13:45 | External Medical Summary ---
Author Name Unknown Address Unknown Organization K1F:LABORATORY [facility] - [address] [place] [address] Laboratory Report Ordering Provider Test Date Status PREETANGELINA 05/06/2024 17:49:00 Final Observation Date Value Abnormality Reference (Units ) Status Calcium.ionized [Moles/volume] in Serum or Plasma by Ion-selective membrane electrode (ISE) 05/06/2024 17:49:00 0.98 Below low normal 1.13-1.32 (mmol/L) Final This test was developed and its performance characteristics dtermined by [employer]. It has not been cleared or approved by the [place] Food and Drug Administration Performing Location LABORATORY [facility] - [address] [address]
--- OUTSIDE RECORDS SUMMARY | 2024-05-14 13:46 | External Medical Summary ---
Author Name Unknown Address Unknown Organization K1F:LABORATORY [facility] - [address] [place] [address] Laboratory Report Ordering Provider Test Date Status PREETANGELINA 05/05/2024 17:21:00 Final Observation Date Value Abnormality Reference (Units ) Status Calcium.ionized [Moles/volume] in Serum or Plasma by Ion-selective membrane electrode (ISE) 05/05/2024 17:21:00 1.08 Below low normal 1.13-1.32 (mmol/L) Final This test was developed and its performance characteristics dtermined by [facility]. It has not been cleared or approved by the [place] Food and Drug Administration Performing Location LABORATORY [facility] - [address] [address]
--- OUTSIDE RECORDS SUMMARY | 2024-05-14 13:46 | External Medical Summary ---
Author Name Unknown Address Unknown Organization K1F:LABORATORY [facility] - [address] [place] [address] Laboratory Report Ordering Provider Test Date Status ANGELINA OVIEDO 05/05/2024 05:43:00 Final Observation Date Value Abnormality Reference (Units ) Status Phosphate 05/05/2024 05:43:00 3.1 2.5-4.8 (m g/dL) Final Performing Location LABORATORY [facility] - [address] [place] [address]
--- OUTSIDE RECORDS SUMMARY | 2024-05-14 13:46 | External Medical Summary ---
Author Name Unknown Address Unknown Organization K1F:LABORATORY [facility] - [address] [place] [address] Laboratory Report Ordering Provider Test Date Status ANGELINA OVIEDO 05/05/2024 05:43:00 Final Observation Date Value Abnormality Reference (Units ) Status Magnesium 05/05/2024 05:43:00 1.5 1.5-2.6 (m g/dL) Final Performing Location LABORATORY [facility] - [address] [place] [address]
--- OUTSIDE RECORDS SUMMARY | 2024-05-14 13:46 | External Medical Summary ---
Author Name Unknown Address Unknown Organization : Laboratory Report Ordering Provider Test Date Status SREEKANTH NOLEN 05/05/2024 07:46:25 Final Observation Date Value Abnormality Reference (Units ) Status Glucose Point of Care 05/05/2024 07:46:25 109 70-120 (mg/dL) Final Performing Location
--- OUTSIDE RECORDS SUMMARY | 2024-05-14 13:46 | External Medical Summary ---
Author Name Unknown Address Unknown Organization K1F:LABORATORY [facility] - [address] [place] [address] Laboratory Report Ordering Provider Test Date Status ANGELINA OVIEDO 05/05/2024 05:43:00 Final Observation Date Value Abnormality Reference (Units ) Status BUN 05/05/2024 05:43:00 10 6-20 (mg/dL) Final Creatinine 05/05/2024 05:43:00 0.4 Below low normal 0.5-1.0 (mg/dL) Final Glomerular filtration rate/1.73 sq M.predicted [Volume Rate/Area] in Serum, Plasma or Blood by Creatinine-based formula (CKD-EPI) 05/05/2024 05:43:00 >90 >=60 (mL/min) Final eGFR is calculated based on the CKD-EPI 2020 equation. Sodium 05/05/2024 05:43:00 136 135-146 (m mol/L) Final Potassium 05/05/2024 05:43:00 3.2 Below low normal 3.5 -5.1 (mmol/L) Final Cl 05/05/2024 05:43:00 99 98-107 (mm ol/L) Final CO2 05/05/2024 05:43:00 25 22-32 (mmo l/L) Final Anion gap 05/05/2024 05:43:00 12 7-15 (mmol /L) Final Glucose 05/05/2024 05:43:00 111 70-120 (mg /dL) Final Calcium 05/05/2024 05:43:00 7.6 Below low normal 8.4 -10.2 (mg/dL) Final Performing Location LABORATORY [facility] - [address] [place] [address]
--- OUTSIDE RECORDS SUMMARY | 2024-05-14 13:46 | External Medical Summary ---
Author Name Unknown Address Unknown Organization K1F:LABORATORY [facility] - [address] [place] [address] Laboratory Report Ordering Provider Test Date Status ANGELINA OVIEDO 05/03/2024 20:00:00 Final Observation Date Value Abnormality Reference (Units ) Status BUN 05/03/2024 20:00:00 16 6-20 (mg/dL) Final Creatinine 05/03/2024 20:00:00 0.4 Below low normal 0.5-1.0 (mg/dL) Final Glomerular filtration rate/1.73 sq M.predicted [Volume Rate/Area] in Serum, Plasma or Blood by Creatinine-based formula (CKD-EPI) 05/03/2024 20:00:00 >90 >=60 (mL/min) Final eGFR is calculated based on the CKD-EPI 2020 equation. Sodium 05/03/2024 20:00:00 137 135-146 (m mol/L) Final Potassium 05/03/2024 20:00:00 3.7 3.5-5.1 (m mol/L) Final Cl 05/03/2024 20:00:00 103 98-107 (mm ol/L) Final CO2 05/03/2024 20:00:00 23 22-32 (mmo l/L) Final Anion gap 05/03/2024 20:00:00 11 7-15 (mmol /L) Final Glucose 05/03/2024 20:00:00 130 Above high normal 70 -120 (mg/dL) Final Calcium 05/03/2024 20:00:00 7.9 Below low normal 8.4 -10.2 (mg/dL) Final Performing Location LABORATORY [facility] - [address] [address]
--- OUTSIDE RECORDS SUMMARY | 2024-05-14 13:46 | External Medical Summary ---
Author Name Unknown Address Unknown Organization K1F:LABORATORY [facility] - [facility] [address] [place] [address] Laboratory Report Ordering Provider Test Date Status ANGELINA OVIEDO 05/05/2024 05:43:00 Final Observation Date Value Abnormality Reference (Units ) Status WBC, Total 05/05/2024 05:43:00 5.80 4.00-10.80 (K/uL) Final RBC 05/05/2024 05:43:00 4.02 3.85-5.15 (M/uL) Final Hemoglobin 05/05/2024 05:43:00 12.2 12.0-15.3 (g/dL) Final HCT 05/05/2024 05:43:00 35.9 Below low normal 36.0-45.2 (%) Final MCV 05/05/2024 05:43:00 89.3 81.5-97.5 (fL) Final MCH 05/05/2024 05:43:00 30.3 27.0-34.0 (pg) Final MCHC 05/05/2024 05:43:00 34.0 32.0-36.0 (g/dL) Final RDW 05/05/2024 05:43:00 13.8 11.5-15.5 (%) Final Platelets 05/05/2024 05:43:00 149 140-400 (K/uL) Final MPV 05/05/2024 05:43:00 11.0 6.6-11.1 (fL) Final Nucleated erythrocytes/100 leukocytes [Ratio] in Blood by Automated count 05/05/2024 05:43:00 0 <=0 (/100 WBCs) Final Performing Location LABORATORY [facility] - [address] [address]
--- OUTSIDE RECORDS SUMMARY | 2024-05-14 13:46 | External Medical Summary ---
Author Name Unknown Address Unknown Organization K1F:LABORATORY [facility] - [address] [place] [address] Laboratory Report Ordering Provider Test Date Status ANGELINA OVIEDO 05/04/2024 04:52:00 Final Observation Date Value Abnormality Reference (Units ) Status BUN 05/04/2024 04:52:00 13 6-20 (mg/dL) Final Creatinine 05/04/2024 04:52:00 0.5 0.5-1.0 (mg/dL) Final Glomerular filtration rate/1.73 sq M.predicted [Volume Rate/Area] in Serum, Plasma or Blood by Creatinine-based formula (CKD-EPI) 05/04/2024 04:52:00 >90 >=60 (mL/min) Final eGFR is calculated based on the CKD-EPI 2020 equation. Sodium 05/04/2024 04:52:00 134 Below low normal 135 -146 (mmol/L) Final Potassium 05/04/2024 04:52:00 4.2 3.5-5.1 (m mol/L) Final Cl 05/04/2024 04:52:00 100 98-107 (mm ol/L) Final CO2 05/04/2024 04:52:00 23 22-32 (mmo l/L) Final Anion gap 05/04/2024 04:52:00 11 7-15 (mmol /L) Final Glucose 05/04/2024 04:52:00 123 Above high normal 70 -120 (mg/dL) Final Calcium 05/04/2024 04:52:00 7.9 Below low normal 8.4 -10.2 (mg/dL) Final Performing Location LABORATORY [facility] - [address] [place] [address]
--- OUTSIDE RECORDS SUMMARY | 2024-05-14 13:46 | External Medical Summary ---
Author Name Unknown Address Unknown Organization K1F:LABORATORY [facility] - [facility] [address] [place] [address] Laboratory Report Ordering Provider Test Date Status ANGELINA OVIEDO 05/04/2024 04:52:00 Final Observation Date Value Abnormality Reference (Units ) Status WBC, Total 05/04/2024 04:52:00 4.78 4.00-10.80 (K/uL) Final RBC 05/04/2024 04:52:00 3.69 3.85-5.15 (M/uL) Final Hemoglobin 05/04/2024 04:52:00 11.4 Below low normal 12.0-15.3 (g/dL) Final HCT 05/04/2024 04:52:00 33.8 Below low normal 36.0-45.2 (%) Final MCV 05/04/2024 04:52:00 91.6 81.5-97.5 (fL) Final MCH 05/04/2024 04:52:00 30.9 27.0-34.0 (pg) Final MCHC 05/04/2024 04:52:00 33.7 32.0-36.0 (g/dL) Final RDW 05/04/2024 04:52:00 13.8 11.5-15.5 (%) Final Platelets 05/04/2024 04:52:00 148 140-400 (K/uL) Final MPV 05/04/2024 04:52:00 11.1 6.6-11.1 (fL) Final Nucleated erythrocytes/100 leukocytes [Ratio] in Blood by Automated count 05/04/2024 04:52:00 0 <=0 (/100 WBCs) Final Performing Location LABORATORY [facility] - [address] [address]
--- OUTSIDE RECORDS SUMMARY | 2024-05-14 13:46 | External Medical Summary | Summary of Care ---
Author Name Unknown Organization [facility] Address [address] [facility] [place] [address] Phone [phone] Care Team Providers Care Gold Leaf Layer Name Role Phone Sherwin Painter MD Primary Care Provider [phone] Reason for Visit * Reason Onset Date Comments Follow Up 04/28/2024 C1,D1 Abraxane/G emzar Encounter Details Date Type Department Care Team (Late st Contact Info) Description 04/28/2024 Telephone Hematology/Oncology [facility] [place] [address] [facility] [place] [address] [facility]agg[facility] [address] Follow Up (C1,D1 Abraxane/Gemzar) Allergies No known active allergiesdocumented as of this encounter (statuses as of 05/03/2024) Medications Losartan Potassium 100 MG Oral Tablet (Cozaar) Take 1 Tablet by mouth in the morning. 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 Encounter for [...] as of this encounter (statuses as of 05/03/2024) Resolved Problems Problem Noted Date Diagnosed Date [...] as of this encounter (statuses as of 05/03/2024) Immunizations Name Administration Dates Next Due COVID-19 mRNA, LNP-s, No Pre serve, 2-Dose Series (Moderna) 10/13/2020,09/15/2020 TDAP, Age 7 and older, IM (Adacel) 08/06/2011 documented as of this encounter Social History Tobacco Use Types Packs/Day Years Used Date Smoking Tobacco: Every Day Cigarettes 1 48 Smokeless Tobacco: Never Alcohol Use Standard Drinks/Week Comments Yes 0 (1 standard drink = 0.6 oz [...] on file documented as of this encounter Miscellaneous Notes * Telephone Encounter - Paige Jara OSA - 05/03/2024 10:57 AM EST Canceled per note below. * Telephone Encounter - Fernanda Durán RN - 05/03/2024 9:37 AM EST Patient still admitted, no plan for discharge today per gen surg note. Scheduling: please cancel lab appt today/ treatment appt tomorrow. Thanks! * Telephone Encounter - Fernanda Durán RN - 04/30/2024 7:27 AM EST Patient admitted. * Telephone Encounter - Fernanda Durán RN - 04/29/2024 11:24 AM EST Reviewed xray/ labs with Dr Waggoner. K 3.0. Xray does not show obstruction but does show moderate amount of stool. Called patients (patient sleeping). He states that patient has still not had a BM, has beentaking dulcolax, still not passing gas, still vomiting. Reviewed with Dr Waggoner- would recommend going to ED due to constipation, as well as risk for dehydration and further hypokalemia. Patients verbalized understanding, will either take her to [facility] or [facility] ED. * Telephone Encounter - Jaimie Vazquez OSA - 04/29/2024 8:07 AM EST Pt is on the schedule and wanted the xray as well * Telephone Encounter - Scout Bowen RN - 04/28/2024 4:48 PM EST HEMATOLOGY/ONCOLOGY INITIAL CHEMO FOLLOW-UP Post chemo side effects: Nausea Constipation Understands post treatment medications: Yes Understands to call office prior to ER visit/or with issues: Yes Aware of next appointment: Yes Additional information: Pt states that she has been having nausea since yesterday directly after her treatment and today. States she isn't able to keep food down but has been able to stay hydrated ok. She states she hasn't moved her bowels in 5 days, hasn't passed gas. Reviewed with the patient that it can be hard to tellif she is having nausea from chemotherapy or if she is having nausea from possible bowel obstruction. Reviewed with Dr. Waggoner while on the phone. Would advise patient to go to ED but if she refuses troy abdominal Xray tomorrow to rule out obstruction and lab work. Spoke with patient , she states she doesn't want to go to the ER, is agreeable to coming here tomorrow to have an abdominal xray completed and lab work. Abd Xray ordered as well as lab work. Scheduling- please schedule patient for lab [facility] "CBCD,CMP,Mag" anytime inthe morning. documented in this encounter Plan of Treatment Upcoming Encounters Date Type Department Care Team (Late st Contact Info) Description 05/17/2024 9:00 AM EDT Laboratory Laboratory [address] [place] [id number] [address] [place] [place] [address] [place] [address] 05/18/2024 11:30 AM EDT Office Visit Hematology/Oncology [place] [address] [place] [address] Feli Norris CRNP [address] [place] [address] [place] [address] 05/18/2024 12:00 PM EDT Hem/Onc Treatment Hematology/Oncology Treatment, [place] [address] [place] [address] [place], Chair 2 Hem Onc [place] [address] [facility] [address] Health Maintenance Due Date Last Done Comments DXA Scan 1954 Pneumococcal Vaccine: 50+ Years (1 of 2 - PCV) 1973 Zoster Vaccines (1 of 2) 1973 Mammogram 1994 Cologuard 10/31/1999 Colonoscopy 10/31/1999 Colorectal Cancer Screening 10/31/1999 Fecal Occult Blood Test 10/31/1999 Sigmoidoscopy 10/31/1999 Adult Wellness Visit 2020 COVID-19 Vaccine (3 - Moderna risk series) 11/10/2020 10/13/2020, 09/15/2020 DTap/Tdap Vaccines (2 - Td or Tdap) 08/05/2021 08/06/2011 Influenza Vaccine (FLU shot) (#1) 2023 *NEPHROLOGY REFERRAL DUE TO RESISTANT HTN 03/29/2024 Depression Screening 03/02/2025 03/02/2024 Lipid Panel 07/13/2028 07/14/2023, 08/09, 06/11/2018, Additional history exists Pap Smear Discontinued 08/23/2011 (Cour se Completed) Albumin/Creatinine Ratio Discontinued 08/18/2023 Lung Cancer Screening Completed 04/10/2024, 024 HPV (Gardasil) Vaccine Aged Out No lo nger eligible based on patient's age to complete this topic Hepatitis B Vaccine Aged Out No longe r eligible based on patient's age to complete this topic MENINGOCOCCAL (MENACTRA/MENVEO) Aged Out No longer eligible based on patient's age to complete this topic Meningitis B Vaccine (Bexsero/Trumemba) Aged Out No longer eligible based on patient's age to complete this topic documented as of this encounter Medical Devices Implanted Type Area Scrap Drop Engineer Device Identifier Shelf Expiration Date Model / Serial / Lot Power Port 8fr Sngl Lumen Plas - [id number] Implanted:Qty : 1 on 04/21/2024 by Tay Cagle MD at OR [facility] Right: Chest CR BARD : PERIPHERAL VASCULAR [id number] 06/07/2025 [id number] / / [id number] documented as of this encounter Procedures Procedure Name Priority Date/Time Associated Diagnosis Comments XR ABDOMEN OBSTRUCT SERIES W CHEST 1 VIEW STAT 04/29/2024 8:50 AM EST 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 Nonobstructive bowel gas pattern. 2. Moderate colonic stool burden. 3. No focal pulmonary consolidation. Narrative 04/29/2024 9:08 AM EST EXAM: EXAM: XR ABDOMEN OBSTRUCT SERIES W CHEST 1 VIEW DATE TIME: 04/29/2024 - 04/29/2024 8:50 am HISTORY: 68 y/o F r/o obstruction TECHNIQUE: One view of the chest and two views of the abdomen. COMPARISON: PET-CT 04/10/2024. FINDINGS: Right chest wall port terminates near the superior cavoatrial junction. No focal consolidation, pleural effusion, or pneumothorax. Cardiac silhouette is normal in size. Nonobstructive bowel gas pattern. Moderate colonic stool burden. No evidence of subdiaphragmatic free air. No pathologic calcifications are identified. Degenerative changes of the spine. Procedure Note Marlene Alvarado MD - 04/29/2024 EXAM: EXAM: XR ABDOMEN OBSTRUCT SERIES W CHEST 1 VIEW DATE TIME: 04/29/2024 - 04/29/2024 8:50 am HISTORY: 68 y/o F r/o obstruction TECHNIQUE: One view of the chest and two views of the abdomen. COMPARISON: PET-CT 04/10/2024. FINDINGS: Right chest wall port terminates near the superior cavoatrial junction. No focal consolidation, pleural effusion, or pneumothorax. Cardiac silhouette is normal in size. Nonobstructive bowel gas pattern. Moderate colonic stool burden. No evidence of subdiaphragmatic free air. No pathologic calcifications are identified. Degenerative changes of the spine. IMPRESSION IMPRESSION: 1. Nonobstructive bowel gas pattern. 2. Moderate colonic stool burden. 3. No focal pulmonary consolidation. 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 Question Answer Comments Discussion of Advance Directives occurred with: Patient Healthcare Agents on File Name Relationship Healthcare Agent Relationshi p Communication Deondre R Hernández Spouse Health Care Repr esentative (appointed verbally by patient or by statute hierarchy) Care Teams Gold Leaf Layer Relationship Specialty Start Date End Date Sherwin Painter MD [address] [facility] [place] [address] PCP - General Family Medicine 09/21/23 documented as of this encounter
--- OUTSIDE RECORDS SUMMARY | 2024-05-14 13:46 | External Medical Summary ---
Author Name Unknown Address Unknown Organization K1F:[facility] - [address] [place] [address] Laboratory Report Ordering Provider Test Date Status KAMLESH NOLENRANI 05/03/2024 12:07:00 Final Observation Date Value Abnormality Reference (Units ) Status Troponin T 05/03/2024 12:07:00 15 Above high normal < =14 (ng/L) Final Performing Location [facility] - [address] [place] [address]
--- OUTSIDE RECORDS SUMMARY | 2024-05-14 13:46 | External Medical Summary ---
Author Name Unknown Address Unknown Organization : Laboratory Report Ordering Provider Test Date Status SREEKANTH NOLEN 05/05/2024 00:03:56 Final Observation Date Value Abnormality Reference (Units ) Status Glucose Point of Care 05/05/2024 00:03:56 115 70-120 (mg/dL) Final Performing Location
--- OUTSIDE RECORDS SUMMARY | 2024-05-14 13:46 | External Medical Summary ---
Author Name Unknown Address Unknown Organization : Laboratory Report Ordering Provider Test Date Status FRANCESCO AKHTAR 05/05/2024 11:27:33 Final Observation Date Value Abnormality Reference (Units ) Status Glucose Point of Care 05/05/2024 11:27:33 143 Above high normal 70-120 (mg/dL) Final Performing Location
--- OUTSIDE RECORDS SUMMARY | 2024-05-14 13:46 | External Medical Summary ---
Author Name Unknown Address Unknown Organization K1F:[facility] - [address] [place] [address] Laboratory Report Ordering Provider Test Date Status RITIKA RAGUETA 05/05/2024 14:14:00 Final Observation Date Value Abnormality Reference (Units ) Status Magnesium 05/05/2024 14:14:00 1.9 1.5-2.6 (m g/dL) Final Performing Location LAB[facility]ATORY [facility] - [address] [place] [address]
--- OUTSIDE RECORDS SUMMARY | 2024-05-14 13:46 | External Medical Summary ---
Author Name Unknown Address Unknown Organization K1F:LAB[facility]ORY [facility] - [address] [place] [address] Laboratory Report Ordering Provider Test Date Status ANGELINA OVIEDO 05/04/2024 04:52:00 Final Observation Date Value Abnormality Reference (Units ) Status Magnesium 05/04/2024 04:52:00 1.7 1.5-2.6 (m g/dL) Final Performing Location LAB[facility]ATORY [facility] - [address] [place] [address]
--- OUTSIDE RECORDS SUMMARY | 2024-05-14 13:46 | External Medical Summary ---
Author Name Unknown Address Unknown Organization K1F:LAB[facility]AT[facility] - [address] [place] [address] Laboratory Report Ordering Provider Test Date Status SREEKANTH NOLEN 05/03/2024 12:07:00 Final Observation Date Value Abnormality Reference (Units ) Status BUN 05/03/2024 12:07:00 18 6-20 (mg/dL) Final Creatinine 05/03/2024 12:07:00 0.5 0.5-1.0 (mg/dL) Final Glomerular filtration rate/1.73 sq M.predicted [Volume Rate/Area] in Serum, Plasma or Blood by Creatinine-based formula (CKD-EPI) 05/03/2024 12:07:00 >90 >=60 (mL/min) Final eGFR is calculated based on the CKD-EPI 2020 equation. Sodium 05/03/2024 12:07:00 141 135-146 (m mol/L) Final Potassium 05/03/2024 12:07:00 3.4 Below low normal 3.5 -5.1 (mmol/L) Final Cl 05/03/2024 12:07:00 106 98-107 (mm ol/L) Final CO2 05/03/2024 12:07:00 23 22-32 (mmo l/L) Final Anion gap 05/03/2024 12:07:00 12 7-15 (mmol /L) Final Glucose 05/03/2024 12:07:00 202 Above high normal 70 -120 (mg/dL) Final Calcium 05/03/2024 12:07:00 7.9 Below low normal 8.4 -10.2 (mg/dL) Final Performing Location LABORATORY [facility] - [address] [place] [address]
--- OUTSIDE RECORDS SUMMARY | 2024-05-14 13:46 | External Medical Summary ---
Author Name Unknown Address Unknown Organization : Laboratory Report Ordering Provider Test Date Status SREEKANTH NOLEN 05/04/2024 17:40:29 Final Observation Date Value Abnormality Reference (Units ) Status Glucose Point of Care 05/04/2024 17:40:29 105 70-120 (mg/dL) Final Performing Location
--- OUTSIDE RECORDS SUMMARY | 2024-05-14 13:46 | External Medical Summary ---
Author Name Unknown Address Unknown Organization K1F:[facility] - [address] [place] [address] Laboratory Report Ordering Provider Test Date Status ANGELINA OVIEDO 05/04/2024 04:52:00 Final Observation Date Value Abnormality Reference (Units ) Status Phosphate 05/04/2024 04:52:00 2.9 2.5-4.8 (m g/dL) Final Performing Location LAB[facility]ATORY [facility] - [address] [place] [address]
--- OUTSIDE RECORDS SUMMARY | 2024-05-14 13:46 | External Medical Summary ---
Author Name Unknown Address Unknown Organization K1F:LABORATORY [facility] - [address] [place] [address] Laboratory Report Ordering Provider Test Date Status ANGELINA OVIEDO 05/03/2024 20:00:00 Final Observation Date Value Abnormality Reference (Units ) Status Calcium.ionized [Moles/volume] in Serum or Plasma by Ion-selective membrane electrode (ISE) 05/03/2024 20:00:00 1.11 Below low normal 1.13-1.32 (mmol/L) Final This test was developed and its performance characteristics dtermined by [employer]. It has not been cleared or approved by the [place] Food and Drug Administration Performing Location LAB[facility]ATORY [facility] - [address] [place] [address]
--- OUTSIDE RECORDS SUMMARY | 2024-05-14 13:46 | External Medical Summary ---
Author Name Unknown Address Unknown Organization : Laboratory Report Ordering Provider Test Date Status FRANCESCO AKHTAR 05/05/2024 21:37:16 Final Observation Date Value Abnormality Reference (Units ) Status Glucose Point of Care 05/05/2024 21:37:16 124 Above high normal 70-120 (mg/dL) Final Performing Location
--- OUTSIDE RECORDS SUMMARY | 2024-05-14 13:46 | External Medical Summary ---
Author Name Unknown Address Unknown Organization K1F:LABORATORY [facility] - [address] [place] [address] Laboratory Report Ordering Provider Test Date Status ANGELINA OVIEDO 05/04/2024 04:52:00 Final Observation Date Value Abnormality Reference (Units ) Status Calcium.ionized [Moles/volume] in Serum or Plasma by Ion-selective membrane electrode (ISE) 05/04/2024 04:52:00 1.11 Below low normal 1.13-1.32 (mmol/L) Final This test was developed and its performance characteristics dtermined by [employer]. It has not been cleared or approved by the [place] Food and Drug Administration Performing Location LAB[facility]ATORY [facility] - [address] [place] [address]
--- OUTSIDE RECORDS SUMMARY | 2024-05-14 13:46 | External Medical Summary ---
Author Name Unknown Address Unknown Organization : Laboratory Report Ordering Provider Test Date Status SREEKANTH NOLEN 05/04/2024 11:31:02 Final Observation Date Value Abnormality Reference (Units ) Status Glucose Point of Care 05/04/2024 11:31:02 127 Above high normal 70-120 (mg/dL) Final Performing Location
--- OUTSIDE RECORDS SUMMARY | 2024-05-14 13:46 | External Medical Summary ---
Author Name Unknown Address Unknown Organization K1F:LABORATORY [facility] - [address] [place] [address] Laboratory Report Ordering Provider Test Date Status SREEKANTH NOLEN 05/04/2024 16:00:00 Final Observation Date Value Abnormality Reference (Units ) Status Calcium.ionized [Moles/volume] in Serum or Plasma by Ion-selective membrane electrode (ISE) 05/04/2024 16:00:00 1.08 Below low normal 1.13-1.32 (mmol/L) Final This test was developed and its performance characteristics dtermined by [employer]. It has not been cleared or approved by the [place] Food and Drug Administration Performing Location LABORATORY [facility] - [address] [place] [address]
--- OUTSIDE RECORDS SUMMARY | 2024-05-14 13:46 | External Medical Summary | Summary of Care ---
Author Name Unknown Organization [address] [address] Phone [phone] Care Team Providers Care Traveling Engineer Name Role Phone Sherwin Painter MD Primary Care Provider [phone] Reason for Visit * Auth/Cert Specialty Diagnoses / Procedures Referred By Jason t Referred To Contact [address] [address] Phone: [phone] [facility] Emergency Department ([facility]) [address] [place] [address] Phone: tel: fax: Referral ID Status Reason Start Date Expiration Date Visits Re quested Visits Authorized [id number] Encounter Details Date Type Department Care Team (Latest Contact Info) Description 05/04/2024 8:09 AM EST - 05/04/2024 11:59 PM EST Hospital Encounter Cardiac Studies, [address] [address] Discharge Disposition: Home - Self Care Allergies No known active allergiesdocumented as of this encounter (statuses as of 05/05/2024) Medications Losartan Potassium 100 MG Oral Tablet [...] TO ACCESSING. 30 g 1 5 Suspended Ibuprofen 200 MG Oral Tablet (Motrin) Take 1 Tablet by mouth every 4 hours as needed. Suspended documented as of this encounter (statuses as of 05/05/2024) Active Problems Problem Noted Date Diagnosed Date [...] 2024 Primary pancreatic cancer with metastasis to [facility] er site 03/05/2024 DDD (degenerative disc disease), cervical 2023 Alcohol abuse 11/06/2023 Parent refuses immunizations 03/23/2021 Overview (03/23/2021): Refused influenza, Pneumovax. Mammogram declined 03/23/2021 Colonoscopy refused 04/04/2016 Overview (03/23/2021): Refused Cologuard as well. Tobacco use disorder 04/04/2016 Hypertension goal BP (blood pressure) < 140/90 0 08/14/2011 Dyslipidemia, goal LDL below 130 08/14/2011 documented as of this encounter (statuses as of 05/05/2024) Resolved Problems Problem Noted Date Diagnosed Date [...] as of this encounter (statuses as of 05/05/2024) Immunizations Name Administration Dates Next Due COVID-19 [...] documented in this encounter Miscellaneous Notes * Ancillary Progress Note - Galina Whitaker RDCS - 05/04/2024 8:10 AM EST Echo completed at bedside. documented in this encounter Plan of Treatment Upcoming Encounters Date Type Department Care Team (Late st Contact Info) Description 05/17/2024 9:00 AM EDT Laboratory Laboratory [address], [place] [address] [place] [address] [place] [address] [place] [address] 05/18/2024 11:30 AM EDT Office Visit Hematology/Oncology [facility] [place] [address] [facility] [place] [address] Feli Norris CRNP [address] [facility] [place] [address] 05/18/2024 12:00 PM EDT Hem/Onc Treatment Hematology/Oncology Treatment, [place] [address] [place] [address] [place], Chair 2 Hem Onc [facility] [address] [facility] [address] Health Maintenance Due Date Last Done Comments [...] Discontinued 08/18/2023 Lung Cancer Screening Completed 04/10/2024, 02/24/ 024 HPV (Gardasil) Vaccine Aged Out No [...] this encounter Medical Devices Implanted Type Area Pipe Bowls Paint Trimmer Device Identifier Shelf Expiration Date Model / Serial / Lot Power Port 8fr Sngl Lumen Plas - [id number] Implanted:Qty : 1 on 04/21/2024 by Tay Cagle MD at [facility] Right: Chest CR BARD : PERIPHERAL VASCULAR [id number] 06/07/2025 [id number] / / [id number] documented as of this encounter Procedures Procedure Name Priority Date/Time Associated Diagnosis Comments ECHO, COMPLETE (2D), TRANS-THORACIC Routine 05/04/2024 8:10 AM EST Cardiac arrhythmia, unspecified documented in this encounter Results * ECHO, COMPLETE (2D), TRANS-THORACIC (05/04/2024 8:10 AM EST) LEFT VENTRICULAR EJECTION FRACTION 30 % [facility] 05/04/2024 7:42 AM EST Jaimie AVERY ECHOCARDIOLOGY F inal Result [facility] documented in this encounter Advance Directives * [...] patient or by statute hierarchy) Care Teams Traveling Engineer Relationship Specialty Start Date End Date Sherwin Painter MD [address] [facility] [place] [id number] PCP - General Family Medicine 09/21/23 documented as of this encounter
--- OUTSIDE RECORDS SUMMARY | 2024-05-14 13:46 | External Medical Summary ---
Author Name Unknown Address Unknown Organization K1F:LABORATORY [facility] - [address] [place] [address] Laboratory Report Ordering Provider Test Date Status SREEKANTH NOLEN 05/04/2024 16:00:00 Final Observation Date Value Abnormality Reference (Units ) Status BUN 05/04/2024 16:00:00 11 6-20 (mg/dL) Final Creatinine 05/04/2024 16:00:00 0.5 0.5-1.0 (mg/dL) Final Glomerular filtration rate/1.73 sq M.predicted [Volume Rate/Area] in Serum, Plasma or Blood by Creatinine-based formula (CKD-EPI) 05/04/2024 16:00:00 >90 >=60 (mL/min) Final eGFR is calculated based on the CKD-EPI 2020 equation. Sodium 05/04/2024 16:00:00 136 135-146 (m mol/L) Final Potassium 05/04/2024 16:00:00 4.0 3.5-5.1 (m mol/L) Final Cl 05/04/2024 16:00:00 101 98-107 (mm ol/L) Final CO2 05/04/2024 16:00:00 19 Below low normal 22- 32 (mmol/L) Final Anion gap 05/04/2024 16:00:00 16 Above high normal 7- 15 (mmol/L) Final Glucose 05/04/2024 16:00:00 110 70-120 (mg /dL) Final Calcium 05/04/2024 16:00:00 8.1 Below low normal 8.4 -10.2 (mg/dL) Final Performing Location LABORATORY [facility] - [address] [place] [address]
--- OUTSIDE RECORDS SUMMARY | 2024-05-14 13:46 | External Medical Summary ---
Author Name Unknown Address Unknown Organization K1F:LABORATORY [facility] - [address] [place] [address] Laboratory Report Ordering Provider Test Date Status ANGELINA OVIEDO 05/05/2024 05:43:00 Final Observation Date Value Abnormality Reference (Units ) Status Calcium.ionized [Moles/volume] in Serum or Plasma by Ion-selective membrane electrode (ISE) 05/05/2024 05:43:00 1.05 Below low normal 1.13-1.32 (mmol/L) Final This test was developed and its performance characteristics dtermined by [employer]. It has not been cleared or approved by the US Food and Drug Administration Performing Location LABORATORY [facility] - [address] [place] [address]
--- OUTSIDE RECORDS SUMMARY | 2024-05-14 13:46 | External Medical Summary ---
Author Name Unknown Address Unknown Organization K1F:LABORATORY [facility] - [address] [place] [address] Laboratory Report Ordering Provider Test Date Status RITIKA ARGUETA 05/05/2024 14:14:00 Final Observation Date Value Abnormality Reference (Units ) Status BUN 05/05/2024 14:14:00 8 6-20 (mg/dL) Final Creatinine 05/05/2024 14:14:00 0.4 Below low normal 0.5-1.0 (mg/dL) Final Glomerular filtration rate/1.73 sq M.predicted [Volume Rate/Area] in Serum, Plasma or Blood by Creatinine-based formula (CKD-EPI) 05/05/2024 14:14:00 >90 >=60 (mL/min) Final eGFR is calculated based on the CKD-EPI 2020 equation. Sodium 05/05/2024 14:14:00 129 Below low normal 135 -146 (mmol/L) Final Potassium 05/05/2024 14:14:00 4.2 3.5-5.1 (m mol/L) Final Cl 05/05/2024 14:14:00 95 Below low normal 98- 107 (mmol/L) Final CO2 05/05/2024 14:14:00 21 Below low normal 22- 32 (mmol/L) Final Anion gap 05/05/2024 14:14:00 13 7-15 (mmol /L) Final Glucose 05/05/2024 14:14:00 132 Above high normal 70 -120 (mg/dL) Final Calcium 05/05/2024 14:14:00 8.2 Below low normal 8.4 -10.2 (mg/dL) Final Performing Location LABORATORY [facility] - [address] [place] [address]
--- OUTSIDE RECORDS SUMMARY | 2024-05-14 13:46 | External Medical Summary ---
Author Name Unknown Address Unknown Organization K1F:LABORATORY [facility] - [address] [place] [address] Laboratory Report Ordering Provider Test Date Status MARCELLE NOLENI 05/03/2024 12:07:00 Final Observation Date Value Abnormality Reference (Units ) Status Phosphate 05/03/2024 12:07:00 3.3 2.5-4.8 (m g/dL) Final Performing Location LABORATORY [facility] - [address] [place] [address]
--- OUTSIDE RECORDS SUMMARY | 2024-05-14 13:46 | External Medical Summary ---
Author Name Unknown Address Unknown Organization K1F:LABORATORY [facility] - [address] [place] [address] Laboratory Report Ordering Provider Test Date Status ANGELINA OVIEDO 05/05/2024 17:21:00 Final Observation Date Value Abnormality Reference (Units ) Status Magnesium 05/05/2024 17:21:00 1.7 1.5-2.6 (m g/dL) Final Performing Location LABORATORY [facility] - [address] [place] [address]
--- OUTSIDE RECORDS SUMMARY | 2024-05-14 13:46 | External Medical Summary ---
Author Name Unknown Address Unknown Organization K1F:LABORATORY [facility] - [address] [place] [address] Laboratory Report Ordering Provider Test Date Status ANGELINA OVIEDO 05/03/2024 20:00:00 Final Observation Date Value Abnormality Reference (Units ) Status Magnesium 05/03/2024 20:00:00 1.7 1.5-2.6 (m g/dL) Final Performing Location LABORATORY [facility] - [address] [place] [address]
--- OUTSIDE RECORDS SUMMARY | 2024-05-14 13:46 | External Medical Summary ---
Author Name Unknown Address Unknown Organization : Laboratory Report Ordering Provider Test Date Status SREEKANTH NOLEN 05/03/2024 17:30:13 Final Observation Date Value Abnormality Reference (Units ) Status Glucose Point of Care 05/03/2024 17:30:13 160 Above high normal 70-120 (mg/dL) Final Performing Location
--- OUTSIDE RECORDS SUMMARY | 2024-05-14 13:46 | External Medical Summary ---
Author Name Unknown Address Unknown Organization K1F:LABORATORY [facility] - [address] [place] [address] Laboratory Report Ordering Provider Test Date Status ANGELINA OVIEDO 05/05/2024 17:21:00 Final Observation Date Value Abnormality Reference (Units ) Status BUN 05/05/2024 17:21:00 8 6-20 (mg/dL) Final Creatinine 05/05/2024 17:21:00 0.4 Below low normal 0.5-1.0 (mg/dL) Final Glomerular filtration rate/1.73 sq M.predicted [Volume Rate/Area] in Serum, Plasma or Blood by Creatinine-based formula (CKD-EPI) 05/05/2024 17:21:00 >90 >=60 (mL/min) Final eGFR is calculated based on the CKD-EPI 2020 equation. Sodium 05/05/2024 17:21:00 132 Below low normal 135 -146 (mmol/L) Final Potassium 05/05/2024 17:21:00 3.7 3.5-5.1 (m mol/L) Final Cl 05/05/2024 17:21:00 98 98-107 (mm ol/L) Final CO2 05/05/2024 17:21:00 22 22-32 (mmo l/L) Final Anion gap 05/05/2024 17:21:00 12 7-15 (mmol /L) Final Glucose 05/05/2024 17:21:00 122 Above high normal 70 -120 (mg/dL) Final Calcium 05/05/2024 17:21:00 7.7 Below low normal 8.4 -10.2 (mg/dL) Final Performing Location LABORATORY [facility] - [address] [place] [address]
--- OUTSIDE RECORDS SUMMARY | 2024-05-14 13:46 | External Medical Summary ---
Author Name Unknown Address Unknown Organization K1F:LABORATORY [facility] - [address] [place] [address] Laboratory Report Ordering Provider Test Date Status RITIKA ARGUETA 05/05/2024 14:14:00 Final Observation Date Value Abnormality Reference (Units ) Status Calcium.ionized [Moles/volume] in Serum or Plasma by Ion-selective membrane electrode (ISE) 05/05/2024 14:14:00 1.12 Below low normal 1.13-1.32 (mmol/L) Final This test was developed and its performance characteristics dtermined by [facility]. It has not been cleared or approved by the US Food and Drug Administration Performing Location LABORATORY [facility] - [address] [place] [address]
--- OUTSIDE RECORDS SUMMARY | 2024-05-14 13:46 | External Medical Summary ---
Author Name Unknown Address Unknown Organization : Laboratory Report Ordering Provider Test Date Status FRANCESCO AKHTAR 05/05/2024 16:36:18 Final Observation Date Value Abnormality Reference (Units ) Status Glucose Point of Care 05/05/2024 16:36:18 122 Above high normal 70-120 (mg/dL) Final Performing Location
--- OUTSIDE RECORDS SUMMARY | 2024-05-14 13:46 | External Medical Summary ---
Author Name Unknown Address Unknown Organization K1F:LABORATORY [facility] - [address] [place] [address] Laboratory Report Ordering Provider Test Date Status MARCELLE NOLENI 05/04/2024 16:00:00 Final Observation Date Value Abnormality Reference (Units ) Status Phosphate 05/04/2024 16:00:00 3.4 2.5-4.8 (m g/dL) Final Performing Location LABORATORY [facility] - [address] [place] [address]
--- OUTSIDE RECORDS SUMMARY | 2024-05-14 13:46 | External Medical Summary | Summary of Care ---
Author Name Unknown Organization [facility] Address [address] [place] [address] Phone [phone] Care Team Providers Care Architect Manager Name Role Phone Sherwin Painter MD Primary Care Provider [phone] Reason for Visit * Reason Onset Date Comments Follow Up 04/28/2024 C1,D1 Abraxane/G emzar Encounter Details Date Type Department Care Team (Late st Contact Info) Description 04/28/2024 Telephone Hematology/Oncology [facility] [place] [address] [facility] [place] [phone] Melvin Waggoner MD [address] [facility] [address] Follow Up (C1,D1 Abraxane/Gemzar) Allergies No known [...] Active Problems Problem Noted Date Diagnosed Date Malnutrition of moderate degree 04/30/2024 SBO (small [...] verbalized understanding, will either take her to [facility] or [facility] ED. * Telephone Encounter - Jaimie [...] please schedule patient for lab work at [facility] tomorrow "CBCD,CMP,Mag" anytime inthe morning. documented in this encounter Plan of Treatment Upcoming Encounters Date Type Department Care Team (Late st Contact Info) Description 05/17/2024 9:00 AM EDT Laboratory Laboratory [place] Trudy Bundy [address] [place] [phone] Tori Yates [place] Gregor [address] [place] [address] 05/18/2024 11:30 AM EDT Office Visit Hematology/Oncology [facility] [address] [facility] [place] [phone] Feli Norris CRNP [address] [place] [address] [place] [address] 05/18/2024 12:00 PM EDT Hem/Onc Treatment Hematology/Oncology Treatment, [place] [address] [place] [address] Diamond, Chair 2 Hem Onc Scenery [address] [place] [address] Health Maintenance Due Date Last Done Comments [...] RESISTANT HTN 03/29/2024 Depression Screening 03/02/2025 03/02/2024 GFR 05/03/2025 05/03/2024, 04/11, 05/02/2024, Additional history exists Albumin/Creatinine Ratio 08/17/2026 08/18/2023 Lipid Panel 07/13/2028 07/14/2023, 08/09, 06/11/2018, Additional history exists Pap Smear Discontinued 08/23/2011 (Cour se Completed) Lung Cancer Screening Completed 04/10/2024, 024 HPV [...] this encounter Medical Devices Implanted Type Area Reclamation Supervisor Device Identifier Shelf Expiration Date Model / Serial / Lot Power Port 8fr Sngl Lumen Plas - [id number] Implanted:Qty : 1 on 04/21/2024 by Tay Cagle MD at OR [facility] Right: Chest CR BARD : PERIPHERAL VASCULAR [id number] 06/07/2025 [id number] / / [id number] documented as of this encounter Procedures Procedure [...] - 2.6 mg/dL 04/29/2024 9:06 AM EST [facility] 56-02 Blood Venous blood specimen / Unknown Venipuncture / Unknown 04/29/2024 8:17 AM EST 04/29/2024 8:17 AM EST Melvin Waggoner MD LAB BLOOD ORDERABLES Final Res ult [facility] 56-[address] [place] [address] documented in this encounter Visit Diagnoses Diagnosis [...] Relationship Healthcare Agent Relationshi p Communication Deondre Melvin Hernández Spouse Health Care Repr esentative (appointed verbally by patient or by statute hierarchy) Care Teams Architect Manager Relationship Specialty Start Date End Date Sherwin Painter MD [address] [facility] [place] [address] PCP - General Family Medicine 09/21/23 documented as of this encounter
--- OUTSIDE RECORDS SUMMARY | 2024-05-14 13:46 | External Medical Summary ---
Author Name Unknown Address Unknown Organization K1F:LABORATORY [facility] - [address] [place] [address] Laboratory Report Ordering Provider Test Date Status KAMLESH NOLENRANI 05/04/2024 16:00:00 Final Observation Date Value Abnormality Reference (Units ) Status Magnesium 05/04/2024 16:00:00 2.1 1.5-2.6 (m g/dL) Final Performing Location LABORATORY [facility] - [address] [place] [address]
--- OUTSIDE RECORDS SUMMARY | 2024-05-14 13:47 | External Medical Summary ---
Author Name Unknown Address Unknown Organization K1F:LABORATORY [facility] - [address] [place] [address] Laboratory Report Ordering Provider Test Date Status SUKHDEV SETHI 05/02/2024 06:48:00 Final Observation Date Value Abnormality Reference (Units ) Status Albumin 05/02/2024 06:48:00 3.0 Below low normal 3.8-5.0 (g/dL) Final AST (Aspartate aminotransferase) 05/02/2024 06:48:00 20 10-35 (U/L) Final Alk Phos 05/02/2024 06:48:00 91 35-130 (U/L) Final ALT (Alanine aminotransferase) 05/02/2024 06:48:00 15 10-35 (U/L) Final Bilirubin, Total 05/02/2024 06:48:00 0.6 <=1.2 (mg/dL) Final Bilirubin, Direct 05/02/2024 06:48:00 0.2 0.0-0.3 (mg/dL) Final Protein 05/02/2024 06:48:00 7.0 6.0-8.3 (g/dL) Final Performing Location LABORATORY [facility] - [address] [place] [address]
--- OUTSIDE RECORDS SUMMARY | 2024-05-14 13:47 | External Medical Summary ---
Author Name Unknown Address Unknown Organization K1F:LABORATORY [facility] - [address] [place] [address] Laboratory Report Ordering Provider Test Date Status LIEN SOTELOMICHAELA 05/01/2024 04:52:00 Final Observation Date Value Abnormality Reference (Units ) Status WBC, Total 05/01/2024 04:52:00 5.42 4.00-10.80 (K/uL) Final RBC 05/01/2024 04:52:00 3.31 3.85-5.15 (M/uL) Final Hemoglobin 05/01/2024 04:52:00 10.4 Below low normal 12.0-15.3 (g/dL) Final HCT 05/01/2024 04:52:00 30.9 Below low normal 36.0-45.2 (%) Final MCV 05/01/2024 04:52:00 93.4 81.5-97.5 (fL) Final MCH 05/01/2024 04:52:00 31.4 27.0-34.0 (pg) Final MCHC 05/01/2024 04:52:00 33.7 32.0-36.0 (g/dL) Final RDW 05/01/2024 04:52:00 14.1 11.5-15.5 (%) Final Platelets 05/01/2024 04:52:00 249 140-400 (K/uL) Final MPV 05/01/2024 04:52:00 10.6 6.6-11.1 (fL) Final Nucleated erythrocytes/100 leukocytes [Ratio] in Blood by Automated count 05/01/2024 04:52:00 0 <=0 (/100 WBCs) Final Performing Location LABORATORY [facility] - [address] [place] [address]
--- OUTSIDE RECORDS SUMMARY | 2024-05-14 13:47 | External Medical Summary ---
Author Name Unknown Address Unknown Organization K1F:LABORATORY [facility] - [address] [place] [address] Laboratory Report Ordering Provider Test Date Status SUKHDEV SETHI 05/02/2024 15:46:00 Final Observation Date Value Abnormality Reference (Units ) Status Magnesium 05/02/2024 15:46:00 1.5 1.5-2.6 (m g/dL) Final Performing Location LABORATORY [facility] - [address] [place] [address]
--- OUTSIDE RECORDS SUMMARY | 2024-05-14 13:47 | External Medical Summary ---
Author Name Unknown Address Unknown Organization K1F:LABORATORY [facility] - [address] [place] [address] Laboratory Report Ordering Provider Test Date Status SUKHDEV SETHI 05/01/2024 12:12:00 Final Observation Date Value Abnormality Reference (Units ) Status ABO 05/01/2024 12:12:00 O Final RH 05/01/2024 12:12:00 Negative Final RED BLOOD CELL ANTIBODY SCREEN 05/01/2024 12:12:00 Negative Final SPECIMEN EXPIRATION DATE 05/01/2024 12:12:00 05/04/2024 23:59 Final Performing Location LABORATORY [facility] - [address] [place] [address]
--- OUTSIDE RECORDS SUMMARY | 2024-05-14 13:47 | External Medical Summary ---
Author Name Unknown Address Unknown Organization K1F:LABORATORY [facility] - [address] [place] [address] Laboratory Report Ordering Provider Test Date Status SUKHDEV SETHI 05/02/2024 06:48:00 Final Observation Date Value Abnormality Reference (Units ) Status Magnesium 05/02/2024 06:48:00 1.6 1.5-2.6 (m g/dL) Final Performing Location LABORATORY [facility] - [address] [place] [address]
--- OUTSIDE RECORDS SUMMARY | 2024-05-14 13:47 | External Medical Summary ---
Author Name Unknown Address Unknown Organization : Laboratory Report Ordering Provider Test Date Status SREEKANTH NOLEN 05/03/2024 10:54:12 Final Observation Date Value Abnormality Reference (Units ) Status Glucose Point of Care 05/03/2024 10:54:12 153 Above high normal 70-120 (mg/dL) Final Performing Location
--- OUTSIDE RECORDS SUMMARY | 2024-05-14 13:47 | External Medical Summary ---
Author Name Unknown Address Unknown Organization K1F:LABORATORY [facility] - [address] [place] [address] Laboratory Report Ordering Provider Test Date Status MARCELLE NOLENI 05/03/2024 12:07:00 Final Observation Date Value Abnormality Reference (Units ) Status Magnesium 05/03/2024 12:07:00 1.4 Below low normal 1.5 -2.6 (mg/dL) Final Performing Location LABORATORY [facility] - [address] [place] [address]
--- OUTSIDE RECORDS SUMMARY | 2024-05-14 13:47 | External Medical Summary ---
Author Name Unknown Address Unknown Organization : Laboratory Report Ordering Provider Test Date Status SUKHDEV SETHI 05/03/2024 05:49:04 Final Observation Date Value Abnormality Reference (Units ) Status Glucose Point of Care 05/03/2024 05:49:04 173 Above high normal 70-120 (mg/dL) Final Performing Location
--- OUTSIDE RECORDS SUMMARY | 2024-05-14 13:47 | External Medical Summary ---
Author Name Unknown Address Unknown Organization : Laboratory Report Ordering Provider Test Date Status SUKHDEV SETHI 05/02/2024 18:06:29 Final Observation Date Value Abnormality Reference (Units ) Status Glucose Point of Care 05/02/2024 18:06:29 163 Above high normal 70-120 (mg/dL) Final Performing Location
--- OUTSIDE RECORDS SUMMARY | 2024-05-14 13:47 | External Medical Summary ---
Author Name Unknown Address Unknown Organization K1F:LABORATORY [facility] - [address] [place] [address] Laboratory Report Ordering Provider Test Date Status SUKHDEV SETHI 05/02/2024 06:48:00 Final Observation Date Value Abnormality Reference (Units ) Status Phosphate 05/02/2024 06:48:00 3.1 2.5-4.8 (m g/dL) Final Performing Location LABORATORY [facility] - [address] [place] [address]
--- OUTSIDE RECORDS SUMMARY | 2024-05-14 13:47 | External Medical Summary ---
Author Name Unknown Address Unknown Organization K1F:LABORATORY [facility] - [address] [place] [address] Laboratory Report Ordering Provider Test Date Status JENNIFER SOTELO 05/01/2024 04:52:00 Final Observation Date Value Abnormality Reference (Units ) Status Magnesium 05/01/2024 04:52:00 1.7 1.5-2.6 (m g/dL) Final Performing Location LABORATORY [facility] - [address] [place] [address]
--- OUTSIDE RECORDS SUMMARY | 2024-05-14 13:47 | External Medical Summary ---
Author Name Unknown Address Unknown Organization : Laboratory Report Ordering Provider Test Date Status SUKHDEV SETHI 05/02/2024 06:19:24 Final Observation Date Value Abnormality Reference (Units ) Status Glucose Point of Care 05/02/2024 06:19:24 127 Above high normal 70-120 (mg/dL) Final Performing Location
--- OUTSIDE RECORDS SUMMARY | 2024-05-14 13:47 | External Medical Summary ---
Author Name Unknown Address Unknown Organization K1F:LABORATORY [facility] - [address] [place] [address] Laboratory Report Ordering Provider Test Date Status SUKHDEV SETHI 05/01/2024 12:12:00 Final Warfarin Therapy
INR: 2 .0-3.0 conventional anticoagulation
INR: 2.5- 3.5 high intensity anticoagulation Observation Date Value Abnormality Reference (Units ) Status PT 05/01/2024 12:12:00 14.5 11.6-15.2 (seconds) Final INR 05/01/2024 12:12:00 1.1 0.8-1.2 Final Performing Location LABORATORY [facility] - [address] [place] [address]
--- OUTSIDE RECORDS SUMMARY | 2024-05-14 13:47 | External Medical Summary ---
Author Name Unknown Address Unknown Organization K01:LABORATORY [facility] - [address] [place] [address] Laboratory Report Ordering Provider Test Date Status EROS SUTTON 04/30/2024 14:19:44 Final <10,000 colonies/ml mixed no rmal brandi Observation Date Value Abnormality Reference (Units ) Status Bacteria identified in Specimen by Culture 04/30/2024 14:19:44 [id number]^ENTEROC OCCUS SPECIES Abnormal Final 10,000 to 100,000 colonies/m L Enterococcus species Performing Location LABORATORY [facility] - [address] [place] [address] Ordering Provider Test Date Status EROS SUTTON 04/30/2024 14:19:44 Final Observation Date Value Abnormality Reference (Units ) Status Ampicillin 04/30/2024 14:19:44 <=2 Susceptible Final Nitrofurantoin susceptibility 04/30/2024 14:19:44 <=16 Susceptible Final Tetracyclinesusceptibility 04/30/2024 14:19:44 >=16 Resistant Final Vancomycinsusceptibility 04/30/2024 14:19:44 2 Susceptible Final Test: Culture, Urine, Quanti tative
Specimen Source: Urine, Clean Catch
Specimen Type: Urine
Specimen Date: 04/30/2024 1419
Result Date: 05/02/2024 0804
Result Status: Final result
Abnormal: Yes
Resulting Lab: LABORATORY [facility]
[address]
[place] [address]

CULTURE

10,000 to 100,000 colonies/mL Enterococcus species (Abnormal)

<10,000 colonies/ml mixed normal brandi

SUSCEPTIBILITY

Enterococcus
species
METHOD MICROBROTH
DILUTIONS

AMPICILLIN <=2 Susceptible
NITROFURANTOIN <=16 Susceptible
TETRACYCLINE >=16 Resistant
VANCOMYCIN 2 Susceptible

null Performing Location LABORATORY [facility] - [address] [facility] [address]
--- OUTSIDE RECORDS SUMMARY | 2024-05-14 13:47 | External Medical Summary ---
Author Name Unknown Address Unknown Organization K1F:LABORATORY [facility] - [address] [place] [address] Laboratory Report Ordering Provider Test Date Status NAVDEEPSUKHDEV 05/02/2024 15:46:00 Final Observation Date Value Abnormality Reference (Units ) Status BUN 05/02/2024 15:46:00 13 6-20 (mg/dL) Final Creatinine 05/02/2024 15:46:00 0.5 0.5-1.0 (mg/dL) Final Glomerular filtration rate/1.73 sq M.predicted [Volume Rate/Area] in Serum, Plasma or Blood by Creatinine-based formula (CKD-EPI) 05/02/2024 15:46:00 >90 >=60 (mL/min) Final eGFR is calculated based on the CKD-EPI 2020 equation. Sodium 05/02/2024 15:46:00 144 135-146 (m mol/L) Final Potassium 05/02/2024 15:46:00 4.4 3.5-5.1 (m mol/L) Final Cl 05/02/2024 15:46:00 109 Above high normal 98 -107 (mmol/L) Final CO2 05/02/2024 15:46:00 22 22-32 (mmo l/L) Final Anion gap 05/02/2024 15:46:00 13 7-15 (mmol /L) Final Glucose 05/02/2024 15:46:00 143 Above high normal 70 -120 (mg/dL) Final Calcium 05/02/2024 15:46:00 8.5 8.4-10.2 ( mg/dL) Final Performing Location LABORATORY [facility] - [address] [place] [address]
--- OUTSIDE RECORDS SUMMARY | 2024-05-14 13:47 | External Medical Summary ---
Author Name Unknown Address Unknown Organization : Laboratory Report Ordering Provider Test Date Status SUKHDEV SETHI 05/01/2024 11:49:18 Final Observation Date Value Abnormality Reference (Units ) Status Glucose Point of Care 05/01/2024 11:49:18 108 70-120 (mg/dL) Final Performing Location
--- OUTSIDE RECORDS SUMMARY | 2024-05-14 13:47 | External Medical Summary ---
Author Name Unknown Address Unknown Organization K1F:LABORATORY [facility] - [address] [place] [address] Laboratory Report Ordering Provider Test Date Status SUKHDEV SETHI 05/01/2024 04:52:00 Final Less than 0.5 ng/mL: Low ris k for progression to sepsis. Review patients condition for localized infections.

0.5 to 2.0 ng/mL: Intermediate risk for progresion to sepsis. Review underlying conditions. Recommend repeat PCT after 6 hours has elapsed.

Greater than 2.0 ng/mL: high risk for progression to sepsis unless other causes are known. Observation Date Value Abnormality Reference (Units ) Status Procalcitonin [Mass/volume] in Serum or Plasma by Immunoassay 05/01/2024 04:52:00 0.52 Above high normal <0.10 (ng/mL) Final Performing Location LABORATORY [facility] - [address] [place] [address]
--- OUTSIDE RECORDS SUMMARY | 2024-05-14 13:47 | External Medical Summary ---
Author Name Unknown Address Unknown Organization K1F:LABORATORY [facility] - [address] [place] [address] Laboratory Report Ordering Provider Test Date Status SUKHDEV SETHI 05/02/2024 06:48:00 Final Observation Date Value Abnormality Reference (Units ) Status Calcium.ionized [Moles/volume] in Serum or Plasma by Ion-selective membrane electrode (ISE) 05/02/2024 06:48:00 1.21 1.13-1.32 (mmol/L) Final This test was developed and its performance characteristics dtermined by [employer]. It has not been cleared or approved by the [place] Food and Drug Administration Performing Location LABORATORY [facility] - [address] [place] [address]
--- OUTSIDE RECORDS SUMMARY | 2024-05-14 13:47 | External Medical Summary ---
Author Name Unknown Address Unknown Organization K1F:LABORATORY [facility] - [address] [place], [place] [address]V[place] [address] Laboratory Report Ordering Provider Test Date Status CALI SETHIROSAS 05/03/2024 05:46:00 Final Observation Date Value Abnormality Reference (Units ) Status WBC, Total 05/03/2024 05:46:00 4.61 4.00-10.80 (K/uL) Final RBC 05/03/2024 05:46:00 3.54 3.85-5.15 (M/uL) Final Hemoglobin 05/03/2024 05:46:00 11.0 Below low normal 12.0-15.3 (g/dL) Final HCT 05/03/2024 05:46:00 32.8 Below low normal 36.0-45.2 (%) Final MCV 05/03/2024 05:46:00 92.7 81.5-97.5 (fL) Final MCH 05/03/2024 05:46:00 31.1 27.0-34.0 (pg) Final MCHC 05/03/2024 05:46:00 33.5 32.0-36.0 (g/dL) Final RDW 05/03/2024 05:46:00 14.2 11.5-15.5 (%) Final Platelets 05/03/2024 05:46:00 189 140-400 (K/uL) Final MPV 05/03/2024 05:46:00 10.7 6.6-11.1 (fL) Final Nucleated erythrocytes/100 leukocytes [Ratio] in Blood by Automated count 05/03/2024 05:46:00 0 <=0 (/100 WBCs) Final Performing Location LAB[facility]ATORY [facility] - [address] [place] [address]
--- OUTSIDE RECORDS SUMMARY | 2024-05-14 13:47 | External Medical Summary ---
Author Name Unknown Address Unknown Organization K1F:LABORATORY [facility] - [address] [place] [address] Laboratory Report Ordering Provider Test Date Status SUKHDEV SETHI 05/01/2024 12:12:00 Final Observation Date Value Abnormality Reference (Units ) Status Hemoglobin 05/01/2024 12:12:00 10.9 Below low normal 12 .0-15.3 (g/dL) Final HCT 05/01/2024 12:12:00 33.4 Below low normal 36. 0-45.2 (%) Final Performing Location LABORATORY [facility] - [address] [place] [address]
--- OUTSIDE RECORDS SUMMARY | 2024-05-14 13:47 | External Medical Summary ---
Author Name Unknown Address Unknown Organization : Laboratory Report Ordering Provider Test Date Status SUKHDEV SETHI 05/02/2024 12:34:59 Final Observation Date Value Abnormality Reference (Units ) Status Glucose Point of Care 05/02/2024 12:34:59 138 Above high normal 70-120 (mg/dL) Final Performing Location
--- OUTSIDE RECORDS SUMMARY | 2024-05-14 13:47 | External Medical Summary ---
Author Name Unknown Address Unknown Organization K1F:LABORATORY [facility] - [address] [place] [address] Laboratory Report Ordering Provider Test Date Status SUKHDEV SETHI 05/03/2024 05:46:00 Final Warfarin Therapy
INR: 2 .0-3.0 conventional anticoagulation
INR: 2.5- 3.5 high intensity anticoagulation Observation Date Value Abnormality Reference (Units ) Status PT 05/03/2024 05:46:00 13.8 11.6-15.2 (seconds) Final INR 05/03/2024 05:46:00 1.0 0.8-1.2 Final Performing Location LABORATORY [facility] - [address] [place] [address]
--- OUTSIDE RECORDS SUMMARY | 2024-05-14 13:47 | External Medical Summary ---
Author Name Unknown Address Unknown Organization K1F:LABORATORY [facility] - [address] [place] [address] Laboratory Report Ordering Provider Test Date Status SUKHDEV SETHI 05/01/2024 04:52:00 Final Exclude Heart Failure: <300 pg/mL
Diagnose Heart Failure:
Age <50 yr: >450 pg/mL
50-75 yr: >900 pg/mL
>75 yr: >1800 pg/mL
GFR is 30-59 mL/min: >1200 pg/mL or Age- adjusted values
GFR <30 mL/min: do not use, not reliable

Prognostic threshold: 1000 pg/mL Observation Date Value Abnormality Reference (Units ) Status BNP, Pro-hormone 05/01/2024 04:52:00 4357 Above high no rmal <300 (pg/mL) Final Performing Location LABORATORY [facility] - [address] [place] [address]
--- OUTSIDE RECORDS SUMMARY | 2024-05-14 13:47 | External Medical Summary ---
Author Name Unknown Address Unknown Organization K1F:LABORATORY [facility] - [address] [place] [address] Laboratory Report Ordering Provider Test Date Status SUKHDEV SETHI 05/02/2024 06:48:00 Final Observation Date Value Abnormality Reference (Units ) Status SYNC LEUKOCYTES IN BLOOD BY AUTOMATED COUNT 05/02/2024 06:48:00 5.44 4.00-10.80 (K/uL) Final Neutrophils/100 leukocytes in Blood by Manual count 05/02/2024 06:48:00 94.0 Above high normal 40.0-75.0 (%) Final Lymphocytes/100 leukocytes in Blood by Manual count 05/02/2024 06:48:00 6.0 Below low normal 18.0-42.0 (%) Final Neutrophils [#/volume] in Blood by Manual count 05/02/2024 06:48:00 5.11 1.80-7.70 (K/uL) Final Lymphocytes [#/volume] in Blood by Manual count 05/02/2024 06:48:00 0.33 Below low normal 1.00-4.80 (K/uL) Final Performing Location LABORATORY [facility] - [address] [place] [address]
--- OUTSIDE RECORDS SUMMARY | 2024-05-14 13:47 | External Medical Summary ---
Author Name Unknown Address Unknown Organization K1F:LABORATORY [facility] - [address] [place] [address] Laboratory Report Ordering Provider Test Date Status SUKHDEV SETHI 05/02/2024 06:48:00 Final Warfarin Therapy
INR: 2 .0-3.0 conventional anticoagulation
INR: 2.5- 3.5 high intensity anticoagulation Observation Date Value Abnormality Reference (Units ) Status PT 05/02/2024 06:48:00 14.4 11.6-15.2 (seconds) Final INR 05/02/2024 06:48:00 1.1 0.8-1.2 Final Performing Location LABORATORY [facility] - [address] [place] [address]
--- OUTSIDE RECORDS SUMMARY | 2024-05-14 13:47 | External Medical Summary ---
Author Name Unknown Address Unknown Organization : Laboratory Report Ordering Provider Test Date Status SUKHDEV SETHI 05/02/2024 06:48:00 Final Observation Date Value Abnormality Reference (Units ) Status Performing Location
--- OUTSIDE RECORDS SUMMARY | 2024-05-14 13:47 | External Medical Summary ---
Author Name Unknown Address Unknown Organization K1F:LABORATORY [facility] - [address] [place] [address] Laboratory Report Ordering Provider Test Date Status SUKHDEV SETHI 05/03/2024 05:46:00 Final Observation Date Value Abnormality Reference (Units ) Status Bilirubin, Direct 05/03/2024 05:46:00 0.2 0. 0-0.3 (mg/dL) Final Performing Location LABORATORY [facility] - [address] [place] [address]
--- OUTSIDE RECORDS SUMMARY | 2024-05-14 13:47 | External Medical Summary ---
Author Name Unknown Address Unknown Organization : Laboratory Report Ordering Provider Test Date Status JENNIFER SOTELO 05/01/2024 05:33:53 Final Observation Date Value Abnormality Reference (Units ) Status Glucose Point of Care 05/01/2024 05:33:53 89 70-120 (mg/dL) Final Performing Location
--- OUTSIDE RECORDS SUMMARY | 2024-05-14 13:47 | External Medical Summary ---
Author Name Unknown Address Unknown Organization : Laboratory Report Ordering Provider Test Date Status SUKHDEV SETHI 05/02/2024 00:18:24 Final Observation Date Value Abnormality Reference (Units ) Status Glucose Point of Care 05/02/2024 00:18:24 121 Above high normal 70-120 (mg/dL) Final Performing Location
--- OUTSIDE RECORDS SUMMARY | 2024-05-14 13:47 | External Medical Summary ---
Author Name Unknown Address Unknown Organization K1F:LABORATORY [facility] - [address] [place] [address] Laboratory Report Ordering Provider Test Date Status SUKHDEV SETHI 05/02/2024 15:46:00 Final Observation Date Value Abnormality Reference (Units ) Status Lactic Acid, Whole Blood 05/02/2024 15:46:00 1.0 0.4-2.0 (mmol/L) Final Performing Location LABORATORY [facility] - [address] [place] [address]
--- OUTSIDE RECORDS SUMMARY | 2024-05-14 13:47 | External Medical Summary ---
Author Name Unknown Address Unknown Organization : Laboratory Report Ordering Provider Test Date Status SUKHDEV SETHI 05/02/2024 23:24:23 Final Observation Date Value Abnormality Reference (Units ) Status Glucose Point of Care 05/02/2024 23:24:23 175 Above high normal 70-120 (mg/dL) Final Performing Location
--- OUTSIDE RECORDS SUMMARY | 2024-05-14 13:47 | External Medical Summary ---
Author Name Unknown Address Unknown Organization K1F:LABORATORY [facility] - [address] [facility] [place] [address] Laboratory Report Ordering Provider Test Date Status SUKHDEV SETHI 05/03/2024 05:46:00 Final Observation Date Value Abnormality Reference (Units ) Status SYNC LEUKOCYTES IN BLOOD BY AUTOMATED COUNT 05/03/2024 05:46:00 4.61 4.00-10.80 (K/uL) Final Segs 05/03/2024 05:46:00 85.7 Above high normal 40.0-75.0 (%) Final Lymphs % 05/03/2024 05:46:00 10.2 Below low normal 18.0-42.0 (%) Final Monos 05/03/2024 05:46:00 2.4 1.0-11.0 (%) Final Eosinophils 05/03/2024 05:46:00 0.0 0.0-6.0 (%) Final Basos 05/03/2024 05:46:00 0.4 0.0-2.0 (%) Final Immature Granulocyte, Percent 05/03/2024 05:46:00 1.3 0.0-2.0 (%) Final Absolute Segs 05/03/2024 05:46:00 3.95 1.80-7.70 (K/uL) Final Lymphs, absolute 05/03/2024 05:46:00 0.47 Below low normal 1.00-4.80 (K/ul) Final Monos, Abs 05/03/2024 05:46:00 0.11 0.00-1.10 (K/uL) Final Eos, Abs 05/03/2024 05:46:00 0.00 0.00-0.70 (K/uL) Final Basos, Abs 05/03/2024 05:46:00 0.02 0.00-0.20 (K/uL) Final Immature Granulocytes, Number 05/03/2024 05:46:00 0.06 0.00-0.20 (K/uL) Final Performing Location LABORATORY [address] [place] [address]
--- OUTSIDE RECORDS SUMMARY | 2024-05-14 13:47 | External Medical Summary ---
Author Name Unknown Address Unknown Organization K1F:LABORATORY [facility] - [address] [place] [address] Laboratory Report Ordering Provider Test Date Status NAVDEEPSUKHDEV 05/02/2024 06:48:00 Final Observation Date Value Abnormality Reference (Units ) Status BUN 05/02/2024 06:48:00 12 6-20 (mg/dL) Final Creatinine 05/02/2024 06:48:00 0.6 0.5-1.0 (mg/dL) Final Glomerular filtration rate/1.73 sq M.predicted [Volume Rate/Area] in Serum, Plasma or Blood by Creatinine-based formula (CKD-EPI) 05/02/2024 06:48:00 >90 >=60 (mL/min) Final eGFR is calculated based on the CKD-EPI 2020 equation. Sodium 05/02/2024 06:48:00 144 135-146 (m mol/L) Final Potassium 05/02/2024 06:48:00 3.9 3.5-5.1 (m mol/L) Final Cl 05/02/2024 06:48:00 105 98-107 (mm ol/L) Final CO2 05/02/2024 06:48:00 20 Below low normal 22- 32 (mmol/L) Final Anion gap 05/02/2024 06:48:00 19 Above high normal 7- 15 (mmol/L) Final Glucose 05/02/2024 06:48:00 139 Above high normal 70 -120 (mg/dL) Final Calcium 05/02/2024 06:48:00 9.0 8.4-10.2 ( mg/dL) Final Performing Location LABORATORY [facility] - [address] [place] [address]
--- OUTSIDE RECORDS SUMMARY | 2024-05-14 13:47 | External Medical Summary ---
Author Name Unknown Address Unknown Organization K1F:LABORATORY [facility] - [address] [facility] [place] [address] Laboratory Report Ordering Provider Test Date Status EROS SUTTON 04/30/2024 14:19:44 Final Observation Date Value Abnormality Reference (Units ) Status Color of Urine by Auto 04/30/2024 14:19:44 Yellow Light Yellow, Yellow, Dark Yellow Final Clarity, Urine 04/30/2024 14:19:44 Clear Clear Final Glucose [Mass/volume] in Urine by Automated test strip 04/30/2024 14:19:44 Negative Negative (mg/dL) Final Bilirubin.total [Presence] in Urine by Automated test strip 04/30/2024 14:19:44 Negative Negative Final Ketones [Mass/volume] in Urine by Automated test strip 04/30/2024 14:19:44 Trace Abnormal Negative (mg/dL) Final Specific gravity, Urine 04/30/2024 14:19:44 1.015 1.003-1.030 Final Hemoglobin [Presence] in Urine by Automated test strip 04/30/2024 14:19:44 Trace Abnormal Negative Final pH, Urine 04/30/2024 14:19:44 5.5 5.0-7.5 (Units) Final Protein [Mass/volume] in Urine by Automated test strip 04/30/2024 14:19:44 Negative Negative (mg/dL) Final Urobilinogen [Mass/volume] in Urine by Automated test strip 04/30/2024 14:19:44 0.2 0.2, 1.0 (mg/dL) Final Nitrite [Presence] in Urine by Automated test strip 04/30/2024 14:19:44 Negative Negative Final Leukocyte esterase [Presence] in Urine by Automated test strip 04/30/2024 14:19:44 Small Abnormal Negative Final RBC, Urine 04/30/2024 14:19:44 3-5 Abnormal 0-2 (/HPF) Final WBC, Urine 04/30/2024 14:19:44 6-9 Abnormal 0-2 (/HPF) Final Bacteria [#/area] in Urine sediment by Microscopy high power field 04/30/2024 14:19:44 >200 Abnormal 0-25 (/HPF) Final Epithelial cells.squamous [#/area] in Urine sediment by Microscopy high power field 04/30/2024 14:19:44 Many Abnormal None (/HPF) Final [facility] 04/30/[facility] 14:19:44 Final Quantitative urine culture t o be performed Performing Location [facility] [address] [facility] [address] [place] [address]
--- OUTSIDE RECORDS SUMMARY | 2024-05-14 13:47 | External Medical Summary ---
Author Name Unknown Address Unknown Organization K1F:LABORATORY [facility] - [address] [place] [address] Laboratory Report Ordering Provider Test Date Status CALI SETHIROSAS 05/02/2024 06:48:00 Final Observation Date Value Abnormality Reference (Units ) Status WBC, Total 05/02/2024 06:48:00 5.44 4.00-10.80 (K/uL) Final RBC 05/02/2024 06:48:00 3.89 3.85-5.15 (M/uL) Final Hemoglobin 05/02/2024 06:48:00 12.0 12.0-15.3 (g/dL) Final HCT 05/02/2024 06:48:00 36.4 36.0-45.2 (%) Final MCV 05/02/2024 06:48:00 93.6 81.5-97.5 (fL) Final MCH 05/02/2024 06:48:00 30.8 27.0-34.0 (pg) Final MCHC 05/02/2024 06:48:00 33.0 32.0-36.0 (g/dL) Final RDW 05/02/2024 06:48:00 14.4 11.5-15.5 (%) Final Platelets 05/02/2024 06:48:00 253 140-400 (K/uL) Final MPV 05/02/2024 06:48:00 10.7 6.6-11.1 (fL) Final Nucleated erythrocytes/100 leukocytes [Ratio] in Blood by Automated count 05/02/2024 06:48:00 0 <=0 (/100 WBCs) Final Performing Location LABORATORY [facility] - [address] [place] [address]
--- OUTSIDE RECORDS SUMMARY | 2024-05-14 13:47 | External Medical Summary ---
Author Name Unknown Address Unknown Organization K1F:LABORATORY [facility] - [address] [place] [address] Laboratory Report Ordering Provider Test Date Status SUKHDEV SETHI 05/03/2024 05:46:00 Final Observation Date Value Abnormality Reference (Units ) Status BUN 05/03/2024 05:46:00 15 6-20 (mg/dL) Final Creatinine 05/03/2024 05:46:00 0.5 0.5-1.0 (mg/dL) Final Glomerular filtration rate/1.73 sq M.predicted [Volume Rate/Area] in Serum, Plasma or Blood by Creatinine-based formula (CKD-EPI) 05/03/2024 05:46:00 >90 >=60 (mL/min) Final eGFR is calculated based on the CKD-EPI 2020 equation. Sodium 05/03/2024 05:46:00 138 135-146 (m mol/L) Final Potassium 05/03/2024 05:46:00 3.9 3.5-5.1 (m mol/L) Final Cl 05/03/2024 05:46:00 104 98-107 (mm ol/L) Final CO2 05/03/2024 05:46:00 24 22-32 (mmo l/L) Final Anion gap 05/03/2024 05:46:00 10 7-15 (mmol /L) Final Glucose 05/03/2024 05:46:00 166 Above high normal 70 -120 (mg/dL) Final Albumin 05/03/2024 05:46:00 2.7 Below low normal 3.8 -5.0 (g/dL) Final AST (Aspartate aminotransferase) 05/03/2024 05:46:00 19 10-35 (U/L) Fin al Alk Phos 05/03/2024 05:46:00 74 35-130 (U/ L) Final Bilirubin, Total 05/03/2024 05:46:00 0.3 <=1 .2 (mg/dL) Final Calcium 05/03/2024 05:46:00 8.0 Below low normal 8.4 -10.2 (mg/dL) Final Protein 05/03/2024 05:46:00 6.2 6.0-8.3 (g /dL) Final ALT (Alanine aminotransferase) 05/03/2024 05:46:00 13 10-35 (U/L) Clarence chino Performing Location LABORATORY [facility] - [facility] [address]
--- OUTSIDE RECORDS SUMMARY | 2024-05-14 13:47 | External Medical Summary ---
Author Name Unknown Address Unknown Organization K1F:LABORATORY [facility] - [address] [place] [address] Laboratory Report Ordering Provider Test Date Status SUKHDEV SETHI 05/01/2024 04:52:00 Final Observation Date Value Abnormality Reference (Units ) Status Phosphate 05/01/2024 04:52:00 3.0 2.5-4.8 (m g/dL) Final Performing Location LABORATORY [facility] - [address] [place] [address]
--- OUTSIDE RECORDS SUMMARY | 2024-05-14 13:47 | External Medical Summary ---
Author Name Unknown Address Unknown Organization : Laboratory Report Ordering Provider Test Date Status SUKHDEV SETHI 05/01/2024 18:00:20 Final Observation Date Value Abnormality Reference (Units ) Status Glucose Point of Care 05/01/2024 18:00:20 123 Above high normal 70-120 (mg/dL) Final Performing Location
--- OUTSIDE RECORDS SUMMARY | 2024-05-14 13:47 | External Medical Summary ---
Author Name Unknown Address Unknown Organization K1F:LABORATORY [facility] - [address] [place] [address] Laboratory Report Ordering Provider Test Date Status LIEN SOTELOMICHAELA 05/01/2024 04:52:00 Final Observation Date Value Abnormality Reference (Units ) Status BUN 05/01/2024 04:52:00 9 6-20 (mg/dL) Final Creatinine 05/01/2024 04:52:00 0.7 0.5-1.0 (mg/dL) Final Glomerular filtration rate/1.73 sq M.predicted [Volume Rate/Area] in Serum, Plasma or Blood by Creatinine-based formula (CKD-EPI) 05/01/2024 04:52:00 >90 >=60 (mL/min) Final eGFR is calculated based on the CKD-EPI 2020 equation. Sodium 05/01/2024 04:52:00 144 135-146 (m mol/L) Final Potassium 05/01/2024 04:52:00 3.0 Below low normal 3.5 -5.1 (mmol/L) Final Cl 05/01/2024 04:52:00 107 98-107 (mm ol/L) Final CO2 05/01/2024 04:52:00 21 Below low normal 22- 32 (mmol/L) Final Anion gap 05/01/2024 04:52:00 16 Above high normal 7- 15 (mmol/L) Final Glucose 05/01/2024 04:52:00 104 70-120 (mg /dL) Final Calcium 05/01/2024 04:52:00 8.2 Below low normal 8.4 -10.2 (mg/dL) Final Performing Location LABORATORY [facility] - [address] [place] [address]
--- OUTSIDE RECORDS SUMMARY | 2024-05-14 13:47 | External Medical Summary ---
Author Name Unknown Address Unknown Organization K1F:LABORATORY [facility] - [address] [place] [address] Laboratory Report Ordering Provider Test Date Status SUKHDEV SETHI 05/01/2024 12:12:00 Final Observation Date Value Abnormality Reference (Units ) Status ABO 05/01/2024 12:12:00 O Final RH 05/01/2024 12:12:00 Negative Final Performing Location LABORATORY [facility] - [address] [place] [address]
--- OUTSIDE RECORDS SUMMARY | 2024-05-14 13:47 | External Medical Summary ---
Author Name Unknown Address Unknown Organization K1F:LABORATORY [facility] - [address] [place] [address] Laboratory Report Ordering Provider Test Date Status SREEKANTH NOLEN 05/03/2024 12:07:00 Final Observation Date Value Abnormality Reference (Units ) Status Calcium.ionized [Moles/volume] in Serum or Plasma by Ion-selective membrane electrode (ISE) 05/03/2024 12:07:00 1.13 1.13-1.32 (mmol/L) Final This test was developed and its performance characteristics dtermined by [employer]. It has not been cleared or approved by the [place] Food and Drug Administration Performing Location LABORATORY [facility] - [address] [place] [address]
--- OUTSIDE RECORDS SUMMARY | 2024-05-14 13:47 | External Medical Summary ---
Author Name Unknown Address Unknown Organization : Laboratory Report Ordering Provider Test Date Status JENNIFER SOTELO 05/01/2024 00:04:52 Final Observation Date Value Abnormality Reference (Units ) Status Glucose Point of Care 05/01/2024 00:04:52 101 70-120 (mg/dL) Final Performing Location
--- OUTSIDE RECORDS SUMMARY | 2024-05-14 13:47 | External Medical Summary ---
Author Name Unknown Address Unknown Organization : Laboratory Report Ordering Provider Test Date Status JENNIFER SOTELO 04/30/2024 17:44:08 Final Observation Date Value Abnormality Reference (Units ) Status Glucose Point of Care 04/30/2024 17:44:08 105 70-120 (mg/dL) Final Performing Location
--- OUTSIDE RECORDS SUMMARY | 2024-05-14 13:47 | External Medical Summary ---
Author Name Unknown Address Unknown Organization K1F:LABORATORY [facility] - [address] [place] [address] Laboratory Report Ordering Provider Test Date Status SUKHDEV SETHI 05/01/2024 04:52:00 Final Observation Date Value Abnormality Reference (Units ) Status Albumin 05/01/2024 04:52:00 2.6 Below low normal 3.8-5.0 (g/dL) Final AST (Aspartate aminotransferase) 05/01/2024 04:52:00 30 10-35 (U/L) Final Alk Phos 05/01/2024 04:52:00 81 35-130 (U/L) Final ALT (Alanine aminotransferase) 05/01/2024 04:52:00 14 10-35 (U/L) Final Bilirubin, Total 05/01/2024 04:52:00 0.4 <=1.2 (mg/dL) Final Bilirubin, Direct 05/01/2024 04:52:00 0.2 0.0-0.3 (mg/dL) Final Protein 05/01/2024 04:52:00 6.2 6.0-8.3 (g/dL) Final Performing Location LABORATORY [facility] - [address] [address]
--- OUTSIDE RECORDS SUMMARY | 2024-05-14 13:48 | External Medical Summary ---
Author Name Unknown Address Unknown Organization : Laboratory Report Ordering Provider Test Date Status JENNIFER SOTELO 04/30/2024 06:17:38 Final Observation Date Value Abnormality Reference (Units ) Status Glucose Point of Care 04/30/2024 06:17:38 102 70-120 (mg/dL) Final Performing Location
--- OUTSIDE RECORDS SUMMARY | 2024-05-14 13:48 | External Medical Summary ---
Author Name Unknown Address Unknown Organization K09:LABORATORY [facility] [place] [address] Laboratory Report Ordering Provider Test Date Status VERITO GAUTHIER 04/29/2024 08:17:44 Final Observation Date Value Abnormality Reference (Units ) Status BUN 04/29/2024 08:17:44 7 6-20 (mg/dL) Final Creatinine 04/29/2024 08:17:44 0.6 0.5-1.0 (mg/dL) Final Glomerular filtration rate/1.73 sq M.predicted [Volume Rate/Area] in Serum, Plasma or Blood by Creatinine-based formula (CKD-EPI) 04/29/2024 08:17:44 >90 >=60 (mL/min) Final eGFR is calculated based on the CKD-EPI 2020 equation. Sodium 04/29/2024 08:17:44 135 135-146 (m mol/L) Final Potassium 04/29/2024 08:17:44 3.0 Below low normal 3.5 -5.1 (mmol/L) Final Cl 04/29/2024 08:17:44 94 Below low normal 98- 107 (mmol/L) Final CO2 04/29/2024 08:17:44 25 22-32 (mmo l/L) Final Anion gap 04/29/2024 08:17:44 16 Above high normal 7- 15 (mmol/L) Final Glucose 04/29/2024 08:17:44 154 Above high normal 70 -120 (mg/dL) Final Albumin 04/29/2024 08:17:44 3.7 Below low normal 3.8 -5.0 (g/dL) Final AST (Aspartate aminotransferase) 04/29/2024 08:17:44 48 Above high normal 10-35 (U/L) Final Alk Phos 04/29/2024 08:17:44 106 35-130 (U/ L) Final Bilirubin, Total 04/29/2024 08:17:44 0.8 <=1 .2 (mg/dL) Final Calcium 04/29/2024 08:17:44 9.0 8.4-10.2 ( mg/dL) Final Protein 04/29/2024 08:17:44 8.0 6.0-8.3 (g /dL) Final ALT (Alanine aminotransferase) 04/29/2024 08:17:44 19 10-35 (U/L) Clarence chino Performing Location LABORATORY [facility] [address]
--- OUTSIDE RECORDS SUMMARY | 2024-05-14 13:48 | External Medical Summary | Summary of Care ---
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 90 Tablet 3 08/18/2023 Active Aspirin Low Dose 81 MG Oral Tablet Chewable (aspirin)Indica tions:Carotid artery plaque, bilateral chew and swallow 1 tablet by mouth every morning with food 100 Tablet 2 10/13/2023 Active Cyclobenzaprine HCl 5 MG Oral Tablet (Flexeril) take 1 tablet by mouth three times a day if needed for muscle spasm 30 Tablet 1 04/05/2024 Active Ondansetron HCl 8 MG Oral Tablet [...] TO ACCESSING. 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 (Household - for ages [...] on file documented as of this encounter Plan of Treatment Upcoming Encounters Date Type Department Care Team (Late st Contact Info) Description 04/29/2024 9:55 AM EST Imaging Radiology [facility] [address] [place] [address] Arrived 05/03/2024 8:50 AM EST Laboratory [facility] [address] [place] [address] [place] [address] 05/04/2024 9:00 AM EST Hem/Onc Treatment [facility]ematology[facility] Treatment [place] [facility] [phone] Diamond, Chair 6 Hem Onc [address] [place] [address] 05/17/2024 9:00 AM EDT Laboratory [place] [address] [place] [phone] Tr[place], Lab [place] [address] [place] [address] 05/18/2024 11:30 AM EDT Office Visit Hematology/Oncology [facility] [place] 200 [facility] [place], [place] [address] Feli Norris, BENNIE [address] [place] [address] 05/18/2024 12:00 PM EDT Hem/Onc Treatment Hematology/Oncology Treatment [place] 200 [facility], [place] [phone] Diamond, Chair 2 Hem Onc [address] [place] [address] Pending Results Name Type Priority Associated Diagnoses Date /Time CBC WITH WBC DIFFERENTIAL Lab STAT 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) 04/29/2024 8:17 AM EST COMPREHENSIVE METABOLIC PANEL Lab STAT 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] HTN 03/29/2024 Depression Screening 03/02/2025 03/02/2024 GFR 04/20/2025 04/20/2024, 02/07, 02/25/2024, Additional history exists Albumin/Creatinine Ratio 08/17/2026 08/18/2023 [...] this encounter Medical Devices Implanted Type Area Home Health Outreach Coordinator Device Identifier Shelf Expiration Date Model / Serial / Lot Power Port 8fr Sngl Lumen Plas - [id number] Implanted:Qty : 1 on 04/21/2024 by Tay Cagle MD at OR [facility] Right: Chest CR BARD : PERIPHERAL VASCULAR [id number] 06/07/2025 [id number] / / [id number] documented as of this encounter Visit Diagnoses Diagnosis 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) Malignant neoplasm of tail of pancreas 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
--- OUTSIDE RECORDS SUMMARY | 2024-05-14 13:48 | External Medical Summary ---
Author Name Unknown Address Unknown Organization [id number]:[facility] [place] [address] Laboratory Report Ordering Provider Test Date Status VERITO GAUTHIER 04/29/2024 08:17:44 Final Observation Date Value Abnormality Reference (Units ) Status Magnesium 04/29/2024 08:17:44 1.7 1.5-2.6 (m g/dL) Final Performing Location [facility] [place] [address]
--- OUTSIDE RECORDS SUMMARY | 2024-05-14 13:48 | External Medical Summary | Summary of Care ---
Author Name Unknown Organization [facility] Address [address] [facility] [place] [address] Phone [phone] Care Team Providers Care Safety Instructor Name Role Phone Sherwin Painter MD Primary Care Provider [phone] Reason for Visit * Reason Onset Date Comments Follow Up 04/28/2024 C1,D1 Abraxane/G emzar Encounter Details Date Type Department Care Team (Late st Contact Info) Description 04/28/2024 Telephone Hematology/Oncology [facility] [place] 200 [facility] [place] [address] Melvin Waggoner MD [address] [facility] [address] Follow Up (C1,D1 Abraxane/Gemzar) Allergies No known [...] 10/2021 Food insecurity 03/19/2021 03/23/2021 Overview: Per [facility] Protocol Special screening 06/11/2018 06/11/2018 [...] No 03/02/2024 Does the household have a [facility] source of income? (Household - for ages [...] encounter Miscellaneous Notes * Telephone Encounter - Jaimie Vazquez OSA [...] please schedule patient for lab work at [facility] tomorrow "CBCD,CMP,Mag" anytime inthe morning. documented in this encounter Plan of Treatment Upcoming Encounters Date Type Department Care Team (Late st Contact Info) Description 04/29/2024 9:40 AM EST Laboratory Laboratory [facility] [place] [address] [place] [address] [phone] [place] [address] [place] [address] [address] Arrived 04/29/2024 9:55 AM EST Imaging Radiology [facility] [place] [address] [place] [address] [address] Arrived 05/03/2024 8:50 AM EST Laboratory Laboratory [place] Trudy Bundy [address] [place] [phone] [place] Greg[place] [address] [place] [address] 05/04/2024 9:00 AM EST Hem/Onc Treatment Hematology/Oncology Treatment, [place] 200 [facility], [place] [phone] Diamond, Chair 6 Hem Onc [address], [place] [address] 05/17/2024 9:00 AM EDT Laboratory Laboratory [place] Gregor Trudy [address] [place] [phone] Trudy, Lab [address] [place] [address] 05/18/2024 11:30 AM EDT Office Visit Hematology/Oncology [facility] [place] [address] 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) Constipation, unspecified constipation type Ordered: 04/28/2024 CBC WITH WBC DIFFERENTIAL Lab STAT 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) Expected: 04/29/2024 (Approximate), Expires: 04/28/2025 COMPREHENSIVE METABOLIC PANEL Lab STAT 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) Expected: 04/29/2024 (Approximate), Expires: 04/28/2025 MAGNESIUM Lab STAT 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) Expected: 04/29/2024 (Approximate), Expires: 04/28/2025 Health Maintenance Due Date Last Done Comments [...] this encounter Medical Devices Implanted Type Area Senior Programmer Device Identifier Shelf Expiration Date Model / Serial / Lot Power Port 8fr Sngl Lumen Plas - [id number] Implanted:Qty : 1 on 04/21/2024 by Tay Cagle MD at OR [facility] Right: Chest CR BARD : PERIPHERAL VASCULAR [id number] 06/07/2025 [id number] / / [id number] documented as of this encounter Visit Diagnoses Diagnosis 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)- Primary 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) Malignant neoplasm of tail of pancreas 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
--- OUTSIDE RECORDS SUMMARY | 2024-05-14 13:48 | External Medical Summary ---
Author Name Unknown Address Unknown Organization K01:[facility] [address] [place] [address] Laboratory Report Ordering Provider Test Date Status OLIVERIO PINA 04/30/2024 05:12:00 Final Observation Date Value Abnormality Reference (Units ) Status HbA1C 04/30/2024 05:12:00 5.5 4.0-5.6 (% ) Final The use of HbA1c to monitor glycemic status is based on normal hemoglobin and HbA composition. This test should not be used in patients with abnormal hemoglobin that affects the half life of the red blood cell or the in vivo glycation rates. Glucose, estimated average 04/30/2024 05:12:00 111 <126 (mg/dL) Final Performing Location [facility]ORY [facility] [address] [facility] [address]
--- OUTSIDE RECORDS SUMMARY | 2024-05-14 13:48 | External Medical Summary ---
Author Name Unknown Address Unknown Organization K09:[facility]ATORY [place] [address] Laboratory Report Ordering Provider Test Date Status VERITO GAUTHIER 04/29/2024 08:17:44 Final Observation Date Value Abnormality Reference (Units ) Status WBC, Total 04/29/2024 08:17:44 14.76 Above high normal 4 .00-10.80 (K/uL) Final RBC 04/29/2024 08:17:44 4.20 3.85-5.15 (M/uL) Final Hemoglobin 04/29/2024 08:17:44 12.8 12.0-15.3 (g/dL) Final HCT 04/29/2024 08:17:44 39.1 36.0-45.2 (%) Final MCV 04/29/2024 08:17:44 93.1 81.5-97.5 (fL) Final MCH 04/29/2024 08:17:44 30.5 27.0-34.0 (pg) Final MCHC 04/29/2024 08:17:44 32.7 32.0-36.0 (g/dL) Final RDW 04/29/2024 08:17:44 13.9 11.5-15.5 (%) Final Platelets 04/29/2024 08:17:44 353 140-400 (K /uL) Final MPV 04/29/2024 08:17:44 10.3 6.6-11.1 ( fL) Final Performing Location [facility] [place] [address]
--- OUTSIDE RECORDS SUMMARY | 2024-05-14 13:48 | External Medical Summary ---
Author Name Unknown Address Unknown Organization K09:[facility] [place] [address] Laboratory Report Ordering Provider Test Date Status EROS SUTTON 04/29/2024 08:17:44 Final Observation Date Value Abnormality Reference (Units ) Status Albumin 04/29/2024 08:17:44 3.7 Below low normal 3.8-5.0 (g/dL) Final AST (Aspartate aminotransferase) 04/29/2024 08:17:44 48 Above high normal 10-35 (U/L) Final Alk Phos 04/29/2024 08:17:44 106 35-130 (U/L) Final ALT (Alanine aminotransferase) 04/29/2024 08:17:44 19 10-35 (U/L) Final Bilirubin, Total 04/29/2024 08:17:44 0.8 <=1.2 (mg/dL) Final Bilirubin, Direct 04/29/2024 08:17:44 0.3 0.0-0.3 (mg/dL) Final Protein 04/29/2024 08:17:44 8.0 6.0-8.3 (g/dL) Final Performing Location [facility] [place] [address]
--- OUTSIDE RECORDS SUMMARY | 2024-05-14 13:48 | External Medical Summary ---
Author Name Unknown Address Unknown Organization : Laboratory Report Ordering Provider Test Date Status JENNIFER SOTELO 04/30/2024 11:47:11 Final Observation Date Value Abnormality Reference (Units ) Status Glucose Point of Care 04/30/2024 11:47:11 97 70-120 (mg/dL) Final Performing Location
--- OUTSIDE RECORDS SUMMARY | 2024-05-14 13:48 | External Medical Summary ---
Author Name Unknown Address Unknown Organization : Laboratory Report Ordering Provider Test Date Status NO,UNKNOWN 04/29/2024 12:58:26 Final Observation Date Value Abnormality Reference (Units ) Status Glucose Point of Care 04/29/2024 12:58:26 153 Above high normal 70-120 (mg/dL) Final Performing Location
--- OUTSIDE RECORDS SUMMARY | 2024-05-14 13:48 | External Medical Summary ---
Author Name Unknown Address Unknown Organization K09:[facility]ATORY [place] [address] Laboratory Report Ordering Provider Test Date Status VERITO GAUTHIER 04/29/2024 08:17:44 Final Observation Date Value Abnormality Reference (Units ) Status Nucleated erythrocytes/100 leukocytes [Ratio] in Blood by Automated count 04/29/2024 08:17:44 Final Performing Location [facility] [place] [address]
--- OUTSIDE RECORDS SUMMARY | 2024-05-14 13:48 | External Medical Summary ---
Author Name Unknown Address Unknown Organization K1F:LABORATORY [facility] - [address] [place] [address] Laboratory Report Ordering Provider Test Date Status OLIVERIO PINA 04/30/2024 05:12:00 Final Observation Date Value Abnormality Reference (Units ) Status WBC, Total 04/30/2024 05:12:00 11.35 Above high normal 4.00-10.80 (K/uL) Final RBC 04/30/2024 05:12:00 3.65 3.85-5.15 (M/uL) Final Hemoglobin 04/30/2024 05:12:00 11.3 Below low normal 12.0-15.3 (g/dL) Final HCT 04/30/2024 05:12:00 33.6 Below low normal 36.0-45.2 (%) Final MCV 04/30/2024 05:12:00 92.1 81.5-97.5 (fL) Final MCH 04/30/2024 05:12:00 31.0 27.0-34.0 (pg) Final MCHC 04/30/2024 05:12:00 33.6 32.0-36.0 (g/dL) Final RDW 04/30/2024 05:12:00 13.7 11.5-15.5 (%) Final Platelets 04/30/2024 05:12:00 291 140-400 (K/uL) Final MPV 04/30/2024 05:12:00 10.6 6.6-11.1 (fL) Final Nucleated erythrocytes/100 leukocytes [Ratio] in Blood by Automated count 04/30/2024 05:12:00 0 <=0 (/100 WBCs) Final Performing Location LAB[facility]ATORY [facility] - [address] [place] [address]
--- OUTSIDE RECORDS SUMMARY | 2024-05-14 13:48 | External Medical Summary ---
Author Name Unknown Address Unknown Organization K1F:LABORATORY [facility] - [address] [place] [address] Laboratory Report Ordering Provider Test Date Status OLIVERIO PINA 04/30/2024 05:12:00 Final Observation Date Value Abnormality Reference (Units ) Status BUN 04/30/2024 05:12:00 14 6-20 (mg/dL) Final Creatinine 04/30/2024 05:12:00 1.2 Above high normal 0.5-1.0 (mg/dL) Final Glomerular filtration rate/1.73 sq M.predicted [Volume Rate/Area] in Serum, Plasma or Blood by Creatinine-based formula (CKD-EPI) 04/30/2024 05:12:00 52 Below low normal >=60 (mL/min) Final eGFR is calculated based on the CKD-EPI 2020 equation. Sodium 04/30/2024 05:12:00 137 135-146 (m mol/L) Final Potassium 04/30/2024 05:12:00 3.2 Below low normal 3.5 -5.1 (mmol/L) Final Cl 04/30/2024 05:12:00 102 98-107 (mm ol/L) Final CO2 04/30/2024 05:12:00 20 Below low normal 22- 32 (mmol/L) Final Anion gap 04/30/2024 05:12:00 15 7-15 (mmol /L) Final Glucose 04/30/2024 05:12:00 102 70-120 (mg /dL) Final Calcium 04/30/2024 05:12:00 8.0 Below low normal 8.4 -10.2 (mg/dL) Final Performing Location LAB[facility]ATORY [facility] - [address] [place] [address]
--- OUTSIDE RECORDS SUMMARY | 2024-05-14 13:48 | External Medical Summary ---
Author Name Unknown Address Unknown Organization : Laboratory Report Ordering Provider Test Date Status GLADYS GAY 04/29/2024 23:46:36 Final Observation Date Value Abnormality Reference (Units ) Status Glucose Point of Care 04/29/2024 23:46:36 118 70-120 (mg/dL) Final Performing Location
--- OUTSIDE RECORDS SUMMARY | 2024-05-14 13:48 | External Medical Summary ---
Author Name Unknown Address Unknown Organization K09:[facility] [place] [address] Laboratory Report Ordering Provider Test Date Status VERITO GAUTHIER 04/29/2024 08:17:44 Final Observation Date Value Abnormality Reference (Units ) Status SYNC LEUKOCYTES IN BLOOD BY AUTOMATED COUNT 04/29/2024 08:17:44 14.76 Above high normal 4.00-10.80 (K/uL) Final Segs 04/29/2024 08:17:44 95.6 Above high normal 40.0-75.0 (%) Final Lymphs % 04/29/2024 08:17:44 3.7 Below low normal 18.0-42.0 (%) Final Monos 04/29/2024 08:17:44 0.6 Below low normal 1.0-11.0 (%) Final Eosinophils 04/29/2024 08:17:44 0.0 0.0-6.0 (%) Final Basos 04/29/2024 08:17:44 0.1 0.0-2.0 (%) Final Absolute Segs 04/29/2024 08:17:44 14.12 Above high normal 1.80-7.70 (K/uL) Final Lymphs, absolute 04/29/2024 08:17:44 0.54 Below low normal 1.00-4.80 (K/ul) Final Monos, Abs 04/29/2024 08:17:44 0.09 0.00-1.10 (K/uL) Final Eos, Abs 04/29/2024 08:17:44 0.00 0.00-0.70 (K/uL) Final Basos, Abs 04/29/2024 08:17:44 0.01 0.00-0.20 (K/uL) Final Performing Location [facility] [place] [address] K[address] [place] [address]
--- OUTSIDE RECORDS SUMMARY | 2024-05-14 13:48 | External Medical Summary | Summary of Care ---
Author Name Unknown Organization [facility] Address [address] [facility] [place] [address] Phone [phone] Care Team Providers Care Vp Strategic Partnerships Name Role Phone Sherwin Painter MD Primary Care Provider [phone] Reason for Visit * Reason Onset Date Comments Follow Up 04/28/2024 C1,D1 Abraxane/G emzar Encounter Details Date Type Department Care Team (Late st Contact Info) Description 04/28/2024 Telephone Hematology/Oncology [facility] [place] 200 [facility] [place] [address] Melvin Waggoner MD [address] [facility] [address] Follow Up (C1,D1 Abraxane/Gemzar) Allergies No known [...] 10/2021 Food insecurity 03/19/2021 03/23/2021 Overview: Per [facility] Protocol Special screening 06/11/2018 06/11/2018 [...] No 03/02/2024 Does the household have a [facility] source of income? (Household - for ages [...] encounter Miscellaneous Notes * Telephone Encounter - Scout Bowen RN [...] please schedule patient for lab [facility] tomorrow "CBCD,CMP,Mag" anytime inthe morning. documented in this encounter Plan of Treatment Upcoming Encounters Date Type Department Care Team (Late st Contact Info) Description 04/29/2024 9:40 AM EST Laboratory Laboratory [facility] [address] [place] [phone] Tori Fields [place] [address] [address] [place] [address] Arrived 04/29/2024 9:55 AM EST Imaging Radiology [facility] [place] [address] [place] [address] Arrived 05/03/2024 8:50 AM EST Laboratory Laboratory [place] Trudy Bundy [address] [place] [place] [phone] Tori [place] Gregor [address] [place] [address] 05/04/2024 9:00 AM EST Hem/Onc Treatment Hematology/Oncology Treatment, [place] [address] [place] [phone] Diamond, Chair 6 Hem Onc [place] [address] [address] [place] [address] 05/17/2024 9:00 AM EDT Laboratory Laboratory [address], Trudy [address] [place] [address] Trudy, Lab [address] [place] [address] 05/18/2024 11:30 AM EDT Office Visit Hematology/Oncology [facility] [address] [facility], [place] [address] Feli Norris, BENNIE [address] [facility] [place] [address] 05/18/2024 12:00 PM EDT Hem/Onc Treatment Hematology/Oncology Treatment, [place] [address] [place], [place] [address] Diamond, Chair 2 Hem Onc [facility] [address] [facility], [place] [address] Scheduled Orders Name Type Priority Associated Diagnoses [...] this encounter Medical Devices Implanted Type Area College Instructor Device Identifier Shelf Expiration Date Model / Serial / Lot Power Port 8fr Sngl Lumen Plas - [id number] Implanted:Qty : 1 on 04/21/2024 by Tay Cagle MD at OR [facility] Right: Chest CR BARD : PERIPHERAL VASCULAR [id number] 06/07/2025 [id number] / / [id number] documented as of this encounter Visit Diagnoses [...] patient or by statute hierarchy) Care Teams Vp Strategic Partnerships Relationship Specialty Start Date End Date Sherwin Painter MD [address] [facility] [place] [address] PCP - General Family Medicine 09/21/23 documented as of this encounter
--- OUTSIDE RECORDS SUMMARY | 2024-05-14 13:48 | External Medical Summary ---
Author Name Unknown Address Unknown Organization K1F:LABORATORY [facility] - [address] [place] [address] Laboratory Report Ordering Provider Test Date Status EROS SUTTON 04/29/2024 14:58:41 Final Observation Date Value Abnormality Reference (Units ) Status Lactic Acid, Whole Blood 04/29/2024 14:58:41 1.3 0.4-2.0 (mmol/L) Final Performing Location LAB[facility]ATORY [facility] - [address] [place] [address]
--- OUTSIDE RECORDS SUMMARY | 2024-05-14 13:48 | External Medical Summary | Summary of Care ---
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 (Household - for [...] Care Team (Late st Contact Info) Description 05/03/2024 8:50 AM EST Laboratory Laboratory [place] Trudy Bundy [address] [place] [phone] Tori Yates Springkasi Bundy [address] [place] [address] 05/04/2024 9:00 AM EST [facility] [address] [place] [phone] Diamond, Chair 6 Hem Onc [address] [place], [place] [address] 05/17/2024 9:00 AM EDT Laboratory Laboratory [place] Gregor Trudy [address] [place] [phone] Tori Yates [place] Gregor [address] [place] [address] 05/18/2024 11:30 AM EDT Office Visit Hematology/Oncology [facility] [place] [address] [facility] [place] [phone] Feli Norris CRNP [address] [facility] [place] [address] 05/18/2024 12:00 PM EDT Hem[facility] [address] [facility], [place] [phone] Diamond, Chair 2 Hem Onc [address] [place], [place] [address] Health Maintenance Due Date Last Done Comments [...] HTN 03/29/2024 Depression Screening 03/02/2025 03/02/2024 GFR 04/29/2025 04/29/2024, 04/10, 02/26/2024, Additional history exists Albumin/Creatinine Ratio 08/17/2026 08/18/2023 [...] this encounter Medical Devices Implanted Type Area Glass Cutter Hand Device Identifier Shelf Expiration Date Model / Serial / Lot Power Port 8fr Sngl Lumen Plas - [id number] Implanted:Qty : 1 on 04/21/2024 by Tay Cagle MD at OR [facility] Right: Chest CR BARD : PERIPHERAL VASCULAR [id number] 06/07/2025 [id number] / / [id number] documented as of this encounter Procedures Procedure Name Priority Date/Time Associated Diagnosis Comments DIFFERENTIAL, AUTOMATED STAT 04/29/2024 8:17 AM EST 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) COMPREHENSIVE METABOLIC PANEL STAT 04/29/2024 8:17 AM EST 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) CBC STAT 04/29/2024 8:17 AM EST 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) CBC STAT 04/29/2024 8:17 AM EST 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) DIFFERENTIAL, TECHNOLOGIST REVIEW Routine 04/29/2024 8:17 AM EST 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) MAGNESIUM STAT 04/29/2024 8:17 AM EST 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) documented in this encounter Results * DIFFERENTIAL, TECHNOLOGIST REVIEW (04/29/2024 8:17 AM EST) nRs 04/29/2024 8:46 AM EST [facility] 56-02 Blood Venous blood specimen / Unknown Venipuncture / Unknown 04/29/2024 8:17 AM EST 04/29/2024 8:17 AM EST us Melvin Waggoner MD LAB BLOOD ORDERABLES Final Res ult [facility] 56-[address] [place] [address] * (ABNORMAL) DIFFERENTIAL, AUTOMATED (04/29/2024 8:17 AM EST) WBC 14.76(H) 4.00 - 10.80 K/uL 04/29/2024 8:46 AM EST [facility]02 Neutrophils % 95.6(H) 40.0 - 75.0 % 04/29/2024 8:46 AM EST [facility] 56-02 Lymphocytes % 3.7(L) 18.0 - 42.0 % 04/29/2024 8:46 AM EST [facility] 56-02 Monocytes % 0.6(L) 1.0 - 11.0 % 04/29/2024 8:46 AM EST [facility]-02 Eosinophils % 0.0 0.0 - 6.0 % 04/29/2024 8:46 AM EST [facility] 56-02 Basophils % 0.1 0.0 - 2.0 % 04/29/2024 8:46 AM [facility] 56 Absolute Neutrophils 14.12(H) 1.80 - 7.70 K/uL 04/29/2024 8:46 AM [facility] 56 Absolute Lymphocytes 0.54(L) 1.00 - 4.80 K/ul 04/29/2024 8:46 AM [facility] 56 Absolute Monocytes 0.09 0.00 - 1.10 K/uL 04/29/2024 8:46 AM [facility] 56 Absolute Eosinophils 0.00 0.00 - 0.70 K/uL 04/29/2024 8:46 AM [facility] 56 Absolute Basophils 0.01 0.00 - 0.20 K/uL 04/29/2024 8:46 AM [facility] Blood Venous blood specimen / Unknown Venipuncture / Unknown 04/29/2024 8:17 AM EST 04/29/2024 8:17 AM EST Melvin Waggoner MD LAB BLOOD ORDERABLES Final Res ult [facility] [address] [place] [address] * (ABNORMAL) CBC (04/29/2024 8:17 AM EST) WBC 14.76(H) 4.00 - 10.80 K/uL 04/29/2024 8:46 AM [facility] RBC 4.20 3.85 - 5.15 M/uL 04/29/2024 8:46 AM [facility] HGB 12.8 12.0 - 15.3 g/dL 04/29/2024 8:46 AM [facility] HCT 39.1 36.0 - 45.2 % 04/29/2024 8:46 AM [facility] 56 MCV 93.1 81.5 - 97.5 fL 04/29/2024 8:46 AM [facility] 56 MCH 30.5 27.0 - 34.0 pg 04/29/2024 8:46 AM [facility] 56- MCHC 32.7 32.0 - 36.0 g/dL 04/29/2024 8:46 AM [facility] 56- RDW 13.9 11.5 - 15.5 % 04/29/2024 8:46 AM [facility] 56- PLT 353 140 - 400 K/uL 04/29/2024 8:46 AM [facility] 56- MPV 10.3 6.6 - 11.1 fL 04/29/2024 8:46 AM [facility] 56- Blood Venous blood specimen / Unknown Venipuncture / Unknown 04/29/2024 8:17 AM EST 04/29/2024 8:17 AM EST us Melvin Waggoner MD LAB BLOOD ORDERABLES Final Res ult [facility] 56- [address] [place] [address] * MAGNESIUM (04/29/2024 8:17 AM EST) Magnesium 1.7 1.5 - 2.6 mg/dL 04/29/2024 9:06 AM [facility] 56 Blood Venous blood specimen / Unknown Venipuncture / Unknown 04/29/2024 8:17 AM EST 04/29/2024 8:17 AM EST us Melvin Waggoner MD LAB BLOOD ORDERABLES Final Res ult [facility] 56- [address] [place] [address] * (ABNORMAL) COMPREHENSIVE METABOLIC PANEL (04/29/2024 8:17 AM EST) BUN 7 6 - 20 mg/dL 04/29/2024 9:06 AM [facility] 56- CREATININE 0.6 0.5 - 1.0 mg/dL 04/29/2024 9:06 AM [facility] 56- EGFR >90 >=60 mL/min 04/29/2024 9:06 AM [facility] 56 Comment:eGFR is calculated b ased on the CKD-EPI 2020 equation. SODIUM 135 135 - 146 mmol/L 04/29/2024 9:06 AM [facility] 56- POTASSIUM 3.0(L) 3.5 - 5.1 mmol/L 04/29/2024 9:06 AM [facility] 56- CHLORIDE 94(L) 98 - 107 mmol/L 04/29/2024 9:06 AM [facility] 56 CO2 25 22 - 32 mmol/L 04/29/2024 9:06 AM [facility] 56 ANION GAP 16(H) 7 - 15 mmol/L 04/29/2024 9:06 AM [facility] 56 GLUCOSE 154(H) 70 - 120 mg/dL 04/29/2024 9:06 AM [facility] 56 Albumin 3.7(L) 3.8 - 5.0 g/dL 04/29/2024 9:06 AM [facility] 56 AST 48(H) 10 - 35 U/L 04/29/2024 9:06 AM [facility] 56- Alkaline Phosphatase 106 35 - 130 U/L 04/29/2024 9:06 AM [facility] 56- Bilirubin, Total 0.8 <=1.2 mg/dL 04/29/2024 9:06 AM [facility] 56 CALCIUM 9.0 8.4 - 10.2 mg/dL 04/29/2024 9:06 AM [facility] 56 Protein 8.0 6.0 - 8.3 g/dL 04/29/2024 9:06 AM [facility] 56- ALT 19 10 - 35 U/L 04/29/2024 9:06 AM [facility] 56 Blood Venous blood specimen / Unknown Venipuncture / Unknown 04/29/2024 8:17 AM EST 04/29/2024 8:17 AM EST us Melvin Waggoner MD LAB BLOOD ORDERABLES Final Res ult [facility] 56 [address] [place] [address] documented in this encounter Visit Diagnoses Diagnosis [...] patient or by statute hierarchy) Care Teams Neurology Director Relationship Specialty Start Date End Date Sherwin Painter [facility] [address] [facility] [address] PCP - General Family Medicine 09/21/23 documented as of this encounter
--- OUTSIDE RECORDS SUMMARY | 2024-05-14 13:48 | External Medical Summary | Summary of Care ---
Author Name Unknown Organization [facility] Address [address] [facility] [place] [address] Phone [phone] Care Team Providers Care Data Management Manager Name Role Phone Sherwin Painter MD Primary Care Provider [phone] Reason for Visit * Reason Onset Date Comments Follow Up 04/28/2024 C1,D1 Abraxane/G emzar Encounter Details Date Type Department Care Team (Late st Contact Info) Description 04/28/2024 Telephone Hematology/Oncology 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 Mammogram declined 03/23/2021 Colonoscopy refused 04/04/2016 Overview (03/23/2021): Refused Cologuard as well. Tobacco use disorder 04/04/2016 Hypertension goal BP (blood pressure) < 140/90 0 08/14/2011 Dyslipidemia, goal LDL below 130 08/14/2011 documented as of this encounter (statuses as of 04/30/2024) Resolved Problems Problem Noted Date Diagnosed Date [...] as of this encounter (statuses as of 04/30/2024) Immunizations Name Administration Dates Next Due COVID-19 [...] No 03/02/2024 Does the household have a [facility] source [facility] income? (Household - for [...] encounter Miscellaneous Notes * Telephone Encounter - Fernanda Durán RN [...] verbalized understanding, will either take her to [facility] or [facility] ED. * Telephone Encounter - Jaimie [...] please schedule patient for lab work at [facility] tomorrow "CBCD,CMP,Mag" anytime inthe morning. documented in this encounter Plan of Treatment Upcoming Encounters Date Type Department Care Team (Late st Contact Info) Description 05/03/2024 8:50 AM EST Laboratory Laboratory [address], Trudy [address] [place] [phone] [place] [facility] [place] Greg[place] [address] [place] [address] 05/04/2024 9:00 AM EST Hem/Onc Treatment Hematology/Oncology Treatment, [address] [place] [address] Diamond, Chair 6 Hem Onc [address] [place] [address] 05/17/2024 9:00 AM EDT Laboratory Laboratory [place] Greg[place] [address] [place] [phone] [place] [address] 05/18/2024 11:30 AM EDT Office Visit Hematology/Oncology [address] [place] [phone] Feli Norris CRNP [address] [place], [place] [address] [address] 05/18/2024 12:00 PM EDT Hem/Onc Treatment Hematology/Oncology [address] [phone] Diamond, Chair 2 Hem Onc [address] [place] [address] Health Maintenance Due Date Last Done Comments [...] HTN 03/29/2024 Depression Screening 03/02/2025 03/02/2024 GFR 04/30/2025 04/30/2024, 04/11, 04/20/2024, Additional history exists Albumin/Creatinine Ratio 08/17/2026 08/18/2023 [...] this encounter Medical Devices Implanted Type Area Tool And Cutter Grinder Device Identifier Shelf Expiration Date Model / Serial / Lot Power Port 8fr Sngl Lumen Plas - [id number] Implanted:Qty : 1 on 04/21/2024 by Tay Cagle MD at OR [facility] Right: Chest CR BARD : PERIPHERAL VASCULAR [id number] 06/07/2025 [id number] / / [id number] documented as of this encounter Procedures Procedure [...] burden. 3. No focal pulmonary consolidation. us Melivn Waggoner MD RADIOLOGY (RAD GENERAL) Final Result * MAGNESIUM (04/29/2024 8:17 AM EST) Magnesium 1.7 1.5 - 2.6 mg/dL 04/29/2024 9:06 AM EST [facility] 56-02 Blood Venous blood specimen / Unknown Venipuncture / Unknown 04/29/2024 8:17 AM EST 04/29/2024 8:17 AM EST Melvin Waggoner MD LAB BLOOD ORDERABLES Final Res ult [facility] 56-[address] [place] [address] documented in this encounter Visit Diagnoses Diagnosis [...] or by statute hierarchy) Care Teams Data Management Manager Relationship Specialty Start Date End Date Sherwin Painter MD [address] [facility] [place] [address] PCP - General Family Medicine 09/21/23 documented as of this encounter
--- OUTSIDE RECORDS SUMMARY | 2024-05-14 13:48 | External Medical Summary | Summary of Care ---
Author Name Unknown Organization [facility] Address [address] [place] [address] Phone [phone] Care Team Providers Care Produce Field Merchandiser Name Role Phone Sherwin Painter MD Primary Care Provider [phone] Encounter Details Date Type Department Care Team (Late st Contact Info) Description 04/26/2024 Documentation Genetics HemOnc, [facility] [address] [place] [address] Lenore Gomes, [place] [address] [place] [address] Genetic screening* Allergies No known active allergiesdocumented as of this encounter (statuses as of 04/26/2024) Medications Losartan Potassium 100 MG Oral Tablet [...] as of this encounter (statuses as of 04/26/2024) Active Problems Problem Noted Date Diagnosed Date [...] as of this encounter (statuses as of 04/26/2024) Resolved Problems Problem Noted Date Diagnosed Date [...] as of this encounter (statuses as of 04/26/2024) Immunizations Name Administration Dates Next Due COVID-19 [...] on file documented as of this encounter Progress Notes * Lenore Gomes, MS - 04/26/2024 10:53 AM EST Cancer Genetics Risk Assessment [facility] at [facility] E-Consult: Review of Tumor Sequencing for Germline Testing Candidates Summary & Recommendation: Genetics evaluation recommended based on NCCN guidelines to offer universal germline testing for all patients with pnacreatic adenocarcinoma . While no variants on this test were reported suggestive of inherited cancer risk, some findings maybe filtered out based on population frequency, reversion to WT, or allelic dropout among other technical limitations common with NGS. Up to 15% of BRCA1/2 and up to 33% of [place]ario variants are not detectable through NGS technology and may be missed on this testing. Per Chart Review HPI: Gracie is a 68 year old female with a diagnosis of pancreatic adenocarcinoma. - The malignancy is MSI-Stable and Low TMB. - Prior Germline Testing: No - There is a family history of cancer, but is not suggestive of an inherited cancer syndrome. Family History Problem Relation Name Age of Onset Cancer Brother - cancer Cancer Brother leukemia- hairy cell Cancer Brother lymphome MyGenVar Tumor Sequencing Panel was completed in 04/2024. Note: Review for germline workup is only performed on findings with an associated hereditary cancersyndrome. In general, copy number variation >2 is not of germline concern. Gene Variant Name VAF% Variant Classification KRAS G12D 15.40% Tier 1: Strong significance TP53 R273C 10.00% Tier 2: Potential significance ZFHX3 G512R 48.80% Tier 3: Unknown clinical significance BRCA2 Z9415L 55.90% Tier 3: Unknown clinical significance DDR1 DDR1 CN 6.95 Tier 3: Unknown clinical significance FGF3 FGF3 CN 6.25 Tier 3: Unknown clinical significance PRKACA PRKACA CN 6.15 Tier 3: Unknown clinical significance BRCA2, c.3893T>C (p.H5231K) - Variant Allele Frequency: Near 50% VAF; suggestive of germline origin. Database submissions: - Variant reported in germline per ClinVar. ClinVar ID: [id number]. There are 6 submissions from commercial and/or academic laboratories. The variant is classified as of uncertain clinical significance orlikely benign. - Per [facility]: Missense variant in a coldspot region where missense variants are very unlikely to be pathogenic (PMID:[id number]). - impression: likely benign germline variant. Unlikely to be associated with risk for disease. Unless highlighted in red, the above findings were reviewed and not of germline concern. Lenore Gomes MS, [facility] [place] - Licensed, Certified Genetic Counselor 04/26/2024, 10:53 AM documented in this encounter Plan of Treatment Upcoming Encounters Date Type Department Care Team (Late st Contact Info) Description 04/27/2024 9:00 AM EST Hem/Onc Treatment Hematology/Oncology Treatment, [place] [address] [place] [address] [place], Chair 6 Hem Onc [address] [place] [address] Health Maintenance Due Date Last Done Comments [...] this encounter Medical Devices Implanted Type Area Digital Measurement Advisor Device Identifier Shelf Expiration Date Model / Serial / Lot Power Port 8fr Sngl Lumen Plas - [id number] Implanted:Qty : 1 on 04/21/2024 by Tay Cagle MD at OR [facility] Right: Chest CR BARD : PERIPHERAL VASCULAR [id number] 06/07/2025 [id number] / / [id number] documented as of this encounter Visit Diagnoses Diagnosis Genetic screening- Primary Other genetic screening documented in this encounter Advance Directives Healthcare Agents on File Name Relationship Healthcare Agent Relationshi p Communication Deondre Melvin Hernández Spouse Health Care Repr esentative (appointed verbally by patient or by statute hierarchy) Care Teams Produce Field Merchandiser Relationship Specialty Start Date End Date Sherwin Painter MD [address] [facility] [place] [address] PCP - General Family Medicine 09/21/23 documented as of this encounter
--- OUTSIDE RECORDS SUMMARY | 2024-05-14 13:48 | External Medical Summary ---
Author Name Unknown Address Unknown Organization K1F:LAB[facility]ATORY [facility] - [address] [place] [address] Laboratory Report Ordering Provider Test Date Status JANET SOTELOMATT 04/30/2024 11:30:00 Final Observation Date Value Abnormality Reference (Units ) Status BUN 04/30/2024 11:30:00 13 6-20 (mg/dL) Final Creatinine 04/30/2024 11:30:00 1.0 0.5-1.0 (mg/dL) Final Glomerular filtration rate/1.73 sq M.predicted [Volume Rate/Area] in Serum, Plasma or Blood by Creatinine-based formula (CKD-EPI) 04/30/2024 11:30:00 62 >=60 (mL/min) Final eGFR is calculated based on the CKD-EPI 2020 equation. Sodium 04/30/2024 11:30:00 139 135-146 (m mol/L) Final Potassium 04/30/2024 11:30:00 3.7 3.5-5.1 (m mol/L) Final Cl 04/30/2024 11:30:00 105 98-107 (mm ol/L) Final CO2 04/30/2024 11:30:00 22 22-32 (mmo l/L) Final Anion gap 04/30/2024 11:30:00 12 7-15 (mmol /L) Final Glucose 04/30/2024 11:30:00 104 70-120 (mg /dL) Final Calcium 04/30/2024 11:30:00 8.0 Below low normal 8.4 -10.2 (mg/dL) Final Performing Location LABORATORY [facility] - [address] [place] [address]
--- OUTSIDE RECORDS SUMMARY | 2024-05-14 13:48 | External Medical Summary | Summary of Care ---
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) Procedures RI PACLITAXEL PROTEIN BOUND RI IN GEMCITABINE HCL NOS 200MG Melvin Waggoner MD [address] [place] [address] [place] [address] Phone: tel: fax: Hematology/Oncology Treatment, [address] [address] Phone: tel: fax: Referral ID Status Reason Start Date Expiration Date V isits Requested Visits Authorized [id number] Authorized 04/20/2024 10/18/2024 [id number] Encounter Details Date Type Department Care Team (Latest Contact Info) Description 04/27/2024 9:00 AM EST Hem/Onc Treatment Hematology/Oncolog y Treatment, [address] [place] [address] Diamond, Chair 6 Hem Onc [address] [place] [address] Encounter for antineoplastic chemotherapy*; 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); 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); 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) Allergies No known active allergiesdocumented as of this encounter (statuses as of 04/27/2024) Medications Losartan Potassium 100 MG Oral Tablet [...] as of this encounter (statuses as of 04/27/2024) Active Problems Problem Noted Date Diagnosed Date 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 Mammogram declined 03/23/2021 Colonoscopy refused 04/04/2016 Overview (03/23/2021): Refused Cologuard as well. Tobacco use disorder 04/04/2016 Hypertension goal BP (blood pressure) < 140/90 0 08/14/2011 Dyslipidemia, goal LDL below 130 08/14/2011 documented as of this encounter (statuses as of 04/27/2024) Resolved Problems Problem Noted Date Diagnosed Date [...] as of this encounter (statuses as of 04/27/2024) Immunizations Name Administration Dates Next Due COVID-19 [...] Sign Reading Time Taken Comments Blood Pressure 146/79 04/27/2024 9:00 AM EST Pulse 94 04/27/2024 9:00 AM EST Temperature 36.9 C (98.4 F) 04/27/2024 9:00 AM ES T Respiratory Rate 18 04/27/2024 9:00 AM EST Oxygen Saturation 97% 04/27/2024 9:00 AM EST Inhaled Oxygen Concentration - - Weight 50.5 kg (111 lb 6.4 oz) 04/27/2024 9:00 A M EST Height - - Body Mass Index 20.05 04/21/2024 10:06 AM EST documented in this encounter Nursing Notes * Yashira Garcia RN - 04/27/2024 1:01 PM EST Patient tolerated treatment without issue. Port needle flushed with 10 ml NSS, blood return noted,and port locked with additional 10 ml NSS. Meraz needle removed, intact, gauze dressing applied. Goals: Patient will remain free from injury. Possible barriers to meeting goals: Ambulating with IV pole Stability of the patient: Moderately stable - low risk of patient condition declining or worsening Summary regarding today's goals: Met: Patient remained free from harm. Pt discharged in stable condition. * Yashira Garcia RN - 04/27/2024 9:33 AM EST Chair 12 Patient here for treatment. Oriented patient to department and meds. Patient offered no acute complaints. Port accessed with brisk blood return. Chemotherapy/Immunotherapy agents: Abraxane and GEMZAR Consent for chemotherapy drug treatment complete, dated, and signed? yes, date - 04/16/24 Treatment lab parameters met? Yes Has treatment weight changed > than 10%? No Treatment preauthorized? Yes VITALS Filed Vitals: 04/27/24 0900 BP: 146/79 Pulse: 94 Resp: 18 Temp: 36.9 C (98.4 F) SpO2: 97% Weight: 50.5 kg (111 lb 6.4 oz) BP Readings from Last 2 Encounters: 04/27/24 146/79 04/21/24 174/79 Pulse Readings from Last 2 Encounters: 04/27/24 94 04/21/24 109 Resp Readings from Last 2 Encounters: 04/27/24 18 04/21/24 18 SpO2 Readings from Last 2 Encounters: 04/27/24 97% 04/21/24 97% Temp Readings from Last 2 Encounters: 04/27/24 36.9 C (98.4 F) 04/21/24 36 C (96.8 F) (Temporal Artery) Urine protein: N/A Patient education completed for treatment? Yes Blood transfusion consent signed and complete? NA Return appointment scheduled? Yes Patient had provider visit today? No - If no provider visit must complete Pretreatment Assessment Functional Status: Functional status at today's visit: Fully active, able to carry on all pre-disease performance without restriction The drug name, dose, infusion volume, rate and route of administration, expiration date and time, appearance and physical integrity of the drug and rate set on the pump and sequencing of drug administration (as applicable) were verified by me and second sign-in RN. Patient was assessed for symptoms or adverse side effects during treatment. Patient Education: Patient instructed on use of heat and massage functions where applicable. Patient shown how to operate the heat function of the chair and to alert nursing staff if the chair feels too warm. Patient instructed on the risk of potential parada while using the heat function. PRE-TREATMENT ASSESSMENT: NEURO: denies symptoms CV/RESP: denies symptoms GI/: denies symptoms OTHER: denies any additional symptoms PAIN: 0 Safety and Risk for Injury Patient will remain free from injury. Ensure appropriate safety devices are available. Provide and maintain safe environment. documented in this encounter Plan of Treatment Upcoming Encounters Date Type Department Care Team (Late st Contact Info) Description 05/03/2024 8:50 AM EST Laboratory Laboratory [address], [place] [address] [facility] [place] [phone] [place] Lab [facility] [address] [facility] [place] [address] 05/04/2024 9:00 AM EST Hem[facility] [phone] Diamond, Chair 6 Hem Onc [address] [place] [address] 05/17/2024 9:00 AM EDT Laboratory Laboratory [address] [place] [address] [place] [phone] [place] [facility] [address] [place] [address] 05/18/2024 11:30 AM EDT Office Visit Hematology/Oncology [facility] [place] 200 [facility] [place] [phone] Feli Norris CRNP [address] [place], [place] [address] [address] 05/18/2024 12:00 PM EDT Hem/Onc Treatment Hematology/[address]cology [address] [phone] Diamond, Chair 2 Hem Onc [address] [place], [place] [address] Health Maintenance Due Date Last Done Comments [...] this encounter Medical Devices Implanted Type Area Handling Tech Device Identifier Shelf Expiration Date Model / Serial / Lot Power Port 8fr Sngl Lumen Plas - [id number] Implanted:Qty : 1 on 04/21/2024 by Tay Cagle MD at OR [facility] Right: Chest CR BARD : PERIPHERAL VASCULAR [id number] 06/07/2025 [id number] / / [id number] documented as of this encounter Visit Diagnoses Diagnosis Encounter for antineoplastic chemotherapy- Primary 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) Malignant neoplasm of tail of pancreas 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) documented in this encounter Administered Medications Inactive Administered Medications - up to 3 most recent administrations Medication Order MAR Action Action Date Dose Rate Site gemcitabine (Gemzar) 1,600 mg in NSS 250 mL infusion 1,600 mg (rounded from 1,500 mg = 1,000 mg/m2 1.5 m2 Treatment Plan BSA from Recorded weight), IV Piggyback, ONCE, 1 dose, On Fri04/27/24 at 1030, Administer over 30 MinutesIndications:Encounte r for antineoplastic chemotherapy,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),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),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) Start Infusion 04/27/2024 10:59 AM EST 1,600 mg 510 mL/hr NSS infusion Intravenous, at 50 mL/hr, PRN, Starting on Fri04/27/24 at 1000, Until Fri04/27/24 at 1702, Maintenance lineIndications:Encounter for antineoplastic chemotherapy,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),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),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) Start Infusion 04/27/2024 9:14 AM EST 50 mL/hr ondansetron (Zofran) tab 8 mg 8 mg, Oral, ONCE, On Fri04/27/24 at 1000, For 1 dose, Give 30 minutes prior to chemotherapy.Indications:En counter for antineoplastic chemotherapy,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),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),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) Given 04/27/2024 9:02 AM EST 8 mg PACLitaxel protein-bound (Abraxane) inj 200 mg 200 mg (rounded from 187.5 mg = 125 mg/m2 1.5 m2 Treatment Plan BSA from Recorded weight), IV Piggyback, ONCE, 1 dose, On Fri04/27/24 at 1000, Administer over 30 Minutes, PROTECT FROM LIGHT Use Dedicated line Without FilterIndications:Encounter for antineoplastic chemotherapy,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 For midlines and central lines. 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
--- OUTSIDE RECORDS SUMMARY | 2024-05-14 13:48 | External Medical Summary | Summary of Care ---
Author Name Unknown Organization [facility] Address [address] [facility] [place] [address] Phone [phone] Care Team Providers Care Hedis Analyst Name Role Phone Sherwin Painter MD Primary Care Provider [phone] Reason for Visit * Reason Onset Date Comments Follow Up 04/28/2024 C1,D1 Abraxane/G emzar Encounter Details Date Type Department Care Team (Late st Contact Info) Description 04/28/2024 Telephone Hematology/Oncology [facility] [place] [address] [facility] [place] [address] Melvin Waggoner MD [address] [facility] [address] Follow Up (C1,D1 Abraxane/Gemzar) Allergies No known [...] 10/2021 Food insecurity 03/19/2021 03/23/2021 Overview: Per [facility] Protocol Special screening 06/11/2018 06/11/2018 [...] No 03/02/2024 Does the household have a [employer] source of income? (Household - for ages [...] EST Reviewed xray/ labs with Dr Waggoner. Danita 3.0. Xray does not show obstruction but [...] verbalized understanding, will either take her to [facility] or [facility] ED. * Telephone Encounter - Jaimie [...] please schedule patient for lab work at [facility] tomorrow "CBCD,CMP,Mag" anytime inthe morning. documented in this encounter Plan of Treatment Upcoming Encounters Date Type Department Care Team (Late st Contact Info) Description 05/03/2024 8:50 AM EST Laboratory Laboratory [address] [place] [phone] [place] [address] [place] [place] [address] [place] [address] 05/04/2024 9:00 AM EST [facility] [address] [facility] [address] Diamond, Chair 6 Hem Onc [address] [address] 05/17/2024 9:00 AM EDT Laboratory Laboratory [address] [facility] [place] [place] [phone] [facility] [place] [address] [facility] [place] [place] [address] 05/18/2024 11:30 AM EDT Office Visit Hematology/Oncology [address], [place] [phone] Feli Norris CRNP [address] [place], [place] [address] [address] 05/18/2024 12:00 PM EDT Hem/Onc Treatment Hematology/Oncology Treatment[address], [place] [address] Diamond, Chair 2 Hem Onc [address], [place] [address] Health Maintenance Due Date Last Done Comments [...] this encounter Medical Devices Implanted Type Area Disc Recordist Device Identifier Shelf Expiration Date Model / Serial / Lot Power Port 8fr Sngl Lumen Plas - [id number] Implanted:Qty : 1 on 04/21/2024 by Tay Cagle MD at OR [facility] Right: Chest CR BARD : PERIPHERAL VASCULAR [id number] 06/07/2025 [id number] / / [id number] documented as of this encounter Procedures Procedure [...] pulmonary consolidation. us Melvin Waggoner MD RADIOLOGY ([employer] [facility]) Final Result * MAGNESIUM (04/29/2024 8:17 AM EST) Magnesium 1.7 1.5 - 2.6 mg/dL 04/29/2024 9:06 AM EST [facility] 56- Blood Venous blood specimen / Unknown Venipuncture / Unknown 04/29/2024 8:17 AM EST 04/29/2024 8:17 AM EST us Melvin Waggoner MD LAB BLOOD ORDERABLES Final Res ult [facility] [address]- [address] [place] [address] documented in this encounter Visit Diagnoses Diagnosis [...] patient or by statute hierarchy) Care Teams Hedis Analyst Relationship Specialty Start Date End Date Sherwin Painter MD [address] [facility] [place] [place] [address] PCP - General Family Medicine 09/21/23 documented as of this encounter
--- OUTSIDE RECORDS SUMMARY | 2024-05-14 13:49 | External Medical Summary ---
Author Name Unknown Address Unknown Organization [facility] [place] [address] Laboratory Report Ordering Provider Test Date Status VERITO GAUTHIER 04/20/2024 11:06:12 Final Observation Date Value Abnormality Reference (Units ) Status BUN 04/20/2024 11:06:12 5 Below low normal 6-20 (mg/dL) Final Creatinine 04/20/2024 11:06:12 0.5 0.5-1.0 (mg/dL) Final Glomerular filtration rate/1.73 sq M.predicted [Volume Rate/Area] in Serum, Plasma or Blood by Creatinine-based formula (CKD-EPI) 04/20/2024 11:06:12 >90 >=60 (mL/min) Final eGFR is calculated based on the CKD-EPI 2020 equation. Sodium 04/20/2024 11:06:12 133 Below low normal 135 -146 (mmol/L) Final Potassium 04/20/2024 11:06:12 4.3 3.5-5.1 (m mol/L) Final Cl 04/20/2024 11:06:12 96 Below low normal 98- 107 (mmol/L) Final CO2 04/20/2024 11:06:12 25 22-32 (mmo l/L) Final Anion gap 04/20/2024 11:06:12 12 7-15 (mmol /L) Final Glucose 04/20/2024 11:06:12 106 70-120 (mg /dL) Final Albumin 04/20/2024 11:06:12 3.9 3.8-5.0 (g /dL) Final AST (Aspartate aminotransferase) 04/20/2024 11:06:12 25 10-35 (U/L) Fin al Alk Phos 04/20/2024 11:06:12 126 35-130 (U/ L) Final Bilirubin, Total 04/20/2024 11:06:12 0.4 <=1 .2 (mg/dL) Final Calcium 04/20/2024 11:06:12 9.5 8.4-10.2 ( mg/dL) Final Protein 04/20/2024 11:06:12 8.0 6.0-8.3 (g /dL) Final ALT (Alanine aminotransferase) 04/20/2024 11:06:12 7 Below low normal 10-35 (U/L) Final Performing Location [facility] [address] [address]
--- OUTSIDE RECORDS SUMMARY | 2024-05-14 13:49 | External Medical Summary ---
Author Name Unknown Address Unknown Organization [facility]01[facility] - [address] [place] [address] Laboratory Report Ordering Provider Test Date Status VERITO GAUTHIER 04/20/2024 11:06:12 Final Observation Date Value Abnormality Reference (Units ) Status Hep B surface Ag 04/20/2024 11:06:12 Negative Neg ative Final Performing Location [facility] - [address] [place] [address]
--- OUTSIDE RECORDS SUMMARY | 2024-05-14 13:49 | External Medical Summary | Summary of Care ---
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 90 Tablet 3 4 Active Aspirin Low Dose 81 MG Oral Tablet Chewable (aspirin)Indicat ions:Carotid artery plaque, bilateral chew and swallow 1 tablet by mouth every morning with food 100 Tablet 2 4 Active Amoxicillin-Pot Clavulanate 875-125 MG Oral Tablet (Augmentin) Take 1 Tablet by mouth in the morning and 1 Tablet before bedtime. 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 30 g 1 5 Active documented as of this encounter (statuses as of 04/20/2024) Active Problems Problem Noted Date Diagnosed Date [...] as of this encounter (statuses as of 04/20/2024) Resolved Problems Problem Noted Date Diagnosed Date [...] as of this encounter (statuses as of 04/20/2024) Immunizations Name Administration Dates Next Due COVID-19 [...] encounter Miscellaneous Notes * Telephone Encounter - Melvin Waggoner MD - 04/19/2024 5:23 PM EST E-prescribed Zofran, Compazine and EMLA cream. * Telephone Encounter - Fernanda Durán RN - 04/19/2024 2:33 PM EST Pended allen mcintyre, [place] documented in this encounter Plan of Treatment Upcoming Encounters Date Type Department Care Team (Latest Contact Info) Description 04/20/2024 10:30 AM EST Pt Ed by Nurse Hematology/Oncology [facility] [place] [address] [place] [phone] Diamond Nurse Hem Onc [place] [address] [place] [address] 04/21/2024 12:00 PM EST Hospital Encounter OR [facility], Operating Room, [facility] - 4th Floor [address] [place] [address] Tay Cagle MD 400 [facility] [place] [address] 04/21/2024 12:00 PM EST - 04/21/2024 1:00 PM EST Surgery OR [facility], Operating Room, [facility] - 4th Floor [address] [place] [address] Tay Cagle MD 400 [place] [address] INSERT TUNNELED CENTRAL VENOUS ACCESS WITH SUBQ PORT Scheduled Procedures Name Priority Associated Diagnoses Date/Ti me INSERT TUNNELED CENTRAL VENOUS ACCESS WITH SUBQ PORT 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) Pancreatic mass 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) 04/21/2024 12:00 PM EST Health Maintenance Due Date Last Done [...] *NEPHROLOGY REFERRAL DUE TO RESISTANT HTN 03/29/2024 GFR 02/25/2025 02/26/2024, 02/07, 08/18/2023, Additional history exists Depression Screening 03/02/2025 03/02/2024 Albumin/Creatinine Ratio 08/17/2026 08/18/2023 Lipid Panel 07/13/2028 [...] documented as of this encounter Medical Devices Not on filedocumented as of this encounter Visit Diagnoses Diagnosis 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)- Primary 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) Malignant neoplasm of tail of pancreas 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
--- OUTSIDE RECORDS SUMMARY | 2024-05-14 13:49 | External Medical Summary | Summary of Care ---
Author Name Unknown Organization [facility] Address [address] [facility] [place] [address] Phone [phone] Care Team Providers Care Extrusion Operator Name Role Phone Sherwin Painter MD Primary Care Provider [phone] Reason for Visit * Reason Comments Education Gemzar/Abraxane Encounter Details Date Type Department Care Team (Late st Contact Info) Description 04/20/2024 10:30 AM EST Pt Ed by Nurse Hematology/Oncology [facility] [place] [address] [place] [address] Nurse Diamond Hem Onc [facility] [address] [place] [address] Allergies No known active allergiesdocumented as of [...] No 03/02/2024 Does the household have a [facility] source of income? (Household - for [...] as of this encounter Progress Notes * Scout Bowen RN - 04/20/2024 11:04 AM EST Education completed. documented in this encounter Plan of Treatment Upcoming Encounters Date Type Department Care Team (Latest Contact Info) Description 04/21/2024 12:00 PM EST Hospital Encounter OR [facility], Operating Room, [facility] - 4th Floor [address] [place] [address] Tay Cagle MD [address] [place] [address] 04/21/2024 12:00 PM EST - 04/21/2024 1:00 PM EST Surgery OR [facility], Operating Room, [facility] - 4th Floor [address] [place] [address] Tay Cagle MD [address] [place] [address] INSERT TUNNELED CENTRAL VENOUS ACCESS WITH SUBQ [...] Not on filedocumented as of this encounter Advance Directives Healthcare Agents on File Name Relationship Healthcare Agent Relationshi p Communication Deondre Hernández Spouse Health Care Repr esentative (appointed verbally by patient or by statute hierarchy) Care Teams Extrusion Operator Relationship Specialty Start Date End Date Sherwin Painter MD [address] [facility] [place] [address] PCP - General Family Medicine 09/21/23 documented as of this encounter
--- OUTSIDE RECORDS SUMMARY | 2024-05-14 13:49 | External Medical Summary | Summary of Care ---
Author Name Unknown Organization [facility] Address [address] [place] [address] Phone [phone] Care Team Providers Care Poured Pipe Maker Name Role Phone Sherwin Painter MD Primary Care Provider [phone] Reason for Visit * Reason Onset Date Comments Precert Future 04/19/2024 laurel Baltazar Encounter Details Date Type Department Care Team (Late st Contact Info) Description 04/19/2024 Telephone Hematology/Oncology Treatment, [facility] [place] [address] Melvin Waggoner MD [address] [place] [address] Precert Future (laurel Baltazar) Allergies No known active allergiesdocumented as of this encounter (statuses as of 04/23/2024) Medications Losartan Potassium 100 MG Oral Tablet (Cozaar) Take 1 Tablet by mouth in the morning. 90 Tablet 3 4 Active Aspirin Low Dose 81 MG Oral Tablet Chewable (aspirin)Indicat ions:Carotid artery plaque, bilateral chew and swallow 1 tablet by mouth every morning with food 100 Tablet 2 4 Active Cyclobenzaprine HCl 5 MG Oral Tablet (Flexeril) take 1 tablet by mouth three times a day if needed for muscle spasm 30 Tablet 1 5 Active Amoxicillin-Pot Clavulanate 875-125 MG Oral Tablet (Augmentin) Take 1 Tablet by mouth in the morning and 1 Tablet before bedtime. 4 04/21/19 25 Discontinu ed(Medicat ion List Clean Up) documented as of this encounter (statuses as of 04/23/2024) Active Problems Problem Noted Date Diagnosed Date [...] as of this encounter (statuses as of 04/23/2024) Resolved Problems Problem Noted Date Diagnosed Date [...] as of this encounter (statuses as of 04/23/2024) Immunizations Name Administration Dates Next Due COVID-19 [...] Telephone Encounter - Fernanda Durán RN - 04/21/2024 9:54 AM EST Referral entered. Port placement today. Scheduling: please call patient to schedule for 04/23 or later date- 2 hour appt "C1D1 gemzar/ abraxane" ([place]). Thanks! * Telephone Encounter - Scout Bowen RN - 04/20/2024 11:50 AM EST Education completed. Referral pending. * Telephone Encounter - Fernanda Durán RN - 04/19/2024 2:31 PM EST Order received for gemzar and abraxane. [place] plan built. Waiting for auth. Consent signed 04/16/24. Nurse education 04/20/24. Patient will need hep B labs. Port 04/21/24. documented in this encounter Plan of Treatment Health Maintenance Due Date Last Done Comments [...] this encounter Medical Devices Implanted Type Area Suction Worker Device Identifier Shelf Expiration Date Model / Serial / Lot Power Port 8fr Sngl Lumen Plas - [id number] Implanted:Qty : 1 on 04/21/2024 by Tay Cagle MD at [facility] Right: Chest CR BARD : [employer]HER[employer] [id number] 06/07/2025 [id number] / / [id number] documented as of this encounter Advance Directives Healthcare Agents on File Name Relationship Healthcare Agent Relationshi p Communication Deondre Hernández Spouse Health Care Repr esentative (appointed verbally by patient or by statute hierarchy) Care Teams Poured Pipe Maker Relationship Specialty Start Date End Date Sherwin Painter MD [id number] [facility] [place] [id number] PCP - General Family Medicine 09/21/23 documented as of this encounter
--- OUTSIDE RECORDS SUMMARY | 2024-05-14 13:49 | External Medical Summary | Summary of Care ---
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 at 1045, Until Fri04/21/24 at 1715 1031 (New Bag - Prov ider: Hunter Herrera RN) PRN Medication Order 04/19/2024 04/20/2024 04/21/2024 buffered lidocaine 1 % inj (CANCELED) ONCE PRN INTRA PROCEDURE, Starting on Fri04/21/24 at 1230, Until 04/21/24 at 1238, Intra-Op 1230 (Given - Provid er: Tay Cagle MD) fentaNYL (PF) inj (CANCELED) ONCE PRN INTRA PROCEDURE, Starting on Fri04/21/24 at 1218, Until 04/21/24 at 1238, Intra-Op 1218 (Given - Provid er: Abdon Valle RN) hEParin 100 UNIT/ML Lock Flush inj (CANCELED) ONCE PRN INTRA PROCEDURE, Starting on Fri04/21/24 at 1230, Until 04/21/24 at 1238, Intra-Op 1230 (Given - Provid er: Tay Cagle MD) midazolam (Versed) 2 MG/2ML inj (CANCELED) ONCE PRN INTRA PROCEDURE, Starting on Fri04/21/24 at 1218, Until 04/21/24 at 1238, Intra-Op 1218 (Given - Provid er: Abdon Valle RN) documented in this encounter Advance Directives Healthcare Agents on File Name Relationship Healthcare Agent Relationshi p Communication Deondre Hernández Spouse Health Care Repr esentative (appointed verbally by patient or by statute hierarchy) Care Teams Appliances Sample Maker Relationship Specialty Start Date End Date Sherwin Painter MD [address] [facility] [place] [address] PCP - General Family Medicine 09/21/23 documented as of this encounter
--- OUTSIDE RECORDS SUMMARY | 2024-05-14 13:49 | External Medical Summary | Summary of Care ---
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) 04/20/2024 11:06 AM EST HEPATITIS B SURFACE ANTIGEN Lab STAT 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) 04/20/2024 11:06 AM EST HEPATITIS B CORE ANTIBODIES IGG AND IGM Lab STAT 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) 04/20/2024 11:06 AM EST Scheduled Procedures Name Priority Associated Diagnoses Date/Ti [...] Not on filedocumented as of this encounter Procedures Procedure Name Priority Date/Time Associated Diagnosis Comments DIFFERENTIAL, AUTOMATED STAT 04/20/2024 11:06 AM EST 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) COMPREHENSIVE METABOLIC PANEL STAT 04/20/2024 11:06 AM EST 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) CBC STAT 04/20/2024 11:06 AM EST 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) CBC STAT 04/20/2024 11:06 AM EST 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) documented in this encounter Results * (ABNORMAL) DIFFERENTIAL, AUTOMATED (04/20/2024 11:06 AM EST) WBC 8.89 4.00 - 10.80 K/uL 04/20/2024 11:10 AM [facility] 56-02 Neutrophils % 73.6 40.0 - 75.0 % 04/20/2024 11:10 AM [facility] 56-02 Lymphocytes % 17.3(L) 18.0 - 42.0 % 04/20/2024 11:10 AM [facility] 56-02 Monocytes % 7.8 1.0 - 11.0 % 04/20/2024 11:10 AM [facility] 56-02 Eosinophils % 0.6 0.0 - 6.0 % 04/20/2024 11:10 AM [facility] 56-02 Basophils % 0.7 0.0 - 2.0 % 04/20/2024 11:10 AM [facility] 56-02 Absolute Neutrophils 6.55 1.80 - 7.70 K/uL 04/20/2024 11:10 AM [facility] 56-02 Absolute Lymphocytes 1.54 1.00 - 4.80 K/ul 04/20/2024 11:10 AM [facility] 56-02 Absolute Monocytes 0.69 0.00 - 1.10 K/uL 04/20/2024 11:10 AM [facility] 56-02 Absolute Eosinophils 0.05 0.00 - 0.70 K/uL 04/20/2024 11:10 AM [facility] 56-02 Absolute Basophils 0.06 0.00 - 0.20 K/uL 04/20/2024 11:10 AM [facility] 56-02 Blood Venous blood specimen / Unknown Venipuncture / Unknown 04/20/2024 11:06 AM EST 04/20/2024 11:06 AM EST us Melvin Waggoner MD LAB BLOOD ORDERABLES Final Res ult [facility] 56-[address] [place] [address] * (ABNORMAL) CBC (04/20/2024 11:06 AM EST) WBC 8.89 4.00 - 10.80 K/uL 04/20/2024 11:10 AM [facility] 56-02 RBC 4.32 3.85 - 5.15 M/uL 04/20/2024 11:10 AM [facility] 56 HGB 13.6 12.0 - 15.3 g/dL 04/20/2024 11:10 AM [facility] 56 HCT 40.4 36.0 - 45.2 % 04/20/2024 11:10 AM [facility] 56 MCV 93.5 81.5 - 97.5 fL 04/20/2024 11:10 AM [facility] 56 MCH 31.5 27.0 - 34.0 pg 04/20/2024 11:10 AM [facility] 56 MCHC 33.7 32.0 - 36.0 g/dL 04/20/2024 11:10 AM [facility] 56 RDW 14.3 11.5 - 15.5 % 04/20/2024 11:10 AM [facility] 56 PLT 514(H) 140 - 400 K/uL 04/20/2024 11:10 AM [facility] 56 MPV 8.9 6.6 - 11.1 fL 04/20/2024 11:10 AM [facility] 56 Blood Venous blood specimen / Unknown Venipuncture / Unknown 04/20/2024 11:06 AM EST 04/20/2024 11:06 AM EST us Melvin Waggoner MD LAB BLOOD ORDERABLES Final Res ult [facility] [address] [place] [address] * (ABNORMAL) COMPREHENSIVE METABOLIC PANEL (04/20/2024 11:06 AM EST) BUN 5(L) 6 - 20 mg/dL 04/20/2024 11:31 AM [facility] 56 CREATININE 0.5 0.5 - 1.0 mg/dL 04/20/2024 11:31 AM [facility] 56 EGFR >90 >=60 mL/min 04/20/2024 11:31 AM [facility] 56 Comment:eGFR is calculated b ased on the CKD-EPI 2020 equation. SODIUM 133(L) 135 - 146 mmol/L 04/20/2024 11:31 AM [facility] 56- POTASSIUM 4.3 3.5 - 5.1 mmol/L 04/20/2024 11:31 AM [facility] 56- CHLORIDE 96(L) 98 - 107 mmol/L 04/20/2024 11:31 AM [facility] 56- CO2 25 22 - 32 mmol/L 04/20/2024 11:31 AM [facility] 56- ANION GAP 12 7 - 15 mmol/L 04/20/2024 11:31 AM [facility] 56- GLUCOSE 106 70 - 120 mg/dL 04/20/2024 11:31 AM [facility] 56- Albumin 3.9 3.8 - 5.0 g/dL 04/20/2024 11:31 AM [facility] 56 AST 25 10 - 35 U/L 04/20/2024 11:31 AM [facility] 56 Alkaline Phosphatase 126 35 - 130 U/L 04/20/2024 11:31 AM [facility] 56 Bilirubin, Total 0.4 <=1.2 mg/dL 04/20/2024 11:31 AM [facility] 56- CALCIUM 9.5 8.4 - 10.2 mg/dL 04/20/2024 11:31 AM [facility] 56- Protein 8.0 6.0 - 8.3 g/dL 04/20/2024 11:31 AM [facility] 56- ALT 7(L) 10 - 35 U/L 04/20/2024 11:31 AM [facility] 56- Blood Venous blood specimen / Unknown Venipuncture / Unknown 04/20/2024 11:06 AM EST 04/20/2024 11:06 AM EST us Melvin Waggoner MD LAB BLOOD ORDERABLES Final Res ult [facility] 56- [address] [place] [address] documented in this encounter Visit Diagnoses Diagnosis [...] patient or by statute hierarchy) Care Teams Mold Chipper Relationship Specialty Start Date End Date Sherwin Painter MD [address] [facility] [place] [address] PCP - General Family Medicine 09/21/23 documented as of this encounter
--- OUTSIDE RECORDS SUMMARY | 2024-05-14 13:49 | External Medical Summary | Summary of Care ---
Author Name Unknown Organization [facility] Address [address] [place] [place] [address] Phone [phone] Care Team Providers Care Cart Attendant Name Role Phone Sherwin Painter MD Primary Care Provider [phone] Reason for Visit * Reason Onset Date Comments Precert Future 04/19/2024 laurel Baltazar Encounter Details Date Type Department Care Team (Late st Contact Info) Description 04/19/2024 Telephone Hematology/Oncology Treatment, [place] [address] [place] [address] Melvin Waggoner MD [address] [place] [address] Precert Future (laurel Baltazar) Allergies No known [...] encounter Miscellaneous Notes * Telephone Encounter - Kings Garcia OSA - 04/23/2024 8:53 AM EST Left message * Telephone Encounter - Fernanda Durán RN [...] EST Order received for gemzar and abraxane. [place] plan built. Waiting for auth. Consent signed [...] this encounter Medical Devices Implanted Type Area Sulfuric Acid Plant Operator Device Identifier Shelf Expiration Date Model / Serial / Lot Power Port 8fr Sngl Lumen Plas - [id number] Implanted:Qty : 1 on 04/21/2024 by Tay Cagle MD at OR [facility] Right: Chest CR BARD : PERIPHERAL VASCULAR [id number] 06/07/2025 [id number] / / [id number] documented as of this encounter Advance Directives Healthcare Agents on File Name Relationship Healthcare Agent Relationshi p Communication Deondre Charles Hernández Spouse Health Care Repr esentative (appointed verbally by patient or by statute hierarchy) Care Teams Cart Attendant Relationship Specialty Start Date End Date Sherwin Painter MD [address] [facility] [place] [address] PCP - General Family Medicine 09/21/23 documented as of this encounter
--- OUTSIDE RECORDS SUMMARY | 2024-05-14 13:49 | External Medical Summary ---
Author Name Unknown Address Unknown Organization K09:[facility] [place] [address] Laboratory Report Ordering Provider Test Date Status VERITO GAUTHIER 04/20/2024 11:06:12 Final Observation Date Value Abnormality Reference (Units ) Status SYNC LEUKOCYTES IN BLOOD BY AUTOMATED COUNT 04/20/2024 11:06:12 8.89 4.00-10.80 (K/uL) Final Segs 04/20/2024 11:06:12 73.6 40.0-75.0 (%) Final Lymphs % 04/20/2024 11:06:12 17.3 Below low normal 18.0-42.0 (%) Final Monos 04/20/2024 11:06:12 7.8 1.0-11.0 (%) Final Eosinophils 04/20/2024 11:06:12 0.6 0.0-6.0 (%) Final Basos 04/20/2024 11:06:12 0.7 0.0-2.0 (%) Final Absolute Segs 04/20/2024 11:06:12 6.55 1.80-7.70 (K/uL) Final Lymphs, absolute 04/20/2024 11:06:12 1.54 1.00-4.80 (K/ul) Final Monos, Abs 04/20/2024 11:06:12 0.69 0.00-1.10 (K/uL) Final Eos, Abs 04/20/2024 11:06:12 0.05 0.00-0.70 (K/uL) Final Basos, Abs 04/20/2024 11:06:12 0.06 0.00-0.20 (K/uL) Final Performing Location [facility] [place] [address]
--- OUTSIDE RECORDS SUMMARY | 2024-05-14 13:49 | External Medical Summary ---
Author Name Unknown Address Unknown Organization K01:[facility] [address] [place] [address] Laboratory Report Ordering Provider Test Date Status VERITO GAUTHIER 04/20/2024 11:06:12 Final Observation Date Value Abnormality Reference (Units ) Status Hepatitis B virus core Ab [Presence] in Serum 04/20/2024 11:06:12 Negative Negative Final Performing Location [facility] - [address] [place] [address]
--- OUTSIDE RECORDS SUMMARY | 2024-05-14 13:49 | External Medical Summary | Summary of Care ---
Author Name Unknown Organization [facility] Address [address] [facility] [address] Phone [phone] Care Team Providers Care Miner Helper Name Role Phone Sherwin Painter MD Primary Care Provider [phone] Reason for Visit * Reason Onset Date Comments Precert Future 04/19/2024 laurel Baltazar Encounter Details Date Type Department Care Team (Late st Contact Info) Description 04/19/2024 Telephone Hematology/Oncology Treatment, [place] [address] [place] [address] Melvin Waggoner MD [address] [place] [address] Precert Future (laurel Baltazar) Allergies No known [...] with food 100 Tablet 2 10/13/2023 Active Amoxicillin-Pot Clavulanate 875-125 MG Oral Tablet (Augmentin) Take 1 Tablet by mouth in the morning and 1 Tablet before bedtime. 02/29/2024 Active Cyclobenzaprine HCl 5 MG Oral Tablet (Flexeril) take 1 tablet by mouth three times a day if needed for muscle spasm 30 Tablet 1 04/05/2024 Active documented as of this encounter (statuses [...] EST Order received for gemzar and abraxane. [place] plan built. Waiting for auth. Consent signed 04/16/24. Nurse education 04/20/24. Patient will need hep B labs. Port 04/21/24. documented in this encounter Plan of Treatment Upcoming Encounters Date Type Department Care Team (Latest Contact Info) Description 04/21/2024 12:00 PM EST Hospital Encounter OR [facility], Operating Room, [facility] - 4th Floor [address] [phone] Tay Cagle MD [address] [phone] 04/21/2024 12:00 PM EST - 04/21/2024 1:00 PM EST Surgery OR [facility], Operating Room, [facility] - 4th Floor [address] [phone] Tay Cagle MD [address] [place] [address] INSERT TUNNELED CENTRAL VENOUS ACCESS WITH SUBQ [...] patient or by statute hierarchy) Care Teams Miner Helper Relationship Specialty Start Date End Date Sherwin Painter MD [address] [facility] [place] [address] PCP - General Family Medicine 09/21/23 documented as of this encounter
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
--- OUTSIDE RECORDS SUMMARY | 2024-05-14 13:49 | External Medical Summary | Summary of Care ---
Author Name Unknown Organization [facility] Address [address] [place] [address] Phone [phone] Care Team Providers Care Textile Machinery Instructor Name Role Phone Sherwin Painter MD Primary Care Provider [phone] Reason for Visit * Reason Onset Date Comments Precert Future 04/19/2024 laurel Baltazar Encounter Details Date Type Department Care Team (Late st Contact Info) Description 04/19/2024 Telephone Hematology/Oncology Treatment, [place] [address] [place] [address] Melvin Waggoner MD [address] [place] [address] Precert Future (laurel Baltazar) Allergies No known [...] EST Order received for gemzar and abraxane. [place] plan built. Waiting for auth. Consent signed 04/16/24. Nurse education 04/20/24. Patient will need hep B labs. Port 04/21/24. documented in this encounter Plan of Treatment Upcoming Encounters Date Type Department Care Team (Latest Contact Info) Description 04/21/2024 12:00 PM EST Hospital Encounter OR [facility], Operating Room, [facility] - 4th Floor [address] [phone] Tay Cagle MD [address] [phone] 04/21/2024 12:00 PM EST - 04/21/2024 1:00 PM EST Surgery OR [facility], Operating Room, [facility] - 4th Floor [address] [phone] Tay Cagle MD [address] [phone] INSERT TUNNELED CENTRAL VENOUS ACCESS WITH SUBQ [...] patient or by statute hierarchy) Care Teams Textile Machinery Instructor Relationship Specialty Start Date End Date Sherwin Painter MD [address] [facility] [place] [address] PCP - General Family Medicine 09/21/23 documented as of this encounter
--- OUTSIDE RECORDS SUMMARY | 2024-05-14 13:49 | External Medical Summary | Summary of Care ---
Author Name Unknown Organization [facility] Address [address] [place] [facility] [place] [place] [address] Phone [phone] Care Team Providers Care Refrigerated National Truck Driver Name Role Phone Sherwin Painter MD Primary Care Provider [phone] Reason for Visit * Reason Onset Date Comments Precert Future 04/19/2024 laurel Baltazar Encounter Details Date Type Department Care Team (Late st Contact Info) Description 04/19/2024 Telephone Hematology/Oncology Treatment, [place] [address] [place] [address] Melvin Waggoner MD 200 [place] [address] Precert Future (laurel Baltazar) Allergies No known active allergiesdocumented as of this encounter (statuses as of 04/21/2024) Medications Losartan Potassium 100 MG Oral Tablet (Cozaar) Take 1 Tablet by mouth in the morning. 90 Tablet 3 4 Suspended Aspirin Low Dose 81 MG Oral Tablet Chewable (aspirin)Indica tions:Carotid artery plaque, bilateral chew and swallow 1 tablet by mouth every morning with food 100 Tablet 2 4 Suspended Amoxicillin-Pot Clavulanate 875-125 MG Oral Tablet (Augmentin) Take 1 Tablet by mouth in the morning and 1 Tablet before bedtime. 4 04/21/19 25 Discontinued (Medication List Clean Up) Cyclobenzaprine HCl 5 MG Oral Tablet (Flexeril) take 1 tablet by mouth three times a day if needed for muscle spasm 30 Tablet 1 5 Suspended documented as of this encounter (statuses as of 04/21/2024) Active Problems Problem Noted Date Diagnosed Date [...] as of this encounter (statuses as of 04/21/2024) Resolved Problems Problem Noted Date Diagnosed Date [...] as of this encounter (statuses as of 04/21/2024) Immunizations Name Administration Dates Next Due COVID-19 [...] EST Order received for gemzar and abraxane. [place] plan built. Waiting for auth. Consent signed 04/16/24. Nurse education 04/20/24. Patient will need hep B labs. Port 04/21/24. documented in this encounter Plan of Treatment Scheduled Procedures Name Priority Associated Diagnoses Date/Ti [...] patient or by statute hierarchy) Care Teams Refrigerated National Truck Driver Relationship Specialty Start Date End Date Sherwin Painter MD [facility] [place] [phone] PCP - General Family Medicine 09/21/23 documented as of this encounter
--- OUTSIDE RECORDS SUMMARY | 2024-05-14 13:49 | External Medical Summary | Summary of Care ---
Author Name Unknown Organization [facility] Address [address] [facility] [place] [address] Phone [phone] Care Team Providers Care Peer Support Specialist Name Role Phone Sherwin Painter MD Primary Care Provider [phone] Reason for Visit * Reason Onset Date Comments Precert Future 04/19/2024 laurel Baltazar Encounter Details Date Type Department Care Team (Late st Contact Info) Description 04/19/2024 Telephone Hematology/Oncology Treatment, [place] [address] [place] [address] Melvin Waggoner MD [address] [place] [address] Precert Future (laurel Baltazar) Allergies No known [...] Encounter - Kings Garcia OSA - 04/23/2024 10:01 AM EST Patient scheduled and aware * Telephone Encounter - Kings Garcia OSA - 04/23/2024 8:53 AM EST Left message * Telephone Encounter - Fernanda Durán RN - 04/21/2024 9:54 AM EST Referral entered. Port placement today. Scheduling: please call patient to schedule for 04/23 or later date- 2 hour appt "C1D1 gemzar/ laurel" (Edilson). Thanks! * Telephone Encounter - Scout Bowen RN - 04/20/2024 11:50 AM EST Education completed. Referral pending. * Telephone Encounter - Fernanda Durán RN - 04/19/2024 2:31 PM EST Order received for gemzar and abraxane. [place] plan built. Waiting for auth. Consent signed 04/16/24. Nurse education 04/20/24. Patient will need hep B labs. Port 04/21/24. documented in this encounter Plan of Treatment Upcoming Encounters Date Type Department Care Team (Late st Contact Info) Description 04/27/2024 9:00 AM EST Hem/Onc Treatment Hematology/Oncology Treatment, [place] [address] [place] [address] Diamond, Chair [address] Hem Onc Scenery [address] [place] [address] Health Maintenance Due Date Last Done Comments [...] this encounter Medical Devices Implanted Type Area Edging Supervisor Device Identifier Shelf Expiration Date Model / Serial / Lot Power Port 8fr Sngl Lumen Plas - [id number] Implanted:Qty : 1 on 04/21/2024 by aTy Cagle MD at OR [facility] Right: Chest CR BARD : PERIPHERAL VASCULAR [id number] 06/07/2025 [id number] / / [id number] documented as of this encounter Advance Directives Healthcare Agents on File Name Relationship Healthcare Agent Relationshi p Communication Deondre Charles Hernández Spouse Health Care Repr esentative (appointed verbally by patient or by statute hierarchy) Care Teams Peer Support Specialist Relationship Specialty Start Date End Date Sherwin Painter MD [address] [facility] [place] [address] PCP - General Family Medicine 09/21/23 documented as of this encounter
--- OUTSIDE RECORDS SUMMARY | 2024-05-14 13:49 | External Medical Summary ---
Author Name Unknown Address Unknown Organization K01:[facility] [place] [address] [place] [address] Laboratory Report Ordering Provider Test Date Status VERITO GAUTHIER 04/20/2024 11:06:12 Final Observation Date Value Abnormality Reference (Units) Status Hepatitis B virus surface Ab [Units/volume] in Serum or Plasma by Immunoassay 04/20/2024 11:06:12 6.2 (mIU/mL) Final Hepatitis B virus surface Ab [Presence] in Serum by Immunoassay 04/20/2024 11:06:12 Negative Final HEPATITIS B SURFACE ANTIBODY, INTERPRETATION 04/20/2024 11:06:12 NOT immune to Hepatitis B Virus Final POSITIVE: >=11.5 mIU/mL
INDETERMINATE: 8.5-<11.5 mIU/mL
NEGATIVE: <8.5 mIU/mL Performing Location LABORATORY [facility] - [facility] [address] [place] [address]
--- OUTSIDE RECORDS SUMMARY | 2024-05-14 13:49 | External Medical Summary ---
Author Name Unknown Address Unknown Organization K09:[facility] [address] Laboratory Report Ordering Provider Test Date Status VERITO GAUTHIER 04/20/2024 11:06:12 Final Observation Date Value Abnormality Reference (Units ) Status WBC, Total 04/20/2024 11:06:12 8.89 4.00-10.8 0 (K/uL) Final RBC 04/20/2024 11:06:12 4.32 3.85-5.15 (M/uL) Final Hemoglobin 04/20/2024 11:06:12 13.6 12.0-15.3 (g/dL) Final HCT 04/20/2024 11:06:12 40.4 36.0-45.2 (%) Final MCV 04/20/2024 11:06:12 93.5 81.5-97.5 (fL) Final MCH 04/20/2024 11:06:12 31.5 27.0-34.0 (pg) Final MCHC 04/20/2024 11:06:12 33.7 32.0-36.0 (g/dL) Final RDW 04/20/2024 11:06:12 14.3 11.5-15.5 (%) Final Platelets 04/20/2024 11:06:12 514 Above high normal 14 0-400 (K/uL) Final MPV 04/20/2024 11:06:12 8.9 6.6-11.1 ( fL) Final Performing Location [facility] [address]
--- OUTSIDE RECORDS SUMMARY | 2024-05-14 13:50 | External Medical Summary | Summary of Care ---
Author Name Unknown Organization [facility] Address [address] [place] [facility] [place] [address] Phone [phone] Care Team Providers Care Thread Milling Machine Set Up Operator Name Role Phone Sherwin Painter MD Primary Care Provider [phone] Reason for Visit * Reason Onset Date Comments Scheduling 03/29/2024 Encounter Details Date Type Department Care Team (Late st Contact Info) Description 03/29/2024 Telephone Hematology/Oncology [facility] [address] [place] [address] Mel[facility] MD [address] [facility] [address] Scheduling Allergies No known active allergiesdocumented as of this encounter (statuses as of 03/31/2024) Medications Losartan Potassium 100 MG Oral Tablet [...] needed for muscle spasm 30 Tablet 1 01/19/2024 Active Amoxicillin-Pot Clavulanate 875-125 MG Oral Tablet (Augmentin) Take 1 Tablet by mouth in the morning and 1 Tablet before bedtime. 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 [...] as of this encounter (statuses as of 03/31/2024) Resolved Problems Problem Noted Date Diagnosed Date [...] as of this encounter (statuses as of 03/31/2024) Immunizations Name Administration Dates Next Due COVID-19 [...] ages 0-17 years) Not on file 03/02/2024 Comments No Sex and Gender Information Value Date Recorded Sex Assigned at Not on file Legal Sex Female 6:46 AM EST Gender Identity Not on file Sexual Orientation Not on file documented as of this encounter Miscellaneous Notes * Telephone Encounter - Gracia Horton OSA - 03/31/2024 10:10 AM EST Patient had called back to schedule the Mediport Insertion for 04/09 at [facility] Patient identified by: name Person taught: Patient METHOD: Lecture-telephone interview PATIENT INSTRUCTIONS GIVEN: - General Preoperative Instructions Reviewed - NPO Instructions Reviewed, pt to stop eating 8 hours prior to procedure and stop drinking 2 hoursprior to procedure. -Parts Sales Associate required Location and check-in instructions Verbalizes understanding of education: Yes Procedure date at time of Imaging Encounter: 04/09 What procedure is patient having? Mediport Insertion Laterality confirmed as Not Applicable Does the patient have a yellow bar? did not The Patient was given the opportunity to ask questions concerning the procedure. Signature: KEY Doss 03/31/2024 * Telephone Encounter - Gracia Horton OSA - 03/29/2024 12:14 PM EST Called patient to schedule Mediport Insertion . No answer. Left message for patient to return call. documented in this encounter Plan of Treatment Upcoming Encounters Date Type Department Care Team (Late st Contact Info) Description 04/15/2024 8:00 AM EST Office Visit Family Practice [address] [place] [address] Sherwin Painter MD [address] [place] [address] 04/16/2024 11:00 AM EST Office Visit Hematology/Oncology [facility] [place] [address] [place] [address] Melvin Waggoner MD 200 [place] [address] Health Maintenance Due Date Last Done Comments [...] (Cour se Completed) Lung Cancer Screening Completed 02/25/2024 HPV (Gardasil) Vaccine Aged Out No lo [...] patient or by statute hierarchy) Care Teams Thread Milling Machine Set Up Operator Relationship Specialty Start Date End Date Sherwin Painter MD [address] [place] [address] PCP - General Family Medicine 09/21/23 documented as of this encounter
--- OUTSIDE RECORDS SUMMARY | 2024-05-14 13:50 | External Medical Summary | Summary of Care ---
Author Name Unknown Organization [facility] Address [address] [facility] [address] Phone [phone] Care Team Providers Care Senior Payroll Administrator Name Role Phone Sherwin Painter MD Primary Care Provider [phone] Reason for Visit * Reason Onset Date Comments Films 04/12/2024 PET uploaded to [employer] Encounter Details Date Type Department Care Team (Late st Contact Info) Description 04/12/2024 Telephone Radiology [facility] [address] [place] [address] [facility] [address] [place] [address] [place] [address] Films (PET uploaded to [employer]) Allergies No known active allergiesdocumented as of this encounter (statuses as of 04/13/2024) Medications Losartan Potassium 100 MG Oral Tablet [...] as of this encounter (statuses as of 04/13/2024) Active Problems Problem Noted Date Diagnosed Date [...] as of this encounter (statuses as of 04/13/2024) Resolved Problems Problem Noted Date Diagnosed Date [...] as of this encounter (statuses as of 04/13/2024) Immunizations Name Administration Dates Next Due COVID-19 [...] encounter Miscellaneous Notes * Telephone Encounter - Rachelle Rojas RT - 04/12/2024 1:18 PM EST Outside PET imagine done 04/10/24 uploaded to [employer]. documented in this encounter Plan of Treatment Upcoming Encounters Date Type Department Care Team (Latest Contact Info) Description 04/14/2024 10:00 AM EST Hospital Encounter OR [facility], Operating Room, [facility] - 4th Floor [address] [place] [phone] Tay Cagle MD [address] [facility] [place] [address] 04/14/2024 10:00 AM EST - 04/14/2024 11:00 AM EST Surgery OR [facility], Operating Room, [facility] - 4th Floor [address] [phone] Tay Cagle MD [address] [place] [address] INSERT TUNNELED CENTRAL VENOUS ACCESS WITH SUBQ PORT 04/16/2024 11:00 AM EST Office Visit Hematology/Oncology [facility] [place] [address] [facility] [place] [phone] Melvin Waggoner MD 200 [facility] [place] [address] Scheduled Procedures Name Priority Associated Diagnoses Date/Ti me INSERT TUNNELED CENTRAL VENOUS ACCESS WITH SUBQ PORT 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
--- OUTSIDE RECORDS SUMMARY | 2024-05-14 13:50 | External Medical Summary | Summary of Care ---
Author Name Unknown Organization [facility] Address [address] [facility] [address] Phone [phone] Care Team Providers Care Controller Mechanic Name Role Phone Sherwin Painter MD Primary Care Provider [phone] Reason for Visit * Reason Onset Date Comments Scheduling 03/29/2024 Encounter Details Date Type Department Care Team (Late st Contact Info) Description 03/29/2024 Telephone Hematology/Oncology [facility] [address] [facility] [place] [address] Melvin [facility]aggoner MD [address] [facility] [address] Scheduling Allergies No known active allergiesdocumented as of this encounter (statuses as of 03/29/2024) Medications Losartan Potassium 100 MG Oral Tablet [...] as of this encounter (statuses as of 03/29/2024) Active Problems Problem Noted Date Diagnosed Date [...] as of this encounter (statuses as of 03/29/2024) Resolved Problems Problem Noted Date Diagnosed Date [...] as of this encounter (statuses as of 03/29/2024) Immunizations Name Administration Dates Next Due COVID-19 [...] 8:00 AM EST Office Visit Family Practice [place] [address] [place] [address] Sherwin Painter MD [address] [place] [address] 04/16/2024 11:00 AM EST Office Visit Hematology/Oncology [facility] [address] [facility] [place] [phone] Melvin Waggoner MD [address] [place] [address] Health Maintenance Due Date Last Done Comments [...] patient or by statute hierarchy) Care Teams Controller Mechanic Relationship Specialty Start Date End Date Sherwin Painter MD [address] [facility] [place] [address] PCP - General Family Medicine 09/21/23 documented as of this encounter
--- OUTSIDE RECORDS SUMMARY | 2024-05-14 13:50 | External Medical Summary | Summary of Care ---
Author Name Unknown Organization [facility] Address [address] [place] [place] [facility] [place] [address] Phone [phone] Care Team Providers Care Patented Hogshead Assembler Name Role Phone Sherwin Painter MD Primary Care Provider [phone] Reason for Visit * Reason Onset Date Comments Outpatient Testing 03/26/2024 Slide review/ [facility] Encounter Details Date Type Department Care Team (Late st Contact Info) Description 03/26/2024 Telephone Hematology/Oncology Treatment, [place] [address] [place] [address] Melvin Waggoner MD 200 [place] [address] Outpatient Testing (Slide review/ [facility]) Allergies No known active allergiesdocumented as of this encounter (statuses as of 04/01/2024) Medications Losartan Potassium 100 MG Oral Tablet [...] as of this encounter (statuses as of 04/01/2024) Active Problems Problem Noted Date Diagnosed Date [...] as of this encounter (statuses as of 04/01/2024) Resolved Problems Problem Noted Date Diagnosed Date [...] as of this encounter (statuses as of 04/01/2024) Immunizations Name Administration Dates Next Due COVID-19 [...] Telephone Encounter - Scout Bowen RN - 04/01/2024 10:20 AM EST Called and spoke with "Aime" in pathology. She states the blocks were sent yesterday to [place]. Message sent to pathology. * Telephone Encounter - Eben Durán RN - 03/29/2024 8:35 AM EST Called Micaela back- pathologist will not be back until April. Asked her to send a few blocks. * Addendum Note - Eben Durán RN - 03/26/2024 2:59 PM ESTAddended by: EBEN DURÁN on: 03/26/2024 02:59 PM Modules accepted: Orders * Telephone Encounter - Yumiko Chavez OSA - 03/26/2024 2:38 PM EST Micaela calling in regarding below message. states they dont have a pathologist in right now to determine which is the best one to send asking if they should send all of them? Please call micaela back at [phone] * Telephone Encounter - Eben Durán RN - 03/26/2024 11:[address] Waggoner, would like specimen brought to [facility] for slide review and MyGenvar pancreatic panel. Called [facility] [place] ([phone]) and spoke to Valerie. Request can be faxed to [phone]. Faxed request. Order placed, staff message sent to pathology. documented in this encounter Plan of Treatment Upcoming Encounters Date Type Department Care Team (Latest Contact Info) Description 04/09/2024 12:00 PM EST Hospital Encounter OR [facility], Operating Room, [facility] - 4th Floor [address] [place] [phone] Tay Cagle MD [address] [facility] [place] [address] 04/09/2024 12:00 PM EST - 04/09/2024 1:00 PM EST Surgery OR [facility], Operating Room, [facility] Floor [address] [place] [address] Tay Cagle MD [address] [place] [address] INSERT TUNNELED CENTRAL VENOUS ACCESS WITH SUBQ PORT 04/15/2024 8:00 AM EST [facility] [place] [address] [place] [address] Sherwin Painter MD [address] [facility] [place] [address] 04/16/2024 11:00 AM EST Office Visit Hematology/Oncology [facility] [place] [address] 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) Pancreatic mass 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) 04/09/2024 12:00 PM EST Health Maintenance Due Date [...] as of this encounter Visit Diagnoses Diagnosis 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)- Primary 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
--- OUTSIDE RECORDS SUMMARY | 2024-05-14 13:50 | External Medical Summary | Summary of Care ---
Author Name Unknown Organization [facility] Address [address] [place] [address] Phone [phone] Care Team Providers Care Trauma Manager Name Role Phone Sherwin Painter MD Primary Care Provider [phone] Encounter Details Date Type Department Care Team (Latest Contact Info) Description 04/10/2024 10:30 AM EST - 04/10/2024 11:59 PM EST Hospital Encounter Radiology [place] [address] [place] [address] Arrived Discharge Disposition: Home - Self Care Allergies [...] Date Primary pancreatic cancer with metastasis to ot [...] 03/23/2021 11/15/2021 Screen for colon cancer 03/23/2021 09/10/2021 Food insecurity 03/19/2021 03/23/2021 Overview: Per Fresh [...] Department Care Team (Latest Contact Info) Description 04/16/2024 11:00 AM EST Office Visit Hematology/Oncology [place] [address] [facility] [place] [address] Melvin Waggoner MD [address] [facility] [place] [address] 04/21/2024 12:00 PM EST Hospital Encounter OR [facility], Operating Room, [facility] - 4th Floor [address] [place] [phone] Tay Cagle MD [address] [address] 04/21/2024 12:00 PM EST - 04/21/2024 1:00 PM EST Surgery OR [facility], Operating Room, [facility] - 4th Floor [address] [place] [phone] Tay Cagle MD [address] [place] [address] INSERT TUNNELED CENTRAL VENOUS ACCESS WITH SUBQ [...] Procedure Name Priority Date/Time Associated Diagnosis Comments RADIOLOGY EXAM - PET (IMAGES ONLY, NO REPORT) Routine 04/10/2024 10:30 AM EST documented in this encounter Results * RADIOLOGY EXAM - PET (IMAGES ONLY, NO REPORT) (04/10/2024 10:30 AM EST) 04/10/2024 10:3 0 AM EST Narrative Scheduling, Silent - 04/12/2024 1:19 PM EST This is an imaging study not interpreted or resulted by a [facility] or [facility] contracted radiologist. us Melvin Waggoner MD RAD NUCLEAR MED Final Result documented in this encounter Advance Directives Healthcare Agents on File Name Relationship Healthcare Agent Relationshi p Communication Deondre Hernández Spouse Health Care Repr esentative (appointed verbally by patient or by statute hierarchy) Care Teams Trauma Manager Relationship Specialty Start Date End Date Sherwin Painter MD [address] [place] [address] PCP - General Family Medicine 09/21/23 documented as of this encounter
--- OUTSIDE RECORDS SUMMARY | 2024-05-14 13:50 | External Medical Summary | Summary of Care ---
Author Name Unknown Organization [facility] Address [address] [address] Phone [phone] Care Team Providers Care Classified Copy Control Clerk Name Role Phone Sherwin Painter MD Primary Care Provider [phone] Reason for Visit * Reason Onset Date Comments transfer of records 04/12/2024 Encounter Details Date Type Department Care Team (Late st Contact Info) Description 04/12/2024 Telephone Hematology/Oncology [facility] [address] [place] [address] Melvin Waggoner MD [address] [place] [address] transfer of records Allergies No known active allergiesdocumented as of [...] Telephone Encounter - Jaimie Vazquez OSA - 04/12/2024 12:47 PM EST Pt dropped off pet disc to our office Was given to radiology to scan into pts chart documented in this encounter Plan of Treatment Upcoming Encounters Date Type Department Care Team (Latest Contact Info) Description 04/14/2024 10:00 AM EST Hospital Encounter [facility], Operating Room, [facility] - 4th Floor [address] [place] [place] [address] Tay Cagle MD [address] [facility] [place] [address] 04/14/2024 10:00 AM EST - 04/14/2024 11:00 AM EST Surgery OR [facility], Operating Room, [facility] - 4th Floor [address] [place] [address] Tay Cagle MD [address] [place] [address] INSERT TUNNELED CENTRAL VENOUS ACCESS WITH SUBQ PORT 04/16/2024 11:00 AM EST Office Visit Hematology/Oncology [address] [place] [address] [place] [address] Melvin Waggoner MD [address] [place] [address] Scheduled Procedures Name Priority Associated Diagnoses Date/Ti [...] patient or by statute hierarchy) Care Teams Classified Copy Control Clerk Relationship Specialty Start Date End Date Sherwin Painter MD [address] [facility] [place] [address] PCP - General Family Medicine 09/21/23 documented as of this encounter
--- OUTSIDE RECORDS SUMMARY | 2024-05-14 13:50 | External Medical Summary | Summary of Care ---
Author Name Unknown Organization [facility] Address [address] [facility] [place] [address] Phone [phone] Care Team Providers Care Facility Environmental Technician Name Role Phone Sherwin Painter MD Primary Care Provider [phone] Reason for Visit * Reason Comments Follow Up Review PET Results Encounter Details Date Type Department Care Team (Late st Contact Info) Description 04/16/2024 11:00 AM EST Office Visit Hematology/Oncology [facility] [place] 200 [facility] [place] [address] Melvin Waggoner MD 200 [facility] [place] [address] 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)*; 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); 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) Allergies No known active allergiesdocumented as of this encounter (statuses as of 04/16/2024) Medications Losartan Potassium 100 MG Oral Tablet [...] as of this encounter (statuses as of 04/16/2024) Active Problems Problem Noted Date Diagnosed Date [...] as of this encounter (statuses as of 04/16/2024) Resolved Problems Problem Noted Date Diagnosed Date [...] as of this encounter (statuses as of 04/16/2024) Immunizations Name Administration Dates Next Due COVID-19 [...] Progress Notes * Melvin Waggoner MD - 04/16/2024 11:00 AM EST Hematology/Oncology Outpatient Consult Note [facility] [address] [place] [address] ADWOA HERNÁNDEZ MR # [id number] :[id number] 68 years old female, Date of [...] for port placement. DIAGNOSTIC WORKUP: Presented to [facility] ER with acute abdominal pain, constipation 4 days' duration, further workup as follows: CT scan of the abdomen and pelvis done on 02/25/2024 at [facility]: -finding suggestive of acute appendicitis Pancreatic tail [...] with transmural inflammation noted. Pathology review at [facility]: - Omentum, transverse and partial omentectomy --> [...] she has abdominal wall wound, [facility] Currently she is not on any [...] Stability Do you currently live in a [place] or have no steady place to sleep [...] for the ruptured appendix on 02/25/2024 at [facility], final pathology from the omentum showed metastatic [...] pathological findings reviewed by the pathologist at [facility], recent blood workup findings. She is [...] State Nubia [place] [address] [place] [address] Nurse [facility] [address] [place] [address] 04/21/2024 12:00 PM EST Hospital Encounter OR [facility], Operating Room, [facility] - 4th Floor [address] [place] [address] Tay Cagle MD [address] [place] [address] 04/21/2024 12:00 PM EST - 04/21/2024 1:00 PM EST Surgery OR [facility], Operating Room, [facility] - 4th Floor [address] [place] [place] [address] Tay Cagle MD [address] [place] [address] INSERT TUNNELED CENTRAL VENOUS ACCESS WITH SUBQ [...] patient or by statute hierarchy) Care Teams Facility Environmental Technician Relationship Specialty Start Date End Date Sherwin Painter MD [facility]8 [facility] [place] [address] PCP - General Family Medicine 09/21/23 documented as of this encounter"
--- OUTSIDE RECORDS SUMMARY | 2024-05-14 13:50 | External Medical Summary | Summary of Care ---
Author Name Unknown Organization [facility] Address [address] [facility] [place] [address] Phone [phone] Care Team Providers Care Pool Hand Name Role Phone Sherwin Painter MD Primary Care Provider [phone] Encounter Details Date Type Department Care Team (Late st Contact Info) Description 04/19/2024 Orders Only [facility] [place] 200 [facility] [place] [address] Melvin Waggoner MD 200 [place] [address] Allergies No known active allergiesdocumented as of this encounter (statuses as of 04/19/2024) Medications Losartan Potassium 100 MG Oral Tablet [...] as of this encounter (statuses as of 04/19/2024) Active Problems Problem Noted Date Diagnosed Date [...] as of this encounter (statuses as of 04/19/2024) Resolved Problems Problem Noted Date Diagnosed Date [...] as of this encounter (statuses as of 04/19/2024) Immunizations Name Administration Dates Next Due COVID-19 [...] AM EST Pt Ed by Nurse Hematology/Oncology [facility] [place] 200 [facility] [place] [address] Nurse Diamond Hem Onc [facility] 200 [facility] [place] [address] 04/21/2024 12:00 PM EST Hospital Encounter OR [facility], Operating Room, [facility] - 4th Floor [address] [place] [address] [address] Tay Cagle MD [address] [place] [address] 04/21/2024 12:00 PM EST - 04/21/2024 1:00 PM EST Surgery OR [facility], Operating Room, [facility] - 4th Floor [address] [place] [address] Tay Cagle MD [address] [place] [address] INSERT TUNNELED CENTRAL VENOUS ACCESS WITH SUBQ [...] patient or by statute hierarchy) Care Teams Pool Hand Relationship Specialty Start Date End Date Sherwin Painter MD [address] [place] [address] PCP - General Family Medicine 09/21/23 documented as of this encounter
--- OUTSIDE RECORDS SUMMARY | 2024-05-14 13:50 | External Medical Summary | Summary of Care ---
Author Name Unknown Organization [facility] Address [address] [place] [facility] [place] [address] Phone [phone] Care Team Providers Care Desizing Machine Operator Head End Name Role Phone Sherwin Painter MD Primary Care Provider [phone] Reason for Visit * Reason Onset Date Comments Precert Future 04/19/2024 laurel Baltazar Encounter Details Date Type Department Care Team (Late st Contact Info) Description 04/19/2024 Telephone Hematology/Oncology Treatment, [place] 200 [place] [address] Melvin Waggoner MD 200 [place] [address] Precert Future (laurel Baltazar) Allergies No known [...] EST Order received for gemzar and abraxane. [place] plan built. Waiting for auth. Consent signed 04/16/24. Nurse education 04/20/24. Patient will need hep B labs. Port 04/21/24. documented in this encounter Plan of Treatment Upcoming Encounters Date Type Department Care Team (Latest Contact Info) Description 04/20/2024 10:30 AM EST Pt Ed by Nurse Hematology/Oncology [place] [address] [place] [address] Nurse [facility] On[facility] [address] [place] [address] 04/21/2024 12:00 PM EST Hospital Encounter OR [facility], Operating Room, [facility] - 4th Floor [address] [phone] Tay Cagle MD [address] [place] [id number] 04/21/2024 12:00 PM EST - 04/21/2024 1:00 PM EST Surgery OR [facility], Operating Room, [facility] - 4th Floor [address] [place] [address] [address] Tay Cagle MD [address] [place] [address] INSERT TUNNELED CENTRAL VENOUS ACCESS WITH SUBQ [...] patient or by statute hierarchy) Care Teams Desizing Machine Operator Head End Relationship Specialty Start Date End Date Sherwin Painter MD [facility]8 [facility] [place] [phone] PCP - General Family Medicine 09/21/23 documented as of this encounter
--- OUTSIDE RECORDS SUMMARY | 2024-05-14 13:50 | External Medical Summary | Summary of Care ---
Author Name Unknown Organization [facility] Address [address] [facility] [place] [address] Phone [phone] Care Team Providers Care Salt Washer Name Role Phone Sherwin Painter MD Primary Care Provider [phone] Encounter Details Date Type Department Care Team (Late st Contact Info) Description 04/12/2024 Result Scan Unspecified Department <No scans attached> Allergies No known active allergiesdocumented as of this encounter (statuses as of 04/15/2024) Medications Losartan Potassium 100 MG Oral Tablet [...] as of this encounter (statuses as of 04/15/2024) Active Problems Problem Noted Date Diagnosed Date [...] as of this encounter (statuses as of 04/15/2024) Resolved Problems Problem Noted Date Diagnosed Date Resolved Date Food insecurity 04/23/2021 07/18/2023 Overview: Per [facility] Protocol Encounter for screening mamm ogram for breast cancer 03/23/2021 11/15/2021 Screen for colon cancer 03/23/2021 0910/2021 Food insecurity 03/19/2021 03/23/2021 Overview: Per [facility] [...] as of this encounter (statuses as of 04/15/2024) Immunizations Name Administration Dates Next Due COVID-19 [...] AM EST Office Visit Hematology/Oncology [address] [place] 200 [facility] [place] [address] Melvin Waggoner MD 200 [facility] [place] [address] 04/21/2024 12:00 PM EST Hospital Encounter OR [facility], Operating Room, [facility] - 4th Floor [address] [address] Tay Cagle MD [address] [place] [address] 04/21/2024 12:00 PM EST - 04/21/2024 1:00 PM EST Surgery OR [facility], Operating Room, [facility] - 4th Floor [address] [place] [place] [address] Tay Cagle MD [address] [place] [address] INSERT TUNNELED CENTRAL VENOUS ACCESS WITH SUBQ [...] Procedure Name Priority Date/Time Associated Diagnosis Comments OUTSIDE LAB RESULTS 04/12/2024 documented in this encounter Results * OUTSIDE LAB RESULTS (04/12/2024) 04/12/2024 us No Physician Data Unknown LABORATORY Final Result documented in this encounter Advance Directives Healthcare Agents on File Name Relationship Healthcare Agent Relationshi p Communication Deondre Hernández Spouse Health Care Repr esentative (appointed verbally by patient or by statute hierarchy) Care Teams Salt Washer Relationship Specialty Start Date End Date Sherwin Painter MD [address] [facility] [place] [address] PCP - General Family Medicine 09/21/23 documented as of this encounter
--- OUTSIDE RECORDS SUMMARY | 2024-05-14 13:50 | External Medical Summary | Summary of Care ---
Author Name Unknown Organization [facility] Address [address] [facility] [place] [address] Phone [phone] Care Team Providers Care Radio Electronics Officer Name Role Phone Sherwin Painter MD Primary Care Provider [phone] Encounter Details Date Type Department Care Team (Late st Contact Info) Description 04/19/2024 Orders Only [facility]ology[facility] [place] 200 [facility] [place] [address] Melvin Waggoner MD 200 [place] [address] Allergies No known active allergiesdocumented as of [...] AM EST Pt Ed by Nurse Hematology/Oncology [facility] [place] 200 [facility] [place] [address] Nurse Diamond Hem Onc [facility] 200 [place] [address] 04/21/2024 12:00 PM EST Hospital Encounter OR [facility], Operating Room, [facility] - 4th Floor [address] [place] [address] Tay Cagle MD [address] [place] [address] 04/21/2024 12:00 PM EST - 04/21/2024 1:00 PM EST Surgery OR [facility], Operating Room, [facility] - 4th Floor [address] [place] [address] Tay Cagle MD [address] [place] [address] INSERT TUNNELED CENTRAL VENOUS ACCESS WITH SUBQ [...] patient or by statute hierarchy) Care Teams Radio Electronics Officer Relationship Specialty Start Date End Date Sherwin Painter MD [address] [place] [address] PCP - General Family Medicine 09/21/23 documented as of this encounter
--- OUTSIDE RECORDS SUMMARY | 2024-05-14 13:50 | External Medical Summary | Summary of Care ---
Author Name Unknown Organization [facility] Address [address] [facility] [place] [address] Phone [phone] Care Team Providers Care Casting Carrier Name Role Phone Sherwin Painter MD Primary Care Provider [phone] Encounter Details Date Type Department Care Team (Late st Contact Info) Description 04/10/2024 Orders Only Hematology/Oncology [facility] [address] [place] 200 [facility] [place] [address] Melvin Waggoner MD 200 [facility] [place] [address] Allergies No known active allergiesdocumented as of [...] 04/14/2024 10:00 AM EST Hospital Encounter OR [facility], Operating Room, [facility] - 4th Floor [address] [place] [address] Tay Cagle MD [address] [place] [address] 04/14/2024 10:00 AM EST - 04/14/2024 11:00 AM EST Surgery OR [facility], Operating Room, [facility] - 4th Floor [address] [place] [address] Tay Cagle MD [address] [place] [address] INSERT TUNNELED CENTRAL VENOUS ACCESS WITH SUBQ PORT 04/16/2024 11:00 AM EST Office Visit Hematology/Oncology [facility] 200 [place] [address] eMlvin Waggoner MD 200 [place] [address] Scheduled Procedures Name Priority Associated Diagnoses Date/Ti [...] interpreted or resulted by a [facility] or [facility] contracted radiologist. us Melvin Waggoner MD RAD NUCLEAR MED Final Result documented in this encounter Advance Directives Healthcare Agents on File Name Relationship Healthcare Agent Relationshi p Communication Deondre Melvin Hernández Spouse Health Care Repr esentative (appointed verbally by patient or by statute hierarchy) Care Teams Casting Carrier Relationship Specialty Start Date End Date Sherwin Painter MD [address] [facility] [place] [phone] PCP - General Family Medicine 09/21/23 documented as of this encounter
--- OUTSIDE RECORDS SUMMARY | 2024-05-14 13:51 | External Medical Summary | Summary of Care ---
Author Name Unknown Organization [facility] Address [address] [place] [address] Phone [phone] Care Team Providers Care Char Dust Cleaner And Salvager Name Role Phone Sherwin Painter MD Primary Care Provider Reason for Visit * Reason Onset Date Comments Test Results 02/26/2024 LVM Encounter Details Date Type Department Care Team (Late st Contact Info) Description 02/26/2024 Telephone Family Practice [place] [address] [place] [address] Sherwin Painter MD [address] [facility] [place] [address] Test Results (LVM) Allergies No known active allergiesdocumented as of this encounter (statuses as of 02/27/2024) Medications Losartan Potassium 100 MG Oral Tablet (Cozaar) Take 1 Tablet by mouth in the morning. 90 Tablet 3 08/18/2023 Active Rosuvastatin Calcium 20 MG Oral Tablet (Crestor)Indica tions:Hyperlipi demia with target LDL less than 100 take 1 tablet by mouth every morning 90 Tablet 3 09/04/2023 Active Aspirin Low Dose 81 MG Oral Tablet Chewable (aspirin)Indica tions:Carotid artery plaque, bilateral chew and swallow 1 tablet by mouth every morning with food 100 Tablet 2 10/13/2023 Active Cyclobenzaprine HCl 5 MG Oral Tablet (Flexeril) take 1 tablet by mouth three times a day if needed for muscle spasm 30 Tablet 1 01/19/2024 Active documented as of this encounter (statuses as of 02/27/2024) Active Problems Problem Noted Date Diagnosed Date DDD (degenerative disc disease), cervical 2023 Alcohol abuse 11/06/2023 Parent refuses immunizations 03/23/2021 Overview (03/23/2021): Refused influenza, Pneumovax. Mammogram declined 03/23/2021 Colonoscopy refused 04/04/2016 Overview (03/23/2021): Refused Cologuard as well. Tobacco use disorder 04/04/2016 Hypertension goal BP (blood pressure) < 140/90 0 08/14/2011 Dyslipidemia, goal LDL below 130 08/14/2011 documented as of this encounter (statuses as of 02/27/2024) Resolved Problems Problem Noted Date Diagnosed Date [...] as of this encounter (statuses as of 02/27/2024) Immunizations Name Administration Dates Next Due COVID-19 mRNA, LNP-s, No Pre serve, 2-Dose Series (Moderna) 10/13/2020,09/15/2020 TDAP, Age 7 and older, IM (Adacel) 08/06/2011 documented as of this encounter Social History Tobacco Use Types Packs/Day Years Used Date Smoking Tobacco: Every Day Cigarettes 0.5 48 Smokeless Tobacco: Never Alcohol Use Standard Drinks/Week Comments Yes 0 (1 standard drink = 0.6 oz pur e alcohol) PHQ-2 Answer Date Recorded PHQ-2 Score 0 06/11/2018 Utilities Answer Date Recorded Do you have trouble paying y our heating, water, or electric bill? (Adult - for ages 18 years and over) Not on file 08/26/2023 Is your family able to pay t he heat, water, or electric bill? (Household - for ages 0-17 years) Not on file 08/26/2023 Does your family have access to good internet? (Household - for ages 0-17 years) Not on file 08/26/2023 Social Connections Answer Date Recorded How often do you feel lonely or isolated from those around you? (Adult - for ages 18 years and over) Not on file 08/26/2023 Comments No Sex and Gender Information Value Date Recorded Sex Assigned at Not on file Legal Sex Female 6:46 AM EST Gender Identity Not on file Sexual Orientation Not on file documented as of this encounter Miscellaneous Notes * Telephone Encounter - Noemi Zhang CCMA - 02/26/2024 3:23 PM EST Called pt, left message for return call to nurse triage line * Telephone Encounter - Noemi Zhang CCMA - 02/26/2024 3:[address] Painter, 'This CT scan shows findings concerning for metastatic pancreatic cancer. Can you please see if she's admitted to the hospital currently? Thanks.' documented in this encounter Plan of Treatment Health Maintenance Due Date Last Done Comments DXA Scan 1955 Pneumococcal Vaccine: 65+ Years (1 of 2 - PCV) 1973 Mammogram 1994 Cologuard 10/31/1999 Colonoscopy 10/31/1999 Colorectal Cancer Screening 10/31/1999 Fecal Occult Blood Test 10/31/1999 Sigmoidoscopy 10/31/1999 Zoster Vaccines (1 of 2) 2004 Depression Screening 06/12/2019 06/11/2018 Adult Wellness Visit 2020 DTap/Tdap Vaccines (2 - Td or Tdap) 08/05/2021 08/06/2011 COVID-19 Vaccine (3 - season) 2023 10/13/2020, 09/15/2020 Influenza Vaccine (FLU shot) (#1) 2023 GFR 02/24/2025 02/25/2024, 08/08, 07/14/2023, Additional history exists Albumin/Creatinine Ratio 08/17/2026 08/18/2023 [...] Not on filedocumented as of this encounter Care Teams Char Dust Cleaner And Salvager Relationship Specialty Start Date End Date Sherwin Painter MD [address] [facility] [place] [address] PCP - General Family Medicine 09/21/23 documented as of this encounter
--- OUTSIDE RECORDS SUMMARY | 2024-05-14 13:51 | External Medical Summary | Summary of Care ---
Author Name Unknown Organization [facility] Address [address] [facility] [place] [address] Phone [phone] Care Team Providers Care Groundsman Name Role Phone Sherwin Painter MD Primary Care Provider [phone] Encounter Details Date Type Department Care Team (Late st Contact Info) Description 03/29/2024 Population Health External Data Unspecified Department Allergies No known active allergiesdocumented as of [...] Office Visit Family Practice [address] [place] [address] Sherwin Painter MD [address] [place] [address] 04/16/2024 11:00 AM EST Office Visit Hematology/Oncology [facility] 200 [facility] [place] [address] Melvin Waggoner MD 200 [facility] [place] [address] Health Maintenance Due Date Last Done Comments [...] patient or by statute hierarchy) Care Teams Groundsman Relationship Specialty Start Date End Date Sherwin Painter MD [address] [facility] [place] [address] PCP - General Family Medicine 09/21/23 documented as of this encounter
--- OUTSIDE RECORDS SUMMARY | 2024-05-14 13:51 | External Medical Summary | Summary of Care ---
Author Name Unknown Organization [facility] Address [address] [facility] [place] [address] Phone [phone] Care Team Providers Care Arboriculture Instructor Name Role Phone Sherwin Painter MD Primary Care Provider [phone] Encounter Details Date Type Department Care Team (Late st Contact Info) Description 03/26/2024 Telephone Hematology/Oncology [facility] [place] 200 [facility] [place] [address] Melvin Waggoner MD 200 [facility] [address] Allergies No known active allergiesdocumented as of this encounter (statuses as of 03/26/2024) Medications Losartan Potassium 100 MG Oral Tablet [...] as of this encounter (statuses as of 03/26/2024) Active Problems Problem Noted Date Diagnosed Date [...] as of this encounter (statuses as of 03/26/2024) Resolved Problems Problem Noted Date Diagnosed Date [...] as of this encounter (statuses as of 03/26/2024) Immunizations Name Administration Dates Next Due COVID-19 [...] Telephone Encounter - Jaimie Vazquez OSA - 03/26/2024 1:20 PM EST IR VENOUS ACCESS MEDIPORT [IRMEDIPORT] (Order [id number]) documented in this encounter Plan of Treatment Upcoming Encounters Date Type Department Care Team (Late st Contact Info) Description 04/15/2024 8:00 AM EST [place] [address] [place] [address] Sherwin Painter MD [address] [place] [address] 04/16/2024 11:00 AM EST Office Visit Hematology/Oncology [address] [place] 200 [facility] [place] [address] Melvin Waggoner MD 200 [facility] [place] [address] Health Maintenance Due Date Last Done Comments [...] 08/06/2011 Influenza Vaccine (FLU shot) (#1) 2023 GFR 02/25/2025 02/26/2024, 02/07, 08/18/2023, Additional history [...] patient or by statute hierarchy) Care Teams Arboriculture Instructor Relationship Specialty Start Date End Date Sherwin Painter MD [address] [facility] [place] [address] PCP - General Family Medicine 09/21/23 documented as of this encounter
--- OUTSIDE RECORDS SUMMARY | 2024-05-14 13:51 | External Medical Summary | Summary of Care ---
Author Name Unknown Organization [facility] Address [address] [facility] [address] Phone [phone] Care Team Providers Care Piercing Mill Operator Name Role Phone Sherwin Painter MD Primary Care Provider [phone] Reason for Referral * Evaluate & Treat - Unlimited Visits (Within 10 days (routine)) - Authorized Specialty Diagnoses / Procedures Referred By Contsondra t Referred To Contact Hematology/Oncology / Hematology Oncology Diagnoses Hospital discharge follow-up 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) Sherwin Painter MD [address] [place] [address] Phone: tel: fax: Referral ID Status Reason Start Date Expiration Date Visits Requested Visits Authorized [id number] Authorized Specialty Services Required 4 [phone] Question Answer Referral Priority Within 10 days (routine) Where should this appointment be scheduled? [facility] Reason for Referral Malignant Oncology (Solid Organ Cancer) Reason for Visit * Reason Onset Date Comments Hospital Follow-Up Gracie Hernández is a 68 year old female who presents today for Hosp follow up. She had went to [facility] ER 02/24 for stomach discomfort and had acute appendicitis and a Pancreatic mass and had surgical procedure. She was discharged on Wednesday 02/28. She has a follow up with Dr Rizvi her surgeon. They had had a biopsy done with no has not yet received results. Hospital Follow-Up 03/05/2024 Encounter Details Date Type Department Care Team (Late st Contact Info) Description 03/05/2024 3:20 PM EST Office Visit Family [facility] [address] [place] [address] Sherwin Painter MD [address] [place] [id number] Hospital discharge follow-up*; 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); Ruptured appendix; Dyslipidemia, goal LDL below 130 Allergies No known active allergiesdocumented as of this encounter (statuses as of 03/05/2024) Medications Losartan Potassium 100 MG Oral Tablet [...] needed for muscle spasm 30 Tablet 1 4 Active Amoxicillin-Pot Clavulanate 875-125 MG Oral Tablet (Augmentin) Take 1 Tablet by mouth in the morning and 1 Tablet before bedtime. 4 Active Rosuvastatin Calcium 20 MG Oral Tablet (Crestor)Indica tions:Hyperlipi demia with target LDL less than 100 take 1 tablet by mouth every morning 90 Tablet 3 4 024 Discontinued oxyCODONE HCl 5 MG Oral Tablet (Oxy IR) take 1 tablet by mouth every 6 hours for 7 days if needed for pain 4 024 Discontinued documented as of this encounter (statuses as of 03/05/2024) Active Problems Problem Noted Date Diagnosed Date [...] as of this encounter (statuses as of 03/05/2024) Resolved Problems Problem Noted Date Diagnosed Date [...] as of this encounter (statuses as of 03/05/2024) Immunizations Name Administration Dates Next Due COVID-19 [...] No 03/02/2024 Does the household have a [facility] source of income? (Household - for ages [...] Sign Reading Time Taken Comments Blood Pressure 144/78 03/05/2024 3:24 PM EST Pulse 88 03/05/2024 3:24 PM EST Temperature 37.2 C (98.9 F) 03/05/2024 3:24 PM ES T Respiratory Rate 20 03/05/2024 3:24 PM EST Oxygen Saturation 98% 03/05/2024 3:24 PM EST Inhaled Oxygen Concentration - - Weight 51.5 kg (113 lb 9.6 oz) 03/05/2024 3:24 P M EST Height 159.4 cm (5' 2.75") 03/05/2024 3:24 PM ES T Body Mass Index 20.28 03/05/2024 3:24 PM EST documented in this encounter Progress Notes * Sherwin Painter MD - 03/05/2024 3:19 PM EST SUBJECTIVE: Gracie Hernández is a 68 year old female. Chief Complaint Patient presents with Hospital Follow-Up Gracie Hernández is a 68 year old female who presents today for Hosp follow up. She had went to [facility] ER 02/24 for stomach discomfort and had acute appendicitis and a Pancreatic mass and had surgical procedure. She was discharged on Wednesday 02/28. She has a follow up with Dr Rizvi her surgeon. Dane wright had had a biopsy done with no has not yet received results. Hospital Follow-Up Recent Admission: Patient was recently admitted to [facility] 02/24 to 02/28. The date of discharge was 02/29/24.Discharge report received and reviewed. She is accompanied by her Deondre today. HPI: She presented to the hospital with increasing abdominal pain, and CT imaging was concerning for metastatic pancreatic cancer as well as a ruptured appendix. She underwent an open laparotomy, and a biopsy of the omental caking was sent to pathology. Pathology. A CA19-9 was 16. She did have an appendectomy for her ruptured appendix as well. CT abd/pelvis imaging was notable for two right lower lobe pulmonary nodules concerning for metastases, a pancreatic tail lesion measuring 2.5 x 1.8 cm, a left adrenal nodule as well as a thickened omental caking and multiple omental an abdominal lymph nodes, all concerning for metastases. A dedicated CT scan of the lung showed multifocal nodular opacities throughout the lung concerning for a multifocal pneumonia versus metastases. A PET-CT is recommended for follow up of all this. She was discharged on Augmentin and oxycodone, though PDMP does not seem to show any oxycodone. Sheis not taking the oxycodone. She reports she saw her surgeon earlier this week, and the results of her pathology is still pending. She is having some trouble healing from her surgery and is seeing wound care for this. She deniesany fevers or chills or pain at the site. She is eating well and moving her bowels and bladder without any issues. She said outright multiple times she does not want to know everything is going on until her abdominal wall wound heals. She is taking it "one step at a time." She does say she has a living will/advanced directive but did not wish to discuss its details. She stopped her crestor and is no longer taking it. Patient Active Problem List Diagnosis Hypertension goal BP (blood pressure) < 140/90 Colonoscopy refused Tobacco use disorder Dyslipidemia, goal LDL below 130 Parent refuses immunizations Mammogram declined DDD (degenerative disc disease), cervical Alcohol abuse 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) Current Outpatient Medications Medication Sig Dispense Refill Losartan Potassium 100 MG Oral Tablet (Cozaar) Take 1 Tablet by mouth in the morning. 90 Tablet 3 Aspirin Low Dose 81 MG Oral Tablet Chewable (aspirin) chew and swallow 1 tablet by mouth every morning with food 100 Tablet 2 Cyclobenzaprine HCl 5 MG Oral Tablet (Flexeril) take 1 tablet by mouth three times a day if needed for muscle spasm 30 Tablet 1 Amoxicillin-Pot Clavulanate 875-125 MG Oral Tablet (Augmentin) Take 1 Tablet by mouth in the morning and 1 Tablet before bedtime. No current facility-administered medications for this visit. Current and discharge medications have been reconciled. Review of patient's allergies indicates: No Known Allergies OBJECTIVE: BP 144/78 | Pulse 88 | Temp 98.9 F (37.2 C) (Tympanic) | Resp 20 | Ht 5' 2.75" (1.594 m) | Wt 113 lb 9.6 oz (51.5 kg) | SpO2 98% | BMI 20.28 kg/m | BSA 1.51 m REVIEW OF SYSTEMS: Review of Systems Constitutional: Negative for activity change, appetite change, chills, fatigue, fever and unexpected weight change. HENT: Negative for congestion, sinus pressure, sinus pain, trouble swallowing and voice change. Respiratory: Negative for cough, chest tightness, shortness of breath and wheezing. Cardiovascular: Negative for chest pain, palpitations and leg swelling. Gastrointestinal: Negative for abdominal distention, abdominal pain, anal bleeding, blood in stool,constipation, diarrhea, nausea and vomiting. Genitourinary: Negative for decreased urine volume, difficulty urinating, dysuria, flank pain, frequency and hematuria. Musculoskeletal: Negative for back pain, gait problem, joint swelling, neck pain and neck stiffness. Skin: Negative for color change and rash. Neurological: Negative for dizziness, weakness, light-headedness, numbness and headaches. Psychiatric/Behavioral: Negative for agitation, behavioral problems, dysphoric mood, self-injury and suicidal ideas. The patient is not nervous/anxious. PHYSICAL EXAM: BP 144/78 | Pulse 88 | Temp 98.9 F (37.2 C) (Tympanic) | Resp 20 | Ht 5' 2.75" (1.594 m) | Wt 113 lb 9.6 oz (51.5 kg) | SpO2 98% | BMI 20.28 kg/m | BSA 1.51 m Physical Exam Vitals and nursing note reviewed. Constitutional: General: She is not in acute distress. Appearance: Normal appearance. She is not ill-appearing. Cardiovascular: Rate and Rhythm: Normal rate and regular rhythm. Heart sounds: Normal heart sounds. No murmur heard. No friction rub. No gallop. Pulmonary: Effort: Pulmonary effort is normal. No respiratory distress. Breath sounds: Normal breath sounds. No stridor. No wheezing, rhonchi or rales. Abdominal: General: Bowel sounds are normal. There is no distension. Palpations: Abdomen is soft. There is no mass. Tenderness: There is no abdominal tenderness. There is no guarding or rebound. Comments: Bandage over wound intact and clean Neurological: Mental Status: She is alert. ASSESSMENT: Hospital discharge follow-up (Primary) - DISCH MED RECON CUR MED LIS - HEMATOLOGY/ONCOLOGY REFERRAL OP 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) - HEMATOLOGY/ONCOLOGY REFERRAL OP Ruptured appendix Dyslipidemia, goal LDL below 130 Follow Up: Return in about 4 weeks (around 04/02/2024) for F/U oncology appt. | For: F/U oncology appt . Hospital discharge follow up for potential metastatic pancreatic cancer: The patient told me several times that she did not wish to hear the full extent of what was going on and wanted to wait until she had the pathology before discussing this in further detail. We did call [facility], and the pathology is not back. I have referred her to Oncology, and she will let us know if her appointment is not in a timely manner, in which case, we can order the PET scan here. Based on the findings, at some point, a goals of care discussion will be needed. 3. Ruptured appendix: Continue to see her surgical team along with her Wound Care team. 4. Hyperlipidemia: She stopped her Crestor, and we can discuss this at future visits, based on how things go with oncology. I spent a total of 30-39 minutes (exact time 33 mins) minutes on the date of service in preparation, delivery, and documentation of the care provided to Gracie Hernández excluding any time spent in performance of separately billed services. Sherwin Painter MD documented in this encounter Nursing Notes * Ny Caldera LPN - 03/05/2024 3:24 PM EST Chief Complaint Patient presents with Hospital Follow-Up Gracie Hernández is a 68 year old female who presents today for Hosp follow up. She had went to [facility] ER 02/24 for stomach discomfort and had acute appendicitis and a Pancreatic mass and had surgical procedure. She was discharged on Wednesday 02/28. She has a follow up with Dr iRzvi her surgeon. Dane wright had had a biopsy done with no has not yet received results. documented in this encounter Plan of Treatment Upcoming Encounters Date Type Department Care Team (Late st Contact Info) Description 04/15/2024 8:00 AM EST Office Visit [facility] [address] [place] [address] Sherwin Painter MD [address] [place] [address] Scheduled Referrals Name Type Priority Associated Diagnoses Orde r Schedule HEMATOLOGY/ONCOLOGY REFERRAL OP Referral Within 10 days (routine) Hospital discharge follow-up 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) Ordered: 03/05/2024 Health Maintenance Due Date Last Done Comments [...] 02/24/2025 02/25/2024, 08/08, 07/14/2023, Additional history exists Depression Screening 03/02/2025 03/02/2024 [...] as of this encounter Visit Diagnoses Diagnosis Hospital discharge follow-up- Primary Other follow-up examination 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) Ruptured appendix Acute appendicitis with generalized peritonitis Dyslipidemia, goal LDL below 130 Other and unspecified hyperlipidemia documented in this encounter Advance Directives Healthcare Agents on File Name Relationship Healthcare Agent Relationshi p Communication Deondre Hernández Spouse Health Care Repr esentative (appointed verbally by patient or by statute hierarchy) Care Teams Piercing Mill Operator Relationship Specialty Start Date End Date Sherwin Painter MD [address] [facility] [place] [address] PCP - General Family Medicine 09/21/23 documented as of this encounter
--- OUTSIDE RECORDS SUMMARY | 2024-05-14 13:51 | External Medical Summary | Summary of Care ---
Author Name Unknown Organization [facility] Address [address] [facility] [place] [address] Phone [phone] Care Team Providers Care Supervisor Stitching Department Name Role Phone Sherwin Painter MD Primary Care Provider [phone] Reason for Visit * Reason Onset Date Comments Test Results 02/26/2024 LVM Encounter Details Date Type Department Care Team (Late st Contact Info) Description 02/26/2024 Telephone Family Practice [place] [address] [place] [address] Sherwin Painter MD [address] [facility] [place] [id number] Test Results (LVM) Allergies No known active allergiesdocumented as of this encounter (statuses as of 03/04/2024) Medications Losartan Potassium 100 MG Oral Tablet (Cozaar) Take 1 Tablet by mouth in the morning. 90 Tablet 3 4 Active Rosuvastatin Calcium 20 MG Oral Tablet (Crestor)Indica tions:Hyperlipi demia with target LDL less than 100 take 1 tablet by mouth every morning 90 Tablet 3 4 Active Additional Information Patient not taking.Reported on 03/02/2024 Aspirin Low Dose 81 MG Oral Tablet Chewable (aspirin)Indica tions:Carotid artery plaque, bilateral chew and swallow 1 tablet by mouth every morning with food 100 Tablet 2 4 Active Cyclobenzaprine HCl 5 MG Oral Tablet (Flexeril) take 1 tablet by mouth three times a day if needed for muscle spasm 30 Tablet 1 4 Active documented as of this encounter (statuses as of 03/04/2024) Active Problems Problem Noted Date Diagnosed Date [...] as of this encounter (statuses as of 03/04/2024) Resolved Problems Problem Noted Date Diagnosed Date [...] as of this encounter (statuses as of 03/04/2024) Immunizations Name Administration Dates Next Due COVID-19 [...] pur e alcohol) PHQ-2 Answer Date Recorded PHQ Adult Total [...] encounter Miscellaneous Notes * Telephone Encounter - Sherwin Painter MD - 03/04/2024 8:47 AM EST Reviewed charts. Surgical diagnosis is ruptured appendix and met panc cancer. Will discuss at follow up tomorrow. * Telephone Encounter - Alyssia Echols LPN - 03/02/2024 9:51 AM EST Pt states she had went to [facility] last week then went to ER and had emergency appendectomy,looks like we do have some records to review, has hospital follow up on Friday * Telephone Encounter - Noemi Zhang CCMA [...] 03/05/2024 3:20 PM EST Office Visit Family [facility] [address] [place] [address] Sherwin Painter MD [address] [place] [address] Health Maintenance Due Date Last Done Comments DXA Scan 1954 Pneumococcal Vaccine: 65+ Years (1 of 2 - PCV) 1973 Mammogram 1994 Cologuard 10/31/1999 Colonoscopy 10/31/1999 Colorectal Cancer Screening 10/31/1999 Fecal Occult Blood Test 10/31/1999 Sigmoidoscopy 10/31/1999 Zoster Vaccines (1 of 2) 2004 Adult Wellness Visit 2020 DTap/Tdap Vaccines (2 [...] patient or by statute hierarchy) Care Teams Supervisor Stitching Department Relationship Specialty Start Date End Date Sherwin Painter MD [address] [facility] [place] [address] PCP - General Family Medicine 09/21/23 documented as of this encounter
--- OUTSIDE RECORDS SUMMARY | 2024-05-14 13:51 | External Medical Summary | Summary of Care ---
Author Name Unknown Organization [facility] Address [address] [place] [address] Phone [phone] Care Team Providers Care Fire Eater Name Role Phone Sherwin Painter MD Primary Care Provider Reason for Visit * Reason Onset Date Comments Test Results 02/26/2024 LVM Encounter Details Date Type Department Care Team (Late st Contact Info) Description 02/26/2024 Telephone Family Practice [place] [address] [place] [address] Sherwin Painter MD [address] [facility] [place] [address] Test Results (LVM) Allergies No known active allergiesdocumented as of this encounter (statuses as of 03/02/2024) Medications Losartan Potassium 100 MG Oral Tablet [...] as of this encounter (statuses as of 03/02/2024) Active Problems Problem Noted Date Diagnosed Date [...] as of this encounter (statuses as of 03/02/2024) Resolved Problems Problem Noted Date Diagnosed Date [...] as of this encounter (statuses as of 03/02/2024) Immunizations Name Administration Dates Next Due COVID-19 [...] encounter Miscellaneous Notes * Telephone Encounter - Alyssia Echols LPN - 03/02/2024 9:51 AM EST Pt states she had went to [facility] week then went to ER [...] 03/05/2024 3:20 PM EST Office Visit Family Practice [address] [place] [address] Sherwin Painter MD [address] [place] [address] Health Maintenance Due Date Last Done Comments DXA Scan 1954 Pneumococcal Vaccine: 65+ Years (1 of 2 - PCV) 1973 Mammogram 1994 Cologuard 10/31/1999 Colonoscopy 10/31/1999 Colorectal Cancer Screening 10/31/1999 Fecal Occult Blood Test 10/31/1999 Sigmoidoscopy 10/31/1999 Zoster Vaccines (1 of 2) 2004 Depression Screening 06/12/2019 06/11/2018 Adult Wellness Visit 2020 DTap/Tdap Vaccines (2 - Td or Tdap) 08/05/2021 08/06/2011 COVID-19 Vaccine ( - season) 2023 10/13/2020, 09/15/2020 Influenza Vaccine [...] filedocumented as of this encounter Care Teams Fire Eater Relationship Specialty Start Date End Date Sherwin Painter MD [address] [facility] [place] [address] PCP - General Family Medicine 09/21/23 documented as of this encounter
--- OUTSIDE RECORDS SUMMARY | 2024-05-14 13:51 | External Medical Summary | Summary of Care ---
Author Name Unknown Organization [facility] Address [address] [facility] [place] [address] Phone [phone] Care Team Providers Care Bobcat Operator Name Role Phone Sherwin Painter MD Primary Care Provider [phone] Reason for Visit * Reason Onset Date Comments Outpatient Testing 03/26/2024 Slide review/ MyGenvar Encounter Details Date Type Department Care Team (Late st Contact Info) Description 03/26/2024 Telephone Hematology/Oncology Treatment, [place] [address] [place] [address] Melvin Waggoner MD [address] [place] [address] Outpatient Testing (Slide review/ MyGenvar) Allergies No [...] as of this encounter Miscellaneous Notes * Addendum Note - Fernanda Durán RN - 03/26/2024 2:59 PM ESTAddended by: FERNANDA DURÁN on: 03/26/2024 02:59 PM Modules accepted: Orders * Telephone Encounter - Yumiko Chavez OSA - 03/26/2024 2:38 PM EST Jaimie calling in regarding below message. states they dont have a pathologist in right now to determine which is the best one to send asking if they should send all of them? Please call jaimie back at [phone] * Telephone Encounter - Fernanda Durán RN - 03/26/2024 11:[address] Waggoner, would like specimen brought to [facility] for slide review and MyGenvar pancreatic panel. Called [facility] ([phone]) and spoke to Valerie. Request can be faxed to [phone]. Faxed request. Order placed, staff message sent to pathology. documented in this encounter Plan of Treatment Upcoming Encounters Date Type Department Care Team (Late st Contact Info) Description 04/15/2024 8:00 AM EST Office Visit Family Practice [address] [place] [address] Sherwin Painter MD [address] [place] [address] 04/16/2024 11:00 AM EST Office Visit Hematology/Oncology [place] [address] [facility] [place] [address] Melvin Waggoner MD [address] [facility] [place] [address] Pending Results Name Type Priority Associated Diagnoses Date /Time ANATOMIC PATHOLOGY (BM/SURGICAL/CYTOLOGY) ADD ON REQUEST Lab Routine 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) 03/26/2024 11:32 AM EST MICROSLIDE CONSULTATION Pathology Routine 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) 03/26/2024 2:59 PM EST Health Maintenance Due Date Last [...] with metastasis to other site (HCC)- Primary documented in this encounter Advance Directives Healthcare Agents on File Name Relationship Healthcare Agent Relationshi p Communication Deondre Hernández Spouse Health Care Repr esentative (appointed verbally by patient or by statute hierarchy) Care Teams Bobcat Operator Relationship Specialty Start Date End Date [facility]win Painter [facility] [address] [facility] [address] PCP - General Family Medicine 09/21/23 documented as of this encounter
--- OUTSIDE RECORDS SUMMARY | 2024-05-14 13:51 | External Medical Summary | Summary of Care ---
Author Name Unknown Organization [facility] Address [address] [facility] [place] [address] Phone [phone] Care Team Providers Care Aesthetician Name Role Phone Sherwin Painter MD Primary Care Provider [phone] Encounter Details Date Type Department Care Team (Late st Contact Info) Description 02/25/2024 Result Scan Unspecified Department Sherwin Painter MD [address] [place] [address] <No scans attached> Allergies No known active allergiesdocumented as of this encounter (statuses as of 03/18/2024) Medications Losartan Potassium 100 MG Oral Tablet [...] as of this encounter (statuses as of 03/18/2024) Active Problems Problem Noted Date Diagnosed Date [...] as of this encounter (statuses as of 03/18/2024) Resolved Problems Problem Noted Date Diagnosed Date [...] as of this encounter (statuses as of 03/18/2024) Immunizations Name Administration Dates Next Due COVID-19 [...] Office Visit Family Practice [address] [place] [address] Sherwin Painter MD [address] [place] [address] Health Maintenance Due Date Last Done [...] Procedure Name Priority Date/Time Associated Diagnosis Comments PATHOLOGY SCANNED RESULT 02/25/2024 documented in this encounter Results * PATHOLOGY SCANNED RESULT (02/25/2024) 02/25/2024 us Sherwin Painter MD PATHOLOGY Final Resul t documented in this encounter Advance Directives Healthcare Agents on File Name Relationship Healthcare Agent Relationshi p Communication Deondre Melvin Hernández Spouse Health Care Repr esentative (appointed verbally by patient or by statute hierarchy) Care Teams Aesthetician Relationship Specialty Start Date End Date Sherwin Painter MD [address] [facility] [place] [address] PCP - General Family Medicine 09/21/23 documented as of this encounter
--- OUTSIDE RECORDS SUMMARY | 2024-05-14 13:51 | External Medical Summary | Summary of Care ---
Author Name Unknown Organization [facility] Address [address] [facility] [place] [address] Phone [phone] Care Team Providers Care Developing Machine Tender Name Role Phone Sherwin Painter MD Primary Care Provider [phone] Reason for Visit * Reason Onset Date Comments Outpatient Testing 03/26/2024 Slide review/ MyGenvar Encounter Details Date Type Department Care Team (Late st Contact Info) Description 03/26/2024 Telephone Hematology/Oncology Treatment, [place] [address] [place] [address] Melvin Waggoner MD [address] [place] [address] Outpatient Testing (Slide review/ MyGenvar) Allergies No [...] Dr Waggoner, would like specimen brought to [facility] for slide review and MyGenvar pancreatic panel. Called [facility] ([phone]) and spoke to Valerie. Request can be faxed to [phone]. Faxed request. Order placed, staff message sent to pathology. documented in this encounter Plan of Treatment Upcoming Encounters Date Type Department Care Team (Late st Contact Info) Description 04/15/2024 8:00 AM EST Office Visit Family Practice [place] Trudy Bundy [address] [place] [address] Sherwin Painter MD [address] [place] [address] 04/16/2024 11:00 AM EST Office Visit Hematology/Oncology [place] [address] [facility] [place] [phone] Melvin Waggoner MD 200 [facility] [place] [address] Pending Results Name Type Priority Associated Diagnoses Date /Time ANATOMIC PATHOLOGY (BM/SURGICAL/CYTOLOGY) ADD ON REQUEST Lab Routine 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) 03/26/2024 11:32 AM EST Health Maintenance Due Date Last [...] patient or by statute hierarchy) Care Teams Developing Machine Tender Relationship Specialty Start Date End Date Sherwin Painter MD [address] [facility] [place] [address] PCP - General Family Medicine 09/21/23 documented as of this encounter
--- OUTSIDE RECORDS SUMMARY | 2024-05-14 13:51 | External Medical Summary ---
Author Name Unknown Address Unknown Organization K01:[facility] - [facility] [address] [place] [address] Laboratory Report Ordering Provider Test Date Status VERITO GAUTHIER 03/26/2024 11:32:47 Final We have requested [facility] ands send block to [facility].
Requesting pancreatic NGS panel; however, defer to pathology to choose most appropriate panel based on slide review Observation Date Value Abnormality Reference (Units ) Status COMMENT 03/26/2024 11:32:47 Outside material already requested. JCD Final COMMENT 03/26/2024 11:32:47 Materials received 04/01/24 JCD (11 slides & 11 blocks) Final COMMENT 03/26/2024 11:32:47 Consult also desired by clinician - Dr. Melvin Waggoner Final COMMENT 03/26/2024 11:32:47 Case #: [id number] Final COMMENT 03/26/2024 11:32:47 Created and assigned to Dr. Sanchez - delivered 04/02/24 Final COMMENT 03/26/2024 11:32:47 NGS order included* Final COMMENT 03/26/2024 11:32:47 NGS Ordered 04/06/24, A1 20% tumor JCD Final Performing Location [facility] - [facility] [place] [address]
--- OUTSIDE RECORDS SUMMARY | 2024-05-14 13:51 | External Medical Summary | Summary of Care ---
Author Name Unknown Organization [facility] Address [address] [place] [address] Phone [phone] Care Team Providers Care Legal Services Manager Name Role Phone Sherwin Painter MD Primary Care Provider [phone] Encounter Details Date Type Department Care Team (Late st Contact Info) Description 03/08/2024 Orders Only Family Practice [place] Trudy Bundy [address] [facility] [place] [address] Sherwin Painter MD [address] [facility] [place] [address] Allergies No known active allergiesdocumented as of this encounter (statuses as of 03/08/2024) Medications Losartan Potassium 100 MG Oral Tablet [...] as of this encounter (statuses as of 03/08/2024) Active Problems Problem Noted Date Diagnosed Date [...] as of this encounter (statuses as of 03/08/2024) Resolved Problems Problem Noted Date Diagnosed Date [...] as of this encounter (statuses as of 03/08/2024) Immunizations Name Administration Dates Next Due COVID-19 [...] Office Visit Family Practice [address] [place] [address] Sherwin Painter MD [address] [place] [address] Health Maintenance Due Date Last [...] Vaccine (FLU shot) (#1) 2023 GFR 02/24/2025 02/26/2024, 02/07, 08/18/2023, Additional history exists Depression [...] Procedure Name Priority Date/Time Associated Diagnosis Comments CHEMISTRY-OUTSIDE Routine 02/26/2024 documented in this encounter Results * (ABNORMAL) CHEMISTRY-OUTSIDE (02/26/2024) Not all results display below - see scan for full detail OUTSIDE LAB (SEE SCANNED REPORT) Comment:SEE SCAN: CMP, MAG, CA 19-9 CREATININE 0.70 0.40 - 1.50 MG/DL OUTSIDE LAB (SEE SCANNED REPORT) EGFR >90 >=60 ML/MIN/1.7 3M2 OUTSIDE LAB (SEE SCANNED REPORT) POTASSIUM 4.1 3.6 - 5.0 MMOL/L OUTSIDE LAB (SEE SCANNED REPORT) GLUCOSE 180(A) 65 - 110 MG/DL OUTSIDE LAB (SEE SCANNED REPORT) HOURS FASTING OUTSID E LAB (SEE SCANNED REPORT) TRIGLYCERIDES-OUT SIDE LAB OUTSIDE LAB (SEE SCANNED REPORT) CHOLESTEROL-OUTSI DE LAB OUTSIDE LAB (SEE SCANNED REPORT) HDL-OUTSIDE LAB OUTS MARY LAB (SEE SCANNED REPORT) CHOL/HDL RATIO-OUTSIDE LAB OUTSIDE LA B (SEE SCANNED REPORT) LDL (CALCULATED)-OUTS MARY LAB OUTSIDE LAB (SEE SCANNED REPORT) LDL (DIRECT MEASURE)-OUTSIDE LAB OUTSIDE LAB (SEE SCANNED REPORT) HEMOGLOBIN, [id number]-[id number] LAB OUTSIDE LAB (SEE SCANNED REPORT) PHOSPHORUS-OUTSID E LAB OUTSIDE LAB (SEE SCANNED REPORT) PTH-OUTSIDE LAB OUTS MARY LAB (SEE SCANNED REPORT) MICROALBUMIN RATIO-OUTSIDE LAB OUTSIDE LA B (SEE SCANNED REPORT) PROTEIN, UA-OUTSIDE LAB OUTSIDE LAB (SEE SCANNED REPORT) HGB OUTSIDE LA B (SEE SCANNED REPORT) 02/26/2024 us Ebenezer King MD LABORATORY Final Resu lt OUTSIDE LAB (SEE SCANNED REPORT) documented in this encounter Advance Directives Healthcare Agents on File Name Relationship Healthcare Agent Relationshi p Communication Deondre Melvin Hernández Spouse Health Care Repr esentative (appointed verbally by patient or by statute hierarchy) Care Teams Legal Services Manager Relationship Specialty Start Date End Date Sherwin Painter MD [address] [facility] [place] [address] PCP - General Family Medicine 09/21/23 documented as of this encounter
--- OUTSIDE RECORDS SUMMARY | 2024-05-14 13:51 | External Medical Summary | Summary of Care ---
Author Name Unknown Organization [facility] Address [address] [facility] [place] [address] Phone [phone] Care Team Providers Care Director Commercial Sales Name Role Phone Sherwin Painter MD Primary Care Provider [phone] Encounter Details Date Type Department Care Team (Late st Contact Info) Description 03/22/2024 Result Scan Unspecified Department <No scans attached> Allergies No known active allergiesdocumented as of this encounter (statuses as of 03/24/2024) Medications Losartan Potassium 100 MG Oral Tablet [...] as of this encounter (statuses as of 03/24/2024) Active Problems Problem Noted Date Diagnosed Date [...] as of this encounter (statuses as of 03/24/2024) Resolved Problems Problem Noted Date Diagnosed Date [...] as of this encounter (statuses as of 03/24/2024) Immunizations Name Administration Dates Next Due COVID-19 [...] Team (Late st Contact Info) Description 03/26/2024 11:00 AM EST Office Visit Hematology/Oncology [place] [employer] [address] [facility] [place], [place] [phone] Melvin Waggoner MD [address] [facility] [place] [address] 04/15/2024 8:00 AM EST Office Visit Family Practice [address] [place] [address] Sherwin Painter MD [address] [place] [address] Health Maintenance Due Date Last Done Comments [...] Date/Time Associated Diagnosis Comments OUTSIDE LAB RESULTS 03/22/2024 documented in this encounter Results * OUTSIDE LAB RESULTS (03/22/2024) 03/22/2024 us No Physician Data Unknown LABORATORY Final Result documented in this encounter Advance Directives Healthcare Agents on File Name Relationship Healthcare Agent Relationshi p Communication Deondre Charles [place] Spouse Health Care Repr esentative (appointed verbally by patient or by statute hierarchy) Care Teams Director Commercial Sales Relationship Specialty Start Date End Date Sherwin Painter MD [address] [facility] [place] [address] PCP - General Family Medicine 09/21/23 documented as of this encounter
--- OUTSIDE RECORDS SUMMARY | 2024-05-14 13:51 | External Medical Summary | Summary of Care ---
Author Name Unknown Organization [facility] Address [address] [facility] [place] [address] Phone [phone] Care Team Providers Care Volunteer Services Manager Name Role Phone Sherwin Painter MD Primary Care Provider [phone] Encounter Details Date Type Department Care Team (Late st Contact Info) Description 03/01/2024 Population Health External Data Unspecified Department Allergies No known active allergiesdocumented as of this encounter (statuses as of 03/01/2024) Medications Losartan Potassium 100 MG Oral Tablet [...] as of this encounter (statuses as of 03/01/2024) Active Problems Problem Noted Date Diagnosed Date [...] as of this encounter (statuses as of 03/01/2024) Resolved Problems Problem Noted Date Diagnosed Date [...] as of this encounter (statuses as of 03/01/2024) Immunizations Name Administration Dates Next Due COVID-19 [...] as of this encounter Plan of Treatment Health Maintenance [...] or Tdap) 08/05/2021 08/06/2011 COVID-19 Vaccine ( season) 2023 10/13/2020, 09/15/2020 Influenza Vaccine (FLU [...] filedocumented as of this encounter Care Teams Volunteer Services Manager Relationship Specialty Start Date End Date Sherwin Painter MD [address] [facility] [place] [address] PCP - General Family Medicine 09/21/23 documented as of this encounter
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
--- OUTSIDE RECORDS SUMMARY | 2024-05-14 13:51 | External Medical Summary | Summary of Care ---
Author Name Unknown Organization [facility] Address [address] [facility] [place] [address] Phone [phone] Care Team Providers Care Process Improvement Engineer Name Role Phone Sherwin Painter MD Primary Care Provider [phone] Reason for Visit * Reason Onset Date Comments Outpatient Testing 03/26/2024 Slide review/ MyGenvar Encounter Details Date Type Department Care Team (Late st Contact Info) Description 03/26/2024 Telephone Hematology/Oncology Treatment, [place] [address] [place] [address] Melvin Waggoner MD [address] [place] [address] Outpatient Testing (Slide review/ MyGenvar) Allergies No [...] encounter Miscellaneous Notes * Telephone Encounter - Yumiko Chvaez OSA - 03/26/2024 2:38 PM EST Jaimie calling in regarding below message. states they dont have a pathologist in right now to determine which is the best one to send asking if they should send all of them? Please call jaimie back at [phone] * Telephone Encounter - Fernanda Durán RN - 03/26/2024 11:[address] Waggoner, would like specimen brought to [facility] for slide review and MyGenvar pancreatic panel. Called [facility] ([phone]) and spoke to Valerie. Request can be faxed to [phone]. Faxed request. Order placed, staff message sent to pathology. documented in this encounter Plan of Treatment Upcoming Encounters Date Type Department Care Team (Late st Contact Info) Description 04/15/2024 8:00 AM EST Office Visit Family Practice [address] [place] [address] Sherwin Painter MD [address] [place] [address] 04/16/2024 11:00 AM EST Office Visit Hematology/Oncology [place] [address] [place] [address] [phone] Melvin Waggoner MD 200 [facility] [place] [address] Pending Results Name Type Priority Associated Diagnoses [...] patient or by statute hierarchy) Care Teams Process Improvement Engineer Relationship Specialty Start Date End Date Sherwin Painter MD [address] [facility] [place] [address] PCP - General Family Medicine 09/21/23 documented as of this encounter
--- OUTSIDE RECORDS SUMMARY | 2024-05-14 13:51 | External Medical Summary | Summary of Care ---
Author Name Unknown Organization [facility] Address [address] [facility] [place] [address] Phone [phone] Care Team Providers Care Cake Wrapper Name Role Phone Sherwin Painter MD Primary Care Provider [phone] Reason for Visit * Reason Onset Date Comments Outpatient Testing 03/26/2024 Slide review/ MyGenvar Encounter Details Date Type Department Care Team (Late st Contact Info) Description 03/26/2024 Telephone Hematology/Oncology Treatment, [place] [address] [place] [address] Melvin Waggoner MD [address] [place] [address] Outpatient Testing (Slide review/ MyGenvar) Allergies No [...] Telephone Encounter - Fernanda Durán RN - 03/29/2024 8:35 AM EST Called Jaimie back- pathologist will not be back until April. Asked her to send a few blocks. * Addendum Note - Fernanda Durán RN [...] send all of them? Please call jaimie collado at [phone] * Telephone Encounter - Fernanda Durán RN - 03/26/2024 11:[address] Waggoner, would like specimen brought to [facility] for slide review and MyGenvar pancreatic panel. Called [facility]ates ([phone]) and spoke to Valerie. Request can be faxed to [phone]. Faxed request. Order placed, staff message sent to pathology. documented in this encounter Plan of Treatment Upcoming Encounters Date Type Department Care Team (Late st Contact Info) Description 04/15/2024 8:00 AM EST Office Visit Family Practice [address] [place] [address] Sherwin Painter MD [address] [place] [address] 04/16/2024 11:00 AM EST Office Visit Hematology/Oncology [place] [address] [facility] [place] [id number] Melvin Waggoner MD [address] [place] [address] Pending Results Name Type Priority Associated Diagnoses [...] patient or by statute hierarchy) Care Teams Cake Wrapper Relationship Specialty Start Date End Date Sherwin Painter MD [address] [facility] [place] [id number] PCP - General Family Medicine 09/21/23 documented as of this encounter
--- OUTSIDE RECORDS SUMMARY | 2024-05-14 13:52 | External Medical Summary | Summary of Care ---
Author Name Unknown Organization [facility] Address [address] [place] [facility] [place] [address] Phone [phone] Care Team Providers Care Beef Cattle Farm Manager Name Role Phone Sherwin Painter MD Primary Care Provider [phone] Encounter Details Date Type Department Care Team (Late st Contact Info) Description 02/26/2024 Orders Only Family Practice [facility] [place] [address] [place] [address] Sherwin Painter MD [address] [place] [address] Allergies No known active allergiesdocumented as of this encounter (statuses as of 02/26/2024) Medications Losartan Potassium 100 MG Oral Tablet [...] as of this encounter (statuses as of 02/26/2024) Active Problems Problem Noted Date Diagnosed Date [...] as of this encounter (statuses as of 02/26/2024) Resolved Problems Problem Noted Date Diagnosed Date [...] as of this encounter (statuses as of 02/26/2024) Immunizations Name Administration Dates Next Due COVID-19 [...] 65+ Years (1 of 2 - PCV) 1960 Mammogram 1994 Cologuard 10/31/1999 Colonoscopy 10/31/1999 Colorectal Cancer Screening 10/31/1999 Fecal Occult Blood Test 10/31/1999 Sigmoidoscopy 10/31/1999 Lung Cancer Screening 2004 Zoster Vaccines (1 of 2) 2004 Depression [...] Pap Smear Discontinued 08/23/2011 (Cour se Completed) HPV (Gardasil) Vaccine Aged Out No lo [...] Priority Date/Time Associated Diagnosis Comments CHEMISTRY-OUTSIDE Routine 02/25/2024 documented in this encounter Results * (ABNORMAL) CHEMISTRY-OUTSIDE (02/25/2024) Not all results display below - see scan for full detail OUTSIDE LAB (SEE SCANNED REPORT) Comment:SCAN INCLUDES - E.R. LABS: CBCD, LACTIC ACID, TROPONIN, CMP, LIPASE, TROPONIN CREATININE 1.10 0.40 - 1.50 MG/DL OUTSIDE LAB (SEE SCANNED REPORT) EGFR 54(L) >=60 ML/MIN/1.7 3M2 OUTSIDE LAB (SEE SCANNED REPORT) POTASSIUM 3.4(A) 3.6 - 5.0 MMOL/L OUTSIDE LAB (SEE SCANNED REPORT) GLUCOSE 142(A) 65 - 110 MG/DL OUTSIDE LAB (SEE [...] LAB OUTSIDE LAB (SEE SCANNED REPORT) HEMOGLOBIN, [id number] LAB OUTSIDE LAB (SEE SCANNED REPORT) PHOSPHORUS-OUTSID E LAB OUTSIDE LAB (SEE SCANNED REPORT) PTH-OUTSIDE LAB OUTS [facility] (SEE SCANNED REPORT) MICROALBUMIN RATIO-OUTSIDE LAB OUTSIDE LA B (SEE SCANNED REPORT) PROTEIN, UA-OUTSIDE LAB OUTSIDE LAB (SEE SCANNED REPORT) HGB 15.7 12.0 - 16.0 GM/DL OUTSIDE LAB (SEE SCANNED REPORT) 02/25/2024 Alaina Ochoa DO LABORATORY Final Res ult OUTSIDE LAB (SEE SCANNED REPORT) documented in this encounter Care Teams Beef Cattle Farm Manager Relationship Specialty Start Date End Date Sherwin Painter MD [address] [facility] [place] [address] PCP - General Family Medicine 09/21/23 documented as of this encounter
--- OUTSIDE RECORDS SUMMARY | 2024-05-14 13:52 | External Medical Summary | Summary of Care ---
Author Name Unknown Organization [facility] Address [address] [facility] [place] [address] Phone [phone] Care Team Providers Care Coil Finisher Name Role Phone Sherwin Painter MD Primary Care Provider [phone] Encounter Details Date Type Department Care Team (Late st Contact Info) Description 02/24/2024 Result Scan Unspecified Department <No scans attached> Allergies No known active allergiesdocumented as of this encounter (statuses as of 02/25/2024) Medications Losartan Potassium 100 MG Oral Tablet [...] as of this encounter (statuses as of 02/25/2024) Active Problems Problem Noted Date Diagnosed Date [...] as of this encounter (statuses as of 02/25/2024) Resolved Problems Problem Noted Date Diagnosed Date [...] as of this encounter (statuses as of 02/25/2024) Immunizations Name Administration Dates Next Due COVID-19 [...] Influenza Vaccine (FLU shot) (#1) 2023 GFR 08/17/2024 08/18/2023, 05/0 08/2023, 01/09/2023, Additional history exists Albumin/Creatinine Ratio 08/17/2026 08/18/2023 [...] Name Priority Date/Time Associated Diagnosis Comments RADIOLOGY SCANNED RESULT 02/24/2024 documented in this encounter Results * RADIOLOGY SCANNED RESULT (02/24/2024) 02/24/2024 us No Physician Data Unknown DIAGNOSTIC RADIOLOGY S ERVICES Final Result documented in this encounter Care Teams Coil Finisher Relationship Specialty Start Date End Date Sherwin Painter MD [facility] [facility] [place] [address] PCP - General Family Medicine 09/21/23 documented as of this encounter
--- OUTSIDE RECORDS SUMMARY | 2024-05-14 13:52 | External Medical Summary | Summary of Care ---
Author Name Unknown Organization [facility] Address [address] [place] [facility] [place] [address] Phone [phone] Care Team Providers Care Truck Striker Name Role Phone Sherwin Painter MD Primary Care Provider [phone] Encounter Details Date Type Department Care Team (Late st Contact Info) Description 02/27/2024 Orders Only Family Practice [facility] [place] [address] [place] [address] Sherwin Painter MD [address] [facility] [place] [address] Allergies No known active allergiesdocumented as [...] Name Priority Date/Time Associated Diagnosis Comments XR CHEST 1 VIEW Routine 02/26/2024 documented in this encounter Results * XR CHEST 1 VIEW (02/26/2024) Anatomical Region Laterality Modality Chest Other 02/26/2024 us Kirshna Cantu MD RADIOLOGY (RAD GENERAL) Cindi castellanos Result documented in this encounter Care Teams Truck Striker Relationship Specialty Start Date End Date Sherwin Painter MD [address] [facility] [place] [address] PCP - General Family Medicine 09/21/23 documented as of this encounter
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
--- OUTSIDE RECORDS SUMMARY | 2024-05-14 13:52 | External Medical Summary | Summary of Care ---
Author Name Unknown Organization [facility] [address] [facility] [place] [address] Phone [phone] Care Team Providers Care Snowmaker Name Role Phone Sherwin Painter MD Primary Care Provider [phone] Encounter Details Date Type Department Care Team (Late st Contact Info) Description 11/20/2023 Population Health External Data Unspecified Department Allergies No known active allergiesdocumented as of this encounter (statuses as of 11/20/2023) Medications Medication Sig Dispensed Refills Start Date End Date Status Losartan Potassium 100 MG Oral Tablet (Cozaar) Take 1 Tablet by mouth in the morning. 90 Tablet 3 08/18/2023 Active Rosuvastatin Calcium 20 MG Oral Tablet (Crestor)Indications :Hyperlipidemia with target LDL less than 100 take 1 tablet by mouth every morning 90 Tablet 3 09/04/2023 Active Aspirin Low Dose 81 MG Oral Tablet Chewable (aspirin)Indications :Carotid artery plaque, bilateral chew and swallow 1 tablet by mouth every morning with food 100 Tablet 2 10/13/2023 Active Cyclobenzaprine HCl 5 MG Oral Tablet (Flexeril) take 1 tablet by mouth three times a day if needed for muscle spasm 30 Tablet 1 11/19/2023 Active documented as of this encounter (statuses as of 11/20/2023) Active Problems Problem Noted Date Diagnosed Date DDD (degenerative disc disease), cervical 2023 Alcohol abuse 11/06/2023 Parent refuses immunizations 03/23/2021 Overview: Refused influenza, Pneumovax. Mammogram declined 03/23/2021 Colonoscopy refused 04/04/2016 Overview: Refused Cologuard as well. Tobacco use disorder 04/04/2016 Hypertension goal BP (blood pressure) < 140/90 0 08/14/2011 Dyslipidemia, goal LDL below 130 08/14/2011 documented as of this encounter (statuses as of 11/20/2023) Resolved Problems Problem Noted Date Diagnosed Date [...] as of this encounter (statuses as of 11/20/2023) Immunizations Name Administration Dates Next Due COVID-19 [...] Td or Tdap) 08/05/2021 08/06/2011 COVID-19 Vaccine (2022- season) 2023 10/13/2020, 09/15/2020 Influenza Vaccine (FLU [...] filedocumented as of this encounter Care Teams Snowmaker Relationship Specialty Start Date End Date Sherwin Painter MD [address] [facility] [place] [address] PCP - General Family Medicine 09/21/23 documented as of this encounter
--- OUTSIDE RECORDS SUMMARY | 2024-05-14 13:52 | External Medical Summary | Summary of Care ---
Author Name Unknown Organization [facility] Address [address] [place] [address] Phone [phone] Care Team Providers Care General Inspector Name Role Phone Sherwin Painter MD Primary Care Provider [phone] Reason for Visit * Reason Comments eRx-Medication Refill Encounter Details Date Type Department Care Team (Late st Contact Info) Description [facility] [facility] [place] [address] Sherwin Painter MD [address] [facility] [place] [address] Allergies No known active allergiesdocumented as of this encounter (statuses as of 01/19/2024) Medications Losartan Potassium 100 MG Oral Tablet (Cozaar) Take 1 Tablet by mouth in the morning. 90 Tablet 3 4 Active Rosuvastatin Calcium 20 MG Oral Tablet (Crestor)Indic ations:Hyperli pidemia with target LDL less than 100 take 1 tablet by mouth every morning 90 Tablet 3 4 Active Aspirin Low Dose 81 MG Oral Tablet Chewable (aspirin)Indic ations:Carotid artery plaque, bilateral chew and swallow 1 tablet by mouth every morning with food 100 Tablet 2 4 Active Cyclobenzaprin e HCl 5 MG Oral Tablet (Flexeril) take 1 tablet by mouth three times a day if needed for muscle spasm 30 Tablet 1 4 Active Cyclobenzaprin e HCl 5 MG Oral Tablet (Flexeril) take 1 tablet by mouth three times a day if needed for muscle spasm 30 Tablet 1 4 01/19/20 24 Discontinued documented as of this encounter (statuses as of 01/19/2024) Active Problems Problem Noted Date Diagnosed Date [...] as of this encounter (statuses as of 01/19/2024) Resolved Problems Problem Noted Date Diagnosed Date [...] as of this encounter (statuses as of 01/19/2024) Immunizations Name Administration Dates Next Due COVID-19 [...] Telephone Encounter - Sherwin Painter MD - 01/19/2024 12:17 PM ESTSigned Prescriptions: Disp Refills Cyclobenzaprine HCl 5 MG Oral Tablet (Flex*30 Tab*1 Sig: take 1 tablet by mouth three times a day if needed for muscle spasm Authorizing Provider: SHERWIN PAINTER * Telephone Encounter - Mitchell Montiel [facility] - 01/19/2024 11:27 AM EST Pending Prescriptions: Disp Refills Cyclobenzaprine HCl 5 MG Oral Tablet [Phar*30 Tab*1 Sig: take 1 tablet by mouth three times a day if needed for muscle spasm * Telephone Encounter - Mitchell Montiel [facility] - 01/19/2024 11:27 AM EST Refill pharmacists currently not authorized to approve refills for this class of medication per refill protocol. Please approve if appropriate. Pending Prescriptions: Disp Refills Cyclobenzaprine HCl 5 MG Oral Tablet [Phar*30 Tab*1 Sig: take 1 tablet by mouth three times a day if needed for muscle spasm 11/06/2023 (in office), Visit date not found (telemedicine) Visit date not found If no future appointments scheduled, and last appointment is greater than a year ago, please schedule patient for a follow-up appointment Last date the medication was ordered: 11/19/2023 Pharmacy: [id number] [facility] [address] Is this request for a controlled substance? no Patient Phone Numbers Labs: Lab Results Component Value Date/Time CREAT 0.5 08/18/2023 08:10 AM CREAT 0.50 01/09/2023 12:00 AM CREAT 0.6 06/11/2018 02:53 PM POTASSIUM 4.8 08/18/2023 08:10 AM POTASSIUM 3.7 01/09/2023 12:00 AM POTASSIUM 4.0 06/11/2018 02:53 PM TSH 0.86 08/14/2011 02:00 PM LDL 82 07/14/2023 08:36 AM LDL 123 06/11/2018 02:53 PM LDL NOT APPLICABLE 06/11/2018 02:53 PM ALT 20 08/30/2022 07:55 AM ALT 34 06/11/2018 02:53 PM HGBA1C 5.5 07/18/2023 10:05 AM Thank You, Mitchell Montiel, Pharm-D Clinical Pharmacist Telepharmacy 01/19/2024, 11:27 AM documented in this encounter Plan of [...] filedocumented as of this encounter Care Teams General Inspector Relationship Specialty Start Date End Date Sherwin Painter MD [address] [facility] [place] [address] PCP - General Family Medicine 09/21/23 documented as of this encounter
--- OUTSIDE RECORDS SUMMARY | 2024-05-14 13:52 | External Medical Summary | Summary of Care ---
Author Name Unknown Organization [facility] Address [address] [place] [facility] [place] [address] Phone [phone] Care Team Providers Care Manager Contract Name Role Phone Sherwin Painter MD Primary Care Provider [phone] Encounter Details Date Type Department Care Team (Late st Contact Info) Description 02/26/2024 Telephone Family Practice [facility] [place] [address] [place] [address] Sherwin Painter MD [address] [place] [address] Allergies No known active allergiesdocumented [...] filedocumented as of this encounter Care Teams Manager Contract Relationship Specialty Start Date End Date Sherwin Painter MD [address] [facility] [place] [address] PCP - General Family Medicine 09/21/23 documented as of this encounter
--- OUTSIDE RECORDS SUMMARY | 2024-05-14 13:52 | External Medical Summary | Summary of Care ---
Author Name Unknown Organization [facility] Address [address] [place] [facility] [place] [address] Phone [phone] Care Team Providers Care Web Press Operator Name Role Phone Sherwin Painter MD Primary Care Provider Encounter Details Date Type Department Care Team (Late st Contact Info) Description 02/26/2024 Orders Only Family Practice [facility] [place] [address] [place] [address] Sherwin Painter MD [address] [place] [address] Allergies No known active allergiesdocumented as [...] Procedure Name Priority Date/Time Associated Diagnosis Comments CT CHEST WO CONTRAST Routine 02/25/2024 documented in this encounter Results * CT CHEST WO CONTRAST (02/25/2024) Anatomical Region Laterality Modality Chest, Body, Cardio Other 02/25/2024 us Alban Bella PA-C RAD CT Final Result documented in this encounter Care Teams Web Press Operator Relationship Specialty Start Date End Date Sherwin Painter MD [address] [facility] [place] [address] PCP - General Family Medicine 09/21/23 documented as of this encounter
--- NOTE | 2024-05-14 14:36 | Gastrointestinal Consultation ---
Date of Consultation May 14, 2024 Assessment & Plan (1) SBO (small bowel obstruction): 68 year old female with history of metastatic pancreatic cancer to the [id number]-kn[place]wsn, cardiomyopathy, torsades, SBO, electrolyte abnormalities w/ ventricular fibrillation arrest who is admitted through the ED w/ abd pain, nausea/vomiting - imaging concerning for SBO. GI was asked to evaluate for a venting G-tube. She remains symptomatic of her SBO and is not agreeable to NG tube for decompression. Will discuss with attending as she is a better candidate for IR placed G tube placement to minimize anesthesia requirements. Appreciate close monitoring and treatment of her e-lytes. I spent a total of 60 minutes on the date of service in review of patient's record, and previously obtained information in person and appropriate medical visit, discussion and education of plan, with patient and/or caregiver, placing orders for tests/referral/procedures as medically necessary and documentation of pertinent clinical information in patient's medical records for their visit today. Supervising Physician Co-Signing Physician Notes I saw and examined this patient with our nurse practitioner and agree with her assessment and plan. Unfortunate patient with metastatic pancreatic cancer complicated by small bowel obstructions. Presently admitted with recurrent bowel obstruction. Today slightly clinically improved however have been asked to consider a venting gastrostomy tube of her for palliative relief. This may not be technically possible in light of her bowel obstruction however will reassess her on Friday and her interest in attempting the procedure. History of Present Illness Reason for Consultation: venting G tube Requesting Physician: Memo Humphreys MD Attending Physician: Memo uHmphreys MD History of Present Illness 68 year old female with history of metastatic pancreatic cancer to the [id number], cardiomyopathy, torsades, SBO, electrolyte abnormalities w/ ventricular fibrillation arrest who is admitted through the ED w/ abd pain, nausea/vomiting - imaging concerning for SBO. GI was asked to evaluate for a venting G-tube. She notes ongoing pain, nausea and is laying in bed with an emesis bag. Denies any emesis currently. She tells me she is not sure the prognosis for her cancer. She was last seen in [facility] on 05/13/24 and per documentation there was referral recommended to palliative care and hospice. CTAP 2024: Small bowel obstruction, with transition point at the anterior mid abdomen, where there is visualized thickened soft tissue, likely representing scar/adhesions. A fluid collection in the left pelvis, has a relatively simple appearance with possible few internal thin septations, and is indeterminate, possibly lymphangioma, or postoperative seroma, versus an ovarian cystic lesion. Consider nonemergent follow-up pelvic ultrasound. 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 Malignant neoplasm of pancreas SBO (small bowel obstruction) Social History Smoking Status: Current every day smoker Tobacco Type: Cigarettes Cigarettes Per Day: 3; Second Hand Exposure: No; Do You Dip or Chew Tobacco: No; Tobacco Cessation Education Requested by Patient: No Hx Alcohol Use: No Hx Substance Use: No Preferred Language: Greenlandic Communication Ability: Effective Key Attendant Required: No Beliefs That Will Affect Care: Spiritual Current Living Situation: Spouse Other Information That Helps Us Care for You: No Feels Safe at Home: Yes Safety Concerns: Feels Safe At This Time Assistive Devices: None Review of Systems Review of Systems: All other findings negative except as noted in HPI. Physical Exam Constitutional: WD/WN, vitals as above chronically ill appearing female, laying in bed with emesis bin Gastrointestinal (Abdomen): Abd soft, tender to palpation. There is a healing midline scare. Results & Data Vital Signs (Past 12 Hours) Vital Signs Temp Pulse Pulse Pulse Resp BP Pulse Ox 05/14/24 11:47 98 05/14/24 11:47 85 L 05/14/24 11:04 98.6 F 102 H 18 111/62 88 L 05/14/24 08:12 05/14/24 07:42 97.5 F L 82 18 113/58 L 90 05/14/24 07:39 86 05/14/24 03:15 97.9 F 84 18 113/59 L 94 O2 Del Method O2 Flow Rate 05/14/24 11:47 Nasal Cannula 2 05/14/24 11:47 Room Air 05/14/24 11:04 Room Air 05/14/24 08:12 Room Air 05/14/24 07:42 Room Air 05/14/24 07:39 05/14/24 03:15 Room Air Laboratory Results 05/14/24 05/14/24 05/13/24 Range/Units 11:12 00:40 19:44 WBC 16.64 H (4.8-10.8) K/ul RBC 3.96 L (4.20-5.40) M/uL Hgb 11.9 L (12.0-16.0) g/dl POC Hgb (12.0-16.0) g/dl Hct 34.7 L (37.0-47.0) % POC Hct (37-47) % MCV 87.6 (80.0-100.0) fL MCH 30.1 (25.0-34.0) pg MCHC 34.3 (32.0-36.0) g/dL RDW Std Deviation 43.1 (36.4-46.3) fL RDW Coeff of Laura 13.9 (11.5-14.5) % Plt Count 391 (130-400) K/uL MPV 11.0 (9.4-12.4) fL Immature Gran % (Auto) 1.0 % Neut % (Auto) 92.3 % Lymph % (Auto) 2.6 % Nuckolls % (Auto) 3.4 % Eos % (Auto) 0.2 % Baso % (Auto) 0.5 % Neut # (Auto) 15.35 H (1.40-6.50) K/uL Lymph # (Auto) 0.44 L (1.20-3.40) K/uL Nuckolls # (Auto) 0.56 (0.11-0.59) K/uL Eos # (Auto) 0.03 (0.00-0.50) K/uL Baso # (Auto) 0.09 (0.00-0.20) K/uL Immature Gran # (Auto) 0.17 (0.01-0.20) K/uL PT (9.0-12.0) Seconds INR (0.9-1.1) APTT (21-31) Seconds PTT Ratio POC Sodium (135-144) mmol/L Sodium 132 L 129 L 129 L (136-145) mmol/L POC Potassium (3.3-5.0) mmol/L Potassium 3.4 L 3.6 D 2.6 L (3.5-5.1) mmol/L POC Chloride (101-112) mmol/L Chloride 86 L 83 L 81 L (98-107) mmol/L Carbon Dioxide 36 H 37 H 37 H (21-32) mmol/L POC Total CO2 (24-31) mmol/L Anion Gap 10 9 11 (3-11) POC Anion Gap (16-25) mmol/L POC BUN (7-18) mg/dl BUN 30 H 32 H 36 H (6-23) mg/dl Creatinine 1.88 H D 2.70 H D 3.06 H (0.6-1.2) mg/dl POC Creatinine (0.6-1.3) mg/dl Est Cr Clr Drug Dosing 22.8 15.9 13.7 ml/min eGFR 28.59 18.52 15.93 BUN/Creatinine Ratio 16.0 11.9 11.8 (10-20) Glucose 150 H 132 H 124 H (70-99(Fasting)) mg/dl POC Glucose (other) (70-99) mg/dl Calcium 7.4 L 7.0 L 7.7 L (8.6-10.3) mg/dl POC Ioniz Calcium Beau (1.12-1.32) mmol/l Ionized Calcium 0.93 L 0.88 L 0.95 L (1.12-1.32) mmol/L Phosphorus 3.0 3.4 (2.5-4.9) mg/dl Magnesium 1.9 2.2 2.7 H (1.7-2.4) mg/dl Total Bilirubin 0.9 0.8 0.8 (0.2-1.0) mg/dl AST 25 24 27 (13-39) U/L ALT 30 30 32 (7-52) U/L Alkaline Phosphatase 153 H 146 H 152 H (34-104) U/L Total Protein 6.3 5.9 L 6.2 (6.0-8.3) gm/dl Albumin 2.8 L 2.7 L 2.8 L (3.4-5.0) gm/dl Globulin 3.5 3.2 3.4 (2.5-4.0) gm/dl Albumin/Globulin Ratio 0.8 L 0.8 L 0.8 L (0.9-2) 05/13/24 05/13/24 Range/Units 16:25 16:09 WBC 16.33 H (4.8-10.8) K/ul RBC 4.04 L (4.20-5.40) M/uL Hgb 12.1 (12.0-16.0) g/dl POC Hgb 13.3 (12.0-16.0) g/dl Hct 35.1 L (37.0-47.0) % POC Hct 39 (37-47) % MCV 86.9 (80.0-100.0) fL MCH 30.0 (25.0-34.0) pg MCHC 34.5 (32.0-36.0) g/dL RDW Std Deviation 41.6 (36.4-46.3) fL RDW Coeff of Laura 13.8 (11.5-14.5) % Plt Count 442 H (130-400) K/uL MPV 11.1 (9.4-12.4) fL Immature Gran % (Auto) 1.0 % Neut % (Auto) 84.5 % Lymph % (Auto) 6.7 % Nuckolls % (Auto) 6.9 % Eos % (Auto) 0.1 % Baso % (Auto) 0.8 % Neut # (Auto) 13.78 H (1.40-6.50) K/uL Lymph # (Auto) 1.10 L (1.20-3.40) K/uL Nuckolls # (Auto) 1.13 H (0.11-0.59) K/uL Eos # (Auto) 0.02 (0.00-0.50) K/uL Baso # (Auto) 0.13 (0.00-0.20) K/uL Immature Gran # (Auto) 0.17 (0.01-0.20) K/uL PT 11.8 (9.0-12.0) Seconds INR 1.1 (0.9-1.1) APTT 25 (21-31) Seconds PTT Ratio 0.9 POC Sodium 128 L (135-144) mmol/L Sodium 130 L (136-145) mmol/L POC Potassium 3.0 L (3.3-5.0) mmol/L Potassium 3.1 L (3.5-5.1) mmol/L POC Chloride 79 L (101-112) mmol/L Chloride 81 L (98-107) mmol/L Carbon Dioxide 38 H (21-32) mmol/L POC Total CO2 38 H (24-31) mmol/L Anion Gap 11 (3-11) POC Anion Gap 14.0 L (16-25) mmol/L POC BUN 31 H (7-18) mg/dl BUN 35 H (6-23) mg/dl Creatinine 3.21 H (0.6-1.2) mg/dl POC Creatinine 3.4 H (0.6-1.3) mg/dl Est Cr Clr Drug Dosing 13.1 ml/min eGFR 15.05 BUN/Creatinine Ratio 10.9 (10-20) Glucose 118 H (70-99(Fasting)) mg/dl POC Glucose (other) 118 H (70-99) mg/dl Calcium 6.7 L (8.6-10.3) mg/dl POC Ioniz Calcium Beau 0.75 L* (1.12-1.32) mmol/l Ionized Calcium (1.12-1.32) mmol/L Phosphorus (2.5-4.9) mg/dl Magnesium 1.4 L (1.7-2.4) mg/dl Total Bilirubin 0.7 (0.2-1.0) mg/dl AST 29 (13-39) U/L ALT 36 (7-52) U/L Alkaline Phosphatase 167 H (34-104) U/L Total Protein 6.6 (6.0-8.3) gm/dl Albumin 3.0 L (3.4-5.0) gm/dl Globulin 3.6 (2.5-4.0) gm/dl Albumin/Globulin Ratio 0.8 L (0.9-2) PG Care Time/CCT Total # of Minutes Spent Total Time Spent with Patient: Total time spent is greater than 50% in coordination of care (as documented) at patient's floor/unit and/or counseling patient: Coding Level of Care Code 49710 INT INP/OBS CARE 2/55MIN Diagnoses SBO (small bowel obstruction) K56.609
[2024-05-14] MEDS ORDERED: ONDANSETRON 4 MG OD TAB SL PRN (15:15)
[2024-05-14] MEDS ORDERED: ACETAMINOPHEN 325 MG TAB PO PRN (15:15)
[2024-05-14] MEDS ORDERED: MoRPHine SULFATE 2 MG/ML CARP IV PRN (15:15)
[2024-05-14] MEDS ORDERED: MoRPHine SULFATE 10 MG/0.5 ML UDP PO PRN (15:15)
--- NOTE | 2024-05-14 15:53 | Hospitalist Progress Note ---
Date of Service May 14, 2024 Assessment & Plan (1) SBO (small bowel obstruction): Plan: 68-year-old female with a history of pancreatic cancer with metastasis to the lungs, appendix, omentum, cardiomyopathy, torsade, SBO, hypokalemia and hypomagnesemia, presenting with persistent nausea, poor oral intake and weakness times few days. Small bowel obstruction, recurrent likely due to adhesions Metastatic pancreatic cancer, mets to the lungs, appendix, omentum S/P Appendectomy last February 2024 Patient did poorly with chemotherapy in Apr --CT ABD:Small bowel obstruction, with transition point at the anterior mid abdomen, where there is visualized thickened soft tissue, likely representing scar/adhesions. A fluid collection in the left pelvis, has a relatively simple appearance with possible few internal thin septations, and is indeterminate, possibly lymphangioma, or postoperative seroma, versus an ovarian cystic lesion. Consider nonemergent follow-up pelvic ultrasound. --Appreciate surgery, GI input -- Discussed with Dr. Melvin Waggoner and palliative care on 05/14/2024: Patient was thought to be not a candidate for any chemotherapy in the future and the goal is to focus on quality of life. Discussed with patient and patient's in detail. Patient and family preferred to be transition to comfort measures only. -- Will consider venting G-tube by IR next week if appropriate -Patient transitioned to comfort measures only. Acute kidney injury Hypomagnesemia Likely multifactorial Appreciate nephrology input Received IV fluid Transition to comfort measures only Hypokalemia, Hypocalcemia, Hypomagnesemia, hyponatremia Secondary to poor oral intake CODE STATUS DNI/DNR Disposition To be determined Admission and Anticipated Discharge Date Admission Date: May 13, 2024 Subjective Patient is seen and examined at bedside States having nausea, vomiting + Flatus, no bowel movement Denies any chest pain, dyspnea, abdominal pain Discussed with oncology, palliative care today Also discussed with patient's family at bedside Review of Systems Review of Systems: All systems reviewed & are unremarkable except as noted in Subjective Physical Exam Physical Exam: Physical Exam: Vitals signs as noted above General Appearance:Thin, frail, ill appearing, no apparent distress Head: normocephalic, Atraumatic Eyes: normal inspection, EOMI Neck: supple, Trachea midline Respiratory/Chest: Decreased breath sounds, CTA, +chemo port, No accessory muscle use Cardiovascular: S1, S2, No murmur Abdomen/GI:Soft, distended, non tender, absent bowel sounds Extremities/Musculoskeletal:normal inspection, no edema Neurologic/Psych:AAOX3, grossly no focal neurological deficits Skin: normal color, warm Results & Data Results & Data Vital Signs (Past 12 Hours) Vital Signs Temp Pulse Pulse Resp BP Pulse Ox O2 Del Method 05/14/24 11:47 98 Nasal Cannula 05/14/24 11:47 85 L Room Air 05/14/24 11:04 37.0 C 102 H 18 111/62 88 L Room Air 05/14/24 08:12 Room Air 05/14/24 07:42 36.4 C L 82 18 113/58 L 90 Room Air 05/14/24 07:39 86 O2 Flow Rate 05/14/24 11:47 2 05/14/24 11:47 05/14/24 11:04 05/14/24 08:12 05/14/24 07:42 05/14/24 07:39 Laboratory Results Short CBC 05/13/24 05/14/24 Range/Units 16:09 11:12 WBC 16.33 H 16.64 H (4.8-10.8) K/ul Hgb 12.1 11.9 L (12.0-16.0) g/dl Hct 35.1 L 34.7 L (37.0-47.0) % Plt Count 442 H 391 (130-400) K/uL BMP 05/13/24 05/13/24 05/14/24 16:09 19:44 00:40 Sodium 130 L 129 L 129 L Potassium 3.1 L 2.6 L 3.6 D Chloride 81 L 81 L 83 L Carbon Dioxide 38 H 37 H 37 H BUN 35 H 36 H 32 H Creatinine 3.21 H 3.06 H 2.70 H D Glucose 118 H 124 H 132 H Calcium 6.7 L 7.7 L 7.0 L 05/14/24 11:12 Sodium 132 L Potassium 3.4 L Chloride 86 L Carbon Dioxide 36 H BUN 30 H Creatinine 1.88 H D Glucose 150 H Calcium 7.4 L Liver Function 05/13/24 05/13/24 05/14/24 Range/Units 16:09 19:44 00:40 Total Bilirubin 0.7 0.8 0.8 (0.2-1.0) mg/dl AST 29 27 24 (13-39) U/L ALT 36 32 30 (7-52) U/L Alkaline Phosphatase 167 H 152 H 146 H (34-104) U/L Albumin 3.0 L 2.8 L 2.7 L (3.4-5.0) gm/dl 05/14/24 Range/Units 11:12 Total Bilirubin 0.9 (0.2-1.0) mg/dl AST 25 (13-39) U/L ALT 30 (7-52) U/L Alkaline Phosphatase 153 H (34-104) U/L Albumin 2.8 L (3.4-5.0) gm/dl
--- NOTE | 2024-05-14 19:27 | Palliative Care Consultation ---
Date of Consultation May 14, 2024 Assessment & Plan (1) Nausea & vomiting: Pt has refused NGT. She tells me she had it during previous admission and hated it, it caused her a lot of suffering. She would prefer to vomit but is open to med to improve nausea, adding that Zofran has been ineffective and 4mg and 8mg doses Will start a trial of Aloxi 0.25mg IV daily for severe refractory nausea She is NPO for bowel rest She declines intervention for bowel decompression She repeatedly states she wants to drink, "I would kill for a sprite, with ice, now." (2) Advanced care planning/counseling discussion: I had 2 separate ACP meetings with patient and today as follows: I met with pt and her face to face to 30min at bedside during which we discussed her disease progression, intol of chemo and feels chemo is likely not something they want to keep doing.We discussed she does not have a curable cancer. She indicates preference would be to focus on time at home and be with family, she does not like being in the hospital. We discussed how sometimes if patients don't tolerate chemo well, the dose might be able to be reduced and/or rotation to another chemo regimen. I asked if she would consider that option and she replied she would think about it if it would be less intense than what she had prior to this admission. We agreed I would call her primary oncology provider. I contacted Dr Jovanny Waggoner,her primary oncologist who advised no further chemo plan kerri given her decline and disease progression. He was in agreement to transition focus to QOL, comfort and hospice at home if desired.I reviewed this recc with primary team and all were in agreement with recommendation. I returned to pt room for a second 30 min face to face ACP during which time i reviewed the oncology update and reccs. We explored the options of home with VNS vs hospice and her goals. She wants to take PO but knows she keeps throwing up. We spoke about the option of a venting G tube to allow her to take some PO and vent the tube/drain it as needed. This would not correct the obstruction but would allow her the QOL goal of taking PO for comfort/pleasure janessa Sprite. I reviewed hospice: I provided education about the hospice benefit: an interdisciplinary program offered by nurses, nurses aides, social workers, chaplains and a medical cost consultant for patients with a terminal condition and a life expectancy of less than 6 months. This is covered by Medicare at 100%/no out of pocket expense to patient and all meds/supplies needed by patient for the reason they are on hospice are paid for/covered by hospice. The goal is assure quality of life of the patient in their home setting (home, detention, inpatient hospice setting) by providing symptoms management, psychosocial and spiritual support. However, they cannot offer 24 hours care and if the family is unable to provide that care, they will have to consider personal care with out of pocket cost vs. detention placement. We discussed the goals of hospice as a patient service and the goals of care; we discussed EOL trajectories and transitions janessa the emotional impact of realizing mortality as a concrete reality from prior abstract considerations. Pt was reassured that no matter whe re they are along this trajectory, they are not alone - their medical team will remain by their side through their journey. Discussed the pros/cons of accepting help when especially weakened and distressed by pain-which would also help provide relief/decrease caregiver burden/strain. I reviewed comfort care goals - she reaffirms she wants to be home, with family, taking PO and without much pain. We discussed code status. CPR survival: Only about 10% of patients who have [id number] sudden cardiac arrest survive to hospital discharge, with many survivors having neurologic impairment. This rate is even lower among patients with serious coexisting conditions, ie chance of survival to hospital discharge for in-hospital CPR in older people is low to moderate (15%) and decreases with age, comorbidities, performance status and frailty: for pts > 70 yo, more than half of the patients who initially survived resuscitation in the hospital before hospital discharge. The pooled survival to discharge after in-hospital CPR was 18% for patients between 70 and 79 years old, 15% for patients between 80 and 89 years old and 11% for patients of 90 years and older. I recc DNR/DNI. I advised CPR at this junction will not cure, reverse or improve her cancer. when her heart/lungs stop, that would be a natural and likely due to progression of cancer/cancer related complications.I asked her where she saw herself at the end of her life and she replied at home/with my family. I recc no code to reflect this goal and in alignment with expressed wishes. I suggested trial of HAND TAPPER, no code, venting G before home with hospice dc. pt and agreed to this plan.Code status changed, HAND TAPPER rx written, GI consulted requested for venting G and salesperson children's shoes GI Dr Mccall notified by [facility]. I confirmed with our IR team we cannot place a venting G and will need GI assistance. All questions were answered to their apparent satisfaction. (3) Abdominal pain, generalized: (4) Cancer related pain: (5) Palliative care by specialist: Introduced Palliative Medicine and explained our role in patient's care. Patient and/or family were receptive to palliative services for goals of care discussions. Reviewed we are different from hospice, a home health nurse visiting service. 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 Please page with any additional concerns. Jarred Rodriguez DNP Director, Palliative Medicine History of Present Illness Reason for Consultation: met pancreatic cancer, pain mgt Attending Physician: Memo Humphreys MD History of Present Illness Gracie Hernández (Dorie) is a 68yo female with progressive met pancreatic cancer She is admitted with recurrent bowel obstruction She has refused NGT She states she is very very thirsty, "All i want from anyone right now is a cold sprite. with ice." She had an NGT last admission for SBO and states she will not agree to it again She had a chemo dose a few weeks ago and states she has been going downhill ever since is at bedside, he states they know her cancer is progressing and not curable. 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 Malignant neoplasm of pancreas SBO (small bowel obstruction) Social History Smoking Status: Current every day smoker Tobacco Type: Cigarettes Cigarettes Per Day: 3; Second Hand Exposure: No; Do You Dip or Chew Tobacco: No; Tobacco Cessation Education Requested by Patient: No Hx Alcohol Use: No Hx Substance Use: No Preferred Language: Greenlandic Communication Ability: Effective Residential Manager Required: No Beliefs That Will Affect Care: Spiritual Current Living Situation: Spouse Other Information That Helps Us Care for You: No Feels Safe at Home: Yes Safety Concerns: Feels Safe At This Time Assistive Devices: None Review of Systems Review of Systems: All systems reviewed & are unremarkable except as noted in Subjective Physical Exam Constitutional: + cachectic, + frail appearing and + in distress Eyes: PERRL, conjunctivae normal, anicteric sclerae ENMT: Mouth: + dry oral mucous membranes and + poor dentition Neck: trachea midline, no thyromegaly Respiratory: normal respiratory effort, able to speak in complete sentences and symmetric chest movement Auscultation: lungs clear to auscultation bilaterally and + diminished lung sounds Cardiovascular: RRR, no murmur, no edema Gastrointestinal (Abdomen): Inspection/Auscultation: + abdomen distended and + high-pitched sounds Percussion/Palpation: + abdomen tender, + guarding, + abdomen rigid and + abdomen firm Musculoskeletal: MURRELL, mild gen weakness Skin: + turgor decreased, + skin atrophy and + dry skin Neurologic: AAOx3 Results & Data Vital Signs (Past 12 Hours) Vital Signs Temp Pulse Pulse Resp BP Pulse Ox O2 Del Method 05/14/24 11:47 98 Nasal Cannula 05/14/24 11:47 85 L Room Air 05/14/24 11:04 37.0 C 102 H 18 111/62 88 L Room Air 05/14/24 08:12 Room Air 05/14/24 07:42 36.4 C L 82 18 113/58 L 90 Room Air 05/14/24 07:39 86 O2 Flow Rate 05/14/24 11:47 2 05/14/24 11:47 05/14/24 11:04 05/14/24 08:12 05/14/24 07:42 05/14/24 07:39 Laboratory Results 03/10/0105/14/24 05/13/24 Range/Units 11:12 00:40 19:44 WBC 16.64 H (4.8-10.8) K/ul RBC 3.96 L (4.20-5.40) M/uL Hgb 11.9 L (12.0-16.0) g/dl POC Hgb (12.0-16.0) g/dl Hct 34.7 L (37.0-47.0) % POC Hct (37-47) % MCV 87.6 (80.0-100.0) fL MCH 30.1 (25.0-34.0) pg MCHC 34.3 (32.0-36.0) g/dL RDW Std Deviation 43.1 (36.4-46.3) fL RDW Coeff of Laura 13.9 (11.5-14.5) % Plt Count 391 (130-400) K/uL MPV 11.0 (9.4-12.4) fL Immature Gran % (Auto) 1.0 % Neut % (Auto) 92.3 % Lymph % (Auto) 2.6 % [place] % (Auto) 3.4 % Eos % (Auto) 0.2 % Baso % (Auto) 0.5 % Neut # (Auto) 15.35 H (1.40-6.50) K/uL Lymph # (Auto) 0.44 L (1.20-3.40) K/uL [place] # (Auto) 0.56 (0.11-0.59) K/uL Eos # (Auto) 0.03 (0.00-0.50) K/uL Baso # (Auto) 0.09 (0.00-0.20) K/uL Immature Gran # (Auto) 0.17 (0.01-0.20) K/uL PT (9.0-12.0) Seconds INR (0.9-1.1) APTT (21-31) Seconds PTT Ratio POC Sodium (135-144) mmol/L Sodium 132 L 129 L 129 L (136-145) mmol/L POC Potassium (3.3-5.0) mmol/L Potassium 3.4 L 3.6 D 2.6 L (3.5-5.1) mmol/L POC Chloride (101-112) mmol/L Chloride 86 L 83 L 81 L (98-107) mmol/L Carbon Dioxide 36 H 37 H 37 H (21-32) mmol/L POC Total CO2 (24-31) mmol/L Anion Gap 10 9 11 (3-11) POC Anion Gap (16-25) mmol/L POC BUN (7-18) mg/dl BUN 30 H 32 H 36 H (6-23) mg/dl Creatinine 1.88 H D 2.70 H D 3.06 H (0.6-1.2) mg/dl POC Creatinine (0.6-1.3) mg/dl Est Cr Clr Drug Dosing 22.8 15.9 13.7 ml/min eGFR 28.59 18.52 15.93 BUN/Creatinine Ratio 16.0 11.9 11.8 (10-20) Glucose 150 H 132 H 124 H (70-99(Fasting)) mg/dl POC Glucose (other) (70-99) mg/dl Calcium 7.4 L 7.0 L 7.7 L (8.6-10.3) mg/dl POC Ioniz Calcium Beau (1.12-1.32) mmol/l Ionized Calcium 0.93 L 0.88 L 0.95 L (1.12-1.32) mmol/L Phosphorus 3.0 3.4 (2.5-4.9) mg/dl Magnesium 1.9 2.2 2.7 H (1.7-2.4) mg/dl Total Bilirubin 0.9 0.8 0.8 (0.2-1.0) mg/dl AST 25 24 27 (13-39) U/L ALT 30 30 32 (7-52) U/L Alkaline Phosphatase 153 H 146 H 152 H (34-104) U/L Total Protein 6.3 5.9 L 6.2 (6.0-8.3) gm/dl Albumin 2.8 L 2.7 L 2.8 L (3.4-5.0) gm/dl Globulin 3.5 3.2 3.4 (2.5-4.0) gm/dl Albumin/Globulin Ratio 0.8 L 0.8 L 0.8 L (0.9-2) 05/13/24 05/13/24 Range/Units 16:25 16:09 WBC 16.33 H (4.8-10.8) K/ul RBC 4.04 L (4.20-5.40) M/uL Hgb 12.1 (12.0-16.0) g/dl POC Hgb 13.3 (12.0-16.0) g/dl Hct 35.1 L (37.0-47.0) % POC Hct 39 (37-47) % MCV 86.9 (80.0-100.0) fL MCH 30.0 (25.0-34.0) pg MCHC 34.5 (32.0-36.0) g/dL RDW Std Deviation 41.6 (36.4-46.3) fL RDW Coeff of Laura 13.8 (11.5-14.5) % Plt Count 442 H (130-400) K/uL MPV 11.1 (9.4-12.4) fL Immature Gran % (Auto) 1.0 % Neut % (Auto) 84.5 % Lymph % (Auto) 6.7 % [place] % (Auto) 6.9 % Eos % (Auto) 0.1 % Baso % (Auto) 0.8 % Neut # (Auto) 13.78 H (1.40-6.50) K/uL Lymph # (Auto) 1.10 L (1.20-3.40) K/uL [place] # (Auto) 1.13 H (0.11-0.59) K/uL Eos # (Auto) 0.02 (0.00-0.50) K/uL Baso # (Auto) 0.13 (0.00-0.20) K/uL Immature Gran # (Auto) 0.17 (0.01-0.20) K/uL PT 11.8 (9.0-12.0) Seconds INR 1.1 (0.9-1.1) APTT 25 (21-31) Seconds PTT Ratio 0.9 POC Sodium 128 L (135-144) mmol/L Sodium 130 L (136-145) mmol/L POC Potassium 3.0 L (3.3-5.0) mmol/L Potassium 3.1 L (3.5-5.1) mmol/L POC Chloride 79 L (101-112) mmol/L Chloride 81 L (98-107) mmol/L Carbon Dioxide 38 H (21-32) mmol/L POC Total CO2 38 H (24-31) mmol/L Anion Gap 11 (3-11) POC Anion Gap 14.0 L (16-25) mmol/L POC BUN 31 H (7-18) mg/dl BUN 35 H (6-23) mg/dl Creatinine 3.21 H (0.6-1.2) mg/dl POC Creatinine 3.4 H (0.6-1.3) mg/dl Est Cr Clr Drug Dosing 13.1 ml/min eGFR 15.05 BUN/Creatinine Ratio 10.9 (10-20) Glucose 118 H (70-99(Fasting)) mg/dl POC Glucose (other) 118 H (70-99) mg/dl Calcium 6.7 L (8.6-10.3) mg/dl POC Ioniz Calcium Beau 0.75 L* (1.12-1.32) mmol/l Ionized Calcium (1.12-1.32) mmol/L Phosphorus (2.5-4.9) mg/dl Magnesium 1.4 L (1.7-2.4) mg/dl Total Bilirubin 0.7 (0.2-1.0) mg/dl AST 29 (13-39) U/L ALT 36 (7-52) U/L Alkaline Phosphatase 167 H (34-104) U/L Total Protein 6.6 (6.0-8.3) gm/dl Albumin 3.0 L (3.4-5.0) gm/dl Globulin 3.6 (2.5-4.0) gm/dl Albumin/Globulin Ratio 0.8 L (0.9-2) Diagnostic Findings Abdomen/Pelvis CT 05/13/24 16:51 EXAMINATION: CT of the abdomen and pelvis performed without contrast TECHNIQUE: Helical CT images from the lung bases through the symphysis pubis were obtained without contrast. Coronal and sagittal reformatted images were generated at a workstation for further assessment. Dose reduction techniques were achieved by using automatic exposure control and/or adjustment of mA and/or kV according to patient size and/or use of iterative reconstruction technique. COMPARISON: None HISTORY: Abdominal pain FINDINGS: Lower chest: No consolidation. No pleural effusion or pneumothorax. Liver: No suspicious liver lesions. Gallbladder: No gallstones. No evidence of acute cholecystitis. Spleen: Normal size. Pancreas: No suspicious pancreatic lesions. The pancreatic duct is not dilated. Adrenal glands: No adrenal nodules. Kidneys: No hydronephrosis or obstructing renal stones. Bladder / Pelvic organs: The urinary bladder appears unremarkable. Within the left pelvis, is an indeterminate, ovoid/tubular shaped collection of fluid with a thin or imperceptible wall without inflammatory change, series 2 image 59, measuring 8.2 x 3.2 cm.. Bowel: Moderate fluid-filled stomach, as well as significant distention of the descending portion of the duodenum, and several loops of jejunum. There is a transitional point seen about the anterior mid abdomen, at approximately series 2 image 48, where there is visualized significant soft tissue thickening, possibly related to scar/adhesions. Sigmoid diverticulosis without diverticulitis. The large bowel contains mild fluid and is otherwise relatively decompressed. There are decompressed distal loops of small bowel. Lymph nodes: No retroperitoneal, mesenteric, or pelvic lymphadenopathy. Peritoneum / Retroperitoneum: No free fluid or air within the abdomen. Vessels: No infrarenal aortic aneurysm. Moderate aortoiliac calcification. Bones and soft tissues: No suspicious lesion in the bones. IMPRESSION: Small bowel obstruction, with transition point at the anterior mid abdomen, where there is visualized thickened soft tissue, likely representing scar/adhesions. A fluid collection in the left pelvis, has a relatively simple appearance with possible few internal thin septations, and is indeterminate, possibly lymphangioma, or postoperative seroma, versus an ovarian cystic lesion. Consider nonemergent follow-up pelvic ultrasound. "ACT 112: Positive. There are findings on this exam that require communication between the performing entity and the patient following Patient Test Result Information Act ([place] ACT 112) guidelines." Electronically signed by Praveen Herrera 05-13-2024 5:29 PM PG Care Time/CCT Total # of Minutes Spent Total Time Spent with Patient: Total time spent is greater than 50% in coordination of care (as documented) at patient's floor/unit and/or counseling patient: I spent 135 minutes overall addressing this case: 20 min in medical data review/discussion with referring provider(s) and/or preparation for the visit incl OSH data review 20 min in direct interaction with the patient/exam 60 min in Advance Care Planning/Goals of Care discussions as detailed above in note (must be >16min) over 2 separate ACP meetings 15 min in subsequent review and synthesis of assessment and plan 20 min communicating with other providers regarding the patient's case: oncology, GI, IR, medical team, nursing, dietary Advanced Care Planning 99823 Advanced Care Planning 30 Min [id number] Advanced Care Planning Additional 30 [place] [address] IN/OBS CONSULT LVL 5,80M (25 - SIGNIFICANT, SEPARATELY IDENTIFIABLE ) Patient Type New Medical Decision Making High Complexity Diagnoses Nausea & vomiting R11.2 Advanced care planning/counseling discussion Z71.89 Abdominal pain, generalized R10.84 Cancer related pain G89.3 Palliative care by specialist Z51.5 Encounter for hospice care discussion Z71.89 Metastasis from pancreatic cancer C79.9; C25.9 SBO (small bowel obstruction) K56.609 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
--- NOTE | 2024-05-14 21:14 | Communication Note ---
Date of Service: May 14, 2024 Palliative Med After my consultation and ACP meetings with pt and , I was later notified by nursing that "Pt doesn't want hospice, wants to be a full code, she just agreed to that to get a sprite." Advised if she did not want ELECTRIC METER INSTALLER/hospice and full code then we will resume her original plan of care. ELECTRIC METER INSTALLER cancelled. Code order changed back to full code.ELECTRIC METER INSTALLER orders cancelled. NPO status reinstated. Aloxi continued. GI consult pending - a venting G will still be of use for her. Again later, after the above changes, was then notified pt now reelected ELECTRIC METER INSTALLER, no code and wants hospice.Primary team reinstated orders. GI consult remains pending. For now I will follow peripherally, she needs to decide on a formal plan of care. No further chemo is being offered, and she has a terminal pancreatic cancer. overall prognosis is days to weeks. TS 25min Thank you for allowing us to participate in the ongoing care of this patient. Please page with any additional concerns. Jarred Rodriguez DNP Director, Palliative Medicine
--- NOTE | 2024-05-15 11:47 | Surgery Progress Note ---
Date of Service May 15, 2024 Assessment & Plan (1) Metastasis from pancreatic cancer: Plan: SBO slow progress continue clears for lynn ambulate not surgical candidate at this institution Admission and Anticipated Discharge Date Admission Date: May 13, 2024 Subjective feels a little better passing some flatus minimal pain taking clears without N/V Review of Systems Constitutional: no fever and no chills Respiratory: no cough and no dyspnea Cardiovascular: no chest pain Gastrointestinal: + change in bowel habits; no abdominal p ain, no nausea and no vomiting Genitourinary: no dysuria Neurologic: + generalized weakness; no localized wea kness Psychiatric: no behavioral changes Physical Exam Constitutional: + thin Neck: trachea midline Respiratory: normal respiratory effort, lungs clear to auscultation Cardiovascular: RRR, no murmur, no edema Gastrointestinal (Abdomen): Inspection/Auscultation: abdomen normal to inspection, + abdomen distended and normal bowel sounds Percussion/Palpation: abdomen soft; abdomen nontender, no guarding and abdomen not rigid Musculoskeletal: Head/Neck/Chest: normocephalic and head atraumatic Skin: no rashes, warm and dry
--- NOTE | 2024-05-15 15:12 | Hospitalist Progress Note ---
Date of Service May 15, 2024 Assessment & Plan (1) SBO (small bowel obstruction): Plan: 68-year-old female with a history of pancreatic cancer with metastasis to the lungs, appendix, omentum, cardiomyopathy, torsade, SBO, hypokalemia and hypomagnesemia, presenting with persistent nausea, poor oral intake and weakness times few days. Small bowel obstruction, recurrent likely due to adhesions Metastatic pancreatic cancer, mets to the lungs, appendix, omentum S/P Appendectomy last February 2024 Patient did poorly with chemotherapy in Apr --CT ABD:Small bowel obstruction, with transition point at the anterior mid abdomen, where there is visualized thickened soft tissue, likely representing scar/adhesions. A fluid collection in the left pelvis, has a relatively simple appearance with possible few internal thin septations, and is indeterminate, possibly lymphangioma, or postoperative seroma, versus an ovarian cystic lesion. Consider nonemergent follow-up pelvic ultrasound. --Appreciate surgery, GI input -- Discussed with Dr. Melvin Waggoner and palliative care on 05/14/2024: Patient was thought to be not a candidate for any chemotherapy in the future and the goal is to focus on quality of life. Discussed with patient and patient's in detail. Patient and family preferred to be transition to comfort measures only. -- Will consider venting G-tube by IR next week if appropriate -Patient transitioned to comfort measures only. Poor prognosis Continue comfort measures/medications Acute kidney injury Hypomagnesemia Likely multifactorial Appreciate nephrology input Received IV fluid Transitioned to comfort measures only Hypokalemia, Hypocalcemia, Hypomagnesemia, hyponatremia Secondary to poor oral intake CODE STATUS DNI/DNR Disposition To be determined Admission and Anticipated Discharge Date Admission Date: May 13, 2024 Subjective Patient is seen and examined at bedside Denies any abdominal pain, nausea, vomiting today Discussed in detail with patient's family at bedside Currently on comfort measures only Tolerating liquid diet No other complaints + Flatus Review of Systems Review of Systems: All systems reviewed & are unremarkable except as noted in Subjective Physical Exam Physical Exam: Physical Exam: Vitals signs as noted above General Appearance:Thin, frail, ill appearing, no apparent distress Head: normocephalic, Atraumatic Eyes: normal inspection, EOMI Neck: supple, Trachea midline Respiratory/Chest: Decreased breath sounds, CTA, +chemo port, No accessory muscle use Cardiovascular: S1, S2, No murmur Abdomen/GI:Soft, distended, non tender, absent bowel sounds Extremities/Musculoskeletal:normal inspection, no edema Neurologic/Psych:AAOX3, grossly no focal neurological deficits Skin: normal color, warm
--- NOTE | 2024-05-15 15:39 | Nephrology Progress Note ---
Date of Service May 15, 2024 Assessment & Plan (1) GONZALO (acute kidney injury): Plan: Baseline creat 0.4. creatinine peaked at 3.2 but down 1.8. encourage oral intake aiming for at least 24 oz daily NO obstruction Noted in the CT abdomen. Does not appear related with Chemo and more pre renal type. Daily renal panel - avoid contrast (2) SBO (small bowel obstruction): Plan: patient is now on liquid diet. Has pancreatic CA with mets. (3) Hypomagnesemia: Plan: In the setting Of GONZALO with very poor po intake and SBO. has h/o torsades with LowMag so will try to keep it normal. was low 1.4 but after Iv mag is high and then normal. Will follow. needs at least daily mag. Plan Time spent 45 Mins Admission and Anticipated Discharge Date Admission Date: May 13, 2024 Subjective Seen for acute kidney injury. Main complaint is weakness. Appetite is poor. She is drinking more. Family at the bedside Review of Systems 2 Review of Systems: All other systems were reviewed and negative except as noted in HPI Physical Exam 2 Physical Exam: General exam: Appears comfortable, no acute distress HEENT: Pupils are equal and reactive to light Neck: No JVD, neck is supple trachea is midline Respiratory system: Clear breath sounds bilaterally. Gastrointestinal: Abdomen is soft, non distended, non tender, bowel sounds are present CVS: Regular rate and rhythm. No murmurs, rubs or gallops Musculoskeletal: No joint or muscle tenderness Extremities: Non tender, no edema, peripheral pulses are present Neuro: Oriented, no tremors, no focal neurological deficits Skin: No rashes Results & Data Vital Signs (Past 12 Hours) 05/14/24 11:12
[2024-05-16] MEDS: ONDANSETRON INJ 2 MG/ML 2 ML VIAL IV PRN (06:09)
--- NOTE | 2024-05-16 10:40 | Surgery Progress Note ---
Date of Service May 16, 2024 Assessment & Plan (1) Metastasis from pancreatic cancer: Plan: SBO resolving diet as tolerated discharge per medical team will sign off Admission and Anticipated Discharge Date Admission Date: May 13, 2024 Subjective more bowel function no N/V taking po OK Review of Systems Constitutional: no fever and no chills Respiratory: no cough and no dyspnea Cardiovascular: no chest pain Gastrointestinal: + abdominal pain; no nausea and no vomit ing Neurologic: + generalized weakness; no localized wea kness Psychiatric: no behavioral changes Physical Exam Constitutional: + thin Eyes: PERRL, conjunctivae normal, anicteric sclerae Neck: trachea midline Respiratory: no respiratory distress Cardiovascular: Rate/Rhythm: regular rhythm Gastrointestinal (Abdomen): Inspection/Auscultation: abdomen normal to inspection and normal bowel sounds; abdomen not distended Percussion/Palpation: + abdomen tender and abdomen soft; no guarding and abdomen not rigid Musculoskeletal: Head/Neck/Chest: normocephalic and head atraumatic
--- NOTE | 2024-05-16 14:50 | Hospitalist Progress Note ---
Date of Service May 16, 2024 Assessment & Plan (1) SBO (small bowel obstruction): Plan: 68-year-old female with a history of pancreatic cancer with metastasis to the lungs, appendix, omentum, cardiomyopathy, torsade, SBO, hypokalemia and hypomagnesemia, presenting with persistent nausea, poor oral intake and weakness times few days. Small bowel obstruction, recurrent likely due to adhesions Metastatic pancreatic cancer, mets to the lungs, appendix, omentum S/P Appendectomy last February 2024 Patient did poorly with chemotherapy in Apr --CT ABD:Small bowel obstruction, with transition point at the anterior mid abdomen, where there is visualized thickened soft tissue, likely representing scar/adhesions. A fluid collection in the left pelvis, has a relatively simple appearance with possible few internal thin septations, and is indeterminate, possibly lymphangioma, or postoperative seroma, versus an ovarian cystic lesion. Consider nonemergent follow-up pelvic ultrasound. --Appreciate surgery, GI input -- Discussed with Dr. Melvin Waggoner and palliative care on 05/14/2024: Patient was thought to be not a candidate for any chemotherapy in the future and the goal is to focus on quality of life. Discussed with patient and patient's in detail. Patient and family preferred to be transition to comfort measures only. -- Will consider venting G-tube by IR next week if appropriate -Patient transitioned to comfort measures only. Poor prognosis Continue comfort measures/medications Likely discharge home with home hospice tomorrow Acute kidney injury Hypomagnesemia Likely multifactorial Appreciate nephrology input Received IV fluid Transitioned to comfort measures only Hypokalemia, Hypocalcemia, Hypomagnesemia, hyponatremia Secondary to poor oral intake CODE STATUS DNI/DNR Disposition Home with home hospice Admission and Anticipated Discharge Date Admission Date: May 13, 2024 Subjective Patient is seen and examined at bedside Less nauseous today + Flatus, no bowel movement Discussed with patient's family at bedside Patient denies any chest pain, abdominal pain, dyspnea No new complaints Review of Systems Review of Systems: All systems reviewed & are unremarkable except as noted in Subjective Physical Exam Physical Exam: Physical Exam: Vitals signs as noted above General Appearance:Thin, frail, ill appearing, no apparent distress Head: normocephalic, Atraumatic Eyes: normal inspection, EOMI Neck: supple, Trachea midline Respiratory/Chest: Decreased breath sounds, CTA, +chemo port, No accessory muscle use Cardiovascular: S1, S2, No murmur Abdomen/GI:Soft, distended, non tender, absent bowel sounds Extremities/Musculoskeletal:normal inspection, no edema Neurologic/Psych:AAOX3, grossly no focal neurological deficits Skin: normal color, warm
--- NOTE | 2024-05-17 10:08 | Hospitalist Progress Note ---
Date of Service May 17, 2024 Assessment & Plan (1) SBO (small bowel obstruction): Plan: 68-year-old female with a history of pancreatic cancer with metastasis to the lungs, appendix, omentum, cardiomyopathy, torsade, SBO, hypokalemia and hypomagnesemia, presenting with persistent nausea, poor oral intake and weakness times few days. Small bowel obstruction, recurrent likely due to adhesions Metastatic pancreatic cancer, mets to the lungs, appendix, omentum S/P Appendectomy last February 2024 Patient did poorly with chemotherapy in Apr --CT ABD:Small bowel obstruction, with transition point at the anterior mid abdomen, where there is visualized thickened soft tissue, likely representing scar/adhesions. A fluid collection in the left pelvis, has a relatively simple appearance with possible few internal thin septations, and is indeterminate, possibly lymphangioma, or postoperative seroma, versus an ovarian cystic lesion. Consider nonemergent follow-up pelvic ultrasound. --Appreciate surgery, GI input -- Discussed with Dr. Melvin Waggoner and palliative care on 05/14/2024: Patient was thought to be not a candidate for any chemotherapy in the future and the goal is to focus on quality of life. Discussed with patient and patient's in detail. Patient and family preferred to be transition to comfort measures only. -- Will consider venting G-tube by IR next week if appropriate -Patient transitioned to comfort measures only. Poor prognosis Continue comfort measures/medications Plan to discharge home with home hospice today Acute kidney injury Hypomagnesemia Likely multifactorial Appreciate nephrology input Received IV fluid Transitioned to comfort measures only Hypokalemia, Hypocalcemia, Hypomagnesemia, hyponatremia Secondary to poor oral intake CODE STATUS DNI/DNR Disposition Home with home hospice Admission and Anticipated Discharge Date Admission Date: May 13, 2024 Subjective Patient is seen and examined at bedside No new complaints today Feels comfortable Discussed with patient's family at bedside Prefers to be discharged home today Tolerating liquid diet,+ flatus, no bowel movement Patient denies any chest pain, abdominal pain, dyspnea Review of Systems Review of Systems: All systems reviewed & are unremarkable except as noted in Subjective Physical Exam Physical Exam: Physical Exam: Vitals signs as noted above General Appearance:Thin, frail, ill appearing, no apparent distress Head: normocephalic, Atraumatic Eyes: normal inspection, EOMI Neck: supple, Trachea midline Respiratory/Chest: Decreased breath sounds, CTA, +chemo port, No accessory muscle use Cardiovascular: S1, S2, No murmur Abdomen/GI:Soft, distended, non tender, absent bowel sounds Extremities/Musculoskeletal:normal inspection, no edema Neurologic/Psych:AAOX3, grossly no focal neurological deficits Skin: normal color, warm
[2024-05-17] MEDS ORDERED: HEPARIN 100 UNIT/ML 5ML FLUSH FLUSH PRN (10:28)
[2024-05-17] MEDS: HEPARIN 100 UNIT/ML 5ML FLUSH FLUSH PRN (10:33)
--- NOTE | 2024-05-17 12:36 | Discharge Summary ---
Date of Service May 17, 2024 Admission HPI Per Admitting Provider 68-year-old female with a history of pancreatic cancer with metastasis to the lungs, appendix, omentum, cardiomyopathy, torsade, SBO, hypokalemia and hypomagnesemia, presenting with persistent nausea, poor oral intake and weakness times few days. Last February 2024, patient was diagnosed with pancreatic cancer after undergoing appendectomy for appendicitis. Pancreatic cancer has metastasized to lungs, appendix and omentum. She follows with Dr. Melvin Waggoner for oncology and has received chemotherapy in early April. Soon after, patient was admitted to [facility] for small bowel obstruction complicated by V-fib arrest/torsades in the setting of multiple electrolyte abnormalities. Patient was discharged home AGAINST MEDICAL ADVICE end of April. Since discharge, patient was having intermittent abdominal discomfort, nausea, poor oral intake and weakness. Today, patient followed up with Dr. Waggoner and was found to have multiple electrolyte abnormalities and acute renal failure on her BMP. She was referred to the ER for evaluation. At the ER, patient received with stable vital signs overall. CT abdomen and pelvis showed small bowel obstruction with transition point at the anterior mid abdomen. Creatinine elevated at 3.2, potassium 3.0, calcium 0.75, magnesium 1.4, sodium 130 Patient was ordered 1 g of calcium gluconate, 2 g of magnesium IV. On exam, patient seen resting in bed, comfortable, not in distress, awake and alert. States she feels weak, thirsty, but denies active abdominal pain or nausea, fevers or chills. No shortness of breath, chest pain, potation's, dizziness. Patient reports decreased urine output. Admission Exam Per Admitting Provider General- oriented x 3, not in distress, speaks in sentences with no effort or accessory muscle use Head- atraumatic Eyes- PERRL, EOMI, anicteric Positive oral thrush ENT- oropharynx clear Neck- supple, no JVD, no adenopathy, no thyromegaly; carotids +2/2, no bruits appreciated Lungs- clear to auscultation bilaterally, no rales/wheezes Heart- normal rate, regular rhythm; no murmur, no gallop, no rub appreciated Abdomen- Midline surgical scar, healing well;normal bowel sounds, nondistended, soft, nontender, no masses or hepatosplenomegaly Extremities- no pretibial edema, no calf tenderness; peripheral pulses intact Neuro- alert, oriented x 3; CN 2-12 grossly intact; motor 5/5 bilaterally;sensation 100% on all extremities; no other gross focal neurologic deficits Skin- warm & dry Principal Diagnosis Small bowel obstruction Metastatic pancreatic cancer Acute kidney injury Electrolyte abnormalities Discharge Data Allergies Allergy/AdvReac Type Severity Reaction Status Date / Time No Known Allergies Allergy Unverified 05/13/24 18:13 Consultations 05/13/24 18:04 ED Decision to Admit Stat 05/13/24 19:04 Consult Nephrology Routine 05/13/24 21:09 Consult General Surgery Routine 05/14/24 08:37 Consult Palliative Care Routine 05/14/24 14:05 Consult Gastroenterology Routine Procedures Performed Laboratory Results WBC 16.64 K/ul (4.8-10.8) H 05/14/24 11:12 RBC 3.96 M/uL (4.20-5.40) L 05/14/24 11:12 Hgb 11.9 g/dl (12.0-16.0) L 05/14/24 11:12 POC Hgb 13.3 g/dl (12.0-16.0) 05/13/24 16:25 Hct 34.7 % (37.0-47.0) L 05/14/24 11:12 POC Hct 39 % (37-47) 05/13/24 16:25 MCV 87.6 fL (80.0-100.0) 05/14/24 11:12 MCH 30.1 pg (25.0-34.0) 05/14/24 11:12 MCHC 34.3 g/dL (32.0-36.0) 05/14/24 11:12 RDW Std Deviation 43.1 fL (36.4-46.3) 05/14/24 11:12 RDW Coeff of Laura 13.9 % (11.5-14.5) 05/14/24 11:12 Plt Count 391 K/uL (130-400) 05/14/24 11:12 MPV 11.0 fL (9.4-12.4) 05/14/24 11:12 Immature Gran % (Auto) 1.0 % 05/14/24 11:12 Neut % (Auto) 92.3 % 05/14/24 11:12 Lymph % (Auto) 2.6 % 05/14/24 11:12 [place] % (Auto) 3.4 % 05/14/24 11:12 Eos % (Auto) 0.2 % 05/14/24 11:12 Baso % (Auto) 0.5 % 05/14/24 11:12 Neut # (Auto) 15.35 K/uL (1.40-6.50) H 05/14/24 11:12 Lymph # (Auto) 0.44 K/uL (1.20-3.40) L 05/14/24 11:12 [place] # (Auto) 0.56 K/uL (0.11-0.59) 05/14/24 11:12 Eos # (Auto) 0.03 K/uL (0.00-0.50) 05/14/24 11:12 Baso # (Auto) 0.09 K/uL (0.00-0.20) 05/14/24 11:12 Immature Gran # (Auto) 0.17 K/uL (0.01-0.20) 05/14/24 11:12 PT 11.8 Seconds (9.0-12.0) 05/13/24 16:09 INR 1.1 (0.9-1.1) 05/13/24 16:09 APTT 25 Seconds (21-31) 05/13/24 16:09 PTT Ratio 0.9 05/13/24 16:09 POC Sodium 128 mmol/L (135-144) L 05/13/24 16:25 Sodium 132 mmol/L (136-145) L 05/14/24 11:12 POC Potassium 3.0 mmol/L (3.3-5.0) L 05/13/24 16:25 Potassium 3.4 mmol/L (3.5-5.1) L 05/14/24 11:12 POC Chloride 79 mmol/L (101-112) L 05/13/24 16:25 Chloride 86 mmol/L (98-107) L 05/14/24 11:12 Carbon Dioxide 36 mmol/L (21-32) H 05/14/24 11:12 POC Total CO2 38 mmol/L (24-31) H 05/13/24 16:25 Anion Gap 10 (3-11) 05/14/24 11:12 POC Anion Gap 14.0 mmol/L (16-25) L 05/13/24 16:25 POC BUN 31 mg/dl (7-18) H 05/13/24 16:25 BUN 30 mg/dl (6-23) H 05/14/24 11:12 Creatinine 1.88 mg/dl (0.6-1.2) H D 05/14/24 11:12 POC Creatinine 3.4 mg/dl (0.6-1.3) H 05/13/24 16:25 Est Cr Clr Drug Dosing 22.8 ml/min 05/14/24 11:12 eGFR 28.59 05/14/24 11:12 BUN/Creatinine Ratio 16.0 (10-20) 05/14/24 11:12 Glucose 150 mg/dl (70-99(Fasting)) H 05/14/24 11:12 POC Glucose (other) 118 mg/dl (70-99) H 05/13/24 16:25 Calcium 7.4 mg/dl (8.6-10.3) L 05/14/24 11:12 POC Ioniz Calcium Beau 0.75 mmol/l (1.12-1.32) L* 05/13/24 16:25 Ionized Calcium 0.93 mmol/L (1.12-1.32) L 05/14/24 11:12 Phosphorus 3.0 mg/dl (2.5-4.9) 05/14/24 00:40 Magnesium 1.9 mg/dl (1.7-2.4) 05/14/24 11:12 Total Bilirubin 0.9 mg/dl (0.2-1.0) 05/14/24 11:12 AST 25 U/L (13-39) 05/14/24 11:12 ALT 30 U/L (7-52) 05/14/24 11:12 Alkaline Phosphatase 153 U/L (34-104) H 05/14/24 11:12 Total Protein 6.3 gm/dl (6.0-8.3) 05/14/24 11:12 Albumin 2.8 gm/dl (3.4-5.0) L 05/14/24 11:12 Globulin 3.5 gm/dl (2.5-4.0) 05/14/24 11:12 Albumin/Globulin Ratio 0.8 (0.9-2) L 05/14/24 11:12 Impressions Abdomen/Pelvis CT 05/13/24 16:51 EXAMINATION: CT of the abdomen and pelvis performed without contrast TECHNIQUE: Helical CT images from the lung bases through the symphysis pubis were obtained without contrast. Coronal and sagittal reformatted images were generated at a workstation for further assessment. Dose reduction techniques were achieved by using automatic exposure control and/or adjustment of mA and/or kV according to patient size and/or use of iterative reconstruction technique. COMPARISON: None HISTORY: Abdominal pain FINDINGS: Lower chest: No consolidation. No pleural effusion or pneumothorax. Liver: No suspicious liver lesions. Gallbladder: No gallstones. No evidence of acute cholecystitis. Spleen: Normal size. Pancreas: No suspicious pancreatic lesions. The pancreatic duct is not dilated. Adrenal glands: No adrenal nodules. Kidneys: No hydronephrosis or obstructing renal stones. Bladder / Pelvic organs: The urinary bladder appears unremarkable. Within the left pelvis, is an indeterminate, ovoid/tubular shaped collection of fluid with a thin or imperceptible wall without inflammatory change, series 2 image 59, measuring 8.2 x 3.2 cm.. Bowel: Moderate fluid-filled stomach, as well as significant distention of the descending portion of the duodenum, and several loops of jejunum. There is a transitional point seen about the anterior mid abdomen, at approximately series 2 image 48, where there is visualized significant soft tissue thickening, possibly related to scar/adhesions. Sigmoid diverticulosis without diverticulitis. The large bowel contains mild fluid and is otherwise relatively decompressed. There are decompressed distal loops of small bowel. Lymph nodes: No retroperitoneal, mesenteric, or pelvic lymphadenopathy. Peritoneum / Retroperitoneum: No free fluid or air within the abdomen. Vessels: No infrarenal aortic aneurysm. Moderate aortoiliac calcification. Bones and soft tissues: No suspicious lesion in the bones. IMPRESSION: Small bowel obstruction, with transition point at the anterior mid abdomen, where there is visualized thickened soft tissue, likely representing scar/adhesions. A fluid collection in the left pelvis, has a relatively simple appearance with possible few internal thin septations, and is indeterminate, possibly lymphangioma, or postoperative seroma, versus an ovarian cystic lesion. Consider nonemergent follow-up pelvic ultrasound. "ACT 112: Positive. There are findings on this exam that require communication between the performing entity and the patient following Patient Test Result Information Act ([place] ACT 112) guidelines." Electronically signed by Praveen Herrera 05-13-2024 5:29 PM Ordered Studies 05/13/24 16:51 CT abd pelvis wo con Stat Hospital Course (1) SBO (small bowel obstruction): 68-year-old female with a history of pancreatic cancer with metastasis to the lungs, appendix, omentum, cardiomyopathy, torsade, SBO, hypokalemia and hypomagnesemia, presenting with persistent nausea, poor oral intake and weakness times few days. Small bowel obstruction, recurrent likely due to adhesions Metastatic pancreatic cancer, mets to the lungs, appendix, omentum S/P Appendectomy last February 2024 Patient did poorly with chemotherapy in Apr --CT ABD:Small bowel obstruction, with transition point at the anterior mid abdomen, where there is visualized thickened soft tissue, likely representing scar/adhesions. A fluid collection in the left pelvis, has a relatively simple appearance with possible few internal thin septations, and is indeterminate, possibly lymphangioma, or postoperative seroma, versus an ovarian cystic lesion. Consider nonemergent follow-up pelvic ultrasound. --Appreciate surgery, GI input -- Discussed with Dr. Melvin Waggoner and palliative care on 05/14/2024: Patient was thought to be not a candidate for any chemotherapy in the future and the goal is to focus on quality of life. Discussed with patient and patient's in detail. Patient and family preferred to be transition to comfort measures only. -- Will consider venting G-tube by IR next week if appropriate -Patient transitioned to comfort measures only. Poor prognosis Continue comfort measures/medications Plan to discharge home with home hospice today Acute kidney injury Hypomagnesemia Likely multifactorial Appreciate nephrology input Received IV fluid Transitioned to comfort measures only Hypokalemia, Hypocalcemia, Hypomagnesemia, hyponatremia Secondary to poor oral intake CODE STATUS DNI/DNR Disposition Home with home hospice Total Time Total Time Spent Total Time Spent (In Minutes): 53 minutes Discharge Plan Discharge Items Patient Disposition: Hospice - Home Reason For Visit: SBO, HYPOCALCEMIA Discharge Diagnosis: Small bowel obstruction Metastatic pancreatic cancer Acute kidney injury Electrolyte abnormalities Activity: Per Instructions section Exercise/Sports: Wait until after follow-up appointment Non-emergency contact: Primary Care Provider Call non-emergency contact if: you have any medication questions, your symptoms worsen, your pain is concerning for you and you have a fever Follow-up/Referrals: Sherwin Painter MD [Primary Care Provider] - Diet: Regular Addtl Attending Provider Instructions: Follow-up with your hospice physician on discharge as advised. Seek immediate medical attention if your symptoms reoccur or worsen Please take all medications as instructed on discharge list below. Please call if you have any questions or problems. You can reach a [facility] hospitalist on duty at [facility] 24 hours a day by calling [phone] Pending Studies at Discharge: No Stand-Alone Forms: My [facility] Medications and DC Order Prescriptions: Continued potassium chloride 10 mEq tablet extended release 40 meq PO TID Rx Instructions: Per patient she was only able to take 20meq today. Discharge Orders: Discharge Order (Routine); Ordered 05/17/24 Ordered By: Memo Humphreys Admission Data Admit Date/Time: 05/13/24 18:17 Attending Provider: Memo Humphreys Admit Provider: Olvin Alfred Primary Care Provider: Sherwin Painter Other Providers: Olvin Alfred; Lola Daily; Raphael Mcgill; Geoffrey Paez; Mahi Maloney; Funmi To; Willie Miller; Tawnya Rodriguez; Yovanny Norris; Steffen Pak; Mela Do; Fernanda Marx; Sheila Gaytan; Yun Burnett; Hosea Marquez; Jason Atkinson; Nelda Malagon; Carlos Manuel Gayle S; Ale Mckeon; Janiya Noble; Alexandra Edwards; Indu Sagastume; Sydney Rose; Jose Angel Berumen; Jaimie Rashid; Lexie Weeks Jr; Addy Calzada; Rinku Kitchen; Alex Trinh; Robbie Sosa; Lore Teixeira; Ramiro Mccall I; Rakel Avery; Ata Kwan; Christiano Castro; [facility] Other Interventions: Discharge Summary Assessment (RN) Last Done: 05/17/24 10:19
== END 2024-05-17 10:42 | disposition hospice, home (50) | DRG 683 ==
LOC: ED 15:46 → 4W 18:17 → SUATTDRO 18:17 → 4W 20:47 → 3E 05-14 22:07